=== PATIENT | female | born 1935 | race Caucasian/White ===

== ENCOUNTER → 2016-06-27 | Outpatient (CLI) | payer MEDICARE ==
[~2016-06-27] MED LIST: ACET-2267 PO; ACET325T49 PO; ACLI400A IH; ALBU18HF2 INH; ALBU2.5V4 NEB; ALBUNEBRX IH; ALLO100T PO; ARFO15VI2 IH; ASCO500T20 PO; ASP81CT; ASP81CT PO; ASPI-892 PO; ASPI-983 PO; ASPI-999 PO; ATEN-156 PO; ATEN25TA PO; ATN50T; ATOR20TA66 PO; BONIVA 150MG; BUDE0.5A INH; BUDE0.5A NEB; C250T; CALC-760 PO; CALC-80 PO; CEFP500T4 PO; CEPH500C PO; CHLS4PK PO; CHOL20002 PO; CHOL4PAC19 PO; CILO100T PO; CILO50TA PO; CITA20TA7 PO; CLD600T; CLOP75TA PO; COLC0.6T7 PO; CORICIDIN PC; CRAN500C4 PO; DCS100C PO; DEXT15DR23 OU; DILT120C82 PO; DILT120C85 PO; DLT120CCR PO; DOCU100C37 PO; DOCU100T7 PO; DOXY100T2 PO; ENAL10TA PO; ENLP10T PO; ENOX80DI12 SQ; ENOX80DI7 SC; ENXP40I.4 SC; EZET10TA5 PO; EZET1TAB36 PO; FISH1CAP15 PO; FRSM40T; FRSM40T PO; FURO40TA4 PO; GLIM4TAB; GLIM4TAB PO; GLMP2T PO; GNT.3OO351 OU; INSU100V16 SC; INSU100V5 SQ; IPRA3AMP IH; IPRA3AMP INH; IPRA3AMP NEB; IPRA4AER INH; LACT20SO2 PO; LEVO25TA3 PO; LEVO25TA5 PO; LOVA20TA2 PO; LVT.025T PO; MAGN400C PO; MAGN400T6 PO; MULT-608; MULT1CAP27 PO; MULT1TAB63; NABU750T PO; NABUMETONE 500 MG PO; NABUMETONE PO; NIAC100045 PO; NIAC1CAP PO; NITR-65 PO; NITR0.4T39 SL; NTR.4SL SL; NYST1000 PO; OMEG-11 PO; OMEG-12 PO; OMEP-10; OMEP20TA2 PO; OMEP40CA36 PO; OMG1KC; OXYC-12 PO; PNT40TEC PO; POTA10CA43 PO; POTA10TA36 PO; PRD10T PO; PRD20T PO; SALI45SP MM; SENN1TAB27; STOOL SOFTENER PO; SUCR1TAB PO; Sucralfate PO; TIOT18CA2 IH; VYTORIN 10/40; WARF-48 PO; WARF10TA4 PO; WARF5TAB PO; WARF5TAB6 PO; WARF7.5T PO; WARF7.5T49 PO; WRF10T PO; WRF5T; WRF5T PO; [UNRECOGNIZED DRUG - CODE] PO; [UNRECOGNIZED DRUG - OTHER]; [UNRECOGNIZED DRUG - OTHER]
--- NOTE | 2016-06-27 13:46 | Diagnostic Imaging Report ---
INDICATION: Respiratory distress. EXAMINATION: PA and lateral chest. FINDINGS: There are postop changes from valve repair surgery. Heart size and pulmonary vascularity are normal. Lungs are clear. There are no effusions or pneumothoraces. IMPRESSION: No acute abnormalities in the chest. Dictated by: Dictated on workstation # [id number]
== END ==
LOC: RAD 13:27
PROVIDERS: ATTEND Internal Medicine
DX: J44.9 Chronic obstructive pulmonary disease, unspecified (principal)
CPT/HCPCS: 71020

== ENCOUNTER 2016-07-10 08:22 | Observation (INO) | payer MEDICARE ==
[~2016-07-10] VITALS: Ht 167.6 cm; Wt 73.7 kg
[~2016-07-10 08:22] MED LIST changes: -ACET-2267 PO; -ALBU18HF2 INH; -ALBU2.5V4 NEB; -ASPI-983 PO; -CHOL20002 PO; -CITA20TA7 PO; -CRAN500C4 PO; -GNT.3OO351 OU; -IPRA3AMP NEB; -NITR0.4T39 SL
--- NOTE | 2016-07-10 08:31 | ED General ---
General Stated Complaint: POST OP BLEEDING Source of Information: Patient, EMS History of Present Illness Time Seen by Provider: 08:18 Initial Comments PT ARRIVES VIA EMS FROM HOME PT HAD BLEPHAROPLASTY YESTERDAY AT [address] SAMUEL IN [facility] PT BEGAN HAVING BLEEDING FROM THE INCISIONS ON THE WAY HOME FROM SURGERY YESTERDAY AND BLEEDING HAS CONTINUED ALL NIGHT AND EYES ARE NOW MATTED SHUT WITH DRIED BLOOD--HAS NOT ATTEMPTED TO CLEAN THEM AT ALL AT ANY TIME PT HAS NOT ATTEMPTED TO CONTACT DR. SAMUEL PT TAKES COUMADIN FOR VALVE REPLACEMENT--DID NOT TAKE ANY ON FRIDAY OR FRIDAY, AND TOOK 1/2 PILL LAST PM--HAS BEEN QUITE SOME TIME SINCE SHE HAD PROTIME CHECKED--NOT SURE WHEN SHE LAST HAD IT CHECKED. STATES DR. QUISPE MANAGES HIS COUMADIN. NO RECENT DOSE INCREASES PRIOR TO SURGERY NO SIGNIFICANT PAIN FROM SURGERY PCP: DR. QUISPE WRAPPER AND PRESERVER: DR. CALLOWAY Allergies and Home Medications Allergies Coded Allergies: codeine (Verified Allergy, Unknown, PT HAS REC MORPHINE WITHOUT PROBLEMS, 12/25/15) cortisone (Verified Allergy, Unknown, 12/25/15) tramadol (Verified Allergy, Unknown, 12/25/15) Home Medications Acetaminophen 325 Mg Tablet, 650 MG PO Q6HR PRN for MILD PAIN for 30 Days Prescribed by: JARROD SPENCE on 11/27/15 1007 Aclidinium [place] 400 Mcg Aer.pow.ba, 1 PUFF IH BID, (Reported) Allopurinol 100 Mg Tablet, 100 MG PO BID, (Reported) Ascorbic Acid 500 Mg Tablet, 500 MG PO BID, (Reported) Aspirin 81 Mg Tab.chew, 81 MG PO DAILY, #30 Prescribed by: ANJANA JOHNS on 01/09/16 0752 Atenolol 25 Mg Tablet, 25 MG PO HS, (Reported) Atorvastatin Calcium 20 Mg Tablet, 20 MG PO HS, (Reported) Budesonide 0.5 Mg/2 Ml Ampul.neb, 0.5 MG IH BID, (Reported) Dextran 70/Hypromellose 15 Ml Drops, 1 DROP OU QID PRN for DRY EYES, (Reported) Diltiazem HCl 120 Mg Capsule.er, 120 MG PO DAILY, (Reported) Docusate Sodium 100 Mg Capsule, 100 MG PO DAILY PRN for CONSTIPATION, (Reported) Enalapril Maleate 10 Mg Tablet, 10 MG PO DAILY, (Reported) Furosemide 40 Mg Tablet, 60 MG PO DAILY, (Reported) TAKES 1 & 1/2 (40MG) TABLET Glimepiride 4 Mg Tablet, 4 MG PO DAILY, (Reported) Ipratropium/Albuterol Sulfate 3 Ml Ampul.neb, 3 ML IH BID, (Reported) Levothyroxine Sodium 25 Mcg Tablet, 25 MCG PO DAILY, (Reported) Nabumetone 750 Mg Tablet, 750 MG PO BID, (Reported) Nitrofurantoin Monohyd/M-Cryst 100 Mg Capsule, 1 TAB PO BID, #10 Prescribed by: ANJANA JOHNS on 01/09/162122 Omeprazole 40 Mg Capsule.dr, 40 MG PO DAILY, (Reported) Potassium Chloride 10 Meq Capsule.er, 10 MEQ PO DAILY, (Reported) Warfarin Sodium 5 Mg Tablet, 5 MG PO UD, #30 Mon,Tues,Wed,Thurs,Fri Prescribed by: OBED COLLIER on 01/09/16842 Warfarin Sodium 7.5 Mg Tablet, 7.5 MG PO UD, #30 Sat,Sun Prescribed by: OBED COLLIER on 01/09/16842 Constitutional: no symptoms reported EENTM: see HPI Skin: other Psychiatric/Neurological: No Symptoms Reported Hematologic/Lymphatic: See HPI, Easy Bleeding, Easy Bruising Past Pjefkwr-Pqvaqv-Ningxa Hx Patient Social History Smoking Status: Former Smoker Type Used: Cigarettes Former Smoker/When Quit: Mar 03, 2000 Recent Hopitalizations: Yes Immunizations Up To Date Tetanus Booster (TDap): Unknown Date of Pneumonia Vaccine: Aug 22, 2015 Date of Influenza Vaccine: Dec 25, 2015 Seasonal Allergies Seasonal Allergies: No Surgeries HX Surgeries: Yes (RT HIP, HEART VALVE REPLACEMENT; BILATERAL BLEPHAROPLASTY -DR. SAMUEL) Surgeries: Coronary Stent, Orthopedic, Tonsillectomy, Tubal Ligation, Valve Replacement, Vascular Surgery Respiratory Hx Respiratory Disorders: Yes Respiratory Disorders: Pneumonia, COPD Cardiovascular Hx Cardiac Disorders: Yes Cardiac Disorders: Atrial Fibrillation, Coronary Artery Disease, High Cholesterol, Hypertension, Valvular Heart Disease Neurological Hx Neurological Disorders: Yes Neurological Disorders: Headaches /Migraines, TIA Reproductive System Hx Reproductive Disorders: No Sexually Transmitted Disease: No HIV/AIDS: No Female Reproductive Disorders: Denies Genitourinary Hx Genitourinary Disorders: Yes Genitourinary Disorders: Kidney Infection, UTI-Chronic Gastrointestinal Hx Gastrointestinal Disorders: Yes Gastrointestinal Disorders: Gastroesophageal Reflux, Gastrointestinal Bleed, Hemorrhoids Musculoskeletal Hx Musculoskeletal Disorders: Yes Musculoskeletal Disorders: Arthritis Endocrine Hx Endocrine Disorders: Yes Endocrine Disorders: Hypothyroidsim, Diabetes, Non-Insulin dep HEENT HX ENT Disorders: Yes (BILATERAL BLEPHAROPLASTY) HEENT Disorders: Cataract Cancer Hx Cancer: No Psychosocial Hx Psychiatric Problems: No Integumentary HX Skin/Integumentary Disorder: No Blood Transfusions Hx Blood Disorders: Yes (ANEMIA--ON COUMADIN) Adverse Reaction to a Blood Tr: No Family Medical History Significant Family History: No Pertinent Family Hx Family Medial History: Patient reports no known family medical history. Physical Exam Vital Signs Vital Sign - Last 12Hours 07/10/16 08:25 Temp 97.9 Pulse 80 Resp 16 B/P (MAP) 181/93 Pulse Ox 96 O2 Delivery Room Air Capillary Refill : General Appearance: No Apparent Distress, WD/WN, Other (DRIED BLOOD ON CLOTHING , ON FACE, AND DOWN NECK. BOTH EYES MATTED SHUT WITH DRIED BLOOD, WITH MILD CONSTANT OOZING FROM SURGICAL WOUNDS TO UPPER LIDS-RIGHT > LEFT. WOUNDS APPEAR INTACT. ) HEENT: Other (BILATERAL PERIORBITAL HEMATOMAS. CONJUNCTIVA CLEAR BILATERALLY .SURGICAL WOUNDS TO UPPER LIDS BILATERALLY. ) Neurologic/Psychiatric: Alert, Oriented x3 Skin: Normal Color, Warm/Dry, Ecchymosis (BRUISING TO FOREARMS AND LEGS OF VARIOUS AGES, MODERATE BILATERAL PERIORBITAL HEMATOMAS) Progress/Results/Core Measures Results/Orders Lab Results Laboratory Tests Test 07/10/16 08:25 Range/Units White Blood Count 6.9 4.3-11.0 10^3/uL Red Blood Count 3.79 L 4.35-5.85 10^6/uL Hemoglobin 11.9 11.5-16.0 G/DL Hematocrit 36 35-52 % Mean Corpuscular Volume 95 80-99 FL Mean Corpuscular Hemoglobin 31 25-34 PG Mean Corpuscular Hemoglobin Concent 33 32-36 G/DL Red Cell Distribution Width 14.6 H 10.0-14.5 % Platelet Count 226 130-400 10^3/uL Mean Platelet Volume 11.0 H 7.4-10.4 FL Neutrophils (%) (Auto) 67 42-75 % Lymphocytes (%) (Auto) 19 12-44 % Monocytes (%) (Auto) 7 0-12 % Eosinophils (%) (Auto) 6 0-10 % Basophils (%) (Auto) 1 0-10 % Neutrophils # (Auto) 4.6 1.8-7.8 X 10^3 Lymphocytes # (Auto) 1.3 1.0-4.0 X 10^3 Monocytes # (Auto) 0.5 0.0-1.0 X 10^3 Eosinophils # (Auto) 0.4 H 0.0-0.3 10^3/uL Basophils # (Auto) 0.1 0.0-0.1 10^3/uL Prothrombin Time 87.5 *H 12.2-14.7 SEC INR Comment 11.0 *H 0.8-1.4 Activated Partial Thromboplast Time 67 H 24-35 SEC Sodium Level 133 L 135-145 MMOL/L Potassium Level 5.1 H 3.6-5.0 MMOL/L Chloride Level 98 98-107 MMOL/L Carbon Dioxide Level 22 21-32 MMOL/L Anion Gap 13 5-14 MMOL/L Blood Urea Nitrogen 32 H 7-18 MG/DL Creatinine 1.65 H 0.60-1.30 MG/DL Estimat Glomerular Filtration Rate 30 BUN/Creatinine Ratio 19 Glucose Level 134 H 70-105 MG/DL Calcium Level 9.3 8.5-10.1 MG/DL Total Bilirubin 0.4 0.1-1.0 MG/DL Aspartate Amino Transf (AST/SGOT) 28 5-34 U/L Alanine Aminotransferase (ALT/SGPT) 26 0-55 U/L Alkaline Phosphatase 53 40-136 U/L Total Protein 6.6 6.4-8.2 G/DL Albumin 3.5 3.2-4.5 G/DL My Orders Orders - LARRY GREGORIO DO Cbc With Automated Diff (07/10/16 08:24) Protime With Inr (07/10/16 08:24) Partial Thromboplastin Time (07/10/16 08:24) Comprehensive Metabolic Panel (07/10/16 09:02) Phytonadione (Adult) Injection (Aquameph (07/10/16 09:15) Vital Signs/I&O Vital Sign - Last 12Hours 07/10/16 07/10/16 07/10/16 08:25 09:41 10:16 Temp 97.9 97.9 96.8 Pulse 80 80 95 Resp 16 16 20 B/P (MAP) 181/93 128/72 Pulse Ox 96 96 93 O2 Delivery Room Air Room Air Departure Communication Progress Notes 08--ATTEMPTING TO CONTACT DR. SMAUEL--MESSAGE LEFT WITH OFFICE STAFF FOR HIM TO CALL ER [phone]-PAGED/ SPOKE WITH DR. CALLOWAY--HE DEFERS TO HOSPITALIST FOR MANAGEMENT OF ANTICOAGULATION/REVERSAL 900--SPOKE WITH DR HEADLEY, ACCEPTS PT FOR ADMIT, AFTER SURGEON IS CONSULTED, SHE ADVISES TO GIVE VITAMIN K 10 MG SUB Q 914--SPOKE WITH DR. SAMUEL, HE DOES NOT ADVISE ANY OTHER TREATMENT OF WOUNDS AT THIS TIME, BUT HE WILL SEE PT IN CONSULT LATER TODAY. Impression Impression: Primary Impression: Post-op bleeding Additional Impressions: Excessive anticoagulation S/p bilateral blepharoplasty Disposition: ADMITTED INPATIENT Condition: Stable Decision to Admit Reason: Admit from ER (General) Decision to Admit/Date: July 10, 2016 Time/Decision to Admit Time: 09:00 Departure-Patient Inst. Referrals: SEDRICK QUISPE DO (PCP/Family) Primary Care Physician LARRY GREGORIO DO July 10, 2016 08:31
[2016-07-10 08:33] LABS: BASOPHILS # (AUTO) 0.1 10^3/uL (0.0-0.1); BASOPHILS % (AUTO) 1 % (0-10); EOSINOPHILS # (AUTO) 0.4 10^3/uL (0.0-0.3); EOSINOPHILS % (AUTO) 6 % (0-10); LYMPHOCYTES # (AUTO) 1.3 X 10^3 (1.0-4.0); LYMPHOCYTES % (AUTO) 19 % (12-44); MEAN CORPUSCULAR HEMOGLOBIN 31 PG (25-34); MEAN CORPUSCULAR HGB CONC 33 G/DL (32-36); MEAN CORPUSCULAR VOLUME 95 FL (80-99); MONOCYTES # (AUTO) 0.5 X 10^3 (0.0-1.0); MONOCYTES % (AUTO) 7 % (0-12); NEUTROPHILS # (AUTO) 4.6 X 10^3 (1.8-7.8); NEUTROPHILS % (AUTO) 67 % (42-75); PLATELET COUNT 226 10^3/uL (130-400); RED BLOOD COUNT 3.79 10^6/uL (4.35-5.85); RED CELL DISTRIBUTION WIDTH 14.6 % (10.0-14.5); WHITE BLOOD COUNT 6.9 10^3/uL (4.3-11.0)
[2016-07-10 08:55] LABS: PROTHROMBIN TIME PATIENT 87.5 SEC (12.2-14.7)
[2016-07-10] MEDS ORDERED: PHYTONADIONE (VIT. K) 10 MG/ML AMP SQ ONE (09:15)
[2016-07-10 10:16] VITALS: BP 128/72
--- NOTE | 2016-07-10 10:33 | History & Physical-Hospitalist ---
HPI History of Present Illness: HPI/Chief Complaint CC: Bleeding from eyes following blepharoplasty by Dr. Samuel yesterday HPI: This is an 80-year-old white female clinic patient of Dr. 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 Her INR in the ER was noted to be 11 and she had held her Coumadin for the past 2 days so vitamin K was given due to the severity of the bleeding and will be closely monitoring hemoglobin and Dr. Samuel was notified and he will see the patient in consultation today. I did check with primary care provider office and her last INR was checked 06/17/16 and it was 3.2. She reports that she doesn't get her INR checked very often but that is confusing considering I just spoke to the office of Dr. Cano and they have monthly INR checks. At this current time we'll monitor closely INR supportive care and will monitor hemoglobin closely. Source: patient Exam Limitations: no limitations Date Seen 07/10/16 Attending Physician Mary Spence DO PCP Shin Cano DO Referring Physician Date of Admission July 10, 2016 at 09:00 Home Medications & Allergies Home Medications Reviewed patient Home Medication Reconciliation Form Allergies Allergies Coded Allergies codeine (Verified Allergy, Unknown, PT HAS REC MORPHINE WITHOUT PROBLEMS, ) cortisone (Verified Allergy, Unknown, 12/25/15) tramadol (Verified Allergy, Unknown, 12/25/15) Past Viqvrrq-Packyx-[place] Hx Patient Social History Marrital Status: Employed/Student: retired Alcohol Use: Denies Use Recreational Drug Use: No Smoking Status: Former Smoker Former smoker/When Quit: Mar 03, 2000 Type Used: Cigarettes 2nd Hand Smoke Exposure: No Recent Foreign Travel: No Contact w/other who traveled: No Recent Hopitalizations: Yes Recent Infectious Disease Expo: No Immunizations Up To Date Tetanus Booster (TDap): Unknown Date of Pneumonia Vaccine: Aug 22, 2015 Date of Influenza Vaccine: Dec 25, 2015 Seasonal Allergies Seasonal Allergies: No Surgeries HX Surgeries: Yes (RT HIP, HEART VALVE REPLACEMENT; BILATERAL BLEPHAROPLASTY -DR. SAMUEL) Surgeries: Coronary Stent, Orthopedic, Tonsillectomy, Tubal Ligation, Valve Replacement, Vascular Surgery Respiratory Hx Respiratory Disorders: Yes Respiratory Disorders: Chronic Bronchitis, COPD (wears O2 at night), Pneumonia Cardiovascular Hx Cardiovascular Disorders: Yes Cardiac Disorders: Atrial Fibrillation, Coronary Artery Disease, High Cholesterol, Hypertension, Valvular Heart Disease Neurological Hx Neurological Disorders: Yes Neurological Disorders: Headaches /Migraines, TIA Reproductive System Hx Reproductive Disorders: No Sexually Transmitted Disease: No HIV/AIDS: No Female Reproductive Disorders: Denies Genitourinary Hx Genitourinary Disorders: Yes Genitourinary Disorders: Kidney Infection, UTI-Chronic Gastrointestinal Hx Gastrointestinal Disorders: Yes Gastrointestinal Disorders: Gastroesophageal Reflux, Gastrointestinal Bleed, Hemorrhoids Musculoskeletal Hx Musculoskeletal Disorders: Yes Musculoskeletal Disorders: Arthritis Endocrine Hx Endocrine Disorders: Yes Endocrine Disorders: Hypothyroidsim, Diabetes, Non-Insulin dep HEENT HX ENT Disorders: Yes (BILATERAL BLEPHAROPLASTY) HEENT Disorders: Cataract Cancer Hx Cancer: No Psychosocial Hx Psychiatric Problems: No Integumentary HX Skin/Integumentary Disorder: No Blood Transfusions Hx Blood Disorders: Yes (ANEMIA--ON COUMADIN) Adverse Reaction to a Blood Tr: No Family Medical History Significant Family History: No Pertinent Family Hx Family Hx: Patient reports no known family medical history. Review of Systems Constitutional: see HPI EENTM: eye pain, other (bleeding from eyes) Respiratory: no symptoms reported Cardiovascular: no symptoms reported Genitourinary: no symptoms reported Musculoskeletal: no symptoms reported Skin: no symptoms reported Psychiatric/Neurological: No Symptoms Reported All Other Systems Reviewed Negative Unless Noted: Yes Physical Exam Physical Exam Vital Signs Vital Sign - Last 12Hours 07/10/16 08:25 Temp 97.9 Pulse 80 Resp 16 B/P (MAP) 181/93 Pulse Ox 96 O2 Delivery Room Air Capillary Refill : Less Than 3 Seconds General Appearance: No Apparent Distress, WD/WN, Chronically ill Eyes: Bilateral Eye Normal Inspection (crusted bleeding around eyes), Bilateral Eye PERRL (crusted bleeding around eyes) HEENT: PERRL/EOMI, Normal ENT Inspection, Pharynx Normal Neck: Full Range of Motion, Normal Inspection, Non Tender, Supple, Carotid Bruit Respiratory: Chest Non Tender, Lungs Clear, Normal Breath Sounds, No Accessory Muscle Use, No Respiratory Distress Cardiovascular: No Edema, No Gallop, No JVD, Normal Peripheral Pulses, Systolic Murmur, Irregularly Irregular Gastrointestinal: Normal Bowel Sounds, No Organomegaly, No Pulsatile Mass, Non Tender, Soft Back: Normal Inspection, No CVA Tenderness, No Vertebral Tenderness Extremity: Normal Capillary Refill, Normal Inspection, Normal Range of Motion, Non Tender, No Calf Tenderness, No Pedal Edema Neurologic/Psychiatric: Alert, Oriented x3, No Motor/Sensory Deficits, Depressed Affect Skin: Normal Color, Warm/Dry Lymphatic: No Adenopathy Results Results/Procedures Lab Laboratory Tests 07/10/16 08:25 Assessment/Plan Admission Diagnosis Assessment: Profuse eye tissue bleeding due to severe coagulopathy due to Coumadin with INR of 11 status post blepharoplasty by Dr. Samuel yesterday History of valve replacement on Coumadin Prior CVA due to subtherapeutic Coumadin level requiring rehabilitation COPD worse oxygen at night Poor memory recall SAMMY DM Assessment and Plan Plan: Monitor INR Vitamin K given Dr. Samuel consultation appreciated MARY SPENCE DO July 10, 2016 10:33
[2016-07-10 10:36] LABS: ALBUMIN 3.5 G/DL (3.2-4.5); BILIRUBIN,TOTAL 0.4 MG/DL (0.1-1.0); CALCIUM 9.3 MG/DL (8.5-10.1); CREATININE SERUM 1.65 MG/DL (0.60-1.30); TOTAL PROTEIN 6.6 G/DL (6.4-8.2)
[2016-07-10 10:37] LABS: POTASSIUM 5.1 MMOL/L (3.6-5.0)
--- NOTE | 2016-07-10 10:53 | Consultation-Cardiology ---
HPI-Cardiology Cardiology Consultation: Date of Consultation 07/10/16 Date of Admission 07-10-16 Attending Physician Mary Bernal DO Admitting Physician Shin Cano DO Consulting Physician Oz Estrella MD HPI: Chief Complaint: Supra therapeutic INR Ms. Lion is an 80year old female admitted to [facility]. She reports she had eyelid surgery yesterday by Dr. Anderson in [facility]. She reports that she began to have bleeding at the surgical sites while on the way home and she was unable to get the bleeding to stop. She reports the bleeding of her eyelids continues. She states she continues to follow with Dr. Cano regarding her pro-time, but does admit it has been some time since her last check. She reports it was checked last month and the level was "good". She is not reporting any chest pain, SOB, palpitations. Review of Systems-Cardiology Review of Systems Constitutional: As described under HPI Eyes: No blurred vision, No drainage, No pain, other (Bleeding at post surgical following eyelid surgery), No vision change Ears/Nose/Throat: No ear discharge, No ear pain, No nasal drainage, No ulcerations Respiratory: As described under HPI Cardiovascular: As described under HPI Gastrointestinal: No constipation, No diarrhea, No nausea, No vomiting, No stool coloration changes Genitourinary: No dysuria, No discharge, No frequency, No hematuria, No urgency Skin: No rash, No skin related problems, No ulcerations Psychiatric/Neurological: No anxiety, No depression, No focal weakness, No seizure, No syncope Hematologic: No bleeding abnormalities All Other Systems Reviewed Negative Unless Noted: Yes [id number] Hx Patient Social History Marrital Status: Employed/Student: retired Alcohol Use: Denies Use Recreational Drug Use: No Smoking Status: Former Smoker Former smoker/When Quit: Mar 03, 2000 Type Used: Cigarettes 2nd Hand Smoke Exposure: No Recent Foreign Travel: No Recent Infectious Disease Expo: No Hospitalization with Isolation: Denies Immunizations Up To Date Tetanus Booster (TDap): Unknown Date of Pneumonia Vaccine: Aug 22, 2015 Date of Influenza Vaccine: Dec 25, 2015 Past Medical History PMH As described under Assessment. Family Medical History Family History: Patient reports no known family medical history. Allergies and Home Medications Allergies Coded Allergies: codeine (Verified Allergy, Unknown, PT HAS REC MORPHINE WITHOUT PROBLEMS, 12/25/15) cortisone (Verified Allergy, Unknown, 12/25/15) tramadol (Verified Allergy, Unknown, 12/25/15) Home Medications Acetaminophen 500 Mg Tablet, 1,000 MG PO Q4H PRN for PAIN-MILD, (Reported) Aclidinium [place] 400 Mcg Aer.pow.ba, 1 PUFF IH BID, (Reported) Albuterol Sulfate 2.5 Mg/3 Ml Vial.neb, 2.5 MG NEB HS, (Reported) Albuterol Sulfate 18 Gm Hfa.aer.ad, 2 PUFF INH Q4H PRN for SHORTNESS OF BREATH, (Reported) Allopurinol 100 Mg Tablet, 100 MG PO BID, (Reported) Ascorbic Acid 500 Mg Tablet, 500 MG PO BID, (Reported) Aspirin 81 Mg Tablet.dr, 81 MG PO DAILY, (Reported) Atenolol 25 Mg Tablet, 25 MG PO HS, (Reported) Atorvastatin Calcium 20 Mg Tablet, 20 MG PO HS, (Reported) Budesonide 0.5 Mg/2 Ml Ampul.neb, 0.5 MG NEB 0800,1600, (Reported) Cholecalciferol (Vitamin D3) 2,000 Unit Capsule, 2,000 UNIT PO DAILY, (Reported) Citalopram Hydrobromide 20 Mg Tablet, 20 MG PO HS, (Reported) Cranberry Extract 500 Mg Capsule, 500 MG PO DAILY, (Reported) Dextran 70/Hypromellose 15 Ml Drops, 1 DROP OU QID PRN for DRY EYES, (Reported) Diltiazem HCl 120 Mg Capsule.er, 120 MG PO DAILY, (Reported) Docusate Sodium 100 Mg Capsule, 100 MG PO DAILY PRN for CONSTIPATION, (Reported) Enalapril Maleate 10 Mg Tablet, 10 MG PO DAILY, (Reported) Furosemide 40 Mg Tablet, 60 MG PO DAILY, (Reported) TAKES 1 & 1/2 (40MG) TABLET Gentamicin Sulfate 3.5 Gm Oint...g., OU DAILY, (Reported) APPLY TO UPPER EYE LIDS Glimepiride 4 Mg Tablet, 4 MG PO DAILY, (Reported) Levothyroxine Sodium 25 Mcg Tablet, 25 MCG PO DAILY, (Reported) Nabumetone 750 Mg Tablet, 750 MG PO BID, (Reported) Nitroglycerin 0.4 Mg Tab.subl, 0.4 MG SL UD PRN for CHEST PAIN, (Reported) Omeprazole 40 Mg Capsule.dr, 40 MG PO DAILY, (Reported) Potassium Chloride 10 Meq Capsule.er, 10 MEQ PO DAILY, (Reported) Warfarin Sodium 5 Mg Tablet, 10 MG PO Q48H, (Reported) Warfarin Sodium 5 Mg Tablet, 7.5 MG PO Q48H, (Reported) Physical Exam-Cardiology Physical Exam Vital Signs/I&O Vital Sign - Last 12Hours 07/10/16 07/10/16 07/10/16 08:25 09:41 10:16 Temp 97.9 97.9 96.8 Pulse 80 80 95 Resp 16 16 20 B/P (MAP) 181/93 128/72 Pulse Ox 96 96 93 O2 Delivery Room Air Room Air Capillary Refill : Less Than 3 Seconds Constitutional: AAO x 3, well-developed, well-nourished HEENT: other (Dressing applied to bilat eyes; visible blood seen on the dressing; dressing not removed), hearing is well preserved, oral hygience is good, No ulceration Neck: No carotid bruit, carotid pulses are 2 + bilaterally Respiratory: No accessory muscle use, No respiratory distress, chest expansion is symmetric, chest is bilaterally symmetric, lungs clear to auscultation Cardiovascular: regular rate-rhythm, No JVD, S1 and S2, other (crisp, mechanical valve sound) Gastrointestinal: No tender, soft, round Rectal: deferred Extremities: no lower extremity edema bilateral Neurologic/Psychiatric: power is 5/5 both on sides Skin: other (brusing noted to thighs and toes bilat) Data Review Labs Laboratory Tests 07/10/16 08:25: White Blood Count 6.9, Red Blood Count 3.79L, Hemoglobin 11.9, Hematocrit 36, Mean Corpuscular Volume 95, Mean Corpuscular Hemoglobin 31, Mean Corpuscular Hemoglobin Concent 33, Red Cell Distribution Width 14.6H, Platelet Count 226, Mean Platelet Volume 11.0H, Neutrophils (%) (Auto) 67, Lymphocytes (%) (Auto) 19 , Monocytes (%) (Auto) 7, Eosinophils (%) (Auto) 6, Basophils (%) (Auto) 1, Neutrophils # (Auto) 4.6, Lymphocytes # (Auto) 1.3, Monocytes # (Auto) 0.5, Eosinophils # (Auto) 0.4H, Basophils # (Auto) 0.1, Prothrombin Time 87.5*H, INR Comment 11.0*H, Activated Partial Thromboplast Time 67H, Sodium Level 133L, Potassium Level 5.1H, Chloride Level 98, Carbon Dioxide Level 22, Anion Gap 13, Blood Urea Nitrogen 32H, Creatinine 1.65H, Estimat Glomerular Filtration Rate 30 , BUN/Creatinine Ratio 19, Glucose Level 134H, Calcium Level 9.3, Total Bilirubin 0.4, Aspartate Amino Transf (AST/SGOT) 28, Alanine Aminotransferase ( ALT/SGPT) 26, Alkaline Phosphatase 53, Total Protein 6.6, Albumin 3.5 07/10/16 12:21: Prothrombin Time 76.2*H, INR Comment 9.2*H, Activated Partial Thromboplast Time 66H A/P-Cardiology Assessment/Admission Diagnosis Supra-therapeutic INR S/P bilat eyelid surgery d/t ptosis by Dr. Buckner on 07-09-16 Chronic warfarin anticoagulation, managed by Dr Cano CVA: L-sided weakness and L-visual field cut in Dec 2015. 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 She has undergone bilateral kissing stents of both common iliacs and extensive balloon angioplasty and stenting of the R SFA by Dr Loaiza on 12/31/13. Subsequently, on 01/07/14, Dr Loaiza did stenting of L SFA and successful balloon angioplasty of L peroneal and L anterior tibial arteries, but angioplasty to chronic occlusion of L posterior tibial was unsuccessful and resulted in subintimal dissection, continue to monitor Chronic sinus tachycardia which has improved following reduction in Albuterol Obstructive sleep apnea: CPAP therapy being managed by Dr. Payne. Cardiac cath of 06-24-2013 showed CAD, mild to moderate. Moderate mid vessel stenosis of the LAD with fractional flow reserve across the lesion of 0.95. Moderate mid vessel stenosis of the RCA with fractional flow reserve across the lesion of 0.95. Patent stents in the proximal left circumflex and the mid RCA which were placed in 2004 MPI of 07-18-15 did not indicate significant myocardial ischemia or infarction. Normal regional wall motion. Normal global LV systolic function with calculated ejection fraction of 69%. 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 The last echocardiogram was in November 2012. It showed adequately functioning aortic and mitral valves. Peak gradient across the aortic value was 21 mmHg, unchanged compared to the study of 2009. . Echocardiogram of December 2015 showed moderate concentric left ventricular hypertrophy. Normal global left ventricular systolic function with an ejection fraction of approximately 65%. Mechanical prosthetic aortic valve, by history, not well visualized on this study. Peak gradient across the aortic valve is approximately 55 mmHg and the aortic valve area is calculated to be approximately 1.2 sq cm. Mitral annular calcification without evidence of significant mitral stenosis. Diastolic dysfunction of the left ventricle is indicated on this study. Mild to moderate mitral and tricuspid regurgitation. Pulmonary artery systolic pressure is estimated to be 50 to 55 mmHg. Left internal carotid artery stenosis of 60-79%, right internal carotid artery stenosis of less thatn 40% per u/s of 05/17/16 Hyperlipidemia being treated with lovastatin and being followed by Dr. Cano. Heme-positive stools in Jan 2014. Diffuse erosive gastritis, hemorrhoids, diverticulitis, no active bleeding per endoscopy in Jan [address] Rodgers, treated with H2 angie, PPI and Carafate (managed by Dr Rodgers). Recurrent heme (+) stools in March 2014 - capsule endoscopy History of transient ischemic attacks. Borderline diabetes mellitus being managed by Dr. Cano. Right rotator cuff repair on 11/28/[address] Woodward due to a torn rotator cuff. Discussion and Recomendations Supra therapeutic INR today (11.0). She had bilat eyelid surgery yesterday by Dr. Buckner in [place], [place] d/t ptosis. She has had a significant amount of bleeding since surgery which they were unable to get stopped at home. She is on OAC d/t mechanical prosthetic aortic valve. Currently warfarin is being withheld and she has received Vit K. Monitor INR closely and resume warfarin when INR is less than 3.0. Continue home antihypertensives. Further recommendations will be based on he hospital course. We would like to thank the Hospitalist service for this consult. This consult is being scribed by Amari Jerry APRN on behalf of Dr. Estrella after discussion regarding plan of care. Physician Assessment Physician Assessment Lungs: good bilat air entry Cor: irreg, crisp heart valve sounds A&R * As documented in our note above * Complex management due to multiple comorbidities * Seems like she has not been compliant with INR f/u. Have advised compliance. Have request Soc Svces consult to help with home issues and help with compliance issues * I spoke with her and answered her questions in detail OBED JERRY [employer]ACE [employer]KER July 10, 2016 10:53 OZ ESTRELLA MD FACP FAC CCDS July 10, 2016 13:27
[2016-07-10 12:00] VITALS: BP 129/63
[2016-07-10] MEDS ORDERED: ACET-2267 PO (12:03)
[2016-07-10] MEDS ORDERED: NITR0.4T39 SL (12:03)
[2016-07-10] MEDS ORDERED: ALBU2.5V4 NEB (12:03)
[2016-07-10] MEDS ORDERED: ASPI-983 PO (12:03)
[2016-07-10] MEDS ORDERED: WARF-48 PO (12:03)
[2016-07-10] MEDS ORDERED: GNT.3OO351 OU (12:03)
[2016-07-10] MEDS ORDERED: CITA20TA7 PO (12:03)
[2016-07-10] MEDS ORDERED: CHOL20002 PO (12:10)
[2016-07-10] MEDS ORDERED: ALBU18HF2 INH (12:10)
[2016-07-10] MEDS ORDERED: CRAN500C4 PO (12:10)
[2016-07-10 12:56] LABS: PROTHROMBIN TIME PATIENT 76.2 SEC (12.2-14.7)
[2016-07-10 12:57] LABS: INR 9.2 (0.8-1.4)
[2016-07-10] MEDS ORDERED: NITROGLYCERIN SUBLINGUAL 0.4 MG TAB (NITROSTAT) SL PRN (13:45)
[2016-07-10] MEDS ORDERED: DOCUSATE SODIUM 100 MG (COLACE) CAP PO PRN ×2 (13:45→15:32)
[2016-07-10] MEDS ORDERED: RX-ALBUTEROL INHALER (VENTOLIN HFA) 18 GM IH PRN (13:45)
[2016-07-10] MEDS ORDERED: ACETAMINOPHEN 500 MG TAB (TYLENOL) PO PRN (13:45)
[2016-07-10] MEDS ORDERED: NON-FORMULARY MEDICATION 1 EA EA (Dextran 70/Hypromellose (Natural Balance Tears Eye Drop) OU PRN (13:45)
[2016-07-10] MEDS ORDERED: RT-ALBUTEROL SULF 2.5 MG/3 ML PRE-MIX VIAL IH PRN (14:00)
[2016-07-10] MEDS ORDERED: ARTIFICAL TEARS 0.4 ML UNIT DOSE (REFRESH PLUS) OU PRN (14:15)
[2016-07-10] MEDS ORDERED: PATIENT MAY USE OWN MEDS, ALL MC SCH (14:45)
--- NOTE | 2016-07-10 15:27 | Occ Therapy Progress Note ---
Therapy Progress Note Order received. Pt. asleep. Has bandages over eyes with seepage of blood. Will attempt back in morning as pt. is able to tolerate. 1, visit 1520 BIANCA CORRALES OT July 10, 2016 15:27
[2016-07-10] MEDS ORDERED: IPRA3AMP NEB (15:52)
[2016-07-10] MEDS ORDERED: ALBUTEROL INHALER HFA (VENTOLIN HFA) 18 GM IH PRN ×2 (16:00→16:15)
[2016-07-10] MEDS: RT-BUDESONIDE NEBS 0.5 MG/2ML (PULMICORT) AMP INH SCH ×2 (16:00→19:34)
[2016-07-10] MEDS: ASCORBIC ACID (VIT C) 500 MG TABLET PO SCH (18:12)
[2016-07-10] MEDS: RT-ALBUTEROL SULF 2.5 MG/3 ML PRE-MIX VIAL INH SCH (19:34)
[2016-07-10 20:35] VITALS: BP 118/62
[2016-07-10] MEDS ORDERED: ACLIDINIUM BROMIDE IH SCH (21:00)
[2016-07-10] MEDS: ALLOPURINOL 100 MG (ZYLOPRIM) TAB PO SCH (21:13)
[2016-07-10] MEDS: ATORVASTATIN 20 MG (LIPITOR) TABLET PO SCH (21:13)
[2016-07-10] MEDS: ATENOLOL 25 MG (TENORMIN) TAB PO SCH (21:14)
[2016-07-10] MEDS: NABUMETONE 750 MG PO SCH (21:14)
[2016-07-11 00:33] VITALS: BP 138/65
[2016-07-11 04:00] VITALS: BP 120/58
[2016-07-11 04:38] LABS: BASOPHILS # (AUTO) 0.1 10^3/uL (0.0-0.1); BASOPHILS % (AUTO) 1 % (0-10); EOSINOPHILS # (AUTO) 0.4 10^3/uL (0.0-0.3); EOSINOPHILS % (AUTO) 6 % (0-10); LYMPHOCYTES # (AUTO) 1.3 X 10^3 (1.0-4.0); LYMPHOCYTES % (AUTO) 20 % (12-44); MEAN CORPUSCULAR HEMOGLOBIN 31 PG (25-34); MEAN CORPUSCULAR HGB CONC 33 G/DL (32-36); MEAN CORPUSCULAR VOLUME 95 FL (80-99); MEAN PLATELET VOLUME 11.1 FL (7.4-10.4); MONOCYTES # (AUTO) 0.6 X 10^3 (0.0-1.0); MONOCYTES % (AUTO) 10 % (0-12); NEUTROPHILS # (AUTO) 4.1 X 10^3 (1.8-7.8); NEUTROPHILS % (AUTO) 64 % (42-75); PLATELET COUNT 232 10^3/uL (130-400); RED CELL DISTRIBUTION WIDTH 14.3 % (10.0-14.5); WHITE BLOOD COUNT 6.4 10^3/uL (4.3-11.0)
[2016-07-11 04:59] LABS: ALBUMIN 3.1 G/DL (3.2-4.5); BILIRUBIN,TOTAL 0.4 MG/DL (0.1-1.0); CALCIUM 9.4 MG/DL (8.5-10.1); CREATININE SERUM 1.19 MG/DL (0.60-1.30); POTASSIUM 4.7 MMOL/L (3.6-5.0); TOTAL PROTEIN 5.9 G/DL (6.4-8.2)
[2016-07-11 05:13] LABS: PROTHROMBIN TIME PATIENT 55.6 SEC (12.2-14.7)
[2016-07-11 05:14] LABS: INR 6.2 (0.8-1.4)
[2016-07-11] MEDS: LEVOTHYROXINE 25 MCG (LEVOTHROID) TAB PO SCH (06:53)
[2016-07-11] MEDS: OMEPRAZOLE 40 MG CAP PO SCH (06:54)
[2016-07-11] MEDS: KCL 10 MEQ PO SCH (07:39)
[2016-07-11] MEDS: GLIMEPIRIDE 4 MG (AMARYL) TAB PO SCH (07:39)
[2016-07-11] MEDS: ASCORBIC ACID (VIT C) 500 MG TABLET PO SCH ×2 (07:40→18:16)
[2016-07-11] MEDS: UMECLIDINIUM BROMIDE (INCRUSE ELLIPTA) 7'S IH SCH (07:43)
[2016-07-11] MEDS: RT-BUDESONIDE NEBS 0.5 MG/2ML (PULMICORT) AMP INH SCH ×3 (07:44→20:34)
[2016-07-11 07:55] VITALS: BP 118/59
[2016-07-11] MEDS ORDERED: NON-FORMULARY MEDICATION 1 EA EA (Cholecalciferol (Vitamin D3) (Vitamin D-3) 2,000 UNIT) PO SCH (09:00)
[2016-07-11] MEDS ORDERED: NON-FORMULARY MEDICATION 1 EA EA (Cranberry Extract (Cranberry) 500 MG) PO SCH (09:00)
[2016-07-11] MEDS ORDERED: NON-FORMULARY MEDICATION 1 EA EA (Diltiazem HCl (Diltiazem ER) 120 MG) PO SCH (09:00)
[2016-07-11] MEDS ORDERED: NON-FORMULARY MEDICATION 1 EA EA (Omeprazole 40 MG) PO SCH (09:00)
[2016-07-11] MEDS ORDERED: NON-FORMULARY MEDICATION 1 EA EA (Potassium Chloride 10 MEQ) PO SCH (09:00)
[2016-07-11] MEDS ORDERED: VITAMIN K 1 MG/ML ORAL SOLN 1 ML SYRINGE PO NR (10:07)
[2016-07-11] MEDS: ALLOPURINOL 100 MG (ZYLOPRIM) TAB PO SCH ×2 (10:32→21:12)
[2016-07-11] MEDS: ENALAPRIL 10 MG (VASOTEC) TAB PO SCH (10:32)
[2016-07-11] MEDS: NABUMETONE 750 MG PO SCH ×2 (10:33→21:08)
[2016-07-11] MEDS: DILTIAZEM 120 MG (CARDIZEM CD) CAP PO SCH (10:33)
[2016-07-11] MEDS: VITAMIN D3 2000 UNITS PO SCH (10:34)
[2016-07-11] MEDS: FUROSEMIDE 40 MG (LASIX) TAB PO SCH (10:34)
--- NOTE | 2016-07-11 10:41 | Progress Note-Hospitalist ---
Progress Note HPI/CC on Admission CC: Bleeding from eyes following blepharoplasty by Dr. Buckner yesterday HPI: This is an 80-year-old white female clinic patient of Dr. 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 Her INR in the ER was noted to be 11 and she had held her Coumadin for the past 2 days so vitamin K was given due to the severity of the bleeding and will be closely monitoring hemoglobin and Dr. Buckner was notified and he will see the patient in consultation today. I did check with primary care provider office and her last INR was checked 06/17/16 and it was 3.2. She reports that she doesn't get her INR checked very often but that is confusing considering I just spoke to the office of Dr. Cano and they have monthly INR checks. At this current time we'll monitor closely INR supportive care and will monitor hemoglobin closely. Progress Notes/Assess & Plan Date Seen 07/11/16 Admission Dx/Process Assessment: Profuse eye tissue bleeding due to severe coagulopathy due to Coumadin with INR of 11 status post blepharoplasty by Dr. Buckner yesterday History of valve replacement on Coumadin Prior CVA due to subtherapeutic Coumadin level requiring rehabilitation COPD worse oxygen at night Poor memory recall SAMMY DM Diagonsis/Assessment & Plan Chart Review: WBC 6.4 Hgb 11.3 Na+ 133 Creat normal 1.19 INR 6.2 Patient Interview: Pt states that she has not seen Dr. Buckner yet today and pt was informed that Dr. Spence has been discussing the pt's care with him. Pt is not experiencing pain currently. Pt admits to receiving breathing treatments. Physical exam stable. Lungs sound perfect. Pt's labs were discussed and she was informed that her labs look good but she will be receiving Vitamin K today. Pt's son will be home to take care of the pt. No fever, vital signs stable, pleasant, still with eyes covered in Kerlix with slight bleeding is continuing Irregular irregular rhythm with click Clear to auscultation bilaterally but subtle wheeze right lower lobe No edema Laboratory Tests 07/11/16 04:11 Assessment: Profuse eye tissue bleeding due to severe coagulopathy due to Coumadin with INR of 11 status post blepharoplasty by Dr. Buckner 2 days ago now INR 6.2 so added an additional Vit K PO 2.5mg History of valve replacement on Coumadin so difficult to achieve balance between coagulopathy and subtherapeutic INR placing risk for thrombosis on cardiac valve Prior CVA due to subtherapeutic Coumadin level requiring rehabilitation COPD worse oxygen at night Poor memory recall SAMMY DM Hyponatermia Plan: Monitor INR Vitamin K given again PO DC home tomorrow if INR adequate with close f/u INR with Dr. Cano. Home health Acccuhecks Scribed by Stacy Sprague under the direct supervision of Dr. Spence. JARROD SPENCE DO July 11, 2016 10:41
[2016-07-11 12:00] VITALS: BP 123/58
--- NOTE | 2016-07-11 12:15 | Occupational Therapy Eval ---
OT Evaluation-General/PLF Medical Diagnosis Admission Date July 10, 2016 at 09:00 Medical Diagnosis: Began to bleed after blepharoplasty Onset Date: July 10, 2016 Therapy Diagnosis Therapy Diagnosis: Decreased ADL skills Height/Weight Height (Feet): 5 Height (Inches): 6.00 Weight (Pounds): 162 Weight (Ounces): 8.0 Precautions Precautions/Isolations: Fall Prevention, Standard Precautions Safety Interventions: None Weight Bear Status Weight Bearing Restriction: Weight Bearing/Tolerated Referral Physician: Dr. Bernal Referral Reason: Activity Tolerance, Self Care, Evaluation/Treatment, Strengthening/ROM Medical History Pertinent Medical History: Atrial Fib, Arthritis, CAD, COPD, CVA, DM, GERD, HTN Additional Medical History hip surgery Current History Pt. had elective eyelid reduction surgery. Began to bleed profusely. Came to ER. Monitoring pt. due to severe coagulopathy. Reviewed History: Yes Social History Home: Single Level Current Living Status: Spouse Entry Into Home: Level Entry ADL-Prior Level of Function ADL PLOF Comments Pt. states that her home is all set up for her due to having home health OT from previous stroke. States that her is there as well. DME/Equipment: Bath Bench, Shower DME/Equipment Comments Pt. has walker, and was managing at home. OT Current Status Subjective No pain reported. Pt. states, "I just can't see right now." Appearance Pt. is up in chair. Has multiple bandages over eyes. Bandages are bloody and nursing is coming to change them. Mental Status/Objective Patient Orientation: Person, Place Current Upper Extremity ROM WFL for her needs. Upper Extremity Coordination intact ADL-Treatment Functional [place] Measure 0=Not Assessed/NA 4=Minimal Assistance 1=Total Assistance 5=Supervision or Setup 2=Maximal Assistance 6=Modified [place] 3=Moderate Assistance 7=Complete IndependenceIRFPAI Quality Coding Scale 6 Independent with activity with or without an assistive device 5 Patient requires set up or clean up by helper. Patient completes activity by themselves 4 Supervision or touching assist (CGA). Jeremiah provide cues , steadying assist 3 The helper provides less than half the effort to complete the activity 2 The helper provides more than half the effort to complete the activity 1 Dependent. The helper does all the effort to complete an activity 7 Patient refused to complete or attempt activity 9 The patient did not perform the activity before the current illness or injury 88 Not attempted due to Medical conditions or safety concerns Bathing (FIM): 4 (Pt. requires min assist to bathe feet. States that at home, she lets the water run over her feet. Pt. only requires CGA in stance due to not being able to see.) Lower Body Dressing (FIM): 5 Transfers (B, C, W/C) (FIM): 4 (Due to not being able to see.) Other Treatments Pt. is alert and oriented up in chair. Pt. has multiple bandages over eyes. Nursing states that once bleeding stops, pt.'s bandages will be removed. OT encouraged pt. to shower with assist, but pt. declines. Pt. does however agree to spongebathe. Pt. has no street clothing available, but is able to do the best she can without being able to see. Pt. states that nursing is having to feed her, because she can't see her plate. Nursing and pt, encouraged to order finger food to assist with this. At this time, pt.'s deficit is that she can't see due to the bandages. Once they are removed, pt. will be at baseline. Nursing educated to have OT re-evaluate at this time if pt. is to have trouble once they are gone. OT not indicated at this time due to temporary visual loss that will be remediated soon. All needs met in room after bath. Education OT Patient Education: Correct positioning, Modified ADL techniques, Progress toward Goal/Update tx plan, Purpose of tx/functional activities, Reviewed precautions, Rehab process, Transfer techniques Teaching Recipient: Patient Teaching Methods: Demonstration, Discussion Response to Teaching: Verbalize Understanding, Return Demonstration OT Short Term Goals Short Term Goals 1=Demonstrate adherence to instructed precautions during ADL tasks. 2=Patient will verbalize/demonstrate understanding of assistive devices/ modifications for ADL. 3=Patient will improve strength/tolerance for activity to enable patient to perform ADL's. OT Heel Attacher Goals Penitentiary Goals Time Frame: July 11, 2016 Additional Goals: 1-Demonstrate ADL Tasks, 2-Verbalize Understanding, 3- ImproveStrength/Tawana 1=Demonstrate adherence to instructed precautions during ADL tasks. 2=Patient will verbalize/demonstrate understanding of assistive devices/ modifications for ADL. 3=Patient will improve strength/tolerance for activity to enable patient to perform ADL's. Pt. has met all goals to the best of her ability due to low vision. ADL independence will not increase as long as pt. has bandages over eyes. Once these are removed, pt. will be at baseline level to return home with and son assist. OT Education/Plan Problem List/Assessment Assessment: No Skilled OT Needs ID'd Discharge Recommendations Plan/Recommendations: Discontinue OT Therapy D/C Recommendations: Home w/ Family Support Treatment Plan/Plan of Care Treatment,Training & Education: Yes Treatment Duration: July 11, 2016 Visits Per Week: 1 visit then discharge Rehab Potential: Good Time/GCodes Start Time: 10:15 Stop Time: 10:30 Total Time Billed (hr/min): 15 Billed Treatment Time 1, GINI Selfcur- CK Selfgoal-CK Selfdc-CK BIANCA CORRALES OT July 11, 2016 12:15
[2016-07-11] MEDS: inSUlin ASPART (NovoLOG) 1 UNIT/0.01 ML (CHARGE PER UNIT) SC SCH ×3 (12:27→21:12)
[2016-07-11 16:10] VITALS: BP 104/54
--- NOTE | 2016-07-11 17:20 | Progress Note-Cardiology ---
Cardiology SOAP Progress Note Subjective: No cp or palp or syncope or palp Objective: I&O/Vital Signs Vital Sign - Last 12Hours 07/11/16 07/11/16 07/11/16 07:43 07:55 12:00 Temp 97.8 95.6 Pulse 82 87 Resp 20 20 B/P (MAP) 118/59 123/58 Pulse Ox 95 92 93 O2 Delivery Room Air Intake and Output 07/11/16 00:00 Intake Total 550 ml Output Total 600 ml Balance -50 ml Weight (Pounds): 162 Weight (Ounces): 8.0 Weight (Calculated Kilograms): 73.409238 Constitutional: AAO x 3, well-developed, well-nourished Respiratory: No accessory muscle use, No respiratory distress, chest expansion is symmetric, chest is bilaterally symmetric, lungs clear to auscultation Cardiovascular: regular rate-rhythm, No JVD, S1 and S2, other (crisp, mechanical valve sound) Gastrointestional: No tender, soft, round Extremities: no lower extremity edema bilateral Neurologic/Psychiatric: power is 5/5 both on sides Skin: other (brusing noted to thighs and toes bilat) Results/Procedures: Labs Laboratory Tests 07/11/16 04:11: White Blood Count 6.4, Red Blood Count 3.60L, Hemoglobin 11.3L, Hematocrit 34L, Mean Corpuscular Volume 95, Mean Corpuscular Hemoglobin 31, Mean Corpuscular Hemoglobin Concent 33, Red Cell Distribution Width 14.3, Platelet Count 232, Mean Platelet Volume 11.1H, Neutrophils (%) (Auto) 64, Lymphocytes (%) (Auto) 20 , Monocytes (%) (Auto) 10, Eosinophils (%) (Auto) 6, Basophils (%) (Auto) 1, Neutrophils # (Auto) 4.1, Lymphocytes # (Auto) 1.3, Monocytes # (Auto) 0.6, Eosinophils # (Auto) 0.4H, Basophils # (Auto) 0.1, Prothrombin Time 55.6*H, INR Comment 6.2*H, Sodium Level 133L, Potassium Level 4.7, Chloride Level 101, Carbon Dioxide Level 23, Anion Gap 9, Blood Urea Nitrogen 29H, Creatinine 1.19, Estimat Glomerular Filtration Rate 44, BUN/Creatinine Ratio 24, Glucose Level 116H, Calcium Level 9.4, Total Bilirubin 0.4, Aspartate Amino Transf (AST/SGOT) 24, Alanine Aminotransferase (ALT/SGPT) 26, Alkaline Phosphatase 49, Total Protein 5.9L, Albumin 3.1L 07/11/16 12:10: Glucometer 204H 07/11/16 16:08: Glucometer 105 A/P: Assessment: Supra-therapeutic INR Post-op eyelid bleed after bilat eyelid surgery d/t ptosis by Dr. 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 She has undergone bilateral kissing stents of both common iliacs and extensive balloon angioplasty and stenting of the R SFA by Dr Loaiza on 12/31/13. Subsequently, on 01/07/14, Dr Loaiza did stenting of L SFA and successful balloon angioplasty of L peroneal and L anterior tibial arteries, but angioplasty to chronic occlusion of L posterior tibial was unsuccessful and resulted in subintimal dissection, continue to monitor Chronic sinus tachycardia which has improved following reduction in Albuterol Obstructive sleep apnea: CPAP therapy being managed by Dr. Payne. Cardiac cath of 06-24-2013 showed CAD, mild to moderate. Moderate mid vessel stenosis of the LAD with fractional flow reserve across the lesion of 0.95. Moderate mid vessel stenosis of the RCA with fractional flow reserve across the lesion of 0.95. Patent stents in the proximal left circumflex and the mid RCA which were placed in 2004 MPI of 07-18-15 did not indicate significant myocardial ischemia or infarction. Normal regional wall motion. Normal global LV systolic function with calculated ejection fraction of 69%. 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 The last echocardiogram was in November 2012. It showed adequately functioning aortic and mitral valves. Peak gradient across the aortic value was 21 mmHg, unchanged compared to the study of 2009. . Echocardiogram of December 2015 showed moderate concentric left ventricular hypertrophy. Normal global left ventricular systolic function with an ejection fraction of approximately 65%. Mechanical prosthetic aortic valve, by history, not well visualized on this study. Peak gradient across the aortic valve is approximately 55 mmHg and the aortic valve area is calculated to be approximately 1.2 sq cm. Mitral annular calcification without evidence of significant mitral stenosis. Diastolic dysfunction of the left ventricle is indicated on this study. Mild to moderate mitral and tricuspid regurgitation. Pulmonary artery systolic pressure is estimated to be 50 to 55 mmHg. Left internal carotid artery stenosis of 60-79%, right internal carotid artery stenosis of less thatn 40% per u/s of 05/17/16 Hyperlipidemia being treated with lovastatin and being followed by Dr. Cano. Heme-positive stools in Jan 2014. Diffuse erosive gastritis, hemorrhoids, diverticulitis, no active bleeding per endoscopy in Jan [address] Rodgers, treated with H2 angie, PPI and Carafate (managed by Dr Rodgers). Recurrent heme (+) stools in March 2014 - capsule endoscopy History of transient ischemic attacks. Borderline diabetes mellitus being managed by Dr. Cano. Right rotator cuff repair on 11/28/[address] Woodward due to a torn rotator cuff. Plan: Continue to hold warfarin Resume warfarin after INR returns to therapeutic range Continue to monitor labs I spoke with her and answered her questions WALDEMAR CALLOWAY MD FACP FACC CCDS July 11, 2016 17:20
[2016-07-11 19:40] VITALS: BP 124/56
[2016-07-11] MEDS: RT-ALBUTEROL SULF 2.5 MG/3 ML PRE-MIX VIAL INH SCH (20:32)
[2016-07-11] MEDS ORDERED: GENTAMICIN 0.3% OPHTH OINT 3.5 GM TUBE OU SCH ×2 (21:00)
[2016-07-11] MEDS: ATENOLOL 25 MG (TENORMIN) TAB PO SCH (21:10)
[2016-07-11] MEDS: ATORVASTATIN 20 MG (LIPITOR) TABLET PO SCH (21:11)
[2016-07-12] VITALS: BP 97/50
[2016-07-12 04:00] VITALS: BP 105/52
[2016-07-12] MEDS: LEVOTHYROXINE 25 MCG (LEVOTHROID) TAB PO SCH (05:01)
[2016-07-12] MEDS: OMEPRAZOLE 40 MG CAP PO SCH (05:01)
[2016-07-12 05:29] LABS: BASOPHILS # (AUTO) 0.1 10^3/uL (0.0-0.1); BASOPHILS % (AUTO) 1 % (0-10); EOSINOPHILS # (AUTO) 0.4 10^3/uL (0.0-0.3); EOSINOPHILS % (AUTO) 5 % (0-10); LYMPHOCYTES # (AUTO) 1.5 X 10^3 (1.0-4.0); LYMPHOCYTES % (AUTO) 21 % (12-44); MEAN CORPUSCULAR HEMOGLOBIN 31 PG (25-34); MEAN CORPUSCULAR HGB CONC 33 G/DL (32-36); MEAN CORPUSCULAR VOLUME 96 FL (80-99); MEAN PLATELET VOLUME 11.3 FL (7.4-10.4); MONOCYTES # (AUTO) 0.8 X 10^3 (0.0-1.0); MONOCYTES % (AUTO) 11 % (0-12); NEUTROPHILS # (AUTO) 4.6 X 10^3 (1.8-7.8); NEUTROPHILS % (AUTO) 63 % (42-75); PLATELET COUNT 238 10^3/uL (130-400); RED BLOOD COUNT 3.28 10^6/uL (4.35-5.85); RED CELL DISTRIBUTION WIDTH 14.2 % (10.0-14.5); WHITE BLOOD COUNT 7.4 10^3/uL (4.3-11.0)
[2016-07-12 05:31] LABS: PROTHROMBIN TIME PATIENT 22.1 SEC (12.2-14.7)
[2016-07-12 05:44] LABS: ALBUMIN 2.9 G/DL (3.2-4.5); BILIRUBIN,TOTAL 0.5 MG/DL (0.1-1.0); CALCIUM 8.8 MG/DL (8.5-10.1); CREATININE SERUM 1.39 MG/DL (0.60-1.30); POTASSIUM 4.3 MMOL/L (3.6-5.0); TOTAL PROTEIN 5.5 G/DL (6.4-8.2)
[2016-07-12] MEDS: inSUlin ASPART (NovoLOG) 1 UNIT/0.01 ML (CHARGE PER UNIT) SC SCH ×2 (06:46→11:29)
[2016-07-12] MEDS: UMECLIDINIUM BROMIDE (INCRUSE ELLIPTA) 7'S IH SCH (07:04)
[2016-07-12] MEDS: RT-BUDESONIDE NEBS 0.5 MG/2ML (PULMICORT) AMP INH SCH (07:04)
[2016-07-12] MEDS: ASCORBIC ACID (VIT C) 500 MG TABLET PO SCH (07:16)
[2016-07-12] MEDS: GLIMEPIRIDE 4 MG (AMARYL) TAB PO SCH (07:17)
[2016-07-12] MEDS: KCL 10 MEQ PO SCH (07:18)
--- NOTE | 2016-07-12 07:26 | Progress Note-Cardiology ---
Cardiology SOAP Progress Note Subjective: Denies cp or palp or syncope Feels well today Objective: I&O/Vital Signs Vital Sign - Last 12Hours 07/11/16 07/11/16 07/11/16 07/12/16 19:40 20:34 21:10 00:00 Temp 97.8 97.1 Pulse 78 75 Resp 20 18 B/P (MAP) 124/56 97/50 Pulse Ox 91 94 94 O2 Flow Rate 2.00 07/12/16 07/12/16 04:00 07:04 Temp 97.9 Pulse 73 Resp 18 B/P (MAP) 105/52 Pulse Ox 95 92 Intake and Output 07/12/16 00:00 Intake Total 1770 ml Output Total 300 ml Balance 1470 ml Weight (Pounds): 162 Weight (Ounces): 8.0 Weight (Calculated Kilograms): 73.560668 Constitutional: AAO x 3, well-developed, well-nourished Respiratory: No accessory muscle use, No respiratory distress, chest expansion is symmetric, chest is bilaterally symmetric, lungs clear to auscultation Cardiovascular: regular rate-rhythm, No JVD, S1 and S2, other (crisp, mechanical valve sound) Gastrointestional: No tender, soft, round Extremities: no lower extremity edema bilateral Neurologic/Psychiatric: power is 5/5 both on sides Skin: other (brusing noted to thighs and toes bilat) Results/Procedures: Labs Laboratory Tests 07/11/16 12:10: Glucometer 204H 07/11/16 16:08: Glucometer 105 07/12/16 04:50: White Blood Count 7.4, Red Blood Count 3.28L, Hemoglobin 10.3L, Hematocrit 31L, Mean Corpuscular Volume 96, Mean Corpuscular Hemoglobin 31, Mean Corpuscular Hemoglobin Concent 33, Red Cell Distribution Width 14.2, Platelet Count 238, Mean Platelet Volume 11.3H, Neutrophils (%) (Auto) 63, Lymphocytes (%) (Auto) 21 , Monocytes (%) (Auto) 11, Eosinophils (%) (Auto) 5, Basophils (%) (Auto) 1, Neutrophils # (Auto) 4.6, Lymphocytes # (Auto) 1.5, Monocytes # (Auto) 0.8, Eosinophils # (Auto) 0.4H, Basophils # (Auto) 0.1, Prothrombin Time 22.1H, INR Comment 2.0H, Sodium Level 132L, Potassium Level 4.3, Chloride Level 100, Carbon Dioxide Level 24, Anion Gap 8, Blood Urea Nitrogen 34H, Creatinine 1.39H , Estimat Glomerular Filtration Rate 36, BUN/Creatinine Ratio 24, Glucose Level 151H, Calcium Level 8.8, Total Bilirubin 0.5, Aspartate Amino Transf (AST/SGOT) 21, Alanine Aminotransferase (ALT/SGPT) 23, Alkaline Phosphatase 45, Total Protein 5.5L, Albumin 2.9L Laboratory Tests 07/10/16 08:25 07/11/16 04:11 07/12/16 04:50 A/P: Assessment: Presentation with supra-therapeutic INR and post-op bleed. INR is now sub- therapeutic and bleed has stopped Post-op eyelid bleed after bilat eyelid surgery d/t ptosis by Dr. 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 She has undergone bilateral kissing stents of both common iliacs and extensive balloon angioplasty and stenting of the R SFA by Dr Loaiza on 12/31/13. Subsequently, on 01/07/14, Dr Loaiza did stenting of L SFA and successful balloon angioplasty of L peroneal and L anterior tibial arteries, but angioplasty to chronic occlusion of L posterior tibial was unsuccessful and resulted in subintimal dissection, continue to monitor Chronic sinus tachycardia which has improved following reduction in Albuterol Obstructive sleep apnea: CPAP therapy being managed by Dr. Payne. Cardiac cath of 06-24-2013 showed CAD, mild to moderate. Moderate mid vessel stenosis of the LAD with fractional flow reserve across the lesion of 0.95. Moderate mid vessel stenosis of the RCA with fractional flow reserve across the lesion of 0.95. Patent stents in the proximal left circumflex and the mid RCA which were placed in 2004 MPI of 07-18-15 did not indicate significant myocardial ischemia or infarction. Normal regional wall motion. Normal global LV systolic function with calculated ejection fraction of 69%. 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 The last echocardiogram was in November 2012. It showed adequately functioning aortic and mitral valves. Peak gradient across the aortic value was 21 mmHg, unchanged compared to the study of 2009. . Echocardiogram of December 2015 showed moderate concentric left ventricular hypertrophy. Normal global left ventricular systolic function with an ejection fraction of approximately 65%. Mechanical prosthetic aortic valve, by history, not well visualized on this study. Peak gradient across the aortic valve is approximately 55 mmHg and the aortic valve area is calculated to be approximately 1.2 sq cm. Mitral annular calcification without evidence of significant mitral stenosis. Diastolic dysfunction of the left ventricle is indicated on this study. Mild to moderate mitral and tricuspid regurgitation. Pulmonary artery systolic pressure is estimated to be 50 to 55 mmHg. Left internal carotid artery stenosis of 60-79%, right internal carotid artery stenosis of less thatn 40% per u/s of 05/17/16 Hyperlipidemia being treated with lovastatin and being followed by Dr. Cano. Heme-positive stools in Jan 2014. Diffuse erosive gastritis, hemorrhoids, diverticulitis, no active bleeding per endoscopy in Jan [address] Rodgers, treated with H2 angie, PPI and Carafate (managed by Dr Rodgers). Recurrent heme (+) stools in March 2014 - capsule endoscopy History of transient ischemic attacks. Borderline diabetes mellitus being managed by Dr. Cano. Right rotator cuff repair on 11/28/[address] Woodward due to a torn rotator cuff. Plan: Complex management INR is now sub-therapeutic for a patient with known mech prosthetic aortic valve Resume warfarin (albeit in a lower dose) Ok to discharge from cardiac standpoint I explained to her that close f/u on INR is critical. She wishes to f/u on INR with Dr Cano. I have asked her to do so HARRY and then follow his instructions Low dose aspirin is being resumed because of a h/o CAD and WALDEMAR FLORES MD FACP FAC CCDS July 12, 2016 07:26
[2016-07-12] MEDS ORDERED: warFARin 7.5 MG (COUMADIN) TAB PO NR (07:38)
[2016-07-12 08:30] VITALS: BP 109/52
[2016-07-12] MEDS: FUROSEMIDE 40 MG (LASIX) TAB PO SCH (08:37)
[2016-07-12] MEDS: DILTIAZEM 120 MG (CARDIZEM CD) CAP PO SCH (08:37)
[2016-07-12] MEDS: ENALAPRIL 10 MG (VASOTEC) TAB PO SCH (08:38)
[2016-07-12] MEDS: ALLOPURINOL 100 MG (ZYLOPRIM) TAB PO SCH (08:38)
[2016-07-12] MEDS: NABUMETONE 750 MG PO SCH (08:39)
[2016-07-12] MEDS: VITAMIN D3 2000 UNITS PO SCH (08:39)
[2016-07-12] MEDS ORDERED: ASPIRIN 81 MG CHEW (CHILDREN'S ASA) PO SCH (09:00)
[2016-07-12] MEDS ORDERED: WARF5TAB PO (11:21)
--- NOTE | 2016-07-12 11:50 | Discharge Summary-Hospitalist ---
Diagnosis/Chief Complaint Date of Admission July 10, 2016 at 09:00 Date of Discharge Discharge Date: July 12, 2016 Admission Diagnosis Assessment: Profuse eye tissue bleeding due to severe coagulopathy due to Coumadin with INR of 11 status post blepharoplasty by Dr. Buckner yesterday History of valve replacement on Coumadin Prior CVA due to subtherapeutic Coumadin level requiring rehabilitation COPD worse oxygen at night Poor memory recall SAMMY DM Discharge Diagnosis Chart Review: WBC 6.4 Hgb 11.3 Na+ 133 Creat normal 1.19 INR 6.2 Patient Interview: Pt states that she has not seen Dr. Buckner yet today and pt was informed that Dr. Spence has been discussing the pt's care with him. Pt is not experiencing pain currently. Pt admits to receiving breathing treatments. Physical exam stable. Lungs sound perfect. Pt's labs were discussed and she was informed that her labs look good but she will be receiving Vitamin K today. Pt's son will be home to take care of the pt. No fever, vital signs stable, pleasant, still with eyes covered in Kerlix with slight bleeding is continuing Irregular irregular rhythm with click Clear to auscultation bilaterally but subtle wheeze right lower lobe No edema Laboratory Tests 07/11/16 04:11 Assessment: Profuse eye tissue bleeding due to severe coagulopathy due to Coumadin with INR of 11 status post blepharoplasty by Dr. Buckner 2 days ago now INR 6.2 so added an additional Vit K PO 2.5mg History of valve replacement on Coumadin so difficult to achieve balance between coagulopathy and subtherapeutic INR placing risk for thrombosis on cardiac valve Prior CVA due to subtherapeutic Coumadin level requiring rehabilitation COPD worse oxygen at night Poor memory recall SAMMY DM Hyponatermia Plan: Monitor INR Vitamin K given again PO DC home tomorrow if INR adequate with close f/u INR with Dr. Cano. Home health Acccuhecks Scribed by Stacy Sprague under the direct supervision of Dr. Spence. Reason Hospital Visit/Course CC: Bleeding from eyes following blepharoplasty by Dr. Buckner yesterday HPI: This is an 80-year-old white female clinic patient of Dr. 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 Her INR in the ER was noted to be 11 and she had held her Coumadin for the past 2 days so vitamin K was given due to the severity of the bleeding and will be closely monitoring hemoglobin and Dr. Buckner was notified and he will see the patient in consultation today. I did check with primary care provider office and her last INR was checked 06/17/16 and it was 3.2. She reports that she doesn't get her INR checked very often but that is confusing considering I just spoke to the office of Dr. Cano and they have monthly INR checks. At this current time we'll monitor closely INR supportive care and will monitor hemoglobin closely. Note from 07/12/16 Chart Review: INR 2.0 will arrange for DC today. iron piler: Pt received Coumadin 7.5 today and 5 tomorrow. Patient Interview: Pt states she would like to be DC today. Pt was informed her INR was back to where it needs to be. Physical exam was stable. Pt states she has been taking breathing tx. Pt states Dr. Estrella wants pt to use Coumadin 5mg every day. Pt states she would like a shower. Scribed by Ruddy Garcia under the direct supervision of Dr. Spence. No fever, vital signs stable, pleasant, no bleeding from eyelids Regular rate and rhythm, clear to auscultation bilaterally but diminished breath sounds in the bases No edema Hospital course: Patient had a lengthy hospital course on observation due to INR of 11 and profuse severe bleeding from blepharoplasty performed by Dr. Buckner the day before admission. Her hemoglobin remained stable vitamin K was given 10 MG subcutaneous in the ER and repeated with 2.5 mg by mouth 1 on the day before discharge and INR was 2.0 she was given 7.5 mg of Coumadin on morning of discharge on Friday and she will continue 5 mg of Coumadin daily until checking INR on Friday. Close follow-up with Dr. Cano and Dr. Buckner was recommended and patient was stable at discharge. Discharge Summary Discharge Physical Examination Allergies: Coded Allergies: codeine (Verified Allergy, Unknown, PT HAS REC MORPHINE WITHOUT PROBLEMS, 12/25/15) cortisone (Verified Allergy, Unknown, 12/25/15) tramadol (Verified Allergy, Unknown, 12/25/15) Vitals & I&Os Vital Signs Date Time Temp Pulse Resp B/P (MAP) Pulse Ox O2 Delivery O2 Flow Rate FiO2 07/12/16 09:13 94 07/12/16 08:30 96.2 81 17 109/52 07/11/16 21:10 2.00 07/11/16 07:55 Room Air Hospital Course Labs (last 24 hrs) Laboratory Tests 07/11/16 16:08: Glucometer 105 07/12/16 04:50: White Blood Count 7.4, Red Blood Count 3.28L, Hemoglobin 10.3L, Hematocrit 31L, Mean Corpuscular Volume 96, Mean Corpuscular Hemoglobin 31, Mean Corpuscular Hemoglobin Concent 33, Red Cell Distribution Width 14.2, Platelet Count 238, Mean Platelet Volume 11.3H, Neutrophils (%) (Auto) 63, Lymphocytes (%) (Auto) 21 , Monocytes (%) (Auto) 11, Eosinophils (%) (Auto) 5, Basophils (%) (Auto) 1, Neutrophils # (Auto) 4.6, Lymphocytes # (Auto) 1.5, Monocytes # (Auto) 0.8, Eosinophils # (Auto) 0.4H, Basophils # (Auto) 0.1, Prothrombin Time 22.1H, INR Comment 2.0H, Sodium Level 132L, Potassium Level 4.3, Chloride Level 100, Carbon Dioxide Level 24, Anion Gap 8, Blood Urea Nitrogen 34H, Creatinine 1.39H , Estimat Glomerular Filtration Rate 36, BUN/Creatinine Ratio 24, Glucose Level 151H, Calcium Level 8.8, Total Bilirubin 0.5, Aspartate Amino Transf (AST/SGOT) 21, Alanine Aminotransferase (ALT/SGPT) 23, Alkaline Phosphatase 45, Total Protein 5.5L, Albumin 2.9L Pending Labs Discharge Home Medications: Active Scripts Active Coumadin (Warfarin Sodium) 5 Mg Tablet 5 Mg PO DAILY@1800 2 Days Reported Iprat-Albut 0.5-3(2.5) mg/3 ml (Ipratropium/Albuterol Sulfate) 3 Ml Ampul.neb 3 Ml NEB HS PRN Vitamin D-3 (Cholecalciferol (Vitamin D3)) 2,000 Unit Capsule 2,000 Unit PO DAILY Ventolin Hfa (Albuterol Sulfate) 18 Gm Hfa.aer.ad 2 Puff INH Q4H PRN Cranberry (Cranberry Extract) 500 Mg Capsule 500 Mg PO DAILY Nitroglycerin 0.4 Mg Tab.subl 0.4 Mg SL UD PRN Citalopram HBr (Citalopram Hydrobromide) 20 Mg Tablet 20 Mg PO HS Tylenol Extra Strength (Acetaminophen) 500 Mg Tablet 1,000 Mg PO Q4H PRN Gentak (Gentamicin Sulfate) 3.5 Gm Oint...g. OU DAILY APPLY TO UPPER EYE LIDS Warfarin Sodium 5 Mg Tablet 7.5 Mg PO Q48H Warfarin Sodium 5 Mg Tablet 10 Mg PO Q48H Aspirin EC (Aspirin) 81 Mg Tablet.dr 81 Mg PO DAILY Budesonide 0.5 Mg/2 Ml Ampul.neb 0.5 Mg NEB 0800,1600 Docusate Sodium 100 Mg Capsule 100 Mg PO DAILY PRN Natural Balance Tears Eye Drop (Dextran 70/Hypromellose) 15 Ml Drops 1 Drop OU QID PRN Atenolol 25 Mg Tablet 25 Mg PO HS Atorvastatin Calcium 20 Mg Tablet 20 Mg PO HS Allopurinol 100 Mg Tablet 100 Mg PO BID Enalapril Maleate 10 Mg Tablet 10 Mg PO DAILY Glimepiride 4 Mg Tablet 4 Mg PO DAILY Furosemide 40 Mg Tablet 60 Mg PO DAILY TAKES 1 & 1/2 (40MG) TABLET Omeprazole 40 Mg Capsule.dr 40 Mg PO DAILY Nabumetone 750 Mg Tablet 750 Mg PO BID Potassium Chloride 10 Meq Capsule.er 10 Meq PO DAILY Diltiazem ER (Diltiazem HCl) 120 Mg Capsule.er 120 Mg PO DAILY Levothyroxine Sodium 25 Mcg Tablet 25 Mcg PO DAILY Tudorza Pressair (Aclidinium [place]) 400 Mcg Aer.pow.ba 1 Puff IH BID Vitamin C 500 Mg (Ascorbic Acid) 500 Mg Tablet 500 Mg PO BID Instructions to patient/family Please see electonic discharge instructions given to patient. Clinical Quality Measures DVT/VTE Risk/Contraindication: Risk Factor Score Per Nursin RFS Level Per Nursing on Admit: 4+=Very High JARROD SPENCE DO July 12, 2016 11:50
[2016-07-12 12:00] VITALS: BP 104/57
[2016-07-12 13:30] VITALS: BP 104/57
[2016-07-13] MEDS ORDERED: warFARin 5 MG (COUMADIN) TAB PO SCH (18:00)
== END 2016-07-12 11:22 | disposition home health service (06) ==
LOC: EDUNIT# 08:22 → ER 08:24 → 4TH 09:00 → UNDOADMOB 09:00 → 4TH 09:55 → UNDODISOB 07-12 13:30
PROVIDERS: ADMIT Internal Medicine; ATTEND Internal Medicine
DX: D68.32 Hemorrhagic disorder due to extrinsic circulating anticoagulants (principal); T45.515A Adverse effect of anticoagulants, initial encounter; Z98.890 Other specified postprocedural states; Z95.2 Presence of prosthetic heart valve; I69.354 Hemiplegia and hemiparesis following cerebral infarction affecting left non-dominant side; I69.398 Other sequelae of cerebral infarction; H53.40 Unspecified visual field defects; J44.9 Chronic obstructive pulmonary disease, unspecified; G47.33 Obstructive sleep apnea (adult) (pediatric); E11.9 Type 2 diabetes mellitus without complications; E87.1 Hypo-osmolality and hyponatremia; I48.91 Unspecified atrial fibrillation; I25.10 Atherosclerotic heart disease of native coronary artery without angina pectoris; I10 Essential (primary) hypertension; K21.9 Gastro-esophageal reflux disease without esophagitis; E03.9 Hypothyroidism, unspecified; I65.23 Occlusion and stenosis of bilateral carotid arteries; E78.5 Hyperlipidemia, unspecified; Z87.891 Personal history of nicotine dependence; Z95.5 Presence of coronary angioplasty implant and graft
CPT/HCPCS: 36415; 80053; 82962; 85025; 85610; 85730; 94640; 94664; 94760; 96372; G0378

== ENCOUNTER 2017-02-09 09:49 | Emergency (ER) | payer MEDICARE ==
[~2017-02-09] VITALS: Ht 167.6 cm; Wt 72.6 kg
[~2017-02-09 09:49] MED LIST changes: +ACET-2267 PO; +ALBU18HF2 INH; +ALBU2.5V4 NEB; +ASPI-983 PO; +CHOL20002 PO; +CITA20TA7 PO; +CRAN500C4 PO; +GNT.3OO351 OU; +IPRA3AMP NEB; +NITR0.4T39 SL
[2017-02-09 10:16] LABS: MEAN PLATELET VOLUME 11.1 FL (7.4-10.4); RED BLOOD COUNT 3.68 10^6/uL (4.35-5.85); RED CELL DISTRIBUTION WIDTH 14.1 % (10.0-14.5)
[2017-02-09 10:26] LABS: PROTHROMBIN TIME PATIENT 30.9 SEC (12.2-14.7)
--- NOTE | 2017-02-09 11:36 | ED EENT ---
History of Present Illness General Chief Complaint: Nasal Problems Stated Complaint: NOSE BLEED Nursing Triage Note: AMB TO ROOM WITH HELP OF WALKER. REPORTS THIS AM WAS ON C PAP MACHINE FELT LIKE NEDED TO BLOW NOSE WHEN ONSET OF BLEEDING FROM R NARE. NO BLEEDING ON ADMIT. HAD INR DRAWN ON FRI REPORTS IT WAS 2.5 Source: patient Exam Limitations: no limitations History of Present Illness Time seen by provider: 09:53 Initial Comments Patient developed a right sided nose bleed this morning. She takes warfarin because of A. fib and cardiac valve replacement. She also takes aspirin. She wears CPAP with oxygen at night. She has been unable to control the bleeding at home. She has minimal oozing of blood on assessment. She has attempted direct pressure at home. She reports her INR last week was 2.5. Allergies and Home Medications Allergies Coded Allergies: codeine (Verified Allergy, Unknown, PT HAS REC MORPHINE WITHOUT PROBLEMS, 12/25/15) cortisone (Verified Allergy, Unknown, 12/25/15) tramadol (Verified Allergy, Unknown, 12/25/15) Home Medications Acetaminophen 500 Mg Tablet, 1,000 MG PO Q4H PRN for PAIN-MILD, (Reported) Aclidinium [place] 400 Mcg Aer.pow.ba, 1 PUFF IH BID, (Reported) Albuterol Sulfate 18 Gm Hfa.aer.ad, 2 PUFF INH Q4H PRN for SHORTNESS OF BREATH, (Reported) Allopurinol 100 Mg Tablet, 100 MG PO BID, (Reported) Ascorbic Acid 500 Mg Tablet, 500 MG PO BID, (Reported) Aspirin 81 Mg Tablet.dr, 81 MG PO DAILY, (Reported) Atenolol 25 Mg Tablet, 25 MG PO HS, (Reported) Atorvastatin Calcium 20 Mg Tablet, 20 MG PO HS, (Reported) Budesonide 0.5 Mg/2 Ml Ampul.neb, 0.5 MG NEB 0800,1600, (Reported) Cholecalciferol (Vitamin D3) 2,000 Unit Capsule, 2,000 UNIT PO DAILY, (Reported) Citalopram Hydrobromide 20 Mg Tablet, 20 MG PO HS, (Reported) Cranberry Extract 500 Mg Capsule, 500 MG PO DAILY, (Reported) Dextran 70/Hypromellose 15 Ml Drops, 1 DROP OU QID PRN for DRY EYES, (Reported) Diltiazem HCl 120 Mg Capsule.er, 120 MG PO DAILY, (Reported) Docusate Sodium 100 Mg Capsule, 100 MG PO DAILY PRN for CONSTIPATION, (Reported) Enalapril Maleate 10 Mg Tablet, 10 MG PO DAILY, (Reported) Furosemide 40 Mg Tablet, 60 MG PO DAILY, (Reported) TAKES 1 & 1/2 (40MG) TABLET Gentamicin Sulfate 3.5 Gm Oint...g., OU DAILY, (Reported) APPLY TO UPPER EYE LIDS Glimepiride 4 Mg Tablet, 4 MG PO DAILY, (Reported) Ipratropium/Albuterol Sulfate 3 Ml Ampul.neb, 3 ML NEB HS PRN for SHORTNESS OF BREATH, (Reported) Levothyroxine Sodium 25 Mcg Tablet, 25 MCG PO DAILY, (Reported) Nabumetone 750 Mg Tablet, 750 MG PO BID, (Reported) Nitroglycerin 0.4 Mg Tab.subl, 0.4 MG SL UD PRN for CHEST PAIN, (Reported) Omeprazole 40 Mg Capsule.dr, 40 MG PO DAILY, (Reported) Potassium Chloride 10 Meq Capsule.er, 10 MEQ PO DAILY, (Reported) Warfarin Sodium 5 Mg Tablet, 5 MG PO DAILY@1800 for 2 Days Prescribed by: JARROD PSENCE on 07/12/16 1121 Review of Systems Constitutional: no symptoms reported Eyes: No Symptoms Reported Ears: No Symptoms Reported Nose: see HPI Mouth: no symptoms reported Throat: no symptoms reported Respiratory: no symptoms reported, dyspnea on exertion Cardiovascular: see HPI Musculoskeletal: no symptoms reported Skin: no symptoms reported Neurological: No Symptoms Reported Hematologic/Lymphatic: See HPI Past Pforjmy-Ziiwkr-Qtbwvx Hx Patient Social History Alcohol Use: Denies Use Recreational Drug Use: No Smoking Status: Never a Smoker Type Used: Cigarettes Former Smoker, Quit: July 10, 2000 2nd Hand Smoke Exposure: No Recent Foreign Travel: No Contact w/Someone Who Travel: No Recent Infectious Disease Expo: No Recent Hopitalizations: Yes Immunizations Up To Date Tetanus Booster (TDap): Unknown Date of Pneumonia Vaccine: Aug 22, 2015 Date of Influenza Vaccine: Dec 25, 2015 Seasonal Allergies Seasonal Allergies: No Surgeries History of Surgeries: Yes (RT HIP, HEART VALVE REPLACEMENT, BLEPHAROSPLASTY) Surgeries: Coronary Stent, Orthopedic, Tonsillectomy, Tubal Ligation, Valve Replacement, Vascular Surgery Respiratory History of Respiratory Disorde: Yes (wears cpap with o2 2l HS) Respiratory Disorders: Pneumonia, Sleep Apnea, COPD Currently Using CPAP: Yes (At HS. ) Currently Using BIPAP: No Cardiovascular History of Cardiac Disorders: Yes Cardiac Disorders: Atrial Fibrillation, Coronary Artery Disease, High Cholesterol, Hypertension, Valvular Heart Disease Neurological History of Neurological Disord: Yes (reports "light stroke" last year) Neurological Disorders: Headaches /Migraines, TIA Reproductive System Hx Reproductive Disorders: No Sexually Transmitted Disease: No HIV/AIDS: No Female Reproductive Disorders: Denies Genitourinary History of Genitourinary Disor: Yes Genitourinary Disorders: Kidney Infection, UTI-Chronic Gastrointestinal History of Gastrointestinal Di: Yes Gastrointestinal Disorders: Gastroesophageal Reflux, Gastrointestinal Bleed, Hemorrhoids Musculoskeletal History of Musculoskeletal Dis: Yes Musculoskeletal Disorders: Arthritis Endocrine History of Endocrine Disorders: Yes Endocrine Disorders: Hypothyroidsim, Diabetes, Non-Insulin dep HEENT HEENT Disorders: Cataract Loss of Vision: Bilateral Hearing Impairment: Hard of Hearing Cancer History of Cancer: No Psychosocial History of Psychiatric Problem: No Integumentary History of Skin or Integumenta: No Blood Transfusions History of Blood Disorders: Yes (ANEMIA--ON COUMADIN) Adverse Reaction to a Blood Tr: No Family Medical History Significant Family History: No Pertinent Family Hx Family Medial History: Patient reports no known family medical history. Physical Exam Vital Signs Vital Sign - Last 12Hours 02/09/17 02/09/17 09:51 11:48 Temp 96.4 Pulse 87 Resp 18 B/P (MAP) 149/86 (107) Pulse Ox 97 O2 Delivery Room Air General Appearance: WD/WN, no apparent distress Eyes: bilateral eye normal inspection Ears: bilateral ear auricle normal Nose: active bleeding (Formed clot within the right nostril. No active bleeding anteriorly. 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4 FL Prothrombin Time 30.9 H 12.2-14.7 SEC INR Comment 3.0 H 0.8-1.4 My Orders Orders - ARLEEN ESQUIVEL MD Cbc No Diff (02/09/17 09:54) Protime With Inr (02/09/17 09:54) Vital Signs/I&O Vital Sign - Last 12Hours 02/09/17 02/09/17 09:51 11:48 Temp 96.4 Pulse 87 87 Resp 18 18 B/P (MAP) 149/86 (107) Pulse Ox 97 98 O2 Delivery Room Air Blood Pressure Mean: 107 Progress Note : Progress Note Patient was watched for a prolonged period of time. The bleeding from the right nostril is so subtle but no interventions were felt necessary. I had concern that any intervention may disrupt the formed clot and cause worsening bleeding. INR was obtained and was found to be 3.0. This was a jump from her INR last week. I therefore instructed her to hold this evening's dose and talk with Dr. Cano in the morning. I also asked her to hold her aspirin for 3 days. Patient was otherwise stable and comfortable returning home. We reviewed the discharge instructions prior to her dismissal. Departure Impression Impression: Primary Impression: Epistaxis Additional Impression: Anticoagulant long-term use Disposition: 01 HOME, SELF-CARE Condition: Improved Departure-Patient Inst. Decision time for Depature: 11:25 Referrals: SEDRICK CANO DO (PCP/Family) Primary Care Physician Patient Instructions: Nosebleeds (DC) Add. Discharge Instructions: 1. Skip your warfarin (Coumadin) a dose tonight. Then contacted Dr. Cano in the morning for further instructions. 2. Skip your aspirin doses for the next 3 days. 3. Humidify your home, preferably with a cool mist humidifier. Place in the room he sleep and at night and shut the door to improve humidity. 4. Leave the clot in your nose intact. Do not blow your nose or place anything in your nose to remove the clot. 5. If bleeding returns, squirt 4 puffs of Afrin into each nostril and apply direct pressure to your nose in the upright position for 20 minutes. If this does not resolve the bleeding, return to the emergency room. 6. Return to the emergency room if you have any other problems or concerns. All discharge instructions reviewed with patient and/or family. Voiced understanding. Copy Copies To 1: SEDRICK CANO JOSHUA T MD Feb 09, 2017 11:36
[2017-02-09 11:48] VITALS: BP 151/68
== END 2017-02-09 11:47 | disposition home or self-care (01) ==
LOC: EDUNIT# 09:49 → ER 09:50
DX: R04.0 Epistaxis (principal); D64.9 Anemia, unspecified; E03.9 Hypothyroidism, unspecified; E11.9 Type 2 diabetes mellitus without complications; G43.909 Migraine, unspecified, not intractable, without status migrainosus; I48.91 Unspecified atrial fibrillation; I25.10 Atherosclerotic heart disease of native coronary artery without angina pectoris; E78.00 Pure hypercholesterolemia, unspecified; I10 Essential (primary) hypertension; J44.9 Chronic obstructive pulmonary disease, unspecified; Z87.01 Personal history of pneumonia (recurrent); Z95.4 Presence of other heart-valve replacement; Z98.51 Tubal ligation status; Z95.5 Presence of coronary angioplasty implant and graft; Z86.73 Personal history of transient ischemic attack (TIA), and cerebral infarction without residual deficits; Z79.01 Long term (current) use of anticoagulants; Z79.82 Long term (current) use of aspirin; Z79.84 Long term (current) use of oral hypoglycemic drugs; Z99.81 Dependence on supplemental oxygen; Z87.891 Personal history of nicotine dependence
CPT/HCPCS: 36415; 85027; 85610; 99283

== ENCOUNTER → 2017-02-21 | Outpatient (CLI) | payer MEDICARE | LOC: CARD 10:59 | PROVIDERS: ATTEND Internal Medicine Cardiovascular Disease | DX: J44.1 Chronic obstructive pulmonary disease with (acute) exacerbation (principal); G47.33 Obstructive sleep apnea (adult) (pediatric); R09.02 Hypoxemia; I65.23 Occlusion and stenosis of bilateral carotid arteries; E78.4 Other hyperlipidemia; I70.213 Atherosclerosis of native arteries of extremities with intermittent claudication, bilateral legs; Z98.890 Other specified postprocedural states; Z95.2 Presence of prosthetic heart valve; Z79.01 Long term (current) use of anticoagulants | CPT/HCPCS: 93306 ==

== ENCOUNTER → 2017-05-01 | Outpatient (CLI) | payer MEDICARE ==
--- NOTE | 2017-05-01 15:45 | Diagnostic Imaging Report ---
INDICATION: Peripheral vascular disease. FINDINGS: Ankle-brachial index on the right is 0.63 and on the left is also 0.63. IMPRESSION: Abnormal bilateral ankle-brachial indices both measuring 0.63. This is compatible with at least moderate peripheral vascular disease. Recommend clinical correlation and if warranted, follow-up with [facility]. Dictated by: Dictated on workstation # [id number]
== END ==
LOC: RAD 12:51
PROVIDERS: ATTEND Nurse Practitioner Family
DX: I70.213 Atherosclerosis of native arteries of extremities with intermittent claudication, bilateral legs (principal); I65.23 Occlusion and stenosis of bilateral carotid arteries; E78.4 Other hyperlipidemia; G47.33 Obstructive sleep apnea (adult) (pediatric); R06.02 Shortness of breath; Z95.2 Presence of prosthetic heart valve
CPT/HCPCS: 93923

== ENCOUNTER 2017-06-07 13:30 | Emergency (ER) | payer MEDICARE ==
[~2017-06-07] VITALS: Ht 167.6 cm; Wt 72.6 kg
--- NOTE | 2017-06-07 14:33 | Diagnostic Imaging Report ---
INDICATION: Foot pain. FINDINGS: The bones are diffusely osteopenic. There are osteoarthritic changes demonstrated within the mid and hindfoot and also within the interphalangeal joints and metatarsophalangeal joints. There are subacute appearing fractures involving the third and fourth metatarsals at the level of the metatarsal head and shaft junction. There is also a large erosion involving of the first metatarsal head. Gout cannot be excluded. IMPRESSION: 1. Osteoporosis. 2. Subacute appearing third and fourth metatarsal fractures. 3. Diffuse osteoarthritic changes as well as a large erosion within the medial aspect of the first metatarsal head. Gout cannot be excluded. Dictated by: Dictated on workstation # [id number]
--- NOTE | 2017-06-07 14:40 | ED Lower Extremity ---
General Chief Complaint: Lower Extremity Stated Complaint: TOE PAIN Nursing Triage Note: TO ROOM PER W/C C/O L 5TH TOE PAIN FOR 1 WEEK INCREASED AFTER SHE TRIPPED. REPORTS IS BEING TREATED FOR GOUT. Nursing Sepsis Screen: No Definite Risk Source: patient, family Exam Limitations: no limitations History of Present Illness Date Seen by Provider: Jun 07, 2017 Time Seen by Provider: 14:39 Initial Comments 81-year-old female patient presents to the emergency department complaints of left foot and fifth toe pain for 1 week. Patient reports symptoms were sudden onset and felt like muscle spasms. Symptoms were worse after stumbling this week. Denies hitting her head or falling to the ground. Onset: last week Pain/Injury Location: left foot Modifying Factors: Worse With Movement, Worse With Other (worse with ambulation.) Allergies and Home Medications Allergies Coded Allergies: codeine (Verified Allergy, Unknown, PT HAS REC MORPHINE WITHOUT PROBLEMS, 12/25/15) cortisone (Verified Allergy, Unknown, 12/25/15) tramadol (Verified Allergy, Unknown, 12/25/15) Home Medications Acetaminophen 500 Mg Tablet, 1,000 MG PO Q4H PRN for PAIN-MILD, (Reported) Aclidinium [place] 400 Mcg Aer.pow.ba, 1 PUFF IH BID, (Reported) Albuterol Sulfate 18 Gm Hfa.aer.ad, 2 PUFF INH Q4H PRN for SHORTNESS OF BREATH, (Reported) Allopurinol 100 Mg Tablet, 100 MG PO BID, (Reported) Ascorbic Acid 500 Mg Tablet, 500 MG PO BID, (Reported) Aspirin 81 Mg Tablet.dr, 81 MG PO DAILY, (Reported) Atenolol 25 Mg Tablet, 25 MG PO HS, (Reported) Atorvastatin Calcium 20 Mg Tablet, 20 MG PO HS, (Reported) Budesonide 0.5 Mg/2 Ml Ampul.neb, 0.5 MG NEB 0800,1600, (Reported) Cholecalciferol (Vitamin D3) 2,000 Unit Capsule, 2,000 UNIT PO DAILY, (Reported) Citalopram Hydrobromide 20 Mg Tablet, 20 MG PO HS, (Reported) Cranberry Extract 500 Mg Capsule, 500 MG PO DAILY, (Reported) Dextran 70/Hypromellose 15 Ml Drops, 1 DROP OU QID PRN for DRY EYES, (Reported) Diltiazem HCl 120 Mg Capsule.er, 120 MG PO DAILY, (Reported) Docusate Sodium 100 Mg Capsule, 100 MG PO DAILY PRN for CONSTIPATION, (Reported) Enalapril Maleate 10 Mg Tablet, 10 MG PO DAILY, (Reported) Furosemide 40 Mg Tablet, 60 MG PO DAILY, (Reported) TAKES 1 & 1/2 (40MG) TABLET Gentamicin Sulfate 3.5 Gm Oint...g., OU DAILY, (Reported) APPLY TO UPPER EYE LIDS Glimepiride 4 Mg Tablet, 4 MG PO DAILY, (Reported) Ipratropium/Albuterol Sulfate 3 Ml Ampul.neb, 3 ML NEB HS PRN for SHORTNESS OF BREATH, (Reported) Levothyroxine Sodium 25 Mcg Tablet, 25 MCG PO DAILY, (Reported) Nabumetone 750 Mg Tablet, 750 MG PO BID, (Reported) Nitroglycerin 0.4 Mg Tab.subl, 0.4 MG SL UD PRN for CHEST PAIN, (Reported) Omeprazole 40 Mg Capsule.dr, 40 MG PO DAILY, (Reported) Ondansetron 4 Mg Tab.rapdis, 1-2 TAB PO Q6H PRN for NAUSEA/VOMITING-1ST LINE Prescribed by: DALLIN ADHIKARI on 06/07/17 1519 Potassium Chloride 10 Meq Capsule.er, 10 MEQ PO DAILY, (Reported) Tapentadol HCl 50 Mg Tablet, 50 MG PO Q6H PRN for pain Prescribed by: DALLIN ADHIKARI on 06/07/17 1519 Warfarin Sodium 5 Mg Tablet, 5 MG PO DAILY@1800 Prescribed by: JARROD SPENCE on 07/12/16 1121 Patient Home Medication List Home Medication List Reviewed: Yes Constitutional: no symptoms reported Respiratory: no symptoms reported Cardiovascular: no symptoms reported Musculoskeletal: see HPI, No back pain, joint pain (left foot), joint swelling (left foot), No neck pain Skin: no symptoms reported Psychiatric/Neurological: No Symptoms Reported All Other Systems Reviewed Negative Unless Noted: Yes (Negative excepted noted.) Past Gxhydar-Vuutxh-Uwtpcu Hx Patient Social History Alcohol Use: Denies Use Recreational Drug Use: No Smoking Status: Former Smoker Type Used: Cigarettes Former Smoker, Quit: July 10, 2000 2nd Hand Smoke Exposure: No Recent Foreign Travel: No Contact w/Someone Who Travel: No Recent Infectious Disease Expo: No Recent Hopitalizations: Yes Immunizations Up To Date Tetanus Booster (TDap): Unknown Date of Pneumonia Vaccine: Aug 22, 2015 Date of Influenza Vaccine: Dec 25, 2015 Seasonal Allergies Seasonal Allergies: No Past Medical History Surgeries: Yes (RT HIP, HEART VALVE REPLACEMENT, BLEPHAROSPLASTY) Coronary Stent, Orthopedic, Tonsillectomy, Tubal Ligation, Valve Replacement, Vascular Surgery Respiratory: Yes (wears cpap with o2 2l HS) Pneumonia, Sleep Apnea, COPD Currently Using CPAP: Yes (At HS. ) Currently Using BIPAP: No Cardiac: Yes Atrial Fibrillation, Coronary Artery Disease, High Cholesterol, Hypertension, Valvular Heart Disease Neurological: Yes (reports "light stroke" last year) Headaches /Migraines, TIA Reproductive Disorders: No Female Reproductive Disorders: Denies Sexually Transmitted Disease: No HIV/AIDS: No Genitourinary: Yes Kidney Infection, UTI-Chronic Gastrointestinal: Yes Gastroesophageal Reflux, Gastrointestinal Bleed, Hemorrhoids Musculoskeletal: Yes Arthritis Endocrine: Yes Hypothyroidsim, Diabetes, Non-Insulin dep Cataract Loss of Vision: Bilateral Hearing Impairment: Hard of Hearing Cancer: No Psychosocial: No Integumentary: No Blood Disorders: Yes (ANEMIA--ON COUMADIN) Adverse Reaction/Blood Tranf: No Family Medical History Reviewed Nursing Family Hx Patient reports no known family medical history. No Pertinent Family Hx Physical Exam Vital Signs Vital Signs - First Documented 06/07/17 13:37 Temp 98.7 Pulse 71 Resp 18 B/P (MAP) 187/87 (120) Pulse Ox 98 O2 Delivery Room Air Capillary Refill : Less Than 3 Seconds General Appearance: WD/WN, no apparent distress Cardiovascular: normal peripheral pulses, regular rate, rhythm, no edema, no murmur Respiratory: lungs clear, normal breath sounds, no respiratory distress, no accessory muscle use Hips: bilateral hip non-tender, bilateral hip normal inspection, bilateral hip normal range of motion, bilateral hip no evidence of injury Legs: bilateral leg non-tender, bilateral leg normal inspection, bilateral leg normal range of motion, bilateral leg no evidence of injury Knees: bilateral knee non-tender, bilateral knee normal inspection, bilateral knee normal range of motion, bilateral knee no evidence of injury Ankles: bilateral ankle non-tender, bilateral ankle normal inspection, bilateral ankle normal range of motion, bilateral ankle no evidence of injury Feet: right foot non-tender, right foot normal inspection, bilateral foot normal range of motion, right foot no evidence of injury, left foot bone tenderness (distal left third and fourth metatarsal tenderness), left foot ecchymosis (left foot overlying the distal third, fourth, and fifth metatarsals. ), left foot pain, left foot soft tissue tenderness, left foot swelling (left foot overlying the distal third, fourth, and fifth metatarsals.) Neurologic/Tendon: normal sensation, normal motor functions, normal tendon functions, responds to pain, no evidence tendon injury Neurologic/Psychiatric: no motor/sensory deficits, alert, normal mood/affect, oriented x 3 Skin: normal color, warm/dry, ecchymosis (left foot overlying the distal third , fourth, and fifth metatarsals.) Progress/Results/Core Measures My Orders Orders - DALLIN ADHIKARI Foot, Left, 3 Views (06/07/17 14:19) Acetaminophen Tablet (Tylenol Tablet) (06/07/17 15:14) Vital Signs/I&O 06/07/17 13:37 Temp 98.7 Pulse 71 Resp 18 B/P (MAP) 187/87 (120) Pulse Ox 98 O2 Delivery Room Air Blood Pressure Mean: 120 Diagonstic Imaging: Xray Plain Films/CT/US/NM/MRI: other (left foot) Comments FOOT, LEFT, 3 VIEWS INDICATION: Foot pain. FINDINGS: The bones are diffusely osteopenic. There are osteoarthritic changes demonstrated within the mid and hindfoot and also within the interphalangeal joints and metatarsophalangeal joints. There are subacute appearing fractures involving the third and fourth metatarsals at the level of the metatarsal head and shaft junction. There is also a large erosion involving of the first metatarsal head. Gout cannot be excluded. IMPRESSION: 1. Osteoporosis. 2. Subacute appearing third and fourth metatarsal fractures. 3. Diffuse osteoarthritic changes as well as a large erosion within the medial aspect of the first metatarsal head. Gout cannot be excluded. Dictated on workstation # [id number] Reviewed: Reviewed by Me (radiology report reviewed by me) Departure Communication (Admissions) Diagnostic findings discussed with the patient. Plan for discharge to home. Impression Primary Impression: Fracture of fourth metatarsal bone of left foot Qualified Codes: S92.345A - Nondisplaced fracture of fourth metatarsal bone, left foot, initial encounter for closed fracture Additional Impression: Fracture of third metatarsal bone of left foot Qualified Codes: S92.335A - Nondisplaced fracture of third metatarsal bone, left foot, initial encounter for closed fracture Disposition: 01 HOME, SELF-CARE Condition: Improved Departure-Patient Inst. Decision time for Depature: 15:16 Referrals: KINJAL CARMONA MD, WILLIAM J DO (PCP/Family) Primary Care Physician Patient Instructions: Foot Fracture (DC) Add. Discharge Instructions: All discharge instructions reviewed with patient and/or family. Voiced understanding. Medications as instructed. Tylenol extra strength over-the- counter as directed for pain. Continue to use the walker for assistance with ambulation. Elevate the left foot on pillows. Ice pack for 20 minute intervals as needed for pain and swelling. Follow-up with Dr. Carmona or the orthopedic surgeon of your choice for recheck as an outpatient within the next 7 days. Call for appointment time Friday. Return to the emergency department for worsened symptoms or any other concerns. Scripts Ondansetron (Ondansetron Odt) 4 Mg Tab.rapdis 1-2 TAB PO Q6H Y for NAUSEA/VOMITING-1ST LINE, #10 TAB 0 Refills Prov: DALLIN ADHIKARI 06/07/17 Tapentadol HCl (Nucynta) 50 Mg Tablet 50 MG PO Q6H Y for pain, #20 TAB 0 Refills Prov: DALLIN ADHIKARI 06/07/17 DALLIN ADHIKARI Jun 07, 2017 14:40
[2017-06-07] MEDS ORDERED: ACETAMINOPHEN 500 MG TAB (TYLENOL) PO STA (15:14)
[2017-06-07] MEDS ORDERED: TAPE50TA2 PO (15:19)
[2017-06-07] MEDS ORDERED: ONDA4TAB11 PO (15:19)
[2017-06-07 15:36] VITALS: BP 187/87
== END 2017-06-07 15:36 | disposition home or self-care (01) ==
LOC: EDUNIT# 13:30 → ER 13:32
DX: S92.342A Displaced fracture of fourth metatarsal bone, left foot, initial encounter for closed fracture (principal); S92.332A Displaced fracture of third metatarsal bone, left foot, initial encounter for closed fracture; D64.9 Anemia, unspecified; E03.9 Hypothyroidism, unspecified; E11.9 Type 2 diabetes mellitus without complications; K21.9 Gastro-esophageal reflux disease without esophagitis; G43.909 Migraine, unspecified, not intractable, without status migrainosus; I48.91 Unspecified atrial fibrillation; M10.9 Gout, unspecified; I25.10 Atherosclerotic heart disease of native coronary artery without angina pectoris; I10 Essential (primary) hypertension; E78.00 Pure hypercholesterolemia, unspecified; J44.9 Chronic obstructive pulmonary disease, unspecified; G47.30 Sleep apnea, unspecified; Z87.891 Personal history of nicotine dependence; Z98.51 Tubal ligation status; Z95.2 Presence of prosthetic heart valve; Z87.19 Personal history of other diseases of the digestive system; Z87.440 Personal history of urinary (tract) infections; Z87.01 Personal history of pneumonia (recurrent); Z79.01 Long term (current) use of anticoagulants; Z79.84 Long term (current) use of oral hypoglycemic drugs; Z79.82 Long term (current) use of aspirin; Z86.73 Personal history of transient ischemic attack (TIA), and cerebral infarction without residual deficits; Z88.5 Allergy status to narcotic agent; Z88.8 Allergy status to other drugs, medicaments and biological substances; Z88.6 Allergy status to analgesic agent; Z99.81 Dependence on supplemental oxygen; W01.0XXA Fall on same level from slipping, tripping and stumbling without subsequent striking against object, initial encounter
CPT/HCPCS: 73630

== ENCOUNTER → 2017-06-18 | Outpatient (CLI) | payer MEDICARE ==
[~2017-06-18] MED LIST changes: +ASCO500T7 PO; +CEFU250T80 PO; -CITA20TA7 PO; +CITA20TA9 PO; -IPRA3AMP IH; -IPRA3AMP INH; -IPRA3AMP NEB; +IPRA3AMP31 IH; +IPRA3AMP31 INH; +IPRA3AMP31 NEB; +ONDA4TAB11 PO; +POTA10TA10 PO; +SULF1TAB35 PO; +TAPE50TA2 PO; +UMEC62.5 IH
--- NOTE | 2017-06-18 17:13 | Diagnostic Imaging Report ---
INDICATION: Status post recent fall several days ago. Pain. TECHNIQUE: Two views of the right shoulder 11:48 AM. CORRELATION STUDY: None FINDINGS: Two anchor screws over the humeral head are noted likely owing to prior rotator cuff surgery. Slightly high riding appearance about the humeral head is noted. Mild hypertrophic change about the acromioclavicular joint. There is slight loss of the smooth articular surface of the bony glenoid with minimal osteophyte formation particularly inferiorly. No acute fracture suggested. Prominent interstitial markings of the visualized right lung apex. IMPRESSION: 1. Negative for acute bony abnormality about the shoulder. 2. Likely prior right rotator cuff surgery. High riding humeral head can be associated with underlying rotator cuff pathology. Clinical correlation is recommended. Dictated by: Dictated on workstation # [id number]
--- NOTE | 2017-06-18 19:52 | Diagnostic Imaging Report ---
INDICATION: Status post recent fall several days ago, now with pain. TECHNIQUE: Two views of right clavicle at 11:45 a.m. CORRELATION STUDY: None. FINDINGS: Clavicle is intact. Mild hypertrophic changes about the acromioclavicular joint. Slight high-riding appearance about the humeral head demonstrating likely prior rotator cuff surgery with two anchor screws over the humeral head. Incidental note is made of what appears to be rather extensive calcification of the soft tissues of the neck which may very well reflect extensive carotid artery calcification. IMPRESSION: 1. Negative for acute fracture of the right clavicle. 2. High-riding humeral head demonstrating prior likely rotator cuff surgery. Findings can be associated with underlying rotator cuff pathology. Clinical correlation recommended. 3. Concern for probable extensive carotid artery calcification. If further assessment is desired, carotid ultrasound imaging recommended. Dictated by: Dictated on workstation # [id number]
== END ==
LOC: RAD 11:11
PROVIDERS: ATTEND Internal Medicine
DX: M25.512 Pain in left shoulder (principal); W19.XXXD Unspecified fall, subsequent encounter; Z98.890 Other specified postprocedural states
CPT/HCPCS: 73000; 73030

== ENCOUNTER 2017-07-27 15:40 | Emergency (ER) | payer MEDICARE ==
[~2017-07-27] VITALS: Ht 167.6 cm; Wt 72.6 kg
[~2017-07-27 15:40] MED LIST changes: -ASCO500T7 PO; +IPRA3AMP IH; +IPRA3AMP INH; +IPRA3AMP NEB; -IPRA3AMP31 IH; -IPRA3AMP31 INH; -IPRA3AMP31 NEB; -POTA10TA10 PO; -SULF1TAB35 PO; -UMEC62.5 IH
[2017-07-27] MEDS ORDERED: SULF1TAB35 PO (16:40)
--- NOTE | 2017-07-27 16:40 | ED Integumentary General ---
General Chief Complaint: Skin/Wound Problems Stated Complaint: POSS INFECTION IN L LEG Nursing Triage Note: c/o redness on L 2nd toe and L luu Source: patient Exam Limitations: no limitations History of Present Illness Date Seen by Provider: July 27, 2017 Time Seen by Provider: 16:35 Initial Comments To ER with reports of 2 left lower extremity sores. Left Luu for about 2-3 weeks. She is a diabetic. The sore on the left luu began without known cause she's been treating at home with topical antibiotic ointment and cleaning. 2 days ago she hit the dorsal aspect of her left second toe on the bottom of her walker. This caused a small abrasion and the toe is now red and painful. She's also been treating this with topical antibiotic ointment. No fevers or chills. Timing/Duration: just prior to arrival Severity: moderate Possible Cause: no cause identified Associated Symptoms: denies symptoms Allergies and Home Medications Allergies Coded Allergies: codeine (Verified Allergy, Unknown, PT HAS REC MORPHINE WITHOUT PROBLEMS, 12/25/15) cortisone (Verified Allergy, Unknown, 12/25/15) tramadol (Verified Allergy, Unknown, 12/25/15) Home Medications Acetaminophen 500 Mg Tablet, 1,000 MG PO Q4H PRN for PAIN-MILD, (Reported) Aclidinium [place] 400 Mcg Aer.pow.ba, 1 PUFF IH BID, (Reported) Albuterol Sulfate 18 Gm Hfa.aer.ad, 2 PUFF INH Q4H PRN for SHORTNESS OF BREATH, (Reported) Allopurinol 100 Mg Tablet, 100 MG PO BID, (Reported) Ascorbic Acid 500 Mg Tablet, 500 MG PO BID, (Reported) Aspirin 81 Mg Tablet.dr, 81 MG PO DAILY, (Reported) Atenolol 25 Mg Tablet, 25 MG PO HS, (Reported) Atorvastatin Calcium 20 Mg Tablet, 20 MG PO HS, (Reported) Budesonide 0.5 Mg/2 Ml Ampul.neb, 0.5 MG NEB 0800,1600, (Reported) Cefuroxime Axetil 250 Mg Tablet, 250 MG PO BID Prescribed by: NAVEED DAVILA on 07/10/17 1603 Cholecalciferol (Vitamin D3) 2,000 Unit Capsule, 2,000 UNIT PO DAILY, (Reported) Citalopram Hydrobromide 20 Mg Tablet, 20 MG PO HS, (Reported) Cranberry Extract 500 Mg Capsule, 500 MG PO DAILY, (Reported) Dextran 70/Hypromellose 15 Ml Drops, 1 DROP OU QID PRN for DRY EYES, (Reported) Diltiazem HCl 120 Mg Capsule.er, 120 MG PO DAILY, (Reported) Docusate Sodium 100 Mg Capsule, 100 MG PO DAILY PRN for CONSTIPATION, (Reported) Enalapril Maleate 10 Mg Tablet, 10 MG PO DAILY, (Reported) Furosemide 40 Mg Tablet, 60 MG PO DAILY, (Reported) TAKES 1 & 1/2 (40MG) TABLET Gentamicin Sulfate 3.5 Gm Oint...g., OU DAILY, (Reported) APPLY TO UPPER EYE LIDS Glimepiride 4 Mg Tablet, 4 MG PO DAILY, (Reported) Ipratropium/Albuterol Sulfate 3 Ml Ampul.neb, 3 ML NEB HS PRN for SHORTNESS OF BREATH, (Reported) Levothyroxine Sodium 25 Mcg Tablet, 25 MCG PO DAILY, (Reported) Nabumetone 750 Mg Tablet, 750 MG PO BID, (Reported) Nitroglycerin 0.4 Mg Tab.subl, 0.4 MG SL UD PRN for CHEST PAIN, (Reported) Omeprazole 40 Mg Capsule.dr, 40 MG PO DAILY, (Reported) Ondansetron 4 Mg Tab.rapdis, 1-2 TAB PO Q6H PRN for NAUSEA/VOMITING-1ST LINE Prescribed by: DALLIN ADHIKARI on 06/07/17 1519 Potassium Chloride 10 Meq Capsule.er, 10 MEQ PO DAILY, (Reported) Prednisone 20 Mg Tab, 40 MG PO DAILY Prescribed by: NAVEED DAVILA on 07/10/17 1603 Tapentadol HCl 50 Mg Tablet, 50 MG PO Q6H PRN for pain Prescribed by: DALLIN ADHIKARI on 06/07/17 1519 Warfarin Sodium 5 Mg Tablet, 5 MG PO DAILY@1800 Prescribed by: JARROD SPENCE on 07/12/16 1121 Patient Home Medication List Home Medication List Reviewed: Yes Constitutional: see HPI; No chills, No fever EENTM: see HPI Respiratory: no symptoms reported Cardiovascular: no symptoms reported Genitourinary: no symptoms reported Musculoskeletal: no symptoms reported Skin: see HPI Psychiatric/Neurological: No Symptoms Reported Past Iaqxhmj-Mjbaez-Emfndz Hx Patient Social History Alcohol Use: Denies Use Recreational Drug Use: No Smoking Status: Former Smoker Type Used: Cigarettes Former Smoker, Quit: July 10, 2000 2nd Hand Smoke Exposure: No Recent Foreign Travel: No Contact w/Someone Who Travel: No Recent Infectious Disease Expo: No Recent Hopitalizations: Yes Immunizations Up To Date Tetanus Booster (TDap): Unknown Date of Pneumonia Vaccine: Aug 22, 2015 Date of Influenza Vaccine: Dec 25, 2015 Seasonal Allergies Seasonal Allergies: No Past Medical History Surgeries: Yes (RT HIP, HEART VALVE REPLACEMENT, BLEPHAROSPLASTY) Coronary Stent, Orthopedic, Tonsillectomy, Tubal Ligation, Valve Replacement, Vascular Surgery Respiratory: Yes (wears cpap with o2 2l HS) Pneumonia, Sleep Apnea, COPD Currently Using CPAP: Yes (At HS. ) Currently Using BIPAP: No Cardiac: Yes Atrial Fibrillation, Coronary Artery Disease, High Cholesterol, Hypertension, Valvular Heart Disease Neurological: Yes (reports "light stroke" last year) Headaches /Migraines, TIA Reproductive Disorders: No Female Reproductive Disorders: Denies Sexually Transmitted Disease: No HIV/AIDS: No Genitourinary: Yes Kidney Infection, UTI-Chronic Gastrointestinal: Yes Gastroesophageal Reflux, Gastrointestinal Bleed, Hemorrhoids Musculoskeletal: Yes Arthritis Endocrine: Yes Hypothyroidsim, Diabetes, Non-Insulin dep Cataract Loss of Vision: Bilateral Hearing Impairment: Hard of Hearing Cancer: No Psychosocial: No Integumentary: No Blood Disorders: Yes (ANEMIA--ON COUMADIN) Adverse Reaction/Blood Tranf: No Family Medical History Patient reports no known family medical history. No Pertinent Family Hx Physical Exam Vital Signs Vital Signs - First Documented 07/27/17 16:14 Temp 97.0 Pulse 92 Resp 18 B/P (MAP) 118/68 (85) Pulse Ox 97 Capillary Refill : Less Than 3 Seconds General Appearance: WD/WN, no apparent distress HEENT: PERRL/EOMI, normal ENT inspection Neck: non-tender, full range of motion Respiratory: no respiratory distress, no accessory muscle use Extremities: normal range of motion, non-tender, other (Chronic brownish discoloration to bilateral lower extremities with a bit of erythema on the left. There is a 2 mm very small ulcer without drainage to the anterior left luu. To the dorsal aspect of the left second toe middle phalanx there is an abrasion skin flap. The toe is erythematous and very painful. A culture of the left toe was taken and sent to lab. This was redressed with anabolic ointment and gauze.) Neurologic/Psychiatric: alert, oriented x 3 Skin: normal color, warm/dry Progress/Results/Core Measures Results/Orders My Orders Orders - NAVEED DAVILA APRN Wound Culture (07/27/17 16:33) Ketorolac Injection (Toradol Injection) (07/27/17 16:45) Sulfamethoxazole/Trimet Ds Tab (Bactrim (07/27/17 16:45) Vital Signs/I&O 07/27/17 16:14 Temp 97.0 Pulse 92 Resp 18 B/P (MAP) 118/68 (85) Pulse Ox 97 Blood Pressure Mean: 85 Departure Impression Primary Impression: Soft tissue infection Disposition: 01 HOME, SELF-CARE Condition: Stable Departure-Patient Inst. Decision time for Depature: 16:39 Referrals: SEDRICK CANO DO (PCP/Family) Primary Care Physician Patient Instructions: Wound Care (DC) Add. Discharge Instructions: 1. Take antibiotics as directed 2. Tylenol as needed for pain 3. Follow-up with Dr. Cano later this week for recheck. All discharge instructions reviewed with patient and/or family. Voiced understanding. Scripts Sulfamethoxazole/Trimethoprim (Bactrim Ds Tablet) 1 Each Tablet 0.5 EACH PO BID, #7 TAB Prov: NAVEED DAVILA APRN 07/27/17 NAVEED DAVILA APRN July 27, 2017 16:40
[2017-07-27] MEDS ORDERED: KETOROLAC 30 MG/ML VIAL IM ONE (16:45)
[2017-07-27] MEDS ORDERED: TRIM/SULFAMETH 160/800 (SEPTRA DS) TAB PO ONE (16:45)
[2017-07-27 16:50] VITALS: BP 119/73
== END 2017-07-27 16:50 | disposition home or self-care (01) ==
LOC: EDUNIT# 15:40 → ER 15:41
DX: L53.9 Erythematous condition, unspecified (principal); I48.91 Unspecified atrial fibrillation; I25.10 Atherosclerotic heart disease of native coronary artery without angina pectoris; E78.00 Pure hypercholesterolemia, unspecified; I10 Essential (primary) hypertension; G43.909 Migraine, unspecified, not intractable, without status migrainosus; J44.9 Chronic obstructive pulmonary disease, unspecified; K21.9 Gastro-esophageal reflux disease without esophagitis; D64.9 Anemia, unspecified; E11.9 Type 2 diabetes mellitus without complications; E03.9 Hypothyroidism, unspecified; Z87.19 Personal history of other diseases of the digestive system; Z86.73 Personal history of transient ischemic attack (TIA), and cerebral infarction without residual deficits; Z87.01 Personal history of pneumonia (recurrent); Z95.5 Presence of coronary angioplasty implant and graft; Z90.89 Acquired absence of other organs; Z98.51 Tubal ligation status; Z95.2 Presence of prosthetic heart valve; Z79.01 Long term (current) use of anticoagulants; Z87.891 Personal history of nicotine dependence; Z79.52 Long term (current) use of systemic steroids; Z79.82 Long term (current) use of aspirin; Z79.84 Long term (current) use of oral hypoglycemic drugs; Z88.6 Allergy status to analgesic agent; Z88.8 Allergy status to other drugs, medicaments and biological substances
CPT/HCPCS: 87070; 87186; 87205; 96372; 99284

== ENCOUNTER 2017-09-09 06:56 | Day surgery (SDC) | payer MEDICARE ==
[2017-09-09] VITALS (11 sets, daily range): BP systolic 119–149; BP diastolic 70–99
[~2017-09-09] VITALS: Ht 167.6 cm; Wt 73.9 kg
[~2017-09-09 06:56] MED LIST changes: -IPRA3AMP IH; -IPRA3AMP INH; -IPRA3AMP NEB; +IPRA3AMP31 IH; +IPRA3AMP31 INH; +IPRA3AMP31 NEB; +SULF1TAB35 PO
[2017-09-09] MEDS ORDERED: LIDOCAINE 1% INJ 20 ML 20 ML VIAL ONE (07:07)
[2017-09-09] MEDS ORDERED: HEParin (CATH LAB) 2,000 ML IV ONE (07:08)
[2017-09-09] MEDS ORDERED: NS IV 1000 ML 1,000 ML ONE (07:08)
[2017-09-09 07:49] LABS: HEMOGLOBIN 11.4 G/DL (11.5-16.0); RED BLOOD COUNT 3.6 10^6/uL (4.35-5.85); RED CELL DISTRIBUTION WIDTH 14.7 % (10.0-14.5); WHITE BLOOD COUNT 7.3 10^3/uL (4.3-11.0)
[2017-09-09] MEDS ORDERED: NS IV 1000 ML 1,000 ML IV SCH (08:00)
[2017-09-09 08:01] LABS: INR 2.8 (0.8-1.4); PROTHROMBIN TIME PATIENT 29.7 SEC (12.2-14.7)
[2017-09-09 08:15] LABS: ALBUMIN 3.6 GM/DL (3.2-4.5); BILIRUBIN,TOTAL 0.4 MG/DL (0.1-1.0); CALCIUM 9.6 MG/DL (8.5-10.1); CREATININE SERUM 1.74 MG/DL (0.60-1.30); POTASSIUM 4.7 MMOL/L (3.6-5.0); TOTAL PROTEIN 6.7 GM/DL (6.4-8.2)
[2017-09-09] MEDS ORDERED: UMEC62.5 IH (08:49)
[2017-09-09] MEDS ORDERED: WARF-48 PO ×2 (08:49)
[2017-09-09] MEDS ORDERED: ASCO500T7 PO (08:49)
[2017-09-09] MEDS ORDERED: POTA10TA10 PO (08:49)
[2017-09-09] MEDS ORDERED: ALBU2.5V4 NEB (08:49)
[2017-09-09] MEDS ORDERED: fentaNYL INJECTION 100 MCG/2 ML AMP ONE (10:51)
[2017-09-09] MEDS ORDERED: MIDAZOLAM 5 MG/5 ML (VERSED) VIAL ONE (10:51)
[2017-09-09] MEDS ORDERED: diphenhydrAMINE 50 MG/ML INJ (BENADRYL) ONE (10:51)
[2017-09-09] MEDS ORDERED: HEParin 1000 UNIT/ML (10ML VIAL) FOR BOLUS ONE (12:31)
--- NOTE | 2017-09-09 13:25 | Cardiac Procedure Note-CS/ASA ---
Pre-Procedure Note Pre-Op Procedure Note H&P Reviewed The H&P was reviewed, patient examined and no changes noted. Date H&P Reviewed: Sep 09, 2017 Time H&P Reviewed: 12:30 Conscious Sedation Pre-Proced Time Reviewed: 12:30 ASA Class: 4 Airway Mallampati Classification: ([place] appropriate class) I. II. III, IV Lungs Heart ASA score ASA 1: a normal healthy patient ASA 2: a patient with a mild systemic disease (mid diabetes, controlled hypertension, obesity ASA 3: a patient with a severe systemic disease that limits activity (angina , COPD, prior Myocardial infarction) ASA 4: a patient with an incapacitating disease that is a constant threat to life (CHF, renal failure) ASA 5: a moribund patient not expected to survive 24 hrs. (ruptured aneurysm) ASA 6: a declared brain patient whose organs are being harvested. For emergent operations, add the letter E after the classification Grade 2 Sedation Plan: Analgesia, Amnesia, Plan communicated to team members, Discussed options with patient/fam, Discussed risks with patient/fam Note The patient is an appropriate candidate to undergo the planned procedure, sedation, and anesthesia. The patient immediately re-assessed prior to indication. WALDEMAR CALLOWAY MD FACP FAC CCDS Sep 09, 2017 13:25
[2017-09-09] MEDS ORDERED: RT-ALBUTEROL SULF 2.5 MG/3 ML PRE-MIX VIAL INH PRN (13:30)
[2017-09-09] MEDS ORDERED: PATIENT MAY USE OWN MEDS, ALL PO SCH (13:30)
[2017-09-09] MEDS ORDERED: NON-FORMULARY MEDICATION 1 EA EA (Dextran 70/Hypromellose (Natural Balance Tears Eye Drop) OU PRN (13:30)
[2017-09-09] MEDS ORDERED: NON-FORMULARY MEDICATION 1 EA EA (Acetaminophen (Tylenol Extra Strength) 1,000 MG) PO PRN (13:30)
[2017-09-09] MEDS ORDERED: NITROGLYCERIN 0.4 MG SL TABS BTL 25'S SL PRN (13:30)
[2017-09-09] MEDS ORDERED: ASPIRIN 81 MG CHEW (CHILDREN'S ASA) ONE (13:34)
[2017-09-09] MEDS: NS IV 1000 ML 1,000 ML IV SCH (14:12)
--- NOTE | 2017-09-09 14:26 | Cardiology Discharge Summary ---
Diagnosis/Chief Complaint Date of Admission 09-09-17 Date of Discharge Admission Diagnosis Non-healing leg ulcers of RLE Claudication - DYLON of 05-01-17 report mod PVD. DYLON R 0.63, L 0.63 Peripheral arterial disease. She has undergone bilateral kissing stents of both common iliacs and extensive balloon angioplasty and stenting of the R SFA by Dr Loaiza on 12/31/13. Subsequently, on 01/07/14, Dr Loaiza did stenting of L SFA and successful balloon angioplasty of L peroneal and L anterior tibial arteries, but angioplasty to chronic occlusion of L posterior tibial was unsuccessful and resulted in subintimal dissection; has chronic bilat leg claudication CKD stage III H/O stress fracture of left foot May 2017 CVA: L-sided weakness and L-visual field cut in Dec 2015. 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 Payne. Cardiac cath of 06-24-2013 showed CAD, mild to moderate. Moderate mid vessel stenosis of the LAD with fractional flow reserve across the lesion of 0.95. Moderate mid vessel stenosis of the RCA with fractional flow reserve across the lesion of 0.95. Patent stents in the proximal left circumflex and the mid RCA which were placed in 2004 MPI of 07-18-15 did not indicate significant myocardial ischemia or infarction. Normal regional wall motion. Normal global LV systolic function with calculated ejection fraction of 69%. 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 The last echocardiogram was in January 2017 showed LVEF 60-65%. Grade I diastolic dysfunction. Mechanical aortic valve prosthesis is present. Appears to be functioning adeuately. Peak gradient across the valve is measured at approx 20mmHg. Mild to mod TR. PASP 35-40mmHg Left internal carotid artery stenosis of 60-79%, right internal carotid artery stenosis of less thatn 40% per carotid u/s of 05/20/17 Hyperlipidemia being treated with lovastatin and being followed by Dr. Cano. Chronic waffarin anticoagulation, managed by Dr Cano Heme-positive stools in Jan 2014. Diffuse erosive gastritis, hemorrhoids, diverticulitis, no active bleeding per endoscopy in Jan [address] Rodgers, treated with H2 angie, PPI and Carafate (managed by Dr Rodgers). Recurrent heme (+) stools in March 2014 - capsule endoscopy History of transient ischemic attacks. Borderline diabetes mellitus being managed by Dr. Cano. Right rotator cuff repair on 11/28/[address] Woodward due to a torn rotator cuff. Final/Discharge Diagnosis Angiography indicates a patent stent in the right common iliac artery and patent stents in the right superficial femoral artery. There is moderate diffuse disease involving the iliac and femoral arteries. The right popliteal artery is intact. The right peroneal artery had 95% ostial stenosis to which successful balloon angioplasty was carried out for reduction of stenosis to less than 30%. The distal popliteal artery does have 60-70% stenosis at the site of its trifurcation. This did not change following the percutaneous intervention to the popliteal artery on the right side. The anterior and posterior tibial arteries on the right side are chronically occluded with collateralization from the peroneal artery. Per peripheral angiogram of August CKD stage III H/O stress fracture of left foot May 2017 CVA: L-sided weakness and L-visual field cut in Dec 2015. 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 Payne. Cardiac cath of 06-24-2013 showed CAD, mild to moderate. Moderate mid vessel stenosis of the LAD with fractional flow reserve across the lesion of 0.95. Moderate mid vessel stenosis of the RCA with fractional flow reserve across the lesion of 0.95. Patent stents in the proximal left circumflex and the mid RCA which were placed in 2004 MPI of -17-16 did not indicate significant myocardial ischemia or infarction. Normal regional wall motion. Normal global LV systolic function with calculated ejection fraction of 69%. 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 The last echocardiogram was in January 2017 showed LVEF 60-65%. Grade I diastolic dysfunction. Mechanical aortic valve prosthesis is present. Appears to be functioning adequately. Peak gradient across the valve is measured at approx 20mmHg. Mild to mod TR. PASP 35-40mmHg Left internal carotid artery stenosis of 60-79%, right internal carotid artery stenosis of less thatn 40% per carotid u/s of 05/20/17 Hyperlipidemia being treated with lovastatin and being followed by Dr. Cano. Chronic warfarin anticoagulation, managed by Dr Cano Heme-positive stools in Jan 2014. Diffuse erosive gastritis, hemorrhoids, diverticulitis, no active bleeding per endoscopy in Jan [address] Rodgers, treated with H2 angie, PPI and Carafate (managed by Dr Rodgers). Recurrent heme (+) stools in March 2014 - capsule endoscopy History of transient ischemic attacks. Borderline diabetes mellitus being managed by Dr. Cano. Right rotator cuff repair on 11/28/[address] Woodward due to a torn rotator cuff. Chief Complaint/HPI Chief Complaint/HPI She reports recent bilat LE edema for which her PCP had increased her Lasix dose. She reports the swelling has improved, but not completely resolved. She reports approx a week ago she developed blisters on her right lower leg and an open sore which is not healing. She reports bilat leg discomfort with ambulation which is relieved with rest. Previously she had desired medical management. However, d/t new non-healing leg ulcers and continued claudication she is now agreeable to peripheral angiogram with possible intervention. Discharge Summary Procedures Peripheral angiogram with intervention on September 09, 2017. Please refer to Dr. Estrella's procedure note for details. Hospital Course Pending Labs Discussion & Recommendations Follow up appt.: One week Lab: BMP in one week Home Medications Reviewed patient Home Medication Reconciliation performed by pharmacy medication reconciliations electronic warfare technician and/or nursing. Patients Allergies have been reviewed. Discharge Home Medications: Discharge Medications Continued Medications: Acetaminophen (Tylenol Extra Strength) 500 Mg Tablet 1000 MG PO Q4H PRN for PAIN-MILD, TAB Albuterol Sulfate (Ventolin Hfa) 18 Gm Hfa.aer.ad 2 PUFF INH Q4H PRN for SHORTNESS OF BREATH, INHALER Albuterol Sulfate (Albuterol Sulfate) 2.5 Mg/3 Ml Vial.neb 2.5 MG NEB 1200,2100, EA Allopurinol (Allopurinol) 100 Mg Tablet 100 MG PO BID, TAB Ascorbic Acid (Ascorbic Acid) 500 Mg Tablet 500 MG PO BID, TAB Aspirin (Aspirin EC) 81 Mg Tablet.dr 81 MG PO DAILY, TAB Atenolol (Atenolol) 25 Mg Tablet 25 MG PO HS, TAB Atorvastatin Calcium (Atorvastatin Calcium) 20 Mg Tablet 20 MG PO HS, TAB Budesonide (Budesonide) 0.5 Mg/2 Ml Ampul.neb 0.5 MG NEB 0800,1600, EA Cholecalciferol (Vitamin D3) (Vitamin D-3) 2,000 Unit Capsule 2000 UNIT PO DAILY, CAP Cranberry Extract (Cranberry) 500 Mg Capsule 500 MG PO DAILY, CAP Dextran 70/Hypromellose (Natural Balance Tears Eye Drop) 15 Ml Drops 1 DROP OU QID PRN for DRY EYES, DROPS Diltiazem HCl (Diltiazem ER) 120 Mg Capsule.er 120 MG PO DAILY, CAP Enalapril Maleate (Enalapril Maleate) 10 Mg Tablet 10 MG PO DAILY, TAB Furosemide (Furosemide) 40 Mg Tablet 60 MG PO DAILY, TAB TAKES 1 & 1/2 (40MG) TABLET Glimepiride (Glimepiride) 4 Mg Tablet 4 MG PO DAILY, TAB Levothyroxine Sodium (Levothyroxine Sodium) 25 Mcg Tablet 25 MCG PO DAILY, TAB Nabumetone (Nabumetone) 750 Mg Tablet 750 MG PO BID, TAB Nitroglycerin (Nitroglycerin) 0.4 Mg Tab.subl 0.4 MG SL UD PRN for CHEST PAIN, TAB Omeprazole (Omeprazole) 40 Mg Capsule.dr 40 MG PO DAILY, CAP Potassium Chloride (Potassium Chloride) 10 Meq Tablet.er 20 MEQ PO DAILY, TAB TAKES 2 (10MEQ) TABLET Umeclidinium [place] (Incruse Ellipta) 62.5 Mcg Blst.w.dev 1 PUFF IH DAILY Warfarin Sodium (Warfarin Sodium) 5 Mg Tablet 5 MG PO MoWeFr, TAB Warfarin Sodium (Warfarin Sodium) 5 Mg Tablet 7.5 MG PO AnetauThSa, TAB OBED COLLIER Sep 09, 2017 14:26
--- NOTE | 2017-09-09 14:37 | OPERATIVE REPORT ---
DATE OF SERVICE: 09/09/2017 PERIPHERAL ANGIOGRAPHY AND INTERVENTION REPORT The patient is an 81-year-old lady who is known to have peripheral arterial disease. In the past, she has undergone bilateral kissing stents of both common iliacs and extensive balloon angioplasty and stenting of the right superficial femoral artery by Dr. Loaiza on 12/31/2013. Subsequently, on 01/07/2014, Dr. Loaiza did stenting of the left superficial femoral artery and successful balloon angioplasty of the left peroneal and the left anterior tibial arteries, but angioplasty to the chronic occlusion of the left posterior tibial was unsuccessful and resulted in subintimal dissection. She has chronic bilateral leg claudication, which has worsened and is more on the right side and she also has superficial nonhealing ulcers of the left leg. Previously, she had wanted conservative therapy only, but now agrees to have peripheral intervention, given increasing symptoms and the leg ulcers. Informed consent was obtained. She was made aware of the potential complications, including risk of contrast nephropathy, given baseline chronic kidney disease stage III. After she provided informed consent, she was brought to the [facility] and vigorous perioperative hydration was initiated. This was carried on for several hours was continued through the procedure and afterwards. This was to reduce risk of contrast nephropathy. In addition, we kept the use of dye to a minimum. DESCRIPTION OF PROCEDURE: She was brought to the cardiac catheterization laboratory. The left groin was prepared and draped in the usual sterile fashion. Modified Seldinger technique was used to advance a 5-[place] sheath in right femoral artery. We used a 5-[place] crossover catheter to carry out angiography of the contralateral (right) leg with a runoff down to the level of the ankles. Subsequently, we carried out selective angiography of the right popliteal arteries and the leg arteries to obtain better visualization of her distal leg arterial disease. This was accomplished by advancing a Storq wire into the right superficial femoral artery and exchanging the crossover catheter and the 5-[place] sheath for a long 6-[place] sheath. PERCUTANEOUS INTERVENTION TO THE RIGHT PERONEAL ARTERY: Following completion of the diagnostic procedure, we carried out percutaneous intervention to the right peroneal artery, which was exhibiting 95% stenosis at its ostium. This is her only intact leg artery. The right anterior tibial and the right posterior tibial arteries are occluded in their proximal portions and are collateralized by the peroneal artery. We advanced a 0.018-inch wire across the critical lesion in the ostial peroneal artery and the tip was placed in the distal vessel. Subsequently, we carried out balloon angioplasty with 2 mm and 2.5 mm diameter balloons. This resulted in improvement of stenosis from 95% to less than 30%. Flow throughout the peroneal artery was normal. She tolerated the procedure well. We kept the contrast use to minimum. The long sheath was exchanged over a wire for a short 6-[place] sheath and we carried out angiography of the left femoral artery through the sheath, and subsequently, used Mynx to achieve hemostasis. She received a total of 6000 units of intravenous heparin during the procedure. ANGIOGRAPHY OF THE ARTERIAL CIRCULATION OF THE RIGHT LOWER LIMB: Angiography indicates a patent stent in the right common iliac artery and patent stents in the right superficial femoral artery. There is moderate diffuse disease involving the iliac and femoral arteries. The right popliteal artery is intact. The right peroneal artery had 95% ostial stenosis to which successful balloon angioplasty was carried out for reduction of stenosis to less than 30%. The distal popliteal artery does have 60-70% stenosis at the site of its trifurcation. This did not change following the percutaneous intervention to the popliteal artery on the right side. The anterior and posterior tibial arteries on the right side are chronically occluded with collateralization from the peroneal artery. CONCLUSIONS: Successful balloon angioplasty of 95% stenosis of the ostial right peroneal artery with reduction of stenosis to less than 30% residual. Job ID: [id number] DocumentID: [id number] Dictated Date: 09/09/2017 13:55:26 Quality Assurance Monitor Body Date: 09/09/2017 14:36:34 Dictated By: WALDEMAR CALLOWAY MD, MA, FACP, FACC, MTDD
--- NOTE | 2017-09-09 15:04 | Discharge Inst-Post CATH ---
Discharge Inst-CATH Post Cardiac Cath D/C Inst CARDIAC CATH DISCHARGE INSTRUCTIONS *Hold Metformin for 48 hours post heart cath. ACTIVITY * Go Home directly and rest. * Limit activity of the leg (or wrist if it was used) for 7 days including aerobics, swimming, jogging, bicycling, etc. * Restrict stair-climbing for 7 days if possible, if not, climb up with your non -cath leg, then bring together on the same step. * Avoid lifting, pushing, pulling or excessive movement of the affected extremity for 7 days. * Customary sexual activity may be resumed after 2 days-use caution not to use a position that strains or causes pain to the affected extremity. * No driving for 24 hours. * NO SMOKING. * Avoid straining for bowel movements for 7 days. * Gentle walking on level ground is allowed. * Returning to work will depend on the type of procedure and the results. Your doctor will discuss this with you. CALL YOUR DOCTOR FOR ANY OF THE FOLLOWING: *If bleeding from the puncture site occurs- Apply gentle pressure to site with clean cloth and call your doctor or EMS. * If a knot or lump forms under the skin, increases in size, or causes pain. * If bruising appears to be worsening or moving further down your leg instead of disappearing. * Temperature above 101 F. CARE OF YOUR GROIN INCISION; * Bruising or purple discoloration of the skin near the puncture site is common. * You may shower only, no bathtub bathing for 5 days. Be careful to avoid slipping as your leg may feel stiff. * If a closure device was used on your femoral artery, please see the attached guide regarding care of the device and your leg. * REMOVE the dressing from your groin the next day after your procedure in the shower. CARE OF YOUR WRIST INCISION; * Bruising or purple discoloration of the skin near the puncture site is common. * You may shower. * DO NOT submerge wrist. * Remove dressing in 24 hours. OBED COLLIER Sep 09, 2017 15:04
--- NOTE | 2017-09-09 15:05 | Discharge Inst-Cardiology ---
Discharge Inst-Cardiac Discharge Medications Continued Medications: Acetaminophen (Tylenol Extra Strength) 500 Mg Tablet 1000 MG PO Q4H PRN for PAIN-MILD, TAB Albuterol Sulfate (Ventolin Hfa) 18 Gm Hfa.aer.ad 2 PUFF INH Q4H PRN for SHORTNESS OF BREATH, INHALER Albuterol Sulfate (Albuterol Sulfate) 2.5 Mg/3 Ml Vial.neb 2.5 MG NEB 1200,2100, EA Allopurinol (Allopurinol) 100 Mg Tablet 100 MG PO BID, TAB Ascorbic Acid (Ascorbic Acid) 500 Mg Tablet 500 MG PO BID, TAB Aspirin (Aspirin EC) 81 Mg Tablet.dr 81 MG PO DAILY, TAB Atenolol (Atenolol) 25 Mg Tablet 25 MG PO HS, TAB Atorvastatin Calcium (Atorvastatin Calcium) 20 Mg Tablet 20 MG PO HS, TAB Budesonide (Budesonide) 0.5 Mg/2 Ml Ampul.neb 0.5 MG NEB 0800,1600, EA Cholecalciferol (Vitamin D3) (Vitamin D-3) 2,000 Unit Capsule 2000 UNIT PO DAILY, CAP Cranberry Extract (Cranberry) 500 Mg Capsule 500 MG PO DAILY, CAP Dextran 70/Hypromellose (Natural Balance Tears Eye Drop) 15 Ml Drops 1 DROP OU QID PRN for DRY EYES, DROPS Diltiazem HCl (Diltiazem ER) 120 Mg Capsule.er 120 MG PO DAILY, CAP Enalapril Maleate (Enalapril Maleate) 10 Mg Tablet 10 MG PO DAILY, TAB Furosemide (Furosemide) 40 Mg Tablet 60 MG PO DAILY, TAB TAKES 1 & 1/2 (40MG) TABLET Glimepiride (Glimepiride) 4 Mg Tablet 4 MG PO DAILY, TAB Levothyroxine Sodium (Levothyroxine Sodium) 25 Mcg Tablet 25 MCG PO DAILY, TAB Nabumetone (Nabumetone) 750 Mg Tablet 750 MG PO BID, TAB Nitroglycerin (Nitroglycerin) 0.4 Mg Tab.subl 0.4 MG SL UD PRN for CHEST PAIN, TAB Omeprazole (Omeprazole) 40 Mg Capsule.dr 40 MG PO DAILY, CAP Potassium Chloride (Potassium Chloride) 10 Meq Tablet.er 20 MEQ PO DAILY, TAB TAKES 2 (10MEQ) TABLET Umeclidinium [place] (Incruse Ellipta) 62.5 Mcg Blst.w.dev 1 PUFF IH DAILY Warfarin Sodium (Warfarin Sodium) 5 Mg Tablet 5 MG PO MoWeFr, TAB Warfarin Sodium (Warfarin Sodium) 5 Mg Tablet 7.5 MG PO SuTuThSa, TAB Patient Instructions Patient Instructions: Please schedule follow up appointment to see Dr. Estrella in a week Lab: Please have BMP prior to follow up appointment OBED COLLIER Sep 09, 2017 15:05
[2017-09-09] MEDS ORDERED: ACETAMINOPHEN 500 MG TAB (TYLENOL) PO PRN (15:45)
[2017-09-09] MEDS ORDERED: NON-FORMULARY MEDICATION 1 EA EA (Budesonide 0.5 MG) NEB SCH (16:00)
[2017-09-09] MEDS ORDERED: ARTIFICAL TEARS 0.4 ML UNIT DOSE (REFRESH PLUS) OU PRN (16:00)
[2017-09-09] MEDS ORDERED: RT-BUDESONIDE NEBS 0.5 MG/2ML (PULMICORT) AMP INH SCH (16:00)
--- NOTE | 2017-09-09 17:50 | Cardiology Discharge Summary ---
Diagnosis/Chief Complaint Date of Admission 09/09/17 Date of Discharge 09/10/17 Admission Diagnosis Non-healing leg ulcers of RLE Claudication - DYLON of 05-01-17 report mod PVD. DYLON R 0.63, L 0.63 Peripheral arterial disease. She has undergone bilateral kissing stents of both common iliacs and extensive balloon angioplasty and stenting of the R SFA by Dr Loaiza on 12/31/13. Subsequently, on 01/07/14, Dr Loaiza did stenting of L SFA and successful balloon angioplasty of L peroneal and L anterior tibial arteries, but angioplasty to chronic occlusion of L posterior tibial was unsuccessful and resulted in subintimal dissection; has chronic bilat leg claudication CKD stage III H/O stress fracture of left foot May 2017 CVA: L-sided weakness and L-visual field cut in Dec 2015. 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 Payne. Cardiac cath of 06-24-2013 showed CAD, mild to moderate. Moderate mid vessel stenosis of the LAD with fractional flow reserve across the lesion of 0.95. Moderate mid vessel stenosis of the RCA with fractional flow reserve across the lesion of 0.95. Patent stents in the proximal left circumflex and the mid RCA which were placed in 2004 MPI of 16 did not indicate significant myocardial ischemia or infarction. Normal regional wall motion. Normal global LV systolic function with calculated ejection fraction of 69%. 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 The last echocardiogram was in January 2017 showed LVEF 60-65%. Grade I diastolic dysfunction. Mechanical aortic valve prosthesis is present. Appears to be functioning adeuately. Peak gradient across the valve is measured at approx 20mmHg. Mild to mod TR. PASP 35-40mmHg Left internal carotid artery stenosis of 60-79%, right internal carotid artery stenosis of less thatn 40% per carotid u/s of 05/20/17 Hyperlipidemia being treated with lovastatin and being followed by Dr. Cano. Chronic waffarin anticoagulation, managed by Dr Cano Heme-positive stools in Jan 2014. Diffuse erosive gastritis, hemorrhoids, diverticulitis, no active bleeding per endoscopy in Jan [address] Rodgers, treated with H2 angie, PPI and Carafate (managed by Dr Rodgers). Recurrent heme (+) stools in March 2014 - capsule endoscopy History of transient ischemic attacks. Borderline diabetes mellitus being managed by Dr. Cano. Right rotator cuff repair on 11/28/[address] Woodward due to a torn rotator cuff. Final/Discharge Diagnosis Peripheral arterial disease. Last peripheral angio and intervention (R leg) on 09/09/17 at which time she underwent successful balloon angioplasty of the R peroneal with reduction of a 95% ostial stenosis to less than 30% residual; both R tibials are occluded and collateralized. Previously, she has undergone bilateral kissing stents of both common iliacs and extensive balloon angioplasty and stenting of the R SFA by Dr Loaiza on 12/31/13. Subsequently, on 01/07/14, Dr Loaiza did stenting of L SFA and successful balloon angioplasty of L peroneal and L anterior tibial arteries, but angioplasty to chronic occlusion of L posterior tibial was unsuccessful and resulted in subintimal dissection CKD stage III H/o stress fracture of left foot May 2017 CVA: L-sided weakness and L-visual field cut in Dec 2015. 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 Payne. Cardiac cath of 06-24-2013 showed CAD, mild to moderate. Moderate mid vessel stenosis of the LAD with fractional flow reserve across the lesion of 0.95. Moderate mid vessel stenosis of the RCA with fractional flow reserve across the lesion of 0.95. Patent stents in the proximal left circumflex and the mid RCA which were placed in 2004 MPI of 07-17-16 did not indicate significant myocardial ischemia or infarction. Normal regional wall motion. Normal global LV systolic function with calculated ejection fraction of 69%. 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 The last echocardiogram was in January 2017 showed LVEF 60-65%. Grade I diastolic dysfunction. Mechanical aortic valve prosthesis is present. Appears to be functioning adeuately. Peak gradient across the valve is measured at approx 20mmHg. Mild to mod TR. PASP 35-40mmHg Left internal carotid artery stenosis of 60-79%, right internal carotid artery stenosis of less thatn 40% per carotid u/s of 05/20/17 Hyperlipidemia being treated with lovastatin and being followed by Dr. Cano. Chronic warfarin anticoagulation, managed by Dr Cano Heme-positive stools in Jan 2014. Diffuse erosive gastritis, hemorrhoids, diverticulitis, no active bleeding per endoscopy in Jan [address] Rodgers, treated with H2 angie, PPI and Carafate (managed by Dr Rodgers). Recurrent heme (+) stools in March 2014 - capsule endoscopy History of transient ischemic attacks. Borderline diabetes mellitus being managed by Dr. Cano. Right rotator cuff repair on 11/28/[address] Woodward due to a torn rotator cuff. Chief Complaint/HPI Chief Complaint/HPI Underwent peripheral angio and PTCA of the R leg on 09/09/17 for nonhealing ulcers of the R leg and for leg claudication, R>L Discharge Summary Procedures None. Discussion & Recommendations Follow up appt.: One week Lab: BMP in one week Home Medications Reviewed patient Home Medication Reconciliation performed by pharmacy medication reconciliations regulatory technician and/or nursing. Patients Allergies have been reviewed. Discharge Home Medications: Reviewed and agree with Discharge Medication list on patient's Discharge Instruction sheet WALDEMAR CALLOWAY MD FACP [facility] CCDS Sep 09, 2017 17:50
[2017-09-09] MEDS ORDERED: ACETAMINOPHEN 325 MG TABLET PO PRN ×2 (18:00→18:15)
[2017-09-09] MEDS ORDERED: warFARin 5 MG (COUMADIN) TAB PO SCH (18:00)
[2017-09-09] MEDS: NABUMETONE 750 MG TABLET PO SCH (18:23)
[2017-09-09] MEDS: ASCORBIC ACID (VIT C) 500 MG TABLET PO SCH (18:23)
[2017-09-09] MEDS: ALLOPURINOL 100 MG (ZYLOPRIM) TAB PO SCH (20:07)
[2017-09-09] MEDS ORDERED: RT-ALBUTEROL SULF 2.5 MG/3 ML PRE-MIX VIAL INH SCH (21:00)
[2017-09-09] MEDS ORDERED: ATORVASTATIN 20 MG (LIPITOR) TABLET PO SCH (21:00)
[2017-09-09] MEDS ORDERED: NON-FORMULARY MEDICATION 1 EA EA (Allopurinol 100 MG) PO SCH (21:00)
[2017-09-09] MEDS ORDERED: ATENOLOL 25 MG (TENORMIN) TAB PO SCH (21:00)
[2017-09-10] VITALS: BP 115/78
[2017-09-10 03:36] LABS: HEMOGLOBIN 10.2 G/DL (11.5-16.0); MEAN PLATELET VOLUME 10.8 FL (7.4-10.4); RED BLOOD COUNT 3.26 10^6/uL (4.35-5.85); RED CELL DISTRIBUTION WIDTH 14.8 % (10.0-14.5); WHITE BLOOD COUNT 6.3 10^3/uL (4.3-11.0)
[2017-09-10 03:52] LABS: CALCIUM 8.7 MG/DL (8.5-10.1); CREATININE SERUM 1.36 MG/DL (0.60-1.30); POTASSIUM 4.6 MMOL/L (3.6-5.0)
[2017-09-10 04:00] VITALS: BP 92/58
[2017-09-10] MEDS: NS IV 1000 ML 1,000 ML IV SCH (05:35)
[2017-09-10] MEDS ORDERED: GLIMEPIRIDE 4 MG (AMARYL) TAB PO SCH (06:30)
[2017-09-10] MEDS ORDERED: LEVOTHYROXINE 25 MCG (LEVOTHROID) TAB PO SCH (06:30)
[2017-09-10] MEDS ORDERED: OMEPRAZOLE 40 MG CAPSULE PO SCH (07:00)
[2017-09-10] MEDS: NABUMETONE 750 MG TABLET PO SCH (07:08)
[2017-09-10] MEDS: ASCORBIC ACID (VIT C) 500 MG TABLET PO SCH (07:09)
[2017-09-10] MEDS ORDERED: KCL 10 MEQ TAB (MICRO K) PO SCH (08:00)
[2017-09-10] MEDS: ALLOPURINOL 100 MG (ZYLOPRIM) TAB PO SCH (08:13)
[2017-09-10 08:15] VITALS: BP 98/52
[2017-09-10] MEDS ORDERED: RT-ALBUTEROL SULF 2.5 MG/3 ML PRE-MIX VIAL INH PRN (08:45)
[2017-09-10] MEDS ORDERED: VITAMIN D3 PO SCH (09:00)
[2017-09-10] MEDS ORDERED: NON-FORMULARY MEDICATION 1 EA EA (Omeprazole 40 MG) PO SCH (09:00)
[2017-09-10] MEDS ORDERED: NON-FORMULARY MEDICATION 1 EA EA (Cranberry Extract (Cranberry) 500 MG) PO SCH (09:00)
[2017-09-10] MEDS ORDERED: VIT C PO SCH (09:00)
[2017-09-10] MEDS ORDERED: FUROSEMIDE 40 MG (LASIX) TAB PO SCH (09:00)
[2017-09-10] MEDS ORDERED: DILTIAZEM 120 MG (CARDIZEM CD) CAP PO SCH (09:00)
[2017-09-10] MEDS ORDERED: UMECLIDINIUM BROMIDE (INCRUSE ELLIPTA) 7'S IH SCH (09:00)
[2017-09-10] MEDS ORDERED: NON-FORMULARY MEDICATION 1 EA EA (Cholecalciferol (Vitamin D3) (Vitamin D-3) 2,000 UNIT) PO SCH (09:00)
[2017-09-10] MEDS ORDERED: ENALAPRIL 10 MG (VASOTEC) TAB PO SCH (09:00)
[2017-09-10] MEDS ORDERED: NON-FORMULARY MEDICATION 1 EA EA (Glimepiride 4 MG) PO SCH (09:00)
[2017-09-10] MEDS ORDERED: CRANBERRY PO SCH (09:00)
[2017-09-10] MEDS ORDERED: NON-FORMULARY MEDICATION 1 EA EA (Diltiazem HCl (Diltiazem ER) 120 MG) PO SCH (09:00)
[2017-09-10 12:00] VITALS: BP 97/66
[2017-09-10] MEDS ORDERED: RT-ALBUTEROL SULF 2.5 MG/3 ML PRE-MIX VIAL INH SCH (12:00)
[2017-09-10 14:30] VITALS: BP 97/66
[2017-09-10] MEDS ORDERED: RT-BUDESONIDE NEBS 0.5 MG/2ML (PULMICORT) AMP INH SCH (16:00)
[2017-09-10] MEDS ORDERED: warFARin 5 MG (COUMADIN) TAB PO SCH (18:00)
--- NOTE | 2017-09-10 19:51 | Cardiology Progress Note ---
Cardiology SOAP Progress Note Subjective: No cardiac complaints. Objective: I&O/Vital Signs 09/10/17 09/10/17 09/10/17 09/10/17 08:15 08:15 08:15 09:17 Temp 99.0 Pulse 96 Resp 21 B/P (MAP) 98/52 (67) Pulse Ox 96 94 O2 Delivery Room Air Room Air Room Air Room Air 09/10/17 09/10/17 09/10/17 12:00 12:00 14:30 Temp 98.8 Pulse 81 81 Resp 12 12 B/P (MAP) 97/66 (76) 97/66 Pulse Ox 96 96 96 O2 Delivery Room Air Room Air Room Air 09/10/17 00:00 Intake Total 400 ml Balance 400 ml Weight (Pounds): 163 Weight (Ounces): 0.0 Weight (Calculated Kilograms): 73.424600 Constitutional: No appears stated age; AAO x 3; No apparent distress, No PERRL , No well-developed, No well-nourished, No other Respiratory: chest is bilaterally symmetric, lungs clear to auscultation Cardiovascular: regular rate-rhythm, S1 and S2 Gastrointestional: No tender, No soft, No round, No distended, No pulsatile mass, No organomegaly, No guarding, No rebound, No tenderness, No hernia, No mass, No audible bowel sounds, No abnormal bowel sounds, No abdominal bruits, No spleenomegaly, No other Extremities: No normal range of motion, No non-tender, No normal inspection, No pedal edema, No calf tenderness, No normal capillary refill, No pelvis stable , No calf tenderness, No inflammation, No pedal edema, No slow capillary refill , No swelling, No other, No abrasion, No clubbing, No cyanosis, No ecchymosis, No laceration, No no lower extremity edema bilateral, No significant edema, No tenderness, No wound Neurologic/Psychiatric: no motor/sensory deficits, alert, normal mood/affect, oriented x 3 Skin: No normal color, No warm/dry, No cyanosis, No cool, No diaphoresis, No damp, No ecchymosis, No jaundice, No mottled, No pallor, No rash, No tattoos/ piercings, No ulcerations, No rash on exposed areas, No ulcerations on exposed areas, No other Results/Procedures: Labs Laboratory Tests 09/10/17 03:25: White Blood Count 6.3, Red Blood Count 3.26L, Hemoglobin 10.2L, Hematocrit 31L, Mean Corpuscular Volume 95, Mean Corpuscular Hemoglobin 31, Mean Corpuscular Hemoglobin Concent 33, Red Cell Distribution Width 14.8H, Platelet Count 210, Mean Platelet Volume 10.8H, Sodium Level 134L, Potassium Level 4.6, Chloride Level 106, Carbon Dioxide Level 20L, Anion Gap 8, Blood Urea Nitrogen 28H, Creatinine 1.36H, Estimat Glomerular Filtration Rate 37, BUN/Creatinine Ratio 21 , Glucose Level 110H, Calcium Level 8.7 Microbiology 09/09/17 MRSA Screen - Final, Complete A/P: Assessment/Dx: Significant claudication, status post peripheral intervention yesterday by Dr. Estrella. History of CAD. No cardiac complaints. CKD Plan: Patient will be discharged on aspirin, Coumadin, enalapril, atorvastatin. She will continue other medications for PAD and CAD. Creatinine is elevated. Patient will have a basic metabolic panel in one week. She'll follow-up with Dr. Estrella. Thank you for your consultation. Please call me if you have any questions. Curtis Nye MD, FACP, FACC, FSCAI, FHRS, CCDS Interventional Cardiology Cardiac Electrophysiology Vascular Medicine and Endovascular Interventions Gus NYE MD Sep 10, 2017 19:51
== END 2017-09-10 14:30 | disposition home or self-care (01) ==
LOC: CATH 06:56 → ICU 14:00 → CATH 09-10 14:30
PROVIDERS: ATTEND Internal Medicine Cardiovascular Disease
DX: I70.211 Atherosclerosis of native arteries of extremities with intermittent claudication, right leg (principal); N18.3 Chronic kidney disease, stage 3 (moderate); D64.9 Anemia, unspecified; E78.5 Hyperlipidemia, unspecified; I48.0 Paroxysmal atrial fibrillation; G47.33 Obstructive sleep apnea (adult) (pediatric); R73.9 Hyperglycemia, unspecified; I69.354 Hemiplegia and hemiparesis following cerebral infarction affecting left non-dominant side; I69.398 Other sequelae of cerebral infarction; Z79.01 Long term (current) use of anticoagulants; Z79.84 Long term (current) use of oral hypoglycemic drugs; Z79.899 Other long term (current) drug therapy; Z87.891 Personal history of nicotine dependence
CPT/HCPCS: 36415; 80048; 80053; 80061; 85027; 85610; 85730; 87081; 93005; 94640

== ENCOUNTER → 2017-09-16 | Outpatient (CLI) | payer MEDICARE ==
[~2017-09-16] MED LIST changes: +ASCO500T7 PO; +POTA10TA10 PO; +UMEC62.5 IH
[2017-09-16 09:27] LABS: CALCIUM 9.1 MG/DL (8.5-10.1); CREATININE SERUM 1.73 MG/DL (0.60-1.30); POTASSIUM 4.8 MMOL/L (3.6-5.0)
== END ==
LOC: LAB 08:49
PROVIDERS: ATTEND Nurse Practitioner Family
DX: N28.9 Disorder of kidney and ureter, unspecified (principal)
CPT/HCPCS: 36415; 80048

== ENCOUNTER → 2017-09-16 | Outpatient (CLI) | payer MEDICARE ==
--- NOTE | 2017-09-16 12:17 | Diagnostic Imaging Report ---
PROCEDURE: US Renal Bilateral. TECHNIQUE: Multiple real-time grayscale images were obtained over the kidneys in various projections bilaterally. INDICATION: Stage IV kidney disease. FINDINGS: Right kidney measures 10.0 x 4.4 x 4.6 cm and the left kidney measures 10.7 x 5.0 x 5.4 cm. Cortical thickness and echogenicity appears normal. No calculi or hydronephrosis is seen. There are cysts in the left kidney. Cyst in the mid lateral aspect left kidney is 3.5 x 2.8 cm. Superior exophytic cyst measures approximately 2.0 x 1.8 cm. No solid renal masses are detected. Urinary bladder is unremarkable. Bilateral ureteral jets are visualized. IMPRESSION: Left renal cyst. The study is otherwise unremarkable. Dictated by: Dictated on workstation # [id number]
== END ==
LOC: RAD 08:56
PROVIDERS: ATTEND Internal Medicine
DX: N28.1 Cyst of kidney, acquired (principal); N18.4 Chronic kidney disease, stage 4 (severe)
CPT/HCPCS: 76770

== ENCOUNTER → 2017-09-16 | Outpatient (CLI) | payer MEDICARE ==
--- NOTE | 2017-09-16 11:34 | Diagnostic Imaging Report ---
INDICATION: Left posterior rib injury from a fall. TECHNIQUE: A PA chest and three oblique views of the left ribs were obtained. FINDINGS: There are no displaced rib fractures seen. The lungs are clear. There is no effusion or pneumothorax. There are postop changes from valve repair surgery. IMPRESSION: No acute abnormality is seen in the chest or ribs. Dictated by: Dictated on workstation # [id number]
== END ==
LOC: RAD 08:53
PROVIDERS: ATTEND Internal Medicine
DX: S29.9XXA Unspecified injury of thorax, initial encounter (principal); W19.XXXA Unspecified fall, initial encounter
CPT/HCPCS: 71101

== ENCOUNTER → 2017-09-22 | Outpatient (CLI) | payer MEDICARE | LOC: WOUNDCARE 13:24 | PROVIDERS: ATTEND Surgery | DX: I70.232 Atherosclerosis of native arteries of right leg with ulceration of calf (principal); I87.331 Chronic venous hypertension (idiopathic) with ulcer and inflammation of right lower extremity; L97.211 Non-pressure chronic ulcer of right calf limited to breakdown of skin; I89.0 Lymphedema, not elsewhere classified | CPT/HCPCS: 99213 ==

== ENCOUNTER → 2017-09-25 | Outpatient (CLI) | payer MEDICARE ==
--- NOTE | 2017-09-25 16:25 | Diagnostic Imaging Report ---
EXAMINATION: Lumbar spine. INDICATION: Fell, back pain. FINDINGS: AP and lateral views were obtained. The lateral view shows the vertebral body heights and alignment to be similar to the prior exam of 08/12/2013. There is no fracture or acute bony abnormality evident. The intervertebral disc spaces are fairly well maintained. There is no sign of a paraspinal mass. As noted on the prior exam, there is extensive atherosclerotic calcification of the aorta and there are bilateral common iliac grafts in place. The total hip prosthesis on the right noted previously is again evident and no different. IMPRESSION: 1. There is no evidence for an acute bony abnormality. 2. If clinical concern regarding an underlying abnormality persists and further imaging is desired, then MRI will be recommended. Dictated by: Dictated on workstation # [id number]
--- NOTE | 2017-09-25 17:05 | Diagnostic Imaging Report ---
EXAMINATION: Sacrum and coccyx. INDICATION: Fell. FINDINGS: AP and lateral views were obtained. The lateral view does show that there is some deformity of the lower sacrum. This may be a sequela of prior trauma. There is no acute fracture identified. The fracture of the inferior pubic ramus on the right seen on the prior CT abdomen/pelvis exam of 08/25/2008 is again evident and no different. The total hip prosthesis on the right seen previously is also again identified and no different. There is mild symmetrical sclerosis of the sacroiliac joints. The soft tissues are unremarkable. IMPRESSION: The mild deformity of the lower sacrum is most likely a sequela of prior trauma. There is no acute abnormality evident. Dictated by: Dictated on workstation # [id number]
== END ==
LOC: RAD 14:53
PROVIDERS: ATTEND Internal Medicine
DX: S39.92XA Unspecified injury of lower back, initial encounter (principal); M43.8X8 Other specified deforming dorsopathies, sacral and sacrococcygeal region; W19.XXXA Unspecified fall, initial encounter
CPT/HCPCS: 72100; 72220

== ENCOUNTER → 2017-09-29 | Outpatient (CLI) | payer MEDICARE | LOC: WOUNDCARE 13:18 | PROVIDERS: ATTEND Surgery | DX: I87.331 Chronic venous hypertension (idiopathic) with ulcer and inflammation of right lower extremity (principal); I70.232 Atherosclerosis of native arteries of right leg with ulceration of calf; L97.211 Non-pressure chronic ulcer of right calf limited to breakdown of skin; I89.0 Lymphedema, not elsewhere classified | CPT/HCPCS: 99213 ==

== ENCOUNTER 2017-09-30 15:06 | Emergency (ER) | payer MEDICARE ==
[~2017-09-30] VITALS: Ht 167.6 cm; Wt 77.1 kg
[2017-09-30 16:00] VITALS: BP 127/68
== END 2017-09-30 16:08 | disposition left against medical advice (07) ==
LOC: EDUNIT# 15:06 → ER 15:07
DX: R09.02 Hypoxemia (principal); I48.91 Unspecified atrial fibrillation; I10 Essential (primary) hypertension; E78.00 Pure hypercholesterolemia, unspecified; I25.10 Atherosclerotic heart disease of native coronary artery without angina pectoris; D64.9 Anemia, unspecified; G43.909 Migraine, unspecified, not intractable, without status migrainosus; E03.9 Hypothyroidism, unspecified; E11.9 Type 2 diabetes mellitus without complications; K21.9 Gastro-esophageal reflux disease without esophagitis; Z87.19 Personal history of other diseases of the digestive system; Z87.448 Personal history of other diseases of urinary system; Z86.73 Personal history of transient ischemic attack (TIA), and cerebral infarction without residual deficits; Z96.641 Presence of right artificial hip joint; Z95.2 Presence of prosthetic heart valve; Z95.5 Presence of coronary angioplasty implant and graft; Z98.51 Tubal ligation status; Z90.89 Acquired absence of other organs; Z87.891 Personal history of nicotine dependence
CPT/HCPCS: 99282

== ENCOUNTER → 2017-10-06 | Outpatient (CLI) | payer MEDICARE | LOC: WOUNDCARE 12:56 | PROVIDERS: ATTEND Surgery | DX: I70.232 Atherosclerosis of native arteries of right leg with ulceration of calf (principal); I87.331 Chronic venous hypertension (idiopathic) with ulcer and inflammation of right lower extremity; L97.211 Non-pressure chronic ulcer of right calf limited to breakdown of skin; I89.0 Lymphedema, not elsewhere classified | CPT/HCPCS: 99212 ==

== ENCOUNTER → 2017-10-13 | Outpatient (CLI) | payer MEDICARE ==
--- NOTE | 2017-10-13 12:23 | Diagnostic Imaging Report ---
PROCEDURE: CT chest without contrast. TECHNIQUE: Multiple contiguous axial images were obtained through the chest without the use of intravenous contrast. INDICATION: COPD and low oxygen saturation. COMPARISON: Comparison is made with prior CT chest from 11/23/2015. FINDINGS: Postop changes of median sternotomy are identified. The thoracic aorta is heavily calcified. Ascending thoracic aorta remains prominent measuring 4.9 cm AP x 4.5 cm transverse compared with 4.7 cm x 4.[address] Marked coronary arterial calcifications are present as well. No pericardial fluid is seen. There is a small right pleural effusion noted. There continues to be a prominent pretracheal lymph node measuring approximately 17 mm x 13 mm compared with 19 mm x 12 mm on prior. No other enlarged lymph nodes are identified. The central airways are patent. There are changes of centrilobular emphysema. There is some subsegmental atelectasis in the right middle lobe and lingula. There are also areas of linear density in bilateral lower lobes suggestive of atelectasis/infiltrate, greater on the right. No mass is identified. The upper abdomen is unremarkable. IMPRESSION: 1. Small right pleural effusion. 2. Stable enlarged mediastinal lymph node, indeterminate. 3. Bibasilar parenchymal densities suggestive of atelectasis or infiltrate. Dictated by: Dictated on workstation # [id number]
== END ==
LOC: RAD 11:42
PROVIDERS: ATTEND Nurse Practitioner Family
DX: J90 Pleural effusion, not elsewhere classified (principal); J98.4 Other disorders of lung; R59.0 Localized enlarged lymph nodes; J44.1 Chronic obstructive pulmonary disease with (acute) exacerbation; Z98.890 Other specified postprocedural states
CPT/HCPCS: 71250

== ENCOUNTER → 2017-10-13 | Outpatient (CLI) | payer MEDICARE ==
--- NOTE | 2017-10-13 12:21 | Diagnostic Imaging Report ---
PROCEDURE: CT lumbar spine without contrast. TECHNIQUE: Multiple contiguous axial images were obtained through the lumbar spine without the use of intravenous contrast. Sagittal and coronal reformations were then performed. INDICATION: Fall with continued back pain and left hip pain. FINDINGS: There is mild left convexity scoliotic curvature of the lumbar spine. There is normal lordotic curvature. The vertebral body heights are maintained. No acute compression fractures seen. Posterior elements are unremarkable. There is multilevel degenerative facet changes noted at L3-4, L4-5 and L5-S1 levels. Disc spaces are fairly well-preserved. Aorta and iliac vessels are heavily calcified. There does appear to be a stent in the right and left iliacs. IMPRESSION: Spondylosis and scoliosis. No acute fracture is detected. Dictated by: Dictated on workstation # [id number]
--- NOTE | 2017-10-13 12:24 | Diagnostic Imaging Report ---
PROCEDURE: CT left lower extremity without contrast. TECHNIQUE: Multiple contiguous axial images were obtained through the left lower extremity without the use of intravenous contrast. Sagittal and coronal reformations were then performed. INDICATION: Fall with left hip pain. FINDINGS: Femoral acetabular alignment is normal. The femoral head and neck are intact. No fractures are seen. The acetabulum is unremarkable. The left-sided superior and inferior pubic rami are intact. There is diverticulosis of the sigmoid colon. No free fluid in the pelvis is identified. IMPRESSION: 1. No acute bony abnormality is detected. 2. Sigmoid diverticulosis. Dictated by: Dictated on workstation # [id number]
== END ==
LOC: RAD 11:40
PROVIDERS: ATTEND Internal Medicine
DX: M25.552 Pain in left hip (principal); M47.816 Spondylosis without myelopathy or radiculopathy, lumbar region; M41.86 Other forms of scoliosis, lumbar region; K57.30 Diverticulosis of large intestine without perforation or abscess without bleeding
CPT/HCPCS: 72131; 73700

== ENCOUNTER → 2017-10-13 | Outpatient (CLI) | payer MEDICARE | LOC: WOUNDCARE 12:12 | PROVIDERS: ATTEND Surgery | DX: I87.331 Chronic venous hypertension (idiopathic) with ulcer and inflammation of right lower extremity (principal); I70.232 Atherosclerosis of native arteries of right leg with ulceration of calf; L97.211 Non-pressure chronic ulcer of right calf limited to breakdown of skin; I89.0 Lymphedema, not elsewhere classified | CPT/HCPCS: 99213 ==

== ENCOUNTER → 2017-11-21 | Outpatient (CLI) | payer MEDICARE ==
--- NOTE | 2017-11-21 16:14 | Diagnostic Imaging Report ---
PROCEDURE: CT right upper extremity without contrast. TECHNIQUE: Multiple contiguous axial images were obtained through the right upper extremity without the use of intravenous contrast. Sagittal and coronal reformations were then performed. INDICATION: Right shoulder pain. FINDINGS: There are no prior CT studies available for comparison. The plain film examination of the right shoulder performed on 06/18/2017 noted postsurgical changes consistent with repair of the rotator cuff. There is also degenerative disease of both the glenohumeral and acromioclavicular joints. On this exam, there is no fracture, dislocation, or acute bony abnormality evident. The postsurgical and degenerative changes seen on the plain film exam are again evident and have not progressed. As noted on the plain film exam, the humeral head is more superiorly positioned with respect to the glenoid than usually seen. I do suspect that this is due to an injury to the rotator cuff. If further evaluation of the rotator cuff is desired, then MRI would be recommended. There is no sign of a significant joint effusion. The adjacent soft tissues are unremarkable. The right lung where visualized is clear. IMPRESSION: 1. There is no evidence for an acute bony abnormality. 2. The degenerative disease involving the right shoulder joint seen previously is again evident and does not appear to have progressed. 3. The position of the right humeral head with respect to the glenoid does suggest that the rotator cuff has been injured. Recommendations as above. Dictated by: Dictated on workstation # [id number]
== END ==
LOC: RAD 14:17
PROVIDERS: ATTEND Internal Medicine
DX: M19.011 Primary osteoarthritis, right shoulder (principal); Z98.890 Other specified postprocedural states
CPT/HCPCS: 73200

== ENCOUNTER 2018-03-16 11:02 | Inpatient (IN) | payer MEDICARE | END 2018-03-19 14:25 | disposition other institution (70) | LOC: ICU 03-17 14:25 → 4TH 03-17 15:55 → ER 11:02 → ICU 13:42 | DX: J18.1 Lobar pneumonia, unspecified organism (principal); I48.91 Unspecified atrial fibrillation; I13.0 Hypertensive heart and chronic kidney disease with heart failure and stage 1 through stage 4 chronic kidney disease, or unspecified chronic kidney disease; I50.33 Acute on chronic diastolic (congestive) heart failure; N18.3 Chronic kidney disease, stage 3 (moderate); J44.0 Chronic obstructive pulmonary disease with (acute) lower respiratory infection; J44.1 Chronic obstructive pulmonary disease with (acute) exacerbation; E11.51 Type 2 diabetes mellitus with diabetic peripheral angiopathy without gangrene; E03.9 Hypothyroidism, unspecified; I25.10 Atherosclerotic heart disease of native coronary artery without angina pectoris; I07.1 Rheumatic tricuspid insufficiency; E11.9 Type 2 diabetes mellitus without complications; E78.00 Pure hypercholesterolemia, unspecified; D64.9 Anemia, unspecified; G47.33 Obstructive sleep apnea (adult) (pediatric); I65.23 Occlusion and stenosis of bilateral carotid arteries; K21.9 Gastro-esophageal reflux disease without esophagitis; G43.909 Migraine, unspecified, not intractable, without status migrainosus; M19.91 Primary osteoarthritis, unspecified site; Z95.2 Presence of prosthetic heart valve; Z87.891 Personal history of nicotine dependence; Z79.01 Long term (current) use of anticoagulants; Z95.5 Presence of coronary angioplasty implant and graft; Z79.84 Long term (current) use of oral hypoglycemic drugs; Z95.820 Peripheral vascular angioplasty status with implants and grafts; Z86.73 Personal history of transient ischemic attack (TIA), and cerebral infarction without residual deficits; Z87.19 Personal history of other diseases of the digestive system ==

== ENCOUNTER 2018-04-06 18:18 | Inpatient (IN) | payer MEDICARE ==
[~2018-04-06] VITALS: Ht 168.9 cm; Wt 84.4 kg
[2018-04-06] VITALS (13 sets, daily range): BP systolic 84–130; BP diastolic 48–86
[~2018-04-06 18:18] MED LIST changes: +AMOX1TAB12 PO; +BUSP5TAB59 PO; +CRAN1CAP5 PO; +CRAN200C PO; +DILT240C97 PO; +DOCU-143 PO; +FEXO180T84 PO; +METO-370 PO; +METO-387 PO; +PROP10DR4 OD; +TRIA10.8 NS; +WARF6TAB49 PO
[2018-04-06] MEDS ORDERED: DILTIAZEM INJECTION 125 MG in NS (IVPB) 100 ML IV SCH (18:30)
[2018-04-06] MEDS ORDERED: DILTIAZEM 25 MG/5 ML INJ (CARDIZEM) VIAL IVP ONE (18:30)
[2018-04-06] MEDS ORDERED: PIPERACILLIN SODIUM/TAZOBACTAM 4.5 GM in NS (IVPB) 100 ML IV ONE (18:30)
[2018-04-06 18:38] LABS: BASOPHILS % (AUTO) 0 % (0-10); EOSINOPHILS # (AUTO) 0.1 10^3/uL (0.0-0.3); EOSINOPHILS % (AUTO) 1 % (0-10); HEMATOCRIT 35 % (35-52); HEMOGLOBIN 11.4 G/DL (11.5-16.0); LYMPHOCYTES # (AUTO) 0.9 X 10^3 (1.0-4.0); LYMPHOCYTES % (AUTO) 7 % (12-44); MEAN CORPUSCULAR HEMOGLOBIN 30 PG (25-34); MEAN CORPUSCULAR HGB CONC 32 G/DL (32-36); MEAN CORPUSCULAR VOLUME 94 FL (80-99); MEAN PLATELET VOLUME 11.7 FL (7.4-10.4); MONOCYTES # (AUTO) 0.3 X 10^3 (0.0-1.0); MONOCYTES % (AUTO) 2 % (0-12); NEUTROPHILS # (AUTO) 11.3 X 10^3 (1.8-7.8); NEUTROPHILS % (AUTO) 89 % (42-75); PLATELET COUNT 221 10^3/uL (130-400); RED CELL DISTRIBUTION WIDTH 15.4 % (10.0-14.5); WHITE BLOOD COUNT 12.6 10^3/uL (4.3-11.0)
--- NOTE | 2018-04-06 18:49 | ED General ---
General Chief Complaint: Respiratory Problems Stated Complaint: SOB Nursing Triage Note: PT BROUGHT IN BY EMS WITH COMPLAINT OF SOA, HR 160-200, FEVER, AND PNEUMONIA. PT WAS RECENTLY DISCHARGED FROM THE HOSPITAL WITH PNEUMONIA. HAS NOT BEEN DOING HOME TREATMENTS. Nursing Sepsis Screen: No Definite Risk Source of Information: Patient, EMS, Old Records Exam Limitations: No Limitations History of Present Illness Date Seen by Provider: Apr 06, 2018 Time Seen by Provider: 18:18 Initial Comments This 82-year-old woman presents to the emergency room via EMS from home where she has had progressive shortness of breath over the past few days. EMS reports oxygen saturation was 77 percent on her home oxygen supply that had a very long tubing. She is also noted to be in atrial fibrillation, which she has a history of, with a heart rate in the 160s to 200 per EMS. Patient was admitted to this facility March 16 with right lower lobe pneumonia. She is febrile on arrival. Blood pressure is stable. Sputum culture from her prior admission showed MRSA. Allergies and Home Medications Allergies Coded Allergies: codeine (Verified Allergy, Unknown, PT HAS REC MORPHINE WITHOUT PROBLEMS, 12/25/15) cortisone (Verified Allergy, Unknown, 12/25/15) tramadol (Verified Allergy, Unknown, 12/25/15) Home Medications Albuterol Sulfate 18 Gm Hfa.aer.ad, 2 PUFF INH Q4H PRN for SHORTNESS OF BREATH, (Reported) Allopurinol 100 Mg Tablet, 100 MG PO BID, (Reported) Amoxicillin/Potassium Clav 1 Each Tablet, 875 MG PO BID WITH MEALS Prescribed by: VIVEK FERNANDEZ on 03/19/18913 Aspirin 81 Mg Tablet.dr, 81 MG PO DAILY, (Reported) Atorvastatin Calcium 20 Mg Tablet, 20 MG PO HS, (Reported) Budesonide 0.5 Mg/2 Ml Ampul.neb, 0.5 MG NEB Q6H PRN for SHORTNESS OF BREATH, ( Reported) Buspirone HCl 5 Mg Tablet, 5 MG PO DAILY, (Reported) Cholecalciferol (Vitamin D3) 2,000 Unit Capsule, 2,000 UNIT PO DAILY, (Reported) Cranberry Extract/Vit C 1 Each Capsule, 3 CAP PO BID, (Reported) Diltiazem HCl 240 Mg Cap.er.24h, 240 MG PO DAILY Prescribed by: VIVEK FERNANDEZ on 03/19/18913 Docusate Sodium 100 Mg Capsule, 100 MG PO DAILY, (Reported) Enalapril Maleate 10 Mg Tablet, 10 MG PO DAILY, (Reported) Fexofenadine HCl 180 Mg Tablet, 180 MG PO DAILY, (Reported) Furosemide 40 Mg Tablet, 60 MG PO DAILY, (Reported) TAKES 1 & 1/2 (40MG) TABLET Glimepiride 4 Mg Tablet, 4 MG PO DAILY, (Reported) Levothyroxine Sodium 25 Mcg Tablet, 25 MCG PO DAILY, (Reported) Metoprolol Succinate 25 Mg Tab.er.24h, 25 MG PO DAILY Prescribed by: VIVEK FERNANDEZ on 03/19/18913 Nabumetone 750 Mg Tablet, 750 MG PO BID, (Reported) Nitroglycerin 0.4 Mg Tab.subl, 0.4 MG SL UD PRN for CHEST PAIN, (Reported) Omeprazole 40 Mg Capsule.dr, 40 MG PO DAILY, (Reported) Potassium Chloride 10 Meq Tablet.er, 10 MEQ PO DAILY, (Reported) Propylene Glycol/Peg 400 10 Ml Drops.gel, 1-2 DROP OD 5XD PRN for DRY EYES, ( Reported) Triamcinolone Acetonide 10.8 Ml [place], 1 SPRAY NS DAILY, (Reported) Umeclidinium [place] 62.5 Mcg Blst.w.dev, 1 PUFF IH DAILY, (Reported) Warfarin Sodium 6 Mg Tablet, 3 MG PO SuSa, (Reported) TAKES 1/2 (3MG) TABLET Warfarin Sodium 6 Mg Tablet, 6 MG PO [id number]@1800, (Reported) Patient Home Medication List Home Medication List Reviewed: Yes Review of Systems Review of Systems Constitutional: see HPI EENTM: no symptoms reported Respiratory: see HPI Cardiovascular: see HPI Gastrointestinal: no symptoms reported Genitourinary: no symptoms reported : No Musculoskeletal: no symptoms reported Skin: no symptoms reported Psychiatric/Neurological: No Symptoms Reported Immunological/Allergic: no symptoms reported Past Mvkjuyi-Smafpv-Ifhcvw Hx Patient Social History Alcohol Use: Denies Use Recreational Drug Use: No Smoking Status: Former Smoker Type Used: Cigarettes Former Smoker, Quit: Sep 09, 2000 2nd Hand Smoke Exposure: No Recent Foreign Travel: No Contact w/Someone Who Travel: No Recent Infectious Disease Expo: No Recent Hopitalizations: Yes Immunizations Up To Date Tetanus Booster (TDap): Unknown Date of Pneumonia Vaccine: Aug 22, 2015 Date of Influenza Vaccine: Dec 01, 2017 Seasonal Allergies Seasonal Allergies: No Past Medical History Surgeries: Yes (RT HIP, HEART VALVE REPLACEMENT, BLEPHAROSPLASTY) Coronary Stent, Orthopedic, Tonsillectomy, Tubal Ligation, Valve Replacement, Vascular Surgery Respiratory: Yes (wears cpap with o2 2l HS) Pneumonia, Sleep Apnea, COPD Currently Using CPAP: Yes (At HS. 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 No Pertinent Family Hx Physical Exam-Suspected Sepsis Physical Exam Vital Signs Vital Signs - First Documented 04/06/18 04/06/18 04/06/18 18:20 18:28 22:41 Temp 101.0 Pulse 168 Resp 45 B/P (MAP) 153/96 (115) Pulse Ox 99 O2 Delivery NIV Bilevel O2 Flow Rate 70.00 FiO2 60 Capillary Refill : Less Than 3 Seconds Blood Pressure Mean: 115 Height, Weight, BMI Height: 5'6.00" Weight: 150lbs. 12.8oz. 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 Norm as Tested Skin: normal color, warm/dry Focused Exam Sepsis Stage: Severe Sepsis Possible Source: Pulmonary Lactate Level 04/06/18 18:30: Lactic Acid Level 1.87 Time of Focused Exam: 20:15 Respiratory: Lungs Clear (better aeration on BiPAP) Cardiovascular: Irregularly Irregular, Tachycardia, Other (mild edema of the hands and feet) Capillary Refill: Less Than 3 Seconds Peripheral Pulses: 2+ Radial Pulses (R) Skin: normal color, warm/dry Lactic Acid Level Progress/Results/Core Measures Suspected Sepsis Recent Fever Within 48 Hours: No Infection Criteria Present: None New/Unexplained Altered Menta: No Sepsis Screen: No Definite Risk SIRS Temperature:101.0 Pulse: 168 Respiratory Rate: 45 Laboratory Tests 04/06/18 18:30: White Blood Count 12.6H 04/07/18 05:00: White Blood Count 11.5H Blood Pressure 153 /96 Mean: 115 04/06/18 18:30: Lactic Acid Level 1.87 Laboratory Tests 04/06/18 18:30: Creatinine 2.38H, INR Comment 1.7H, Platelet Count 221, Total Bilirubin 0.6 04/07/18 05:00: Creatinine 2.33H, INR Comment 2.0H, Platelet Count 208 Results/Orders Lab Results Laboratory Tests Test 04/06/18 18:30 04/07/18 00:41 04/07/18 05:00 Range/Units White Blood Count 12.6 H 11.5 H 4.3-11.0 10^3/uL Red Blood Count 3.75 L 3.39 L 4.35-5.85 10^6/uL Hemoglobin 11.4 L 10.5 L 11.5-16.0 G/DL Hematocrit 35 32 L 35-52 % Mean Corpuscular Volume 94 95 80-99 FL Mean Corpuscular Hemoglobin 30 31 25-34 PG Mean Corpuscular Hemoglobin Concent 32 33 32-36 G/DL Red Cell Distribution Width 15.4 H 15.5 H 10.0-14.5 % Platelet Count 221 208 130-400 10^3/uL Mean Platelet Volume 11.7 H 11.7 H 7.4-10.4 FL Neutrophils (%) (Auto) 89 H 87 H 42-75 % Lymphocytes (%) (Auto) 7 L 7 L 12-44 % Monocytes (%) (Auto) 2 5 0-12 % Eosinophils (%) (Auto) 1 1 0-10 % Basophils (%) (Auto) 0 0 0-10 % Neutrophils # (Auto) 11.3 H 10.1 H 1.8-7.8 X 10^3 Lymphocytes # (Auto) 0.9 L 0.8 L 1.0-4.0 X 10^3 Monocytes # (Auto) 0.3 0.6 0.0-1.0 X 10^3 Eosinophils # (Auto) 0.1 0.1 0.0-0.3 10^3/uL Basophils # (Auto) 0.0 0.0 0.0-0.1 10^3/uL Neutrophils % (Manual) 91 % Lymphocytes % (Manual) 8 % Monocytes % (Manual) 1 % Elliptocytes SLIGHT Prothrombin Time 20.3 H 23.0 H 12.2-14.7 SEC INR Comment 1.7 H 2.0 H 0.8-1.4 Activated Partial Thromboplast Time 32 24-35 SEC Sodium Level 132 L 135 135-145 MMOL/L Potassium Level 5.0 4.8 3.6-5.0 MMOL/L Chloride Level 101 107 98-107 MMOL/L Carbon Dioxide Level 16 L 13 L 21-32 MMOL/L Anion Gap 15 H 15 H 5-14 MMOL/L Blood Urea Nitrogen 36 H 34 H 7-18 MG/DL Creatinine 2.38 H 2.33 H 0.60-1.30 MG/DL Estimat Glomerular Filtration Rate 20 20 BUN/Creatinine Ratio 15 15 Glucose Level 138 H 137 H 70-105 MG/DL Lactic Acid Level 1.87 0.50-2.00 MMOL/L Calcium Level 9.0 8.0 L 8.5-10.1 MG/DL Corrected Calcium 9.6 8.5-10.1 MG/DL Total Bilirubin 0.6 0.1-1.0 MG/DL Aspartate Amino Transf (AST/SGOT) 32 5-34 U/L Alanine Aminotransferase (ALT/SGPT) 26 0-55 U/L Alkaline Phosphatase 95 40-136 U/L Troponin I 0.126 <0.028 NG/ML C-Reactive Protein High Sensitivity 15.81 H 0.00-0.50 MG/DL B-Type Natriuretic Peptide 790.1 H <100.0 PG/ML Total Protein 7.0 6.4-8.2 GM/DL Albumin 3.2 3.2-4.5 GM/DL Thyroid Stimulating Hormone (TSH) 2.68 0.35-4.94 UIU/ML Free Thyroxine 1.16 0.70-1.48 NG/DL Urine Color YELLOW Urine Clarity SLIGHTLY CLOUDY Urine pH 5 5-9 Urine Specific [place] 1.015 L 1.016-1.022 Urine Protein 4+ NEGATIVE Urine Glucose (UA) NEGATIVE NEGATIVE Urine Ketones NEGATIVE NEGATIVE Urine Nitrite POSITIVE H NEGATIVE Urine Bilirubin NEGATIVE NEGATIVE Urine Urobilinogen NORMAL NORMAL MG/DL Urine Leukocyte Esterase 3+ H NEGATIVE Urine RBC (Auto) 4+ H NEGATIVE Urine RBC NONE /HPF Urine WBC >100 H /HPF Urine Squamous Epithelial Cells 2-5 /HPF Urine Crystals NONE /LPF Urine Bacteria MODERATE H /HPF Urine Casts NONE /LPF Urine Mucus NEGATIVE /LPF Urine Culture Indicated CULTURE PENDING Phosphorus Level 3.8 2.3-4.7 MG/DL Magnesium Level 1.4 L 1.8-2.4 MG/DL Micro Results Microbiology 04/06/18 Influenza Types A,B Antigen ([facility]IVER) - Final, Complete My Orders Orders - ARLEEN ESQUIVEL MD Cbc With Automated Diff (04/06/18 18:25) Comprehensive Metabolic Panel (04/06/18 18:25) Blood Culture (04/06/18 18:25) Sputum Culture (04/06/18 18:25) Urinalysis (04/06/18 18:25) Urine Culture (04/06/18 18:25) Protime With Inr (04/06/18 18:25) Partial Thromboplastin Time (04/06/18 18:25) Chest 1 View, Ap/Pa Only (04/06/18 18:25) Saline Lock/Iv-Start (04/06/18 18:25) Saline Lock/Iv-Start (04/06/18 18:25) Vital Signs Adult Sepsis Patie Q15M (04/06/18 18:25) O2 (04/06/18 18:25) Remove Rings In Anticipation O (04/06/18 18:25) Lactic Acid Analyzer (04/06/18 18:25) Piperacillin Sodium/Tazobactam (Zosyn Vi (04/06/18 18:30) BNP (04/06/18 18:25) Hs C Reactive Protein (04/06/18 18:25) Troponin I (04/06/18 18:25) Diltiazem Injection (Cardizem Injection) (04/06/18 18:30) Ns (Ivpb) (Sodium C... W/Diltiazem Injec (04/06/18 18:30) Manual Differential (04/06/18 18:30) Influenza A And B Antigens (04/06/18 18:42) Thyroid Stimulating Hormone (04/06/18 18:51) Free T4 (Free Thyroxine) (04/06/18 18:51) Saline Lock/Iv-Start (04/06/18 19:12) Ns Iv 1000 Ml (Sodium Chloride 0.9%) (04/06/18 19:12) Vancomycin Injection (Vancomycin Injecti (04/06/18 20:00) Saline Lock/Iv-Start (04/06/18 19:51) Ns Iv 1000 Ml (Sodium Chloride 0.9%) (04/06/18 19:51) Apixaban Tablet (Eliquis Tablet) (04/06/18 20:30) Ekg Tracing (04/06/18 20:46) Monitor-Rhythm Ecg Trace Only (04/06/18 20:46) Medications Given in ED Current Medications Medications Dose Ordered Sig/Paola Route Start Time Stop Time Status Last Admin Dose Admin Diltiazem HCl 10 mg ONCE ONCE IVP 04/06/18 18:30 04/06/18 18:31 DC 04/06/18 18:46 10 MG Piperacillin Sod/ Tazobactam Sod 4.5 gm/Sodium Chloride 100 ml @ 200 mls/hr ONCE ONCE IV 04/06/18 18:30 04/06/18 18:59 DC 04/06/18 18:51 200 MLS/HR Sodium Chloride 1,000 ml @ 0 mls/hr Q0M ONCE IV 04/06/18 19:12 04/06/18 19:13 DC 04/06/18 19:30 999 MLS/HR Sodium Chloride 1,000 ml @ 0 mls/hr Q0M ONCE IV 04/06/18 19:51 04/06/18 19:53 DC 04/06/18 20:30 1,000 MLS/HR Vancomycin HCl 1000 mg/Sodium Chloride 250 ml @ 250 mls/hr ONCE ONCE IV 04/06/18 20:00 04/06/18 20:59 DC 04/06/18 20:05 250 MLS/HR Vital Signs/I&O 04/06/18 04/06/18 04/06/18 04/06/18 18:20 18:20 18:28 18:40 Temp 101.0 Pulse 168 144 126 Resp 45 35 30 B/P (MAP) 153/96 (115) Pulse Ox 99 100 100 O2 Delivery NIV Bilevel NIV/Bilevel O2 Flow Rate 70.00 60.00 04/06/18 04/06/18 04/06/18 04/06/18 20:49 21:05 21:09 21:16 Temp 99.0 Pulse 113 105 123 113 Resp 28 29 20 B/P (MAP) 95/69 (78) 97/65 (76) Pulse Ox 100 100 99 O2 Delivery NIV Bilevel NIV Bilevel O2 Flow Rate 60.00 60.00 60.00 04/06/18 04/06/18 04/06/18 04/06/18 21:20 21:30 21:30 21:45 Temp 98.6 98.4 Pulse 113 112 Resp 20 28 B/P (MAP) 103/86 (92) 102/50 (67) Pulse Ox 99 99 O2 Delivery NIV Bilevel NIV Bilevel O2 Flow Rate 60.00 60.00 04/06/18 04/06/18 04/06/18 04/06/18 22:00 22:15 22:30 22:41 Pulse 115 112 101 Resp 23 23 23 B/P (MAP) 97/64 (75) 95/74 (81) 95/74 (81) Pulse Ox 98 100 100 O2 Delivery NIV Bilevel NIV Bilevel NIV Bilevel NIV Bilevel O2 Flow Rate 60.00 60.00 60.00 FiO2 60 04/06/18 04/06/18 04/06/18 04/06/18 22:45 23:00 23:15 23:30 Pulse 114 101 96 93 Resp 35 29 30 48 B/P (MAP) 91/54 (66) 102/56 (71) 90/52 (65) 97/48 (64) Pulse Ox 100 100 100 100 O2 Delivery NIV Bilevel NIV Bilevel NIV Bilevel NIV Bilevel O2 Flow Rate 60.00 60.00 60.00 60.00 04/06/18 04/06/18 04/07/185/19 23:35 23:45 00:00 00:15 Pulse 108 81 81 100 Resp 29 17 17 28 B/P (MAP) 84/54 (64) 75/43 (54) 77/51 (60) Pulse Ox 100 99 100 99 O2 Delivery NIV Bilevel NIV Bilevel NIV Bilevel O2 Flow Rate 50.00 40.00 40.00 40.00 04/07/18 04/07/18 04/07/18 04/07/18 00:30 00:30 01:00 01:49 Temp 97.4 Pulse 103 97 Resp 24 B/P (MAP) 115/61 (79) Pulse Ox 99 O2 Delivery NIV Bilevel NIV Bilevel O2 Flow Rate 40.00 FiO2 40 04/07/18 04/07/18 04/07/18 04/07/18 02:00 02:30 03:00 04:00 Temp 98.4 Pulse 100 94 96 Resp 26 25 27 B/P (MAP) 110/57 (74) 97/44 (61) Pulse Ox 99 100 100 O2 Delivery NIV Bilevel NIV Bilevel O2 Flow Rate 40.00 40.00 35.00 04/07/18 04/07/18 04/07/18 04:00 04:30 04:30 Pulse 109 120 Resp 17 35 B/P (MAP) 125/69 (87) Pulse Ox 94 99 O2 Delivery NIV Bilevel NIV Bilevel O2 Flow Rate 35.00 35.00 04/07/18 00:00 Intake Total 100 ml Balance 100 ml Capillary Refill : Less Than 3 Seconds Blood Pressure Mean: 115 Progress Note #1: Time: 18:49 Progress Note Patient was seen and examined on arrival. Septic workup was initiated. Zosyn was ordered for initial antibiotic therapy. Atrial fibrillation with RVR was noted on the monitor. Cardizem drip and bolus were initiated. Progress Note #2: Time: 20:14 Progress Note Patient's blood pressures been stable on Cardizem drip. However, she remains tachycardic. We will titrate up on the Cardizem drip as necessary. Case was discussed with Dr. Heart, Dr. Nye, and Dr. Payne. All have been consulted. Dr. Nye would like to continue with the Cardizem drips. He would like to hold warfarin and start on Eliquis 2.5 mg twice a day. We will give the first dose in the ER. Patient is receiving her second liter of IV fluid which will bring her near to the 30 ML per kilogram bolus recommended for severe sepsis. Her 30 ML per kilogram bolus could BE 2040 ML. She will exceed this with the volumes of her antibiotics and Cardizem drip as well. Dr. Popeye Payne would like her to finish out the 30 ML per kilogram bolus and then run fluids at 100 mL per hour. She will remain on BiPAP as needed. Broad-spectrum antibiotics will be given with Zosyn and vancomycin. I did discuss CODE STATUS with the patient. She would like to remain full code for now but does not want prolonged life saving measures such as prolonged periods of time on the ventilator. She is aware that her prognosis would be rather poor if she underwent a CODE BLUE that she wishes to remain full CODE STATUS for now regardless. Patient's son also participated in that conversation. ECG Initial ECG Impression Date: Apr 06, 2018 Initial ECG Impression Time: 20:46 Initial ECG Rate: 111 Initial ECG Rhythm: A Fib/Flutter Comment Atrial fibrillation with mild tachycardia. PVCs. No overt ST elevation or depression. Diagnostic Imaging Diagonstic Imaging: Xray Plain Films/CT/US/NM/MRI: chest Comments Chest x-ray viewed by me and report reviewed. See report below: NAME: LAKIA ALLEN [facility] REC#: [id number] PT STATUS: REG ER : 1935 PHYSICIAN: ARLEEN ESQUIVEL MD ADMIT DATE: 04/06/18/ER Signed Date of Exam: 04/06/18 CHEST 1 VIEW, AP/PA ONLY INDICATION: Shortness of air. TECHNIQUE: Frontal view of the chest. COMPARISON: 03/17/2018 FINDINGS: There is persistent airspace opacity in the lung bases bilaterally. This appears similar to the previous exam. No significant pleural effusion or pneumothorax is seen. The cardiac silhouette is stable in size. Interstitial markings appear mildly improved compared to the previous study. There is slight deformity of the proximal left humerus with suture anchors in the proximal right humerus. IMPRESSION: 1. Persistent airspace opacities in the lung bases bilaterally. These appear similar to 03/17/2018, and may represent residual/recurrent infiltrate versus chronic scarring/atelectasis. Dictated by: Dictated on workstation # [id number] Dict: 04/06/181904 Trans: 04/06/181944 Interpreted by: VANESA MONTELONGO MD Electronically signed by: VANESA MONTELONGO MD 04/06/181944 Departure Communication (Admissions) Time/Spoke to Admitting Phy: 19:45 Dr. Sly Payne at 20:10 Dr. Nye at 19:55 Impression Primary Impression: Atrial fibrillation with RVR Additional Impressions: Severe sepsis Respiratory failure Qualified Codes: J96.21 - Acute and chronic respiratory failure with hypoxia Pneumonia Qualified Codes: J18.9 - Pneumonia, unspecified organism ARF (acute renal failure) Qualified Codes: N17.9 - Acute kidney failure, unspecified Disposition: 09 ADMITTED INPATIENT Condition: Improved Admissions Decision to Admit Reason: Admit from ER (General) Decision to Admit/Date: Apr 06, 2018 Time/Decision to Admit Time: 18:19 Departure-Patient Inst. Referrals: SEDRICK QUISPE DO (PCP/Family) Primary Care Physician ARLEEN ESQUIVEL MD Apr 06, 2018 18:49
[2018-04-06 18:50] LABS: INR 1.7 (0.8-1.4); PROTHROMBIN TIME PATIENT 20.3 SEC (12.2-14.7)
[2018-04-06 18:55] LABS: ALBUMIN 3.2 GM/DL (3.2-4.5); BILIRUBIN,TOTAL 0.6 MG/DL (0.1-1.0); CREATININE SERUM 2.38 MG/DL (0.60-1.30)
[2018-04-06 18:57] LABS: ELLIPT/OVALOCYTES SLIGHT; LYMPHOCYTES % (MANUAL) 8 %; MONOCYTES % (MANUAL) 1 %; NEUTROPHILS % (MANUAL) 91 %
[2018-04-06] MEDS ORDERED: NS IV 1000 ML 1,000 ML IV ONE ×2 (19:12→19:51)
--- NOTE | 2018-04-06 19:18 | Diagnostic Imaging Report ---
INDICATION: Shortness of air. TECHNIQUE: Frontal view of the chest. COMPARISON: 03/17/2018 FINDINGS: There is persistent airspace opacity in the lung bases bilaterally. This appears similar to the previous exam. No significant pleural effusion or pneumothorax is seen. The cardiac silhouette is stable in size. Interstitial markings appear mildly improved compared to the previous study. There is slight deformity of the proximal left humerus with suture anchors in the proximal right humerus. IMPRESSION: 1. Persistent airspace opacities in the lung bases bilaterally. These appear similar to 03/17/2018, and may represent residual/recurrent infiltrate versus chronic scarring/atelectasis. Dictated by: Dictated on workstation # [id number]
[2018-04-06 19:35] LABS: FREE T4 (FREE THYROXINE) 1.16 NG/DL (0.70-1.48)
[2018-04-06] MEDS ORDERED: VANCOMYCIN INJECTION 1,000 MG in NS (IVPB) 250 ML IV ONE (20:00)
[2018-04-06] MEDS ORDERED: APIXABAN 2.5 MG (ELIQUIS) TABLET PO ONE (20:30)
[2018-04-06] MEDS ORDERED: NS IV 1000 ML 1,000 ML IV SCH (21:21)
[2018-04-06] MEDS ORDERED: ONDANSETRON 4 MG/2 ML (SDV) Z0FRAN IV PRN (21:30)
[2018-04-06] MEDS ORDERED: ACETAMINOPHEN 325 MG TABLET PO PRN (21:30)
[2018-04-06] MEDS ORDERED: EPINEPHrine 1 MG INJECTION 5 MG in NS (IVPB) 250 ML IV SCH (21:30)
[2018-04-06] MEDS: NS IV 1000 ML 1,000 ML IV SCH (21:30)
[2018-04-06] MEDS: DILTIAZEM INJECTION 125 MG in NS (IVPB) 100 ML IV SCH (21:30)
[2018-04-06] MEDS ORDERED: NS IV 1000 ML 2,041.17 ML IV ONE (21:30)
[2018-04-07] VITALS (28 sets, daily range): BP systolic 75–156; BP diastolic 43–80
[2018-04-07] MEDS ORDERED: PIPERACILLIN/TAZO 4.5 GM/NS 100 ML IV SCH ×4 (00:30→08:45)
--- NOTE | 2018-04-07 00:34 | NUR ---
Discussed with EICU patient's blood pressure decreasing. Cardizem turned from 10mg/hour to 5mg/hour and then turned off. Blood pressure increase within ten minutes of stopping the cardizem drip. Discussed turning the cardizem back on and running at 2.5mg/hour. Will continue to monitor.
[2018-04-07] MEDS: VASOPRESSIN INJECTION 20 UNIT in NS (IVPB) 100 ML IV SCH ×4 (01:27→22:38)
--- NOTE | 2018-04-07 03:30 | NUR ---
Reported blood pressures to EICU and turned off the cardizem drip, will await further orders.
[2018-04-07] MEDS: DILTIAZEM INJECTION 125 MG in NS (IVPB) 100 ML IV SCH (04:30)
[2018-04-07 04:32] LABS: BILIRUBIN,URINE NEGATIVE (NEGATIVE); CLARITY,URINE SLIGHTLY CLOUDY; COLOR,URINE YELLOW; GLUCOSE, URINE (UA) NEGATIVE (NEGATIVE); KETONES,URINE NEGATIVE (NEGATIVE); LEUKOCYTE ESTERASE ,URINE 3+ (NEGATIVE); NITRITE,URINE POSITIVE (NEGATIVE); PH,URINE 5 (5-9); PROTEIN,URINE 4+ (NEGATIVE); UROBILINOGEN,URINE NORMAL (NORMAL)
[2018-04-07 04:39] LABS: BACTERIA,URINE MODERATE /HPF; WBC,URINE >100 /HPF
[2018-04-07 05:12] LABS: BASOPHILS % (AUTO) 0 % (0-10); EOSINOPHILS # (AUTO) 0.1 10^3/uL (0.0-0.3); EOSINOPHILS % (AUTO) 1 % (0-10); HEMATOCRIT 32 % (35-52); HEMOGLOBIN 10.5 G/DL (11.5-16.0); LYMPHOCYTES # (AUTO) 0.8 X 10^3 (1.0-4.0); LYMPHOCYTES % (AUTO) 7 % (12-44); MEAN CORPUSCULAR HEMOGLOBIN 31 PG (25-34); MEAN CORPUSCULAR HGB CONC 33 G/DL (32-36); MEAN CORPUSCULAR VOLUME 95 FL (80-99); MEAN PLATELET VOLUME 11.7 FL (7.4-10.4); MONOCYTES # (AUTO) 0.6 X 10^3 (0.0-1.0); MONOCYTES % (AUTO) 5 % (0-12); NEUTROPHILS # (AUTO) 10.1 X 10^3 (1.8-7.8); NEUTROPHILS % (AUTO) 87 % (42-75); PLATELET COUNT 208 10^3/uL (130-400); RED CELL DISTRIBUTION WIDTH 15.5 % (10.0-14.5); WHITE BLOOD COUNT 11.5 10^3/uL (4.3-11.0)
[2018-04-07 05:29] LABS: CREATININE SERUM 2.33 MG/DL (0.60-1.30); MAGNESIUM 1.4 MG/DL (1.8-2.4); PHOSPHORUS 3.8 MG/DL (2.3-4.7); POTASSIUM 4.8 MMOL/L (3.6-5.0)
[2018-04-07] MEDS: POTASSIUM CL 10MEQ/50ML IVPB 50 ML IV SCH (05:50)
[2018-04-07] MEDS: KCL 20 MEQ TAB (K-DUR) PO SCH (05:50)
--- NOTE | 2018-04-07 05:50 | Pulmonary Consultation ---
History of Present Illness History of Present Illness Date of Consultation 04/07/18 05:45 Time Seen by Provider: 05:45 Date of Admission History of Present Illness 82 yo presented to ED via EMS hx of recent hospital admission 03/16-, Afib , and RLL pneumonia (last hospitalization) presented to ED via EMS secondary to progressive SOB and fever. He was found to have Afib RVR of 160-200. He was found by EMS to have hypoxia with Sp02 of 77% on home oxygen. Pt did grow out MRSA in sputum at the last hospital admission. Allergies and Home Medications Allergies Coded Allergies: codeine (Verified Allergy, Unknown, PT HAS REC MORPHINE WITHOUT PROBLEMS, 12/25/15) cortisone (Verified Allergy, Unknown, 12/25/15) tramadol (Verified Allergy, Unknown, 12/25/15) Home Medications Albuterol Sulfate 18 Gm Hfa.aer.ad, 2 PUFF INH Q4H PRN for SHORTNESS OF BREATH, (Reported) Allopurinol 100 Mg Tablet, 100 MG PO BID, (Reported) Amoxicillin/Potassium Clav 1 Each Tablet, 875 MG PO BID WITH MEALS Prescribed by: VIVEK FERNANDEZ on 03/19/18913 Aspirin 81 Mg Tablet.dr, 81 MG PO DAILY, (Reported) Atorvastatin Calcium 20 Mg Tablet, 20 MG PO HS, (Reported) Budesonide 0.5 Mg/2 Ml Ampul.neb, 0.5 MG NEB Q6H PRN for SHORTNESS OF BREATH, ( Reported) Buspirone HCl 5 Mg Tablet, 5 MG PO DAILY, (Reported) Cholecalciferol (Vitamin D3) 2,000 Unit Capsule, 2,000 UNIT PO DAILY, (Reported) Cranberry Extract/Vit C 1 Each Capsule, 3 CAP PO BID, (Reported) Diltiazem HCl 240 Mg Cap.er.24h, 240 MG PO DAILY Prescribed by: VIVEK FERNANDEZ on 03/19/18913 Docusate Sodium 100 Mg Capsule, 100 MG PO DAILY, (Reported) Enalapril Maleate 10 Mg Tablet, 10 MG PO DAILY, (Reported) Fexofenadine HCl 180 Mg Tablet, 180 MG PO DAILY, (Reported) Furosemide 40 Mg Tablet, 60 MG PO DAILY, (Reported) TAKES 1 & 1/2 (40MG) TABLET Glimepiride 4 Mg Tablet, 4 MG PO DAILY, (Reported) Levothyroxine Sodium 25 Mcg Tablet, 25 MCG PO DAILY, (Reported) Metoprolol Succinate 25 Mg Tab.er.24h, 25 MG PO DAILY Prescribed by: VIVEK FERNANDEZ on 03/19/18 0914 Nabumetone 750 Mg Tablet, 750 MG PO BID, (Reported) Nitroglycerin 0.4 Mg Tab.subl, 0.4 MG SL UD PRN for CHEST PAIN, (Reported) Omeprazole 40 Mg Capsule.dr, 40 MG PO DAILY, (Reported) Potassium Chloride 10 Meq Tablet.er, 10 MEQ PO DAILY, (Reported) Propylene Glycol/Peg 400 10 Ml Drops.gel, 1-2 DROP OD 5XD PRN for DRY EYES, ( Reported) Triamcinolone Acetonide 10.8 Ml [place], 1 SPRAY NS DAILY, (Reported) Umeclidinium [place] 62.5 Mcg Blst.w.dev, 1 PUFF IH DAILY, (Reported) Warfarin Sodium 6 Mg Tablet, 3 MG PO SuSa, (Reported) TAKES 1/2 (3MG) TABLET Warfarin Sodium 6 Mg Tablet, 6 MG PO MoTuWeThFr@1800, (Reported) Past Vraplhc-Dpzkpt-Dcbbvt Hx Patient Social History Alcohol Use: Denies Use Recreational Drug Use: No Smoking Status: Former Smoker Type Used: Cigarettes Former Smoker, Quit: Sep 09, 2000 2nd Hand Smoke Exposure: No Recent Foreign Travel: No Contact w/Someone Who Travel: No Recent Infectious Disease Expo: No Recent Hopitalizations: Yes Immunizations Up To Date Tetanus Booster (TDap): Unknown Date of Pneumonia Vaccine: Mar 06, 2018 Date of Influenza Vaccine: Dec 04, 2017 Seasonal Allergies Seasonal Allergies: No Past Medical History Surgeries: Yes (RT HIP, HEART VALVE REPLACEMENT, BLEPHAROSPLASTY) Coronary Stent, Orthopedic, Tonsillectomy, Tubal Ligation, Valve Replacement, Vascular Surgery Respiratory: Yes (wears cpap with o2 2l HS) Pneumonia, Sleep Apnea, COPD Currently Using CPAP: Yes (At HS. 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 6.0oz. 80.057969ni; 28.4 BMI Method:Stated Exam Exam Vital Signs Date Time Temp Pulse Resp B/P (MAP) Pulse Ox O2 Delivery O2 Flow Rate FiO2 04/07/18 04:30 NIV Bilevel 04/07/18 04:30 120 35 99 35.00 04/07/18 04:00 109 17 125/69 (87) 94 NIV Bilevel 35.00 04/07/18 04:00 98.4 04/07/18 03:00 96 27 97/44 (61) 100 NIV Bilevel 35.00 04/07/18 02:30 94 25 100 40.00 04/07/18 02:00 100 26 110/57 (74) 99 NIV Bilevel 40.00 04/07/18 01:49 97 04/07/18 01:00 103 24 115/61 (79) 99 NIV Bilevel 40.00 04/07/18 00:30 NIV Bilevel 40 04/07/18 00:30 97.4 04/07/18 00:15 100 28 77/51 (60) 99 NIV Bilevel 40.00 04/07/18 00:00 81 17 75/43 (54) 100 NIV Bilevel 40.00 04/06/18 23:45 81 17 84/54 (64) 99 NIV Bilevel 40.00 04/06/18 23:35 108 29 100 50.00 04/06/18 23:30 93 48 97/48 (64) 100 NIV Bilevel 60.00 04/06/18 23:15 96 30 90/52 (65) 100 NIV Bilevel 60.00 04/06/18 23:00 101 29 102/56 (71) 100 NIV Bilevel 60.00 04/06/18 22:45 114 35 91/54 (66) 100 NIV Bilevel 60.00 04/06/18 22:41 NIV Bilevel 60 04/06/18 22:30 101 23 95/74 (81) 100 NIV Bilevel 60.00 04/06/18 22:15 112 23 95/74 (81) 100 NIV Bilevel 60.00 04/06/18 22:00 115 23 97/64 (75) 98 NIV Bilevel 60.00 04/06/18 21:45 112 28 102/50 (67) 99 NIV Bilevel 60.00 04/06/18 21:30 113 20 103/86 (92) 99 NIV Bilevel 60.00 04/06/18 21:30 98.4 04/06/18 21:20 98.6 04/06/18 21:16 113 20 97/65 (76) 99 NIV Bilevel 60.00 04/06/18 21:09 123 04/06/18 21:05 99.0 105 29 95/69 (78) 100 NIV Bilevel 60.00 04/06/18 20:49 113 28 100 60.00 04/06/18 18:40 126 30 100 60.00 04/06/18 18:28 144 35 100 70.00 04/06/18 18:20 101.0 168 45 153/96 (115) 99 NIV/Bilevel 04/06/18 18:20 NIV Bilevel I & O 04/07/18 07:00 Intake Total 150 ml Output Total 175 ml Balance -25 ml Height & Weight Height: 5'6.50" Weight: 178lbs. 6.0oz. 80.953138yc; 28.4 BMI Method:Stated General Appearance: No Apparent Distress, WD/WN HEENT: PERRL/EOMI, Normal ENT Inspection Neck: Normal Inspection Respiratory: Lungs Clear (better aeration on BiPAP) Cardiovascular: Irregularly Irregular, Tachycardia, Other (mild edema of the hands and feet) Capillary Refill: Less Than 3 Seconds Peripheral Pulses: 2+ Radial Pulses (R) Extremity: Normal Capillary Refill, Pedal Edema (mild) Neurologic/Psychiatric: Alert, No Motor/Sensory Deficits, personnel consultant II-XII Norm as Tested Results Lab Laboratory Tests 04/06/18 18:30 04/07/18 05:00 Assessment/Plan Assessment/Plan Severe Sepsis with pneumonia and recent hx of MRSA PNA -Vanco, Zosyn -IVF -olvera cultures -Severe sepsis protocol Acute on chronic respiratory failure -Currently on BiPAP -Trial pt off bipap this AM Afib RVR -Pt is on eliquis -Cardizem gtt Acute renal failure -IVF -Monitor COPDAE -SVNS Aortic valve replacement -Currently on Eliquis -Cardiology consulted Hypothyroid -Synthroid WANDA LEBRON DO Apr 07, 2018 05:50
[2018-04-07] MEDS ORDERED: SODIUM BICARB 8.4% 50 MEQ/50 ML (ABBOTT) SYR IV ONE (06:00)
[2018-04-07] MEDS ORDERED: NS IV 1000 ML 1,000 ML IV SCH (07:45)
--- NOTE | 2018-04-07 07:59 | Diagnostic Imaging Report ---
PATIENT HISTORY: Acute respiratory failure. TECHNIQUE: Frontal view of the chest COMPARISON: 04/06/2018 FINDINGS: Lung volumes are mildly large. There are linear opacities in the lung bases, likely atelectasis or scarring. There is diffuse interstitial opacities in the lungs bilaterally. This appears mildly increased on the right. The cardiac silhouette is mildly prominent. There is aortic atherosclerosis. Sternotomy wires are noted. Valve prosthesis is noted. There is deformity of the proximal left humerus from remote trauma. IMPRESSION: 1. Bibasilar opacities, likely atelectasis or scarring. 2. Interstitial opacities in the lungs bilaterally, right greater than left. These appear chronic, although slightly increased on the right compared to the prior exam. Dictated by: Dictated on workstation # [id number]
[2018-04-07] MEDS ORDERED: SODIUM BICARB 8.4% 50 MEQ/50 ML (ABBOTT) SYR ONE ×2 (08:31→09:11)
[2018-04-07] MEDS ORDERED: LIDOCAINE 1% INJ 20 ML 20 ML VIAL ONE (08:58)
[2018-04-07] MEDS ORDERED: HEParin (CATH LAB) 0 ML IV ONE (08:58)
[2018-04-07] MEDS ORDERED: NS (IVPB) 250 ML IV ONE (09:00)
[2018-04-07] MEDS ORDERED: APIXABAN 2.5 MG (ELIQUIS) TABLET PO SCH (09:00)
[2018-04-07] MEDS: MAGNESIUM 1 GM/100 ML IVPB 100 ML IV SCH ×3 (09:12→10:09)
[2018-04-07] MEDS ORDERED: DIGOXIN 0.25 MG/ML (LANOXIN) 2 ML AMP IV NR ×2 (09:45→16:45)
[2018-04-07] MEDS ORDERED: DILTIAZEM 300 MG (CARDIZEM CD) CAP PO NR (09:45)
[2018-04-07] MEDS: NS IV 1000 ML 1,000 ML IV SCH ×5 (09:51→22:38)
--- NOTE | 2018-04-07 10:02 | Consultation-Cardiology ---
HPI-Cardiology Cardiology Consultation: Date of Consultation 04/07/18 Time Seen by a Provider: 09:30 Date of Admission 04-06-18 Attending Physician Teodroo Obrien MD Admitting Physician Shin Cano DO Consulting Physician Oz Estrella MD HPI: Chief Complaint: A-fib with RVR Ms. Lion is an 82 year old female admitted to ICU 11 from home with worsening SOB, generalized weakness. She was discharge home a few weeks ago after admission for pneumonia. She reports she was initially feeling better, however on Friday she began to become increasingly SOB and weak. She reports worsening, frequent, non-productive cough. She reports fever and malaise. No s /o CP, palpitations, syncope, near syncope. She reports LE swelling which started last night. She reports she is feeling somewhat better this morning, but continues to be SOB with minimal conversation. Review of Systems-Cardiology Review of Systems Constitutional: chills, fever, malaise Eyes: No vision change Ears/Nose/Throat: No epistaxis, No recent hearing loss Respiratory: As described under HPI Cardiovascular: As described under HPI Gastrointestinal: No constipation, No diarrhea, No nausea, No vomiting Genitourinary: No dysuria, No hematuria; urine frequency changes (decrese in urine volume) : No Musculoskeletal: no symptoms reported Skin: No rash, No ulcerations Psychiatric/Neurological: No anxiety, No depression, No seizure, No focal weakness, No syncope Hematologic: No bleeding abnormalities SYY-Epbbei-Onqskd Hx Patient Social History Alcohol Use: Denies Use Recreational Drug Use: No Smoking Status: Former Smoker Former smoker/When Quit: Mar 03, 2000 Type Used: Cigarettes 2nd Hand Smoke Exposure: No Recent Foreign Travel: No Recent Infectious Disease Expo: No Hospitalization with Isolation: Denies Immunizations Up To Date Tetanus Booster (TDap): Unknown Date of Pneumonia Vaccine: Mar 06, 2018 Date of Influenza Vaccine: Dec 04, 2017 Past Medical History PMH As described under Assessment. Family Medical History Family Medical History: She reports her father and a sister have had a CVA. Family History: FH: stroke 19 FATHER G8 SISTER Stroke Allergies and Home Medications Allergies Coded Allergies: codeine (Verified Allergy, Unknown, PT HAS REC MORPHINE WITHOUT PROBLEMS, 12/25/15) cortisone (Verified Allergy, Unknown, 12/25/15) tramadol (Verified Allergy, Unknown, 12/25/15) Home Medications Albuterol Sulfate 18 Gm Hfa.aer.ad, 2 PUFF INH Q4H PRN for SHORTNESS OF BREATH, (Reported) Allopurinol 100 Mg Tablet, 100 MG PO BID, (Reported) Ascorbate Calcium 500 Mg Tablet, 500 MG PO HS, (Reported) Aspirin 81 Mg Tablet.dr, 81 MG PO DAILY, (Reported) Atorvastatin Calcium 20 Mg Tablet, 20 MG PO HS, (Reported) Budesonide 0.5 Mg/2 Ml Ampul.neb, 0.5 MG NEB BID, (Reported) Buspirone HCl 5 Mg Tablet, 5 MG PO DAILY, (Reported) Cholecalciferol (Vitamin D3) 2,000 Unit Capsule, 2,000 UNIT PO DAILY, (Reported) Cranberry Extract/Vit C 1 Each Capsule, 3 CAP PO BID, (Reported) Diltiazem HCl 240 Mg Cap.er.24h, 240 MG PO DAILY Prescribed by: VIVEK FERNANDEZ on 03/19/18913 Docusate Sodium 100 Mg Capsule, 100 MG PO DAILY, (Reported) Docusate Sodium 100 Mg Capsule, 100 MG PO DAILY, (Reported) Enalapril Maleate 10 Mg Tablet, 10 MG PO DAILY, (Reported) Fexofenadine HCl 180 Mg Tablet, 180 MG PO DAILY, (Reported) Furosemide 40 Mg Tablet, 60 MG PO DAILY, (Reported) TAKES 1 & 1/2 (40MG) TABLET Glimepiride 4 Mg Tablet, 4 MG PO DAILY, (Reported) Ipratropium/Albuterol Sulfate 3 Ml Ampul.neb, 3 ML NEB Q6H PRN for SHORTNESS OF BREATH, (Reported) Levothyroxine Sodium 25 Mcg Tablet, 25 MCG PO DAILY, (Reported) Metoprolol Succinate 25 Mg Tab.er.24h, 25 MG PO DAILY Prescribed by: VIVEK FERNANDEZ on 03/19/18913 Nabumetone 750 Mg Tablet, 750 MG PO BID, (Reported) Nitroglycerin 0.4 Mg Tab.subl, 0.4 MG SL UD PRN for CHEST PAIN, (Reported) Omeprazole 40 Mg Capsule.dr, 40 MG PO DAILY, (Reported) Potassium Chloride 10 Meq Tablet.er, 10 MEQ PO DAILY, (Reported) Propylene Glycol/Peg 400 10 Ml Drops.gel, 1-2 DROP OD 5XD PRN for DRY EYES, ( Reported) Triamcinolone Acetonide 10.8 Ml [place], 1 SPRAY NS DAILY, (Reported) Umeclidinium [place] 62.5 Mcg Blst.w.dev, 1 PUFF IH DAILY, (Reported) Warfarin Sodium 6 Mg Tablet, 3 MG PO [place]@1800, (Reported) TAKES 1/2 (3MG) TABLET Warfarin Sodium 6 Mg Tablet, 6 MG PO MoTuWeThFrSa@1800, (Reported) Physical Exam-Cardiology Physical Exam Vital Signs/I&O 04/09/18 04/09/18 04/09/18 04/10/18 21:00 22:32 23:57 01:00 Temp 97.7 Pulse 95 96 Resp 20 B/P (MAP) 138/78 (98) Pulse Ox 90 96 O2 Delivery Nasal Cannula NIV CPAP NIV CPAP O2 Flow Rate 2.00 2.00 04/10/18 04/10/18 04/10/18 04/10/18 02:10 04:04 06:56 07:00 Temp 97.5 Pulse 95 90 Resp 20 B/P (MAP) 138/75 (96) Pulse Ox 95 94 90 O2 Delivery NIV CPAP NIV CPAP Nasal Cannula O2 Flow Rate 2.00 2.00 04/10/18 08:00 Temp 96.8 Pulse 95 Resp 20 B/P (MAP) 138/65 (89) Pulse Ox 93 O2 Delivery Nasal Cannula O2 Flow Rate 3.00 04/10/18 00:00 Intake Total 1480 ml Output Total 650 ml Balance 830 ml Capillary Refill : Less Than 3 Seconds Constitutional: AAO x 3, well-developed, well-nourished HEENT: PERRL, hearing is well preserved, oral hygience is good Neck: No carotid bruit; carotid pulses are 2 + bilaterally Respiratory: rhonchi (scattered), other (diminished lower lobes bilat; dyspneic with conversation) Cardiovascular: irregularly irregular; No JVD; S1 and S2, other (crisp, mechanical) Gastrointestinal: No tender; soft, round, audible bowel sounds Rectal: deferred Genital/Rectal: other (urinary catheter to DD; cloudy, yellow urine) Extremities: other (generalized edema) Neurologic/Psychiatric: grossly intact Skin: normal color, warm/dry; No rash, No ulcerations Data Review Labs Laboratory Tests 04/10/18 05:20: White Blood Count 3.5L, Red Blood Count 3.19L, Hemoglobin 9.6L, Hematocrit 29L, Mean Corpuscular Volume 92, Mean Corpuscular Hemoglobin 30, Mean Corpuscular Hemoglobin Concent 33, Red Cell Distribution Width 15.1H, Platelet Count 218, Mean Platelet Volume 11.1H, Neutrophils (%) (Auto) 86H, Lymphocytes (%) (Auto) 11L, Monocytes (%) (Auto) 2, Eosinophils (%) (Auto) 0, Basophils (%) (Auto) 0, Neutrophils # (Auto) 3.0, Lymphocytes # (Auto) 0.4L, Monocytes # (Auto) 0.1, Eosinophils # (Auto) 0.0, Basophils # (Auto) 0.0, Prothrombin Time 32.8H, INR Comment 3.2H, Sodium Level 129L, Potassium Level 4.9, Chloride Level 105, Carbon Dioxide Level 14L, Anion Gap 10, Blood Urea Nitrogen 30H, Creatinine 2.00H, Estimat Glomerular Filtration Rate 24, BUN/Creatinine Ratio 15, Glucose Level 310H, Calcium Level 8.2L, Phosphorus Level 2.8, Magnesium Level 1.7L, B- Type Natriuretic Peptide 721.0H Microbiology 04/06/18 Blood Culture - Final, Complete Escherichia coli See Comments 04/06/18 MRSA Screen - Final, Complete 04/07/18 Urine Culture - Preliminary, Resulted Escherichia coli See Report Radiology NAME: LAKIA LION [facility] REC#: [id number] PT STATUS: ADM IN : 1935 PHYSICIAN: TEODORO OBRIEN MD ADMIT DATE: 04/06/18/ICU Signed Date of Exam: 04/07/18 CHEST 1 VIEW, AP/PA ONLY PATIENT HISTORY: Acute respiratory failure. TECHNIQUE: Frontal view of the chest COMPARISON: 04/06/2018 FINDINGS: Lung volumes are mildly large. There are linear opacities in the lung bases, likely atelectasis or scarring. There is diffuse interstitial opacities in the lungs bilaterally. This appears mildly increased on the right. The cardiac silhouette is mildly prominent. There is aortic atherosclerosis. Sternotomy wires are noted. Valve prosthesis is noted. There is deformity of the proximal left humerus from remote trauma. IMPRESSION: 1. Bibasilar opacities, likely atelectasis or scarring. 2. Interstitial opacities in the lungs bilaterally, right greater than left. These appear chronic, although slightly increased on the right compared to the prior exam. Dictated by: Dictated on workstation # [id number] Dict: 04/07/18 0754 Trans: 04/07/18 0827 Interpreted by: VANESA MONTELONGO MD Electronically signed by: VANESA MONTELONGO MD 04/07/18 0827 ECG Impression ECG Initial ECG Impression: Atrial Fibrillation w/RVR A/P-Cardiology Assessment/Admission Diagnosis Pneumonia with hypoxia and prob sepsis - management per Pulmonary/Medical services A-fib with RVR Chronic warfarin anticoagulation, managed by Dr Cano - sub-therapeutic INR at presentation Valvular heart disease with a history of aortic valve replacement with #21 [employer] mechanical prosthetic valve for aortic stenosis and mitral valve repair with 27 mm ring for mitral regurgitation in 2002. Acute on chronic diastolic CHF Echo of 03/16/18: LVEF 55-60%, mod conc LVH, biatrial enlargement, mod MR, adequately functioning aortic prosthetic valve, PASP 60-65 mmHg PAD and claudication - DYLON of 3--18 report mod PVD. DYLON R 0.63, L 0.63. Last peripheral angio and intervention (R leg) on 09/09/17 at which time she underwent successful balloon angioplasty of the R peroneal with reduction of a 95% ostial stenosis to less than 30% residual; both R tibials are occluded and collateralized. Previously, she has undergone bilateral kissing stents of both common iliacs and extensive balloon angioplasty and stenting of the R SFA by Dr Loaiza on 12/31/13. Subsequently, on 01/07/14, Dr Loaiza did stenting of L SFA and successful balloon angioplasty of L peroneal and L anterior tibial arteries, but angioplasty to chronic occlusion of L posterior tibial was unsuccessful and resulted in subintimal dissection Acute on chronic renal failure - CKD stage III H/O stress fracture of left foot May 2017 CVA: L-sided weakness and L-visual field cut in Dec 2015. 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 Payne. Cardiac cath of 06-24-2013 showed CAD, mild to moderate. Moderate mid vessel stenosis of the LAD with fractional flow reserve across the lesion of 0.95. Moderate mid vessel stenosis of the RCA with fractional flow reserve across the lesion of 0.95. Patent stents in the proximal left circumflex and the mid RCA which were placed in 2004 MPI of 07-18-15 did not indicate significant myocardial ischemia or infarction. Normal regional wall motion. Normal global LV systolic function with calculated ejection fraction of 69%. Normal LV cavity size Left internal carotid artery stenosis of 60-79%, right internal carotid artery stenosis of less than 40% per carotid u/s of 05/20/17 Hyperlipidemia being treated with lovastatin and being followed by Dr. Cano. Heme-positive stools in Jan 2014. Diffuse erosive gastritis, hemorrhoids, diverticulitis, no active bleeding per endoscopy in Jan [address] Rodgers, treated with H2 angie, PPI and Carafate (managed by Dr Rodgers). Recurrent heme (+) stools in March 2014 - capsule endoscopy and management by Dr Rodgers History of transient ischemic attacks. Borderline diabetes mellitus being managed by Dr. Cano. Right rotator cuff repair on 11/28/[address] Woodward due to a torn rotator cuff. Discussion and Recomendations Complex management issue with multiple comorbidities as listed above Chronic a-fib, currently with RVR - will give Cardizem CD and IV Dig to improve HR Acute on chronic renal insufficiency - give IVF hydration Stop Eliquis, not indicated d/t mechanical aortic valve replacement, resume warfarin - monitor INR closely d/t abx tx Pneumonia with prob sepsis management per medical/pulmonary services Suspected UTI - management per medical services Monitor lab closely Further recs will be based on her hospital course We would like to thank medical services for this consult Clinical Quality Measures DVT/VTE Risk/Contraindication: Risk Factor Score Per Nursin RFS Level Per Nursing on Admit: 4+=Very High OBED COLLIER Apr 07, 2018 10:01
[2018-04-07] MEDS ORDERED: RT-ALBUTEROL/IPRATROPIUM 3 ML (DUONEB) VIAL INH PRN (10:15)
--- NOTE | 2018-04-07 10:35 | NUR ---
Pastoral care visit, offered support, expressed department availability and services.
[2018-04-07] MEDS ORDERED: DIGOXIN 0.25 MG/ML (LANOXIN) 2 ML AMP IV PRN (10:45)
[2018-04-07] MEDS ORDERED: RT-ALBUTEROL/IPRATROPIUM 3 ML (DUONEB) VIAL INH SCH (12:00)
[2018-04-07] MEDS ORDERED: ASCO-262 PO (12:13)
[2018-04-07] MEDS ORDERED: DOCU-143 PO (12:28)
[2018-04-07] MEDS ORDERED: IPRA3AMP31 NEB (12:28)
--- NOTE | 2018-04-07 12:30 | NUR ---
UPDATED MED REC WITH MEDICATION LIST FROM [facility].
--- NOTE | 2018-04-07 15:13 | History & Physical-Hospitalist ---
History of Present Illness HPI/Chief Complaint The patient is a growth 82-year-old white female who has had many previous visits. The last of these was in mid March. At that time it appeared that she had a pneumonia. She also has chronic atrial fibrillation and presented at that time with rapid ventricular response. She is known to have had a previous aortic valve replacement. She reported that she had become increasingly short of breath over the several days prior to admission. She was found to be febrile at arrival. She also was tachycardic on arrival of EMS to her abode. It is also noted that she had not been doing her prescribed aerosol treatments at home. Date Seen 04/07/18 Time Seen by a Provider: 15:12 Attending Physician Homar Obrien MD PCP Shin Cano DO Referring Physician Date of Admission Apr 06, 2018 at 20:18 Home Medications & Allergies Home Medications Reviewed patient Home Medication Reconciliation performed by pharmacy medication reconciliations master technician and/or nursing. Patients Allergies have been reviewed. Allergies Allergies Coded Allergies codeine (Verified Allergy, Unknown, PT HAS REC MORPHINE WITHOUT PROBLEMS, ) cortisone (Verified Allergy, Unknown, 12/25/15) tramadol (Verified Allergy, Unknown, 12/25/15) Past Swddpxe-Giyzqc-Zwncmh Hx Patient Social History Alcohol Use: Denies Use Recreational Drug Use: No Smoking Status: Former Smoker Former Smoker, Quit: Sep 09, 2000 Type Used: Cigarettes 2nd Hand Smoke Exposure: No Recent Foreign Travel: No Contact w/other who traveled: No Recent Hopitalizations: Yes Recent Infectious Disease Expo: No Immunizations Up To Date Tetanus Booster (TDap): Unknown Date of Pneumonia Vaccine: Mar 06, 2018 Date of Influenza Vaccine: Dec 04, 2017 Seasonal Allergies Seasonal Allergies: No Past Medical History Surgeries: Coronary Stent, Orthopedic, Tonsillectomy, Tubal Ligation, Valve Replacement, Vascular Surgery Respiratory: Chronic Bronchitis, COPD, Pneumonia Currently Using CPAP: Yes (At HS. ) Currently Using BIPAP: No Cardiac: Atrial Fibrillation, Coronary Artery Disease, High Cholesterol, Hypertension, Valvular Heart Disease Neurological: Headaches /Migraines, TIA Reproductive: No Sexually Transmitted Disease: No HIV/AIDS: No Female Reproductive Disorders: Denies Genitourinary: Kidney Infection, UTI-Chronic Gastrointestinal: Gastroesophageal Reflux, Diverticulosis Musculoskeletal: Arthritis Endocrine: Hypothyroidsim, Diabetes, Non-Insulin dep HEENT: Cataract Loss of Vision: Bilateral Hearing Impairment: Hard of Hearing History of Blood Disorders: Yes (ANEMIA--ON COUMADIN) Adverse Reaction to Blood Up: No Family History FH: stroke 19 FATHER G8 SISTER Stroke No Pertinent Family Hx Review of Systems Constitutional: see HPI EENTM: no symptoms reported Respiratory: cough, short of breath, wheezing Cardiovascular: palpitations Gastrointestinal: no symptoms reported Genitourinary: no symptoms reported Musculoskeletal: muscle weakness Skin: no symptoms reported Psychiatric/Neurological: No Symptoms Reported Physical Exam Physical Exam Vital Signs Vital Signs - First Documented 04/06/18 04/06/18 04/06/18 18:20 18:28 22:41 Temp 101.0 Pulse 168 Resp 45 B/P (MAP) 153/96 (115) Pulse Ox 99 O2 Delivery NIV Bilevel O2 Flow Rate 70.00 FiO2 60 Capillary Refill : Less Than 3 Seconds Height, Weight, BMI Height: 5'6.50" Weight: 174lbs. 4.0oz. 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 Clinical Quality Measures DVT/VTE Risk/Contraindication: Risk Factor Score Per Nursin RFS Level Per Nursing on Admit: 4+=Very High HOMAR OBRIEN MD Apr 07, 2018 15:13
[2018-04-07] MEDS ORDERED: NITROGLYCERIN 0.4 MG SL TABS BTL 25'S SL PRN (15:15)
[2018-04-07] MEDS ORDERED: RT-ALBUTEROL/IPRATROPIUM 3 ML (DUONEB) VIAL IH PRN (15:15)
[2018-04-07] MEDS: RT-ALBUTEROL/IPRATROPIUM 3 ML (DUONEB) VIAL INH SCH ×2 (15:53→18:40)
[2018-04-07] MEDS: warFARin 3 MG (COUMADIN) TAB PO SCH (17:02)
[2018-04-07] MEDS ORDERED: warFARin 3 MG (COUMADIN) TAB PO SCH (18:00)
--- NOTE | 2018-04-07 19:44 | Consultation-Cardiology ---
HPI-Cardiology Cardiology Consultation: Date of Consultation 04/07/18 Time Seen by a Provider: 18:00 Date of Admission Attending Physician Homar Heart MD Admitting Physician Shin Cano DO Consulting Physician WALDEMAR CALLOWAY MD, MA, FACP, FACC, FSCAI, CCDS HPI: Chief Complaint: Reason for consultation: A-fib with RVR HPI Ms. Lion is an 82 year old female admitted to ICU 11 from home with worsening SOB, generalized weakness. She was discharge home a few weeks ago after admission for pneumonia. She reports she was initially feeling better, however on Friday she began to become increasingly SOB and weak. She reports worsening, frequent, non-productive cough. She reports fever and malaise. No s /o CP, palpitations, syncope, near syncope. She reports LE swelling which started last night. She reports she is feeling somewhat better this morning, but continues to be SOB with minimal conversation. Review of Systems-Cardiology Review of Systems Constitutional: chills, fever, malaise Eyes: No vision change Ears/Nose/Throat: No epistaxis, No recent hearing loss Respiratory: As described under HPI Cardiovascular: As described under HPI Gastrointestinal: No constipation, No diarrhea, No nausea, No vomiting Genitourinary: No dysuria, No hematuria; urine frequency changes (decrese in urine volume) : No Musculoskeletal: no symptoms reported Skin: No rash, No ulcerations Psychiatric/Neurological: No anxiety, No depression, No seizure, No focal weakness, No syncope Hematologic: No bleeding abnormalities KIE-Wfixyh-Wlqnzu Hx Patient Social History Alcohol Use: Denies Use Recreational Drug Use: No Smoking Status: Former Smoker Former smoker/When Quit: Mar 03, 2000 Type Used: Cigarettes 2nd Hand Smoke Exposure: No Recent Foreign Travel: No Recent Infectious Disease Expo: No Hospitalization with Isolation: Denies Immunizations Up To Date Tetanus Booster (TDap): Unknown Date of Pneumonia Vaccine: Mar 06, 2018 Date of Influenza Vaccine: Dec 04, 2017 Past Medical History PMH As described under Assessment. Family Medical History Family Medical History: She reports her father and a sister have had a CVA. Family History: FH: stroke 19 FATHER G8 SISTER Stroke Allergies and Home Medications Allergies Coded Allergies: codeine (Verified Allergy, Unknown, PT HAS REC MORPHINE WITHOUT PROBLEMS, 12/25/15) cortisone (Verified Allergy, Unknown, 12/25/15) tramadol (Verified Allergy, Unknown, 12/25/15) Home Medications Albuterol Sulfate 18 Gm Hfa.aer.ad, 2 PUFF INH Q4H PRN for SHORTNESS OF BREATH, (Reported) Allopurinol 100 Mg Tablet, 100 MG PO BID, (Reported) Ascorbate Calcium 500 Mg Tablet, 500 MG PO HS, (Reported) Aspirin 81 Mg Tablet.dr, 81 MG PO DAILY, (Reported) Atorvastatin Calcium 20 Mg Tablet, 20 MG PO HS, (Reported) Budesonide 0.5 Mg/2 Ml Ampul.neb, 0.5 MG NEB BID, (Reported) Buspirone HCl 5 Mg Tablet, 5 MG PO DAILY, (Reported) Cholecalciferol (Vitamin D3) 2,000 Unit Capsule, 2,000 UNIT PO DAILY, (Reported) Cranberry Extract/Vit C 1 Each Capsule, 3 CAP PO BID, (Reported) Diltiazem HCl 240 Mg Cap.er.24h, 240 MG PO DAILY Prescribed by: VIVEK FERNANDEZ on 03/19/18913 Docusate Sodium 100 Mg Capsule, 100 MG PO DAILY, (Reported) Docusate Sodium 100 Mg Capsule, 100 MG PO DAILY, (Reported) Enalapril Maleate 10 Mg Tablet, 10 MG PO DAILY, (Reported) Fexofenadine HCl 180 Mg Tablet, 180 MG PO DAILY, (Reported) Furosemide 40 Mg Tablet, 60 MG PO DAILY, (Reported) TAKES 1 & 1/2 (40MG) TABLET Glimepiride 4 Mg Tablet, 4 MG PO DAILY, (Reported) Ipratropium/Albuterol Sulfate 3 Ml Ampul.neb, 3 ML NEB Q6H PRN for SHORTNESS OF BREATH, (Reported) Levothyroxine Sodium 25 Mcg Tablet, 25 MCG PO DAILY, (Reported) Metoprolol Succinate 25 Mg Tab.er.24h, 25 MG PO DAILY Prescribed by: VIVEK FERNANDEZ on 03/19/18913 Nabumetone 750 Mg Tablet, 750 MG PO BID, (Reported) Nitroglycerin 0.4 Mg Tab.subl, 0.4 MG SL UD PRN for CHEST PAIN, (Reported) Omeprazole 40 Mg Capsule.dr, 40 MG PO DAILY, (Reported) Potassium Chloride 10 Meq Tablet.er, 10 MEQ PO DAILY, (Reported) Propylene Glycol/Peg 400 10 Ml Drops.gel, 1-2 DROP OD 5XD PRN for DRY EYES, ( Reported) Triamcinolone Acetonide 10.8 Ml Tiller, 1 SPRAY NS DAILY, (Reported) Umeclidinium [place] 62.5 Mcg Blst.w.dev, 1 PUFF IH DAILY, (Reported) Warfarin Sodium 6 Mg Tablet, 3 MG PO Delaney@1800, (Reported) TAKES 1/2 (3MG) TABLET Warfarin Sodium 6 Mg Tablet, 6 MG PO MoTuWeThFrSa@1800, (Reported) Patient Home Medication List Home Medication List Reviewed: Yes Physical Exam-Cardiology Physical Exam Vital Signs/I&O 04/07/18 04/07/18 04/07/18 04/07/18 08:00 08:00 09:00 09:54 Pulse 128 113 Resp 16 14 B/P (MAP) 111/62 (78) 115/67 (83) Pulse Ox 95 97 O2 Delivery Nasal Cannula NIV Bilevel NIV Bilevel Nasal Cannula O2 Flow Rate 4.00 35.00 35.00 2.00 04/07/18 04/07/18 04/07/18 04/07/18 09:54 10:00 11:00 12:00 Pulse 120 128 130 Resp 26 23 16 B/P (MAP) 114/68 (83) 119/64 (82) 107/64 (78) Pulse Ox 97 92 96 97 O2 Delivery Nasal Cannula Nasal Cannula Nasal Cannula Nasal Cannula O2 Flow Rate 4.00 2.00 2.00 2.00 04/07/18 04/07/18 04/07/18 04/07/18 12:00 12:00 13:00 13:06 Temp 98.4 Pulse 140 129 Resp 21 B/P (MAP) 129/80 (96) Pulse Ox 96 O2 Delivery Nasal Cannula Nasal Cannula O2 Flow Rate 2.00 2.00 04/07/18 04/07/18 04/07/18 04/07/18 14:00 15:00 15:53 16:00 Pulse 124 126 Resp 33 31 B/P (MAP) 109/74 (86) 105/71 (82) Pulse Ox 93 91 93 O2 Delivery Nasal Cannula Nasal Cannula Nasal Cannula Nasal Cannula O2 Flow Rate 2.00 2.00 2.00 2.00 04/07/18 04/07/18 04/07/18 04/07/18 16:00 17:00 18:00 18:40 Pulse 103 108 118 Resp 25 11 19 B/P (MAP) 134/69 (90) 106/76 (86) 119/65 (83) Pulse Ox 93 95 93 97 O2 Delivery Nasal Cannula Nasal Cannula Nasal Cannula NIV CPAP O2 Flow Rate 2.00 2.00 2.00 2.00 04/06/18 23:59 Intake Total 150 ml Balance 150 ml Capillary Refill : Less Than 3 Seconds Constitutional: AAO x 3, well-developed, well-nourished HEENT: PERRL, hearing is well preserved, oral hygience is good Neck: No carotid bruit; carotid pulses are 2 + bilaterally Respiratory: rhonchi (scattered), other (diminished lower lobes bilat; dyspneic with conversation) Cardiovascular: irregularly irregular; No JVD; S1 and S2, other (crisp, mechanical) Gastrointestinal: No tender; soft, round, audible bowel sounds Rectal: deferred Genital/Rectal: other (urinary catheter to DD; cloudy, yellow urine) Extremities: other (generalized edema) Neurologic/Psychiatric: grossly intact Skin: normal color, warm/dry; No rash, No ulcerations Data Review Labs Laboratory Tests 04/07/18 00:41: Urine Color YELLOW, Urine Clarity SLIGHTLY CLOUDY, Urine pH 5, Urine Specific [place] 1.015L, Urine Protein 4+, Urine Glucose (UA) NEGATIVE, Urine Ketones NEGATIVE, Urine Nitrite POSITIVEH, Urine Bilirubin NEGATIVE, Urine Urobilinogen NORMAL, Urine Leukocyte Esterase 3+H, Urine RBC (Auto) 4+H, Urine RBC NONE, Urine WBC >100H, Urine Squamous Epithelial Cells 2-5, Urine Crystals NONE, Urine Bacteria MODERATEH, Urine Casts NONE, Urine Mucus NEGATIVE, Urine Culture Indicated CULTURE PENDING 04/07/18 05:00: White Blood Count 11.5H, Red Blood Count 3.39L, Hemoglobin 10.5L, Hematocrit 32L , Mean Corpuscular Volume 95, Mean Corpuscular Hemoglobin 31, Mean Corpuscular Hemoglobin Concent 33, Red Cell Distribution Width 15.5H, Platelet Count 208, Mean Platelet Volume 11.7H, Neutrophils (%) (Auto) 87H, Lymphocytes (%) (Auto) 7L, Monocytes (%) (Auto) 5, Eosinophils (%) (Auto) 1, Basophils (%) (Auto) 0, Neutrophils # (Auto) 10.1H, Lymphocytes # (Auto) 0.8L, Monocytes # (Auto) 0.6, Eosinophils # (Auto) 0.1, Basophils # (Auto) 0.0, Prothrombin Time 23.0H, INR Comment 2.0H, Sodium Level 135, Potassium Level 4.8, Chloride Level 107, Carbon Dioxide Level 13L, Anion Gap 15H, Blood Urea Nitrogen 34H, Creatinine 2.33H, Estimat Glomerular Filtration Rate 20, BUN/Creatinine Ratio 15, Glucose Level 137H, Calcium Level 8.0L, Phosphorus Level 3.8, Magnesium Level 1.4L Microbiology 04/06/18 Blood Culture - Preliminary, Resulted Escherichia coli See Comments 04/06/18 Influenza Types A,B Antigen ([facility]) - Final, Complete A/P-Cardiology Assessment/Admission Diagnosis Pneumonia with hypoxia and UTI with prob sepsis - management per Pulmonary/ Medical services A-fib with RVR Chronic warfarin anticoagulation, managed by Dr Cano - somewhat sub- therapeutic INR at presentation Valvular heart disease with a history of aortic valve replacement with #21 Carbomedics mechanical prosthetic valve for aortic stenosis and mitral valve repair with 27 mm ring for mitral regurgitation in 2002. Acute on chronic diastolic CHF Echo of 03/16/18: LVEF 55-60%, mod conc LVH, biatrial enlargement, mod MR, adequately functioning aortic prosthetic valve, PASP 60-65 mmHg PAD and claudication - DYLON of 3-1-18 report mod PVD. DYLON R 0.63, L 0.63. Last peripheral angio and intervention (R leg) on 09/09/17 at which time she underwent successful balloon angioplasty of the R peroneal with reduction of a 95% ostial stenosis to less than 30% residual; both R tibials are occluded and collateralized. Previously, she has undergone bilateral kissing stents of both common iliacs and extensive balloon angioplasty and stenting of the R SFA by Dr Loaiza on 12/31/13. Subsequently, on 01/07/14, Dr Loaiza did stenting of L SFA and successful balloon angioplasty of L peroneal and L anterior tibial arteries, but angioplasty to chronic occlusion of L posterior tibial was unsuccessful and resulted in subintimal dissection Acute on chronic renal failure - CKD stage III H/O stress fracture of left foot May 2017 CVA: L-sided weakness and L-visual field cut in Dec 2015. 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 Payne. Cardiac cath of 06-24-2013 showed CAD, mild to moderate. Moderate mid vessel stenosis of the LAD with fractional flow reserve across the lesion of 0.95. Moderate mid vessel stenosis of the RCA with fractional flow reserve across the lesion of 0.95. Patent stents in the proximal left circumflex and the mid RCA which were placed in 2004 MPI of 07-18-15 did not indicate significant myocardial ischemia or infarction. Normal regional wall motion. Normal global LV systolic function with calculated ejection fraction of 69%. Normal LV cavity size Left internal carotid artery stenosis of 60-79%, right internal carotid artery stenosis of less than 40% per carotid u/s of 05/20/17 Hyperlipidemia being treated with lovastatin and being followed by Dr. Cano. Heme-positive stools in Jan 2014. Diffuse erosive gastritis, hemorrhoids, diverticulitis, no active bleeding per endoscopy in Jan [address] Rodgers, treated with H2 angie, PPI and Carafate (managed by Dr Rodgers). Recurrent heme (+) stools in March 2014 - capsule endoscopy and management by Dr Rodgers History of transient ischemic attacks. Borderline diabetes mellitus being managed by Dr. Cano. Right rotator cuff repair on 11/28/[address] Woodward due to a torn rotator cuff. Discussion and Recomendations Complex management issue with multiple comorbidities as listed above Chronic a-fib, currently with RVR - will give Cardizem CD and IV Dig to improve HR Acute on chronic renal insufficiency - give IVF hydration Stop Eliquis, not indicated d/t mechanical aortic valve replacement, resume warfarin - monitor INR closely d/t abx tx Pneumonia with prob sepsis management per medical/pulmonary services Suspected UTI - management per medical services Monitor lab closely Further recs will be based on her hospital course We would like to thank medical services for this consult Clinical Quality Measures DVT/VTE Risk/Contraindication: Risk Factor Score Per Nursin RFS Level Per Nursing on Admit: 4+=Very High WALDEMAR CALLOWAY MD FACP FAC CCDS Apr 07, 2018 19:44
[2018-04-07] MEDS ORDERED: VANCOMYCIN 1250 MG/NS 250 ML IVPB IV SCH ×2 (20:00)
[2018-04-07] MEDS: ALLOPURINOL 100 MG (ZYLOPRIM) TAB PO SCH (20:03)
[2018-04-07] MEDS: ATORVASTATIN 20 MG (LIPITOR) TABLET PO SCH (20:03)
[2018-04-07] MEDS: PIPERACILLIN/TAZO 4.5 GM/NS 100 ML IV SCH ×2 (22:18)
[2018-04-08] VITALS (12 sets, daily range): BP systolic 121–166; BP diastolic 63–77
[2018-04-08] MEDS: RT-ALBUTEROL/IPRATROPIUM 3 ML (DUONEB) VIAL INH SCH ×4 (03:25→19:30)
[2018-04-08 03:55] LABS: BASOPHILS % (AUTO) 0 % (0-10); EOSINOPHILS # (AUTO) 0.2 10^3/uL (0.0-0.3); EOSINOPHILS % (AUTO) 2 % (0-10); HEMATOCRIT 30 % (35-52); HEMOGLOBIN 9.4 G/DL (11.5-16.0); LYMPHOCYTES # (AUTO) 0.9 X 10^3 (1.0-4.0); LYMPHOCYTES % (AUTO) 9 % (12-44); MEAN CORPUSCULAR HEMOGLOBIN 30 PG (25-34); MEAN CORPUSCULAR HGB CONC 31 G/DL (32-36); MEAN CORPUSCULAR VOLUME 94 FL (80-99); MEAN PLATELET VOLUME 11.9 FL (7.4-10.4); MONOCYTES # (AUTO) 0.9 X 10^3 (0.0-1.0); MONOCYTES % (AUTO) 10 % (0-12); NEUTROPHILS # (AUTO) 7.6 X 10^3 (1.8-7.8); NEUTROPHILS % (AUTO) 79 % (42-75); PLATELET COUNT 188 10^3/uL (130-400); RED CELL DISTRIBUTION WIDTH 15.5 % (10.0-14.5); WHITE BLOOD COUNT 9.6 10^3/uL (4.3-11.0)
[2018-04-08 04:07] LABS: INR 2.1 (0.8-1.4); PROTHROMBIN TIME PATIENT 23.6 SEC (12.2-14.7)
[2018-04-08 04:22] LABS: CALCIUM 7.5 MG/DL (8.5-10.1); CREATININE SERUM 2.1 MG/DL (0.60-1.30); MAGNESIUM 1.7 MG/DL (1.8-2.4); PHOSPHORUS 2.5 MG/DL (2.3-4.7); POTASSIUM 4.1 MMOL/L (3.6-5.0)
[2018-04-08] MEDS: MAGNESIUM 1 GM/100 ML IVPB 100 ML IV SCH (05:23)
[2018-04-08] MEDS: POTASSIUM CL 10MEQ/50ML IVPB 50 ML IV SCH (05:23)
[2018-04-08] MEDS: KCL 20 MEQ TAB (K-DUR) PO SCH (05:23)
[2018-04-08] MEDS: VASOPRESSIN INJECTION 20 UNIT in NS (IVPB) 100 ML IV SCH (05:24)
--- NOTE | 2018-04-08 05:26 | Pulmonary Progress Note ---
Subjective Time Seen by a Provider: 05:24 Subjective/Events-last exam PT is doing better and is off cardizem gtt. Currently on CPAP. Sepsis Event Evaluation Height, Weight, BMI Height: 5'6.50" Weight: 174lbs. 4.0oz. 79.145429bo; 28.4 BMI Method:Stated Focused Exam Lactate Level 04/06/18 18:30: Lactic Acid Level 1.87 Time of Focused Exam: 20:15 Exam Exam Vital Signs Date Time Temp Pulse Resp B/P (MAP) Pulse Ox O2 Delivery O2 Flow Rate FiO2 04/08/18 04:00 93 28 129/77 (94) 94 NIV CPAP 2.00 04/08/18 03:46 100.0 04/08/18 03:25 95 NIV CPAP 2.00 04/08/18 03:00 98 13 140/70 (93) 95 NIV CPAP 2.00 04/08/18 02:00 96 19 126/69 (88) 96 NIV CPAP 2.00 04/08/18 01:00 106 28 129/65 (86) 96 NIV CPAP 2.00 04/08/18 01:00 106 04/08/18 00:00 105 31 131/73 (92) 97 NIV CPAP 2.00 04/07/18 23:44 100.1 04/07/18 23:00 106 28 132/67 (88) 96 NIV CPAP 2.00 04/07/18 22:00 108 32 156/75 (102) 97 NIV CPAP 2.00 04/07/18 21:00 102 29 141/79 (99) 96 NIV CPAP 2.00 04/07/18 20:04 99.6 113 22 136/80 (98) 95 NIV CPAP 2.00 04/07/18 19:00 120 04/07/18 19:00 108 28 130/69 (89) 98 NIV CPAP 2.00 04/07/18 18:40 97 NIV CPAP 2.00 04/07/18 18:00 118 19 119/65 (83) 93 Nasal Cannula 2.00 04/07/18 17:00 108 11 106/76 (86) 95 Nasal Cannula 2.00 04/07/18 16:00 103 25 134/69 (90) 93 Nasal Cannula 2.00 04/07/18 16:00 Nasal Cannula 2.00 04/07/18 15:53 93 Nasal Cannula 2.00 04/07/18 15:00 126 31 105/71 (82) 91 Nasal Cannula 2.00 04/07/18 14:00 124 33 109/74 (86) 93 Nasal Cannula 2.00 04/07/18 13:06 129 04/07/18 13:00 140 21 129/80 (96) 96 Nasal Cannula 2.00 04/07/18 12:00 98.4 04/07/18 12:00 Nasal Cannula 2.00 04/07/18 12:00 130 16 107/64 (78) 97 Nasal Cannula 2.00 04/07/18 11:00 128 23 119/64 (82) 96 Nasal Cannula 2.00 04/07/18 10:00 120 26 114/68 (83) 92 Nasal Cannula 2.00 04/07/18 09:54 97 Nasal Cannula 4.00 04/07/18 09:54 Nasal Cannula 2.00 04/07/18 09:00 113 14 115/67 (83) 97 NIV Bilevel 35.00 04/07/18 08:00 128 16 111/62 (78) 95 NIV Bilevel 35.00 04/07/18 08:00 Nasal Cannula 4.00 04/07/18 07:04 120 04/07/18 07:00 116 25 96/55 (69) 97 NIV Bilevel 35.00 04/07/18 06:36 113 28 96 35.00 04/07/18 06:00 116 28 91/54 (66) 96 NIV Bilevel 35.00 I & O 04/08/18 07:00 Intake Total 3697.5 ml Output Total 750 ml Balance 2947.5 ml Height & Weight Height: 5'6.50" Weight: 174lbs. 4.0oz. 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 Results Lab Laboratory Tests 04/06/18 18:30 04/07/18 05:00 04/08/18 03:10 Assessment/Plan Assessment/Plan Severe Sepsis with pneumonia and UTI recent hx of MRSA PNA -Vanco, Zosyn -IVF -olvera cultures -Severe sepsis protocol Cough- -Will add Robitussin AC -SVNs Bacteremia with Ecoli probably secondary to UTI -Continue Zosyn -Await final C&S Acute on chronic respiratory failure -Currently on BiPAP -Trial pt off bipap this AM Afib RVR -Pt is on eliquis -Off Cardizem gtt Acute renal failure with metabolic acidosis (lactic acid is normal ) -IVF -Monitor -Hold lasix COPDAE -SVNS Aortic valve replacement -Currently on Coumadin -Cardiology consulted Hypothyroid -Synthroid WANDA LEBRON DO Apr 08, 2018 05:26
[2018-04-08] MEDS: NS IV 1000 ML 1,000 ML IV SCH (05:35)
[2018-04-08] MEDS: KCL 10 MEQ TAB (MICRO K) PO SCH (06:40)
[2018-04-08] MEDS: LEVOTHYROXINE 25 MCG (LEVOTHROID) TAB PO SCH (06:40)
[2018-04-08] MEDS: GLIMEPIRIDE 4 MG (AMARYL) TAB PO SCH (06:40)
--- NOTE | 2018-04-08 08:02 | Diagnostic Imaging Report ---
PROCEDURE: CT chest without contrast. TECHNIQUE: Multiple contiguous axial images were obtained through the chest without the use of intravenous contrast. INDICATION: Shortness of breath. Cough. FINDINGS: There are bilateral pleural effusions larger on the right. There is also bilateral lower lobe atelectasis. There are diffuse bilateral interstitial infiltrates. There is dense calcification of the aorta. The aortic root measures 4.5 cm. Very dense calcification in coronary arteries. Median sternotomy changes are noted. No mediastinal or hilar adenopathy of pathologic size. IMPRESSION: 1. Findings are consistent with congestive failure with moderate pulmonary edema and pleural effusion. 2. No evidence of consolidated pneumonia 3. Aneurysmal dilatation of the ascending aorta. Dictated by: Dictated on workstation # [id number]
--- NOTE | 2018-04-08 08:25 | Diagnostic Imaging Report ---
INDICATION: Acute respiratory failure. Exam compared with study 04/07/2018. FINDINGS: There do appear to be at least small pleural effusions bilaterally. Some vague infiltrate in the right lung base and right upper lobe as well as some mid left chest density which may be yvonne-fissural atelectasis. No pneumothorax. The aorta is tortuous and atherosclerotic and may be ectatic. Sternal wires are midline. IMPRESSION: Probable small effusions, bilateral infiltrates and atelectasis greater right with atherosclerotic aortic calcifications, tortuosity and/or ectasia. Dictated by: Dictated on workstation # [id number]
[2018-04-08] MEDS: DOCUSATE SODIUM 100 MG (COLACE) CAP PO SCH (08:28)
[2018-04-08] MEDS: busPIRone 5 MG (BUSPAR) TAB PO SCH (08:28)
[2018-04-08] MEDS: PANTOPRAZOLE 40 MG (PROTONIX) TAB PO SCH (08:28)
[2018-04-08] MEDS: ASPIRIN E.C. 81 MG (ECOTRIN) TAB PO SCH (08:28)
[2018-04-08] MEDS: DILTIAZEM 300 MG (CARDIZEM CD) CAP PO SCH (08:28)
[2018-04-08] MEDS: PIPERACILLIN/TAZO 4.5 GM/NS 100 ML IV SCH ×4 (08:28→21:41)
[2018-04-08] MEDS: ALLOPURINOL 100 MG (ZYLOPRIM) TAB PO SCH ×2 (08:29→21:41)
[2018-04-08] MEDS: guaiFENesin/DM (ROBITUSSIN DM) 10 ML UDC PO PRN ×2 (08:29→14:39)
[2018-04-08] MEDS: ENALAPRIL 10 MG (VASOTEC) TAB PO SCH (08:29)
[2018-04-08] MEDS ORDERED: FUROSEMIDE 20 MG (LASIX) TAB PO SCH (09:00)
[2018-04-08] MEDS ORDERED: FUROSEMIDE 40 MG (LASIX) TAB PO SCH (09:00)
--- NOTE | 2018-04-08 09:36 | Progress Note-Cardiology ---
Cardiology SOAP Progress Note Subjective: Gen malaise Persistent cough and shortness of breath No cp or palp or syncope Objective: I&O/Vital Signs 04/07/18 04/07/18 04/07/18 04/08/18 22:00 23:00 23:44 00:00 Temp 100.1 Pulse 108 106 Resp 32 28 B/P (MAP) 156/75 (102) 132/67 (88) Pulse Ox 97 96 O2 Delivery NIV CPAP NIV CPAP NIV CPAP O2 Flow Rate 2.00 2.00 2.00 04/08/18 04/08/18 04/08/18 04/08/18 00:00 01:00 01:00 02:00 Pulse 105 106 106 96 Resp 31 28 19 B/P (MAP) 131/73 (92) 129/65 (86) 126/69 (88) Pulse Ox 97 96 96 O2 Delivery NIV CPAP NIV CPAP NIV CPAP O2 Flow Rate 2.00 2.00 2.00 04/08/18 04/08/18 04/08/18 04/08/18 03:00 03:25 03:46 04:00 Temp 100.0 Pulse 98 93 Resp 13 28 B/P (MAP) 140/70 (93) 129/77 (94) Pulse Ox 95 95 94 O2 Delivery NIV CPAP NIV CPAP NIV CPAP O2 Flow Rate 2.00 2.00 2.00 04/08/18 04/08/18 04/08/18 04/08/18 04:00 05:00 06:00 06:43 Pulse 93 95 Resp 24 31 B/P (MAP) 125/68 (87) 139/68 (91) Pulse Ox 93 95 O2 Delivery NIV CPAP NIV CPAP NIV CPAP High Flow N/C O2 Flow Rate 2.00 2.00 2.00 2.00 04/08/18 07:12 Pulse Ox 94 O2 Delivery Nasal Cannula O2 Flow Rate 2.00 04/08/18 00:00 Intake Total 2892.5 ml Output Total 450 ml Balance 2442.5 ml Weight (Pounds): 186 Weight (Ounces): 1.0 Weight (Calculated Kilograms): 84.704419 Constitutional: AAO x 3, well-developed, well-nourished Respiratory: rhonchi (scattered), other (diminished lower lobes bilat; dyspneic with conversation) Cardiovascular: irregularly irregular; No JVD; S1 and S2, other (crisp, mechanical) Gastrointestional: No tender; soft, round, audible bowel sounds Genital/Rectal: other (urinary catheter to DD; cloudy, yellow urine) Extremities: other (generalized edema) Neurologic/Psychiatric: grossly intact Skin: normal color, warm/dry; No rash, No ulcerations Results/Procedures: Labs Laboratory Tests 04/08/18 03:10: White Blood Count 9.6, Red Blood Count 3.17L, Hemoglobin 9.4L, Hematocrit 30L, Mean Corpuscular Volume 94, Mean Corpuscular Hemoglobin 30, Mean Corpuscular Hemoglobin Concent 31L, Red Cell Distribution Width 15.5H, Platelet Count 188, Mean Platelet Volume 11.9H, Neutrophils (%) (Auto) 79H, Lymphocytes (%) (Auto) 9L, Monocytes (%) (Auto) 10, Eosinophils (%) (Auto) 2, Basophils (%) (Auto) 0, Neutrophils # (Auto) 7.6, Lymphocytes # (Auto) 0.9L, Monocytes # (Auto) 0.9, Eosinophils # (Auto) 0.2, Basophils # (Auto) 0.0, Prothrombin Time 23.6H, INR Comment 2.1H, Sodium Level 134L, Potassium Level 4.1, Chloride Level 110H, Carbon Dioxide Level 14L, Anion Gap 10, Blood Urea Nitrogen 33H, Creatinine 2.10H, Estimat Glomerular Filtration Rate 23, BUN/Creatinine Ratio 16, Glucose Level 118H, Calcium Level 7.5L, Phosphorus Level 2.5, Magnesium Level 1.7L Microbiology 04/06/18 Blood Culture - Preliminary, Resulted Escherichia coli See Comments 04/06/18 MRSA Screen - Final, Complete Laboratory Tests 04/06/18 18:30 04/07/18 05:00 04/08/18 03:10 A/P: Assessment: Pneumonia with hypoxia and UTI with prob sepsis - management per Pulmonary/ Medical services A-fib with RVR Chronic warfarin anticoagulation, managed by Dr Cano Valvular heart disease with a history of aortic valve replacement with #21 Carbomedics mechanical prosthetic valve for aortic stenosis and mitral valve repair with 27 mm ring for mitral regurgitation in 2002. Acute on chronic diastolic CHF Echo of 03/16/18: LVEF 55-60%, mod conc LVH, biatrial enlargement, mod MR, adequately functioning aortic prosthetic valve, PASP 60-65 mmHg PAD and claudication - DYLON of 3--18 report mod PVD. DYLON R 0.63, L 0.63. Last peripheral angio and intervention (R leg) on 09/09/17 at which time she underwent successful balloon angioplasty of the R peroneal with reduction of a 95% ostial stenosis to less than 30% residual; both R tibials are occluded and collateralized. Previously, she has undergone bilateral kissing stents of both common iliacs and extensive balloon angioplasty and stenting of the R SFA by Dr Loaiza on 12/31/13. Subsequently, on 01/07/14, Dr Loaiza did stenting of L SFA and successful balloon angioplasty of L peroneal and L anterior tibial arteries, but angioplasty to chronic occlusion of L posterior tibial was unsuccessful and resulted in subintimal dissection Acute on chronic renal failure - CKD stage III H/O stress fracture of left foot May 2017 CVA: L-sided weakness and L-visual field cut in Dec 2015. 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 Payne. Cardiac cath of 06-24-2013 showed CAD, mild to moderate. Moderate mid vessel stenosis of the LAD with fractional flow reserve across the lesion of 0.95. Moderate mid vessel stenosis of the RCA with fractional flow reserve across the lesion of 0.95. Patent stents in the proximal left circumflex and the mid RCA which were placed in 2004 MPI of 07-17-16 did not indicate significant myocardial ischemia or infarction. Normal regional wall motion. Normal global LV systolic function with calculated ejection fraction of 69%. Normal LV cavity size Left internal carotid artery stenosis of 60-79%, right internal carotid artery stenosis of less than 40% per carotid u/s of 05/20/17 Hyperlipidemia being treated with lovastatin and being followed by Dr. Cano. Heme-positive stools in Jan 2014. Diffuse erosive gastritis, hemorrhoids, diverticulitis, no active bleeding per endoscopy in Jan [address] Rodgers, treated with H2 angie, PPI and Carafate (managed by Dr Rodgers). Recurrent heme (+) stools in March 2014 - capsule endoscopy and management by Dr Rodgers History of transient ischemic attacks. Borderline diabetes mellitus being managed by Dr. Cano. Right rotator cuff repair on 11/28/[address] Woodward due to a torn rotator cuff. Plan: * Complex management due to multiple comorbidities * Continue current regimen * Add bb back to regimen because bp better today * Continue long-acting dilt * Continue warfarin because of a fib and AVR (mechanical valve) * Monitor labs WALDEMAR CALLOWAY MD FACP FAC CCDS Apr 08, 2018 09:36
[2018-04-08] MEDS: FLUTICASONE NASAL SPRAY (FLONASE) 16 GM BTL NS SCH (10:21)
--- NOTE | 2018-04-08 11:51 | Progress Note-Hospitalist ---
Subjective HPI/CC On Admission Date Seen by Provider: Apr 08, 2018 Time Seen by Provider: 10:30 The patient is a growth 82-year-old white female who has had many previous visits. The last of these was in mid March. At that time it appeared that she had a pneumonia. She also has chronic atrial fibrillation and presented at that time with rapid ventricular response. She is known to have had a previous aortic valve replacement. She reported that she had become increasingly short of breath over the several days prior to admission. She was found to be febrile at arrival. She also was tachycardic on arrival of EMS to her abode. It is also noted that she had not been doing her prescribed aerosol treatments at home. Subjective/Events-last exam This is an 82-year-old white female with very complex medical problems including atrial fibrillation maintained on warfarin for stroke prophylaxis and chronic debility with multiple hospital stays in inpatient rehab stays in the last several years who presented to the ER with weakness and altered mental status found to have severe sepsis and acute renal failure placed on aggressive IV fluid regimen and placed in the ICU. Currently patient is feeling much better. We will transfer her to the floor Will Hep-Lock IV fluid due to high risk for overload CT Chest ordered by Dr. Payne all within normal limits Continues to have a cough so Robitussin was initiated PT and OT ordered May be an inpatient rehab candidate Will discontinue san catheter Review of Systems General: Fatigue Pulmonary: Dyspnea Focused Exam Lactate Level 04/06/18 18:30: Lactic Acid Level 1.87 Time of Focused Exam: 20:15 Objective Exam Vital Signs Vital Signs Date Time Temp Pulse Resp B/P (MAP) Pulse Ox O2 Delivery O2 Flow Rate FiO2 04/08/18 20:05 98.4 98 18 166/75 (105) 95 Nasal Cannula 2.00 04/07/18 00:30 40 Capillary Refill : Less Than 3 Seconds General Appearance: No Apparent Distress, WD/WN, Chronically ill, Thin HEENT: PERRL/EOMI, Normal ENT Inspection Neck: Normal Inspection Respiratory: Crackles, Decreased Breath Sounds, Wheezing Cardiovascular: Irregularly Irregular, Tachycardia, Other (mild edema of the hands and feet) Gastrointestinal: Non Tender, Soft Extremity: Normal Capillary Refill, Pedal Edema (mild) Neurologic/Psychiatric: Alert, No Motor/Sensory Deficits, federal district clerk II-XII Norm as Tested Results/Procedures Lab Laboratory Tests 04/08/18 03:10 Patient resulted labs reviewed. Assessment/Plan Assessment and Plan Assess & Plan/Chief Complaint Severe sepsis UTI Atrial fibrillation Coumadin for stroke prophylaxis Acute renal failure Chronic debility Advanced age Plan: IV abx HLIVF Tx to 4th floor Monitor closely Needs DNR Diagnosis/Problems Diagnosis/Problems (1) Severe sepsis Status: Acute (2) Atrial fibrillation with RVR Status: Acute (3) ARF (acute renal failure) Status: Acute Qualifiers: Acute renal failure type: unspecified Qualified Codes: N17.9 - Acute kidney failure, unspecified (4) Respiratory failure Status: Acute Qualifiers: Chronicity: acute on chronic Respiratory failure complication: hypoxia Qualified Codes: J96.21 - Acute and chronic respiratory failure with hypoxia (5) Hypothyroidism Status: Acute (6) COPD (chronic obstructive pulmonary disease) Status: Chronic (7) PAD (peripheral artery disease) Clinical Quality Measures DVT/VTE Risk/Contraindication: Risk Factor Score Per Nursin RFS Level Per Nursing on Admit: 4+=Very High JARROD SPENCE DO Apr 08, 2018 11:51
--- NOTE | 2018-04-08 13:13 | NUR ---
1055 PT TO ROOM 419 VIA W/C ACCOMPANIED BY THIS RN, PT TRANSFERRED WITH PORTABLE 02 AND ALL PERSONAL BELONGING'S SENT WITH PATIENT. REPORT GIVEN TO Charleen Weber Addendum: 04/08/18 at 1315 by SONY HOUSE RN REPORT GIVEN TO MIRIAM LI.
--- NOTE | 2018-04-08 15:19 | Occupational Therapy Eval ---
OT Evaluation-General/PLF Medical Diagnosis Admission Date Apr 06, 2018 at 20:18 Medical Diagnosis: Sepsis Onset Date: Apr 06, 2018 Therapy Diagnosis Therapy Diagnosis: decreased self care skills Height/Weight Height (Feet): 5 Height (Inches): 6.50 Weight (Pounds): 186 Weight (Ounces): 1.0 Precautions Precautions/Isolations: Fall Prevention, Standard Precautions Safety Interventions: None Medical History Pertinent Medical History: Atrial Fib, Arthritis, CAD, COPD, CVA, DM, GERD, HTN Additional Medical History valvular heart disease, heart valve replacement, coronary stent, sleep apnea, high cholesterol, headaches/migraines, TIA, chronic UTI, diverticulosis, anemia Social History Home: Single Level Current Living Status: Children (son) Entry Into Home: Ramp ADL-Prior Level of Function Therapy Code Descriptions/Definitions Functional [place] Measure: 0=Not Assessed/NA 4=Minimal Assistance 1=Total Assistance 5=Supervision or Setup 2=Maximal Assistance 6=Modified [place] 3=Moderate Assistance 7=Complete [place] Therapy Quality Codes: 6 Independent with activity with or without an assistive device 5 Patient requires set up or clean up by helper. Patient completes activity by themselves 4 Supervision or touching assist (CGA). Sully provide cues , steadying assist 3 The helper provides less than half the effort to complete the activity 2 The helper provides more than half the effort to complete the activity 1 Dependent. The helper does all the effort to complete an activity 7 Patient refused to complete or attempt activity 9 The patient did not perform the activity before the current illness or injury 88 Not attempted due to Medical conditions or safety concerns Functional Abilities and Goals: Independent: Patient completed the activities by him/herself, with or without an assistive device, with no assistance from a helper. Needed Some Help: Patient needed partial assistance from another person to complete activities. Dependent: A helper completed the activities for the patient. Unknown: Not Applicable: ADL PLOF Comments Pt reports receiving some assist recently secondary to weakness. Has home health aide 2x/wk to assist with bathing. Uses 4WW for mobility Self Care: Needed Some Help DME/Equipment: Bath Chair, Bedside Commode, Grab Bars, Shower OT Current Status Subjective Pt in bed, agrees to therapy.No c/o pain, but states she is tired from coughing so much. Mental Status/Objective Patient Orientation: Person, Place Attachments: Lamas Catheter, IV, Oxygen Current Glasses/Contacts: Yes Hearing Aids: No Dentures/Partials: No Hand Dominance: Right Upper Extremity ROM Grossly WFL Upper Extremity Coordination Intact Upper Extremity Sensation Intact per pt report ADL-Treatment ADL-Current Pt supine to sit with assist for trunk. Pt completed grooming tasks while seated EOB. Pt brushed teeth with SBA. Minimal assistance to comb hair. Pt requests to sit in chair. Sit to stand with minimal assistance and cues for hand placement. Transfer to chair with minimal assistance using FWW, cues for safety. Pt has decreased activity tolerance and fatigues quickly with activity. Increased time for mobility and ADLs. Pt sitting in chair with needs met after session. RN notified. Therapy Code Descriptions/Definitions Functional [place] Measure: 0=Not Assessed/NA 4=Minimal Assistance 1=Total Assistance 5=Supervision or Setup 2=Maximal Assistance 6=Modified [place] 3=Moderate Assistance 7=Complete [place] Therapy Quality Codes: 6 Independent with activity with or without an assistive device 5 Patient requires set up or clean up by helper. Patient completes activity by themselves 4 Supervision or touching assist (CGA). Sully provide cues , steadying assist 3 The helper provides less than half the effort to complete the activity 2 The helper provides more than half the effort to complete the activity 1 Dependent. The helper does all the effort to complete an activity 7 Patient refused to complete or attempt activity 9 The patient did not perform the activity before the current illness or injury 88 Not attempted due to Medical conditions or safety concerns Eating (FIM): 5 (by report) Grooming (FIM): 4 Education OT Patient Education: Rehab process Teaching Recipient: Patient Teaching Methods: Discussion Response to Teaching: Verbalize Understanding OT Short Term Goals Short Term Goals 1=Demonstrate adherence to instructed precautions during ADL tasks. 2=Patient will verbalize/demonstrate understanding of assistive devices/ modifications for ADL. 3=Patient will improve strength/tolerance for activity to enable patient to perform ADL's. OT Jail Goals Lubrication Equipment Servicer Goals Time Frame: Apr 22, 2018 Eating (FIM): 6 Grooming(FIM): 5 Upper Body Dressing(FIM): 5 Lower Body Dressing(FIM): 5 Toileting(FIM): 5 Toilet/Commode Transfer(FIM): 5 Additional Goals: 1-Demonstrate ADL Tasks, 2-Verbalize Understanding, 3- ImproveStrength/Tawana 1=Demonstrate adherence to instructed precautions during ADL tasks. 2=Patient will verbalize/demonstrate understanding of assistive devices/ modifications for ADL. 3=Patient will improve strength/tolerance for activity to enable patient to perform ADL's. OT Education/Plan Problem List/Assessment Assessment: Decreased Activ Tolerance, Decreased Safety Aware, Dependent Transfers, Impaired I ADL's, Impaired Self-Care Skills Pt demonstrates decreased mobility, strength, activity tolerance, and ADL functioning. Pt to benefit from skilled OT intervention for ADL training, transfers, strengthening, and home safety education to increase functional independence and allow safe discharge plan. Discharge Recommendations Plan/Recommendations: Continue POC Treatment Plan/Plan of Care Treatment,Training & Education: Yes Patient would benefit from OT for education, treatment and training to promote independence in ADL's, mobility, safety and/or upper extremity function for ADL' s. Plan of Care: ADL Retraining, Functional Mobility, UE Funct Exercise/Act Treatment Duration: Apr 22, 2018 Frequency: 5 times per week Estimated Hrs Per Day: .25 hour per day Rehab Potential: Fair Time/GCodes Start Time: 13:27 Stop Time: 14:05 Total Time Billed (hr/min): 38 Billed Treatment Time 1 visit, EVM(20minutes), ADL(18minutes) RAS RING OT Apr 08, 2018 15:19
--- NOTE | 2018-04-08 15:44 | Physical Therapy Progress Note ---
Therapy Progress Note Attempted PT eval this date. Pt already up in chair and declined further mobility at this time. Will re check pt tomorrow. ROHAN CHARLES PT Apr 08, 2018 15:44
[2018-04-08] MEDS: warFARin 3 MG (COUMADIN) TAB PO SCH (18:40)
[2018-04-08] MEDS: ATORVASTATIN 20 MG (LIPITOR) TABLET PO SCH (21:41)
[2018-04-09] VITALS (7 sets, daily range): BP systolic 110–145; BP diastolic 61–83
[2018-04-09] MEDS: RT-ALBUTEROL/IPRATROPIUM 3 ML (DUONEB) VIAL INH SCH ×5 (02:35→22:32)
[2018-04-09 06:00] LABS: BASOPHILS % (AUTO) 1 % (0-10); EOSINOPHILS # (AUTO) 0.4 10^3/uL (0.0-0.3); EOSINOPHILS % (AUTO) 5 % (0-10); HEMATOCRIT 30 % (35-52); HEMOGLOBIN 9.8 G/DL (11.5-16.0); LYMPHOCYTES # (AUTO) 0.8 X 10^3 (1.0-4.0); LYMPHOCYTES % (AUTO) 10 % (12-44); MEAN CORPUSCULAR HEMOGLOBIN 31 PG (25-34); MEAN CORPUSCULAR HGB CONC 33 G/DL (32-36); MEAN CORPUSCULAR VOLUME 93 FL (80-99); MEAN PLATELET VOLUME 10.1 FL (7.4-10.4); MONOCYTES # (AUTO) 0.7 X 10^3 (0.0-1.0); MONOCYTES % (AUTO) 9 % (0-12); NEUTROPHILS # (AUTO) 5.8 X 10^3 (1.8-7.8); NEUTROPHILS % (AUTO) 75 % (42-75); PLATELET COUNT 192 10^3/uL (130-400); RED CELL DISTRIBUTION WIDTH 15.5 % (10.0-14.5); WHITE BLOOD COUNT 7.7 10^3/uL (4.3-11.0)
[2018-04-09 06:09] LABS: INR 2.5 (0.8-1.4); PROTHROMBIN TIME PATIENT 27.4 SEC (12.2-14.7)
[2018-04-09 06:16] LABS: CREATININE SERUM 1.9 MG/DL (0.60-1.30); POTASSIUM 4.2 MMOL/L (3.6-5.0)
[2018-04-09 06:17] LABS: CALCIUM 7.8 MG/DL (8.5-10.1); MAGNESIUM 1.4 MG/DL (1.8-2.4); PHOSPHORUS 2.9 MG/DL (2.3-4.7)
[2018-04-09] MEDS: LEVOTHYROXINE 25 MCG (LEVOTHROID) TAB PO SCH (06:48)
[2018-04-09] MEDS: GLIMEPIRIDE 4 MG (AMARYL) TAB PO SCH (06:48)
[2018-04-09] MEDS: KCL 10 MEQ TAB (MICRO K) PO SCH (06:48)
--- NOTE | 2018-04-09 06:53 | NUR ---
Pt unable to void at this time. Bladder scan result 498 mL urine in bladder.
--- NOTE | 2018-04-09 06:57 | NUR ---
Dr. Bernal notified of pt's inability to void at this time. Orders received to straight cath, 25 mg Urecholine PO ACHS et pyridium 200 mg PO TID with meals.
--- NOTE | 2018-04-09 07:57 | Diagnostic Imaging Report ---
INDICATION: Acute respiratory failure. COMPARISON: 04/08/2018. FINDINGS: Mild progression of bibasilar pulmonary opacities. No pleural effusion or pneumothorax. Stable cardiomegaly status post aortic valve replacement. Atherosclerotic aorta. IMPRESSION: Increase in bibasilar pulmonary opacities may be on the basis of atelectasis. Dictated by: Dictated on workstation # [id number]
--- NOTE | 2018-04-09 08:29 | Cardiology Progress Note ---
Subjective Date Seen by Provider: Apr 09, 2018 Time Seen by Provider: 08:26 Subjective/Events-last exam patient is laying down in bed, still having shortness of breath and wheezing Review of Systems General: No Chills, No Night Sweats; Fatigue, Malaise; No Appetite, No Other HEENT: No Head Aches, No Visual Changes, No Eye Pain, No Ear Pain, No Dysphasia , No Sinus Congestion, No Post Nasal Drip, No Sore Throat, No Other Pulmonary: Dyspnea, Cough; No Pleuritic Chest Pain, No Other Cardiovascular: No: Chest Pain, Palpitations, Orthopnea, Paroxysmal Noc. Dyspnea, Edema, Lt Headedness, Other Focused Exam Lactate Level 04/06/18 18:30: Lactic Acid Level 1.87 Time of Focused Exam: 20:15 Objective-Cardiology Exam Last Set of Vital Signs Vital Signs 04/07/18 04/09/18 04/09/18 04/09/18 00:30 02:40 04:00 07:00 Temp 98.2 Pulse 101 Resp 20 B/P (MAP) 145/83 (103) Pulse Ox 95 O2 Delivery NIV CPAP O2 Flow Rate 2.00 FiO2 40 Capillary Refill : Less Than 3 Seconds I&O Intake and Output 04/09/18 00:00 Intake Total 2440 ml Output Total 875 ml Balance 1565 ml Intake Oral 1340 ml IV Total 1100 ml Output Urine Total 875 ml # Bowel Movements 1 General: Alert, Oriented X3, Cooperative HEENT: Atraumatic, PERRLA Neck: Supple, No JVD, No Thyromegaly Lungs: Normal Air Movement, Other (bilateral rhonchi) Heart: Normal S1, Normal S2, Other (systolic murmur at the left sternal border) Abdomen: Normal Bowel Sounds, Soft, No Tenderness, No Hepatosplenomegaly, No Masses Extremities: No Clubbing, No Cyanosis, Normal Pulses, No Tenderness/Swelling, Other (mild edema) Skin: No Rashes, No Breakdown, No Significant Lesion Neuro: Normal Speech, Strength at 5/5 X4 Ext, Normal Tone, Sensation Intact Psych/Mental Status: Mental Status NL, Mood NL Results Lab Laboratory Tests 04/09/18 05:45 A/P-Cardiology Admission Diagnosis Pneumonia Coronary artery disease Paroxysmal atrial fibrillation Chronic kidney disease Assessment/Plan Pneumonia with hypoxia and UTI with prob sepsis - management per Pulmonary/ Medical services A-fib with RVR, rate is better controlled, continue to monitor Chronic warfarin anticoagulation, managed by Dr Cano Valvular heart disease with a history of aortic valve replacement with #21 Carbomedics mechanical prosthetic valve for aortic stenosis and mitral valve repair with 27 mm ring for mitral regurgitation in 2002. Acute on chronic diastolic CHF, continue to monitor Echo of 03/16/18: LVEF 55-60%, mod conc LVH, biatrial enlargement, mod MR, adequately functioning aortic prosthetic valve, PASP 60-65 mmHg PAD and claudication - DYLON of 05-01-17 report mod PVD. DYLON R 0.63, L 0.63. Last peripheral angio and intervention (R leg) on 09/09/17 at which time she underwent successful balloon angioplasty of the R peroneal with reduction of a 95% ostial stenosis to less than 30% residual; both R tibials are occluded and collateralized. Previously, she has undergone bilateral kissing stents of both common iliacs and extensive balloon angioplasty and stenting of the R SFA by Dr Loaiza on 12/31/13. Subsequently, on 01/07/14, Dr Loaiza did stenting of L SFA and successful balloon angioplasty of L peroneal and L anterior tibial arteries, but angioplasty to chronic occlusion of L posterior tibial was unsuccessful and resulted in subintimal dissection Acute on chronic renal failure - CKD stage III, continue to monitor H/O stress fracture of left foot May 2017 CVA: L-sided weakness and L-visual field cut in Dec 2015. 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 Payne. Cardiac cath of 06-24-2013 showed CAD, mild to moderate. Moderate mid vessel stenosis of the LAD with fractional flow reserve across the lesion of 0.95. Moderate mid vessel stenosis of the RCA with fractional flow reserve across the lesion of 0.95. Patent stents in the proximal left circumflex and the mid RCA which were placed in 2004, followed by Dr Estrella MPI of 07-18-15 did not indicate significant myocardial ischemia or infarction. Normal regional wall motion. Normal global LV systolic function with calculated ejection fraction of 69%. Normal LV cavity size Left internal carotid artery stenosis of 60-79%, right internal carotid artery stenosis of less than 40% per carotid u/s of 05/20/17 Hyperlipidemia being treated with lovastatin and being followed by Dr. Cano. Heme-positive stools in Jan 2014. Diffuse erosive gastritis, hemorrhoids, diverticulitis, no active bleeding per endoscopy in Jan [address] Rodgers, treated with H2 angie, PPI and Carafate (managed by Dr Rodgers). Recurrent heme (+) stools in March 2014 - capsule endoscopy and management by Dr Rodgers History of transient ischemic attacks. Borderline diabetes mellitus being managed by Dr. Cano. Right rotator cuff repair on 11/28/[address] Woodward due to a torn rotator cuff. Clinical Quality Measures DVT/VTE Risk/Contraindication: Risk Factor Score Per Nursin RFS Level Per Nursing on Admit: 4+=Very High ADRIAN MCCANN MD Apr 09, 2018 08:29
[2018-04-09] MEDS: guaiFENesin/DM (ROBITUSSIN DM) 10 ML UDC PO PRN ×2 (09:40→21:04)
[2018-04-09] MEDS: busPIRone 5 MG (BUSPAR) TAB PO SCH (09:40)
[2018-04-09] MEDS: PIPERACILLIN/TAZO 4.5 GM/NS 100 ML IV SCH ×2 (09:40)
[2018-04-09] MEDS: DOCUSATE SODIUM 100 MG (COLACE) CAP PO SCH (09:40)
[2018-04-09] MEDS: ALLOPURINOL 100 MG (ZYLOPRIM) TAB PO SCH ×2 (09:40→21:05)
[2018-04-09] MEDS: PANTOPRAZOLE 40 MG (PROTONIX) TAB PO SCH (09:40)
[2018-04-09] MEDS: ENALAPRIL 10 MG (VASOTEC) TAB PO SCH (09:40)
[2018-04-09] MEDS: ASPIRIN E.C. 81 MG (ECOTRIN) TAB PO SCH (09:41)
[2018-04-09] MEDS: DILTIAZEM 300 MG (CARDIZEM CD) CAP PO SCH (09:41)
--- NOTE | 2018-04-09 09:47 | Physical Therapy Evaluation ---
PT Evaluation-General Medical Diagnosis Admission Date Apr 06, 2018 at 20:18 Medical Diagnosis: Sepsis Onset Date: Apr 06, 2018 Therapy Diagnosis Therapy Diagnosis: decreased mobility, gait deviation Height/Weight Height (Feet): 5 Height (Inches): 6.50 Weight (Pounds): 186 Weight (Ounces): 1.0 Precautions Precautions/Isolations: Fall Prevention, Standard Precautions Weight Bear Status Right Lower Extremity: Right Full Weight Bearing Left Lower Extremity: Left Full Weight Bearing Referral Physician: Dr. Bernal Reason for Referral: Evaluation/Treatment Medical History Pertinent Medical History: Atrial Fib, Arthritis, CAD, COPD, CVA, DM, GERD, HTN , Hypothroidism Current History Pt to ED via EMS c/o SOA, HR 160-200, fever, pneumonia. Pt has not been doing home aerosol tx. Reviewed History: Yes Social History Home: Single Level Current Living Status: Children (son) Entry Into Home: Ramp Prior/Core FIM Prior Level of Function Therapy Code Descriptions/Definitions Functional [place] Measure: 0=Not Assessed/NA 4=Minimal Assistance 1=Total Assistance 5=Supervision or Setup 2=Maximal Assistance 6=Modified [place] 3=Moderate Assistance 7=Complete [place] Therapy Quality Codes: 6 Independent with activity with or without an assistive device 5 Patient requires set up or clean up by helper. Patient completes activity by themselves 4 Supervision or touching assist (CGA). [place] provide cues , steadying assist 3 The helper provides less than half the effort to complete the activity 2 The helper provides more than half the effort to complete the activity 1 Dependent. The helper does all the effort to complete an activity 7 Patient refused to complete or attempt activity 9 The patient did not perform the activity before the current illness or injury 88 Not attempted due to Medical conditions or safety concerns Functional Abilities and Goals: Independent: Patient completed the activities by him/herself, with or without an assistive device, with no assistance from a helper. Needed Some Help: Patient needed partial assistance from another person to complete activities. Dependent: A helper completed the activities for the patient. Unknown: Not Applicable: Bed Mobility: 6 Transfers (B,C,W/C) (FIM): 6 Gait: 6 Indoor Mobility (Ambulation): Independent Stairs: Not [place] Prior Devices Use: Walker Prior Device Use: FWW PT Evaluation-Current Subjective Pt is in bed and agrees to PT. Reports she had another coughing fit and is really concerned that she is unable to urinate on her own. Pain Numeric Pain Scale: 3 Location Body Site: Abdomen Pt/Family Goals Pt to return home with son. Objective Patient Orientation: Person, Place, Situation, Normal For Age Attachments: SCD's, Oxygen (2L) ROM/Strength ROM Lower Extremities NT Strength Lower Extremities NT Integumentary/Posture Bowel Incontinence: No Bladder Incontinence: No Sensory Vision: Wears Glasses Hearing: Impaired Hand Dominance: Right Sensation Lower Extremities NT Transfers Therapy Code Descriptions/Definitions Functional [place] Measure: 0=Not Assessed/NA 4=Minimal Assistance 1=Total Assistance 5=Supervision or Setup 2=Maximal Assistance 6=Modified [place] 3=Moderate Assistance 7=Complete [place] Transfers (B, C, W/C) (FIM): 4 Scootin Rollin Supine to/from Sit: 4 Sit to/from Stand: 4 Gait Mode of Locomotion: Walk Anticipated Mode of Locomotion: Walk Gait (FIM): 1 Distance (FIM): 1=up to 49 ft Distance: 10' Gait Level of Assist: 4 Gait Persons Needed: 1 Gait Assistive Device: FWW Balance Sitting Static: Good Sitting Dynamic: Good Standing Static: Good Standing Dynamic: Good Assessment/Needs Pt was able to perform bed mobility with SBA. Pt does need min A-CGA with transfers. Pt amb 10' from bed to recliner with FWW and CGA. Pt was able to perform seated LE ex x15 reps (AP, LAQ, and hip flexion). Pt is now in recliner with all needs met. Rehab Potential: Fair Post Rehab Potential-Barriers: Recurrent hospital stays, comorbidities PT Short Term Goals Short Term Goals Time Frame: Apr 16, 2018 Transfers (B,C,W/C) (FIM): 5 Gait (FIM): 2 Distance (FIM): 4=356-43 ft Gait Distance Comment: 100' Gait Level of Assist: 4 Gait Assistive Device: FWW PT Plan Problem List Problem List: Activity Tolerance, Functional Strength, Safety, Balance, Gait, Transfer, Bed Mobility, ROM Treatment/Plan Treatment Plan: Continue Plan of Care Treatment Plan: Bed Mobility, Education, Functional Activity Tawana, Functional Strength, Gait, Safety, Therapeutic Exercise, Transfers Treatment Duration: Apr 16, 2018 Frequency: 6 times per week Estimated Hrs Per Day: .25 hour per day Patient and/or Family Agrees t: Yes Safety Risks/Education Patient Education: Gait Training, Transfer Techniques, Correct Positioning, Safety Issues Teaching Recipient: Patient Teaching Methods: Demonstration, Discussion Time/GCodes Time In: 915 Time Out: 925 Total Billed Treatment Time: 10 Total Billed Treatment 1 visit EVlowC 10 min MATY LLANES PT Apr 09, 2018 09:47
--- NOTE | 2018-04-09 10:05 | NUR ---
NOTE THAT [facility] WAS NOT IN HER ROOM ICU CALLED TO SEE IF IT WAS STILL THERE
[2018-04-09] MEDS: FLUTICASONE NASAL SPRAY (FLONASE) 16 GM BTL NS SCH (10:46)
--- NOTE | 2018-04-09 11:18 | Occupational Ther Daily Note ---
OT Current Status-Daily Note Subjective Pt alert, sitting in recliner. Pt states that she is tired and does not feel well. Does agree to therapy. Mental Status/Objective Patient Orientation: Person, Place, Time, Situation Therapy Code Descriptions/Definitions Functional [place] Measure: 0=Not Assessed/NA 4=Minimal Assistance 1=Total Assistance 5=Supervision or Setup 2=Maximal Assistance 6=Modified [place] 3=Moderate Assistance 7=Complete [place] Attachments: IV, Oxygen Other Treatment Pt completes UE exercises against gravity to increase strength and activity tolerance. Pt noticeably SOA after 5 reps of exercises and requires lengthy recovery break before continuing. After therapy, pt sitting in recliner with call light/phone in reach. All needs met in room. OT Short Term Goals Short Term Goals Transfers (B,C,W/C) (FIM): 5 1=Demonstrate adherence to instructed precautions during ADL tasks. 2=Patient will verbalize/demonstrate understanding of assistive devices/ modifications for ADL. 3=Patient will improve strength/tolerance for activity to enable patient to perform ADL's. OT Half-Way Goals City Route Driver Goals Time Frame: Apr 22, 2018 Eating (FIM): 6 Grooming(FIM): 5 Upper Body Dressing(FIM): 5 Lower Body Dressing(FIM): 5 Toileting(FIM): 5 Toilet/Commode Transfer(FIM): 5 Additional Goals: 1-Demonstrate ADL Tasks, 2-Verbalize Understanding, 3- ImproveStrength/Tawana 1=Demonstrate adherence to instructed precautions during ADL tasks. 2=Patient will verbalize/demonstrate understanding of assistive devices/ modifications for ADL. 3=Patient will improve strength/tolerance for activity to enable patient to perform ADL's. OT Education/Plan Problem List/Assessment Pt demonstrates decreased mobility, strength, activity tolerance, and ADL functioning. Pt to benefit from skilled OT intervention for ADL training, transfers, strengthening, and home safety education to increase functional independence and allow safe discharge plan. Discharge Recommendations Plan/Recommendations: Continue POC Treatment Plan/Plan of Care Patient would benefit from OT for education, treatment and training to promote independence in ADL's, mobility, safety and/or upper extremity function for ADL' s. Plan of Care: ADL Retraining, Functional Mobility, UE Funct Exercise/Act Treatment Duration: Apr 22, 2018 Frequency: 5 times per week Estimated Hrs Per Day: .25 hour per day Rehab Potential: Fair Time/GCodes Start Time: 11:00 Stop Time: 11:10 Total Time Billed (hr/min): 10 Billed Treatment Time 1 visit-EX 1 (10 min) ROHAN RODRIGUEZ Apr 09, 2018 11:18
[2018-04-09] MEDS: MEROPENEM 500 MG in WATER (STERILE) FOR INJECTION 10 ML IV SCH ×2 (11:34→18:07)
--- NOTE | 2018-04-09 11:39 | NUR ---
Swing Bed Note: Qualifies for swing bed for continued need for IV abx (septicemia) with continued need for short term Physical et Occupational therapies. Anticipate admission to swing bed tomorrow 04/10/18. Thank you for this referral!
--- NOTE | 2018-04-09 11:41 | Progress Note-Hospitalist ---
Subjective HPI/CC On Admission Date Seen by Provider: Apr 09, 2018 Time Seen by Provider: 10:30 The patient is a growth 82-year-old white female who has had many previous visits. The last of these was in mid March. At that time it appeared that she had a pneumonia. She also has chronic atrial fibrillation and presented at that time with rapid ventricular response. She is known to have had a previous aortic valve replacement. She reported that she had become increasingly short of breath over the several days prior to admission. She was found to be febrile at arrival. She also was tachycardic on arrival of EMS to her abode. It is also noted that she had not been doing her prescribed aerosol treatments at home. Subjective/Events-last exam Patient reports the cough is still present We'll attempt Advair and low dose IV steroids to see if that helps Adamantly refuses to go to the assisted of which she really needs since she is very declined Will likely swing bed tomorrow to try to optimize and continue IV antibiotics and discharge on home care with her son at home Required a catheter in and out due to urinary retention Started Urecholine and pyridium Meropenem IV for ESBL UTI Review of Systems General: Fatigue Pulmonary: Cough Genitourinary: Retention Focused Exam Lactate Level 04/06/18 18:30: Lactic Acid Level 1.87 Time of Focused Exam: 20:15 Objective Exam Vital Signs Vital Signs Date Time Temp Pulse Resp B/P (MAP) Pulse Ox O2 Delivery O2 Flow Rate FiO2 04/09/18 10:07 96 Nasal Cannula 2.00 04/09/18 08:00 97.6 106 20 136/83 (100) 04/07/18 00:30 40 Capillary Refill : Less Than 3 Seconds General Appearance: No Apparent Distress, WD/WN, Chronically ill, Thin HEENT: PERRL/EOMI, Normal ENT Inspection Neck: Normal Inspection Respiratory: Chest Non Tender, Lungs Clear, Crackles, Decreased Breath Sounds, Wheezing Cardiovascular: Irregularly Irregular, Tachycardia, Other (mild edema of the hands and feet) Gastrointestinal: Non Tender, Soft Extremity: Normal Capillary Refill, Pedal Edema (mild) Neurologic/Psychiatric: Alert, No Motor/Sensory Deficits, photography colorist II-XII Norm as Tested Results/Procedures Lab Laboratory Tests 04/09/18 05:45 Patient resulted labs reviewed. Assessment/Plan Assessment and Plan Assess & Plan/Chief Complaint Assessment: s/p severe sepsis UTI ESBL Chronic atrial fibrillation Coumadin for stroke prophylaxis Acute renal failure Chronic debility Advanced age Cough severe and unrelenting Plan: IV abx HLIVF Maintain 4th floor Monitor closely Needs DNR Refuses NHP Swing bed for IV abx Cough treatment with IV steroids and Advair Diagnosis/Problems Diagnosis/Problems (1) Infection due to ESBL-producing Escherichia coli Status: Acute (2) Severe sepsis Status: Resolved Resolution Date/Time: 04/09/18 @ 12:55 (3) Atrial fibrillation with RVR Status: Resolved Resolution Date/Time: 04/09/18 @ 12:55 (4) ARF (acute renal failure) Status: Acute Qualifiers: Acute renal failure type: unspecified Qualified Codes: N17.9 - Acute kidney failure, unspecified (5) Respiratory failure Status: Acute Qualifiers: Chronicity: acute on chronic Respiratory failure complication: hypoxia Qualified Codes: J96.21 - Acute and chronic respiratory failure with hypoxia (6) Hypothyroidism Status: Chronic Qualifiers: Hypothyroidism type: acquired Qualified Codes: E03.9 - Hypothyroidism, unspecified (7) COPD (chronic obstructive pulmonary disease) Status: Chronic Qualifiers: COPD type: unspecified COPD Qualified Codes: J44.9 - Chronic obstructive pulmonary disease, unspecified (8) PAD (peripheral artery disease) Status: Chronic Clinical Quality Measures DVT/VTE Risk/Contraindication: Risk Factor Score Per Nursin RFS Level Per Nursing on Admit: 4+=Very High JARROD SPENCE DO Apr 09, 2018 11:41
[2018-04-09] MEDS: PHENAZOPYRIDINE 100 MG (PYRIDIUM) TABLET PO SCH ×2 (12:13→18:07)
[2018-04-09] MEDS: BETHANECHOL 25 MG (URECHOLINE) TAB PO SCH ×3 (12:14→21:05)
--- NOTE | 2018-04-09 12:18 | Pulmonary Progress Note ---
Subjective Time Seen by a Provider: 12:13 Subjective/Events-last exam PT complains of cough nonproductive. SOB is improved. Sepsis Event Evaluation Height, Weight, BMI Height: 5'6.50" Weight: 186lbs. 1.0oz. 84.536468rp; 28.4 BMI Method:Stated Focused Exam Lactate Level 04/06/18 18:30: Lactic Acid Level 1.87 Time of Focused Exam: 20:15 Exam Exam Vital Signs Date Time Temp Pulse Resp B/P (MAP) Pulse Ox O2 Delivery O2 Flow Rate FiO2 04/09/18 10:07 96 Nasal Cannula 2.00 04/09/18 09:00 Nasal Cannula 2.00 04/09/18 08:00 97.6 106 20 136/83 (100) 94 Nasal Cannula 3.00 04/09/18 07:00 101 04/09/18 04:00 98.2 87 20 145/83 (103) 95 NIV CPAP 04/09/18 02:40 93 NIV CPAP 2.00 04/09/18 01:00 105 04/09/18 00:00 98.3 95 20 139/78 (98) 93 NIV CPAP 04/08/18 21:00 Nasal Cannula 2.00 04/08/18 20:05 98.4 98 18 166/75 (105) 95 Nasal Cannula 2.00 04/08/18 19:40 96 Nasal Cannula 2.00 04/08/18 19:00 98 04/08/18 16:56 99.0 96 18 155/63 (93) 95 Nasal Cannula 2.00 04/08/18 15:18 95 Nasal Cannula 2.00 04/08/18 13:00 96 I & O 04/09/18 07:00 Intake Total 940 ml Output Total 550 ml Balance 390 ml Height & Weight Height: 5'6.50" Weight: 186lbs. 1.0oz. 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-XII Norm as Tested Results Lab Laboratory Tests 04/08/18 03:10 04/09/18 05:45 Assessment/Plan Assessment/Plan ESBL PNA with sepsis -Vanco, Zosyn--- Change to Merrem secondary to ESBL -olvera cultures Pulmonary edema with bilateral R>L pleural effusions - doubt emphyema -Pt is fully anticoagulated with coumadin currently Cough- -Will add Robitussin AC -SVNs Bacteremia with Ecoli probably secondary to UTI -Continue Zosyn -Await final C&S Acute on chronic respiratory failure -Currently on BiPAP -Trial pt off bipap this AM Afib RVR -Pt is on eliquis -Off Cardizem gtt Acute renal failure with metabolic acidosis (lactic acid is normal ) -IVF -Monitor COPDAE -SVNS Aortic valve replacement -Currently on Coumadin -Cardiology consulted Hypothyroid -Synthroid WANDA LEBRON DO Apr 09, 2018 12:18
[2018-04-09] MEDS: methylPREDNISolone 40 MG/ML (Solu-MEDROL) VIAL IV SCH ×2 (13:10→21:05)
--- NOTE | 2018-04-09 14:37 | NUR ---
PT WAS BLADDER SCANNED AND HAD 140 ML IN -- PT UP TO BSC -- Addendum: 04/09/18 at 1441 by EVERETT LOWERY RN PT JUST NOT DRINKING -- VOICED SHE WAS NOT WANTING TO DRINK
[2018-04-09] MEDS: RT-ADVAIR HFA 115/21 MCG PER PUFF IH SCH ×2 (15:23→18:38)
[2018-04-09] MEDS: warFARin 3 MG (COUMADIN) TAB PO SCH (18:07)
--- NOTE | 2018-04-09 18:43 | NUR ---
NOTE THAT PT UP TO BSC AND DID DRIBBLE SOME -- PT VOICED SHE DRIBBLED AT HOME AND WORE DEPEND -- BLADDER SCANNED AND GOT 652ML IN -- CALLED AND LEFT MESSAGE FOR DR SPENCE -- ST CATH OR WHAT -- SHE CALED BACK -- WILL PUT [employer] CATHETER BACK IN TOD.Rudolph.
[2018-04-09] MEDS ORDERED: TROUGH ORDER-PHARMACY XX NR (19:00)
[2018-04-09] MEDS: ATORVASTATIN 20 MG (LIPITOR) TABLET PO SCH (21:05)
[2018-04-10] MEDS: RT-ALBUTEROL/IPRATROPIUM 3 ML (DUONEB) VIAL INH SCH ×3 (02:10→10:31)
[2018-04-10] MEDS: MEROPENEM 500 MG in WATER (STERILE) FOR INJECTION 10 ML IV SCH (02:21)
[2018-04-10 04:04] VITALS: BP 138/75
[2018-04-10 05:52] LABS: BASOPHILS % (AUTO) 0 % (0-10); EOSINOPHILS % (AUTO) 0 % (0-10); HEMATOCRIT 29 % (35-52); HEMOGLOBIN 9.6 G/DL (11.5-16.0); LYMPHOCYTES # (AUTO) 0.4 X 10^3 (1.0-4.0); LYMPHOCYTES % (AUTO) 11 % (12-44); MEAN CORPUSCULAR HEMOGLOBIN 30 PG (25-34); MEAN CORPUSCULAR HGB CONC 33 G/DL (32-36); MEAN CORPUSCULAR VOLUME 92 FL (80-99); MEAN PLATELET VOLUME 11.1 FL (7.4-10.4); MONOCYTES # (AUTO) 0.1 X 10^3 (0.0-1.0); MONOCYTES % (AUTO) 2 % (0-12); NEUTROPHILS % (AUTO) 86 % (42-75); PLATELET COUNT 218 10^3/uL (130-400); RED CELL DISTRIBUTION WIDTH 15.1 % (10.0-14.5); WHITE BLOOD COUNT 3.5 10^3/uL (4.3-11.0)
[2018-04-10 06:09] LABS: INR 3.2 (0.8-1.4); PROTHROMBIN TIME PATIENT 32.8 SEC (12.2-14.7)
[2018-04-10 06:14] LABS: CALCIUM 8.2 MG/DL (8.5-10.1); MAGNESIUM 1.7 MG/DL (1.8-2.4); PHOSPHORUS 2.8 MG/DL (2.3-4.7); POTASSIUM 4.9 MMOL/L (3.6-5.0)
[2018-04-10] MEDS: GLIMEPIRIDE 4 MG (AMARYL) TAB PO SCH (06:20)
[2018-04-10] MEDS: PHENAZOPYRIDINE 100 MG (PYRIDIUM) TABLET PO SCH (06:20)
[2018-04-10] MEDS: LEVOTHYROXINE 25 MCG (LEVOTHROID) TAB PO SCH (06:20)
[2018-04-10] MEDS: KCL 10 MEQ TAB (MICRO K) PO SCH (06:20)
[2018-04-10] MEDS: BETHANECHOL 25 MG (URECHOLINE) TAB PO SCH (06:20)
[2018-04-10] MEDS: RT-ADVAIR HFA 115/21 MCG PER PUFF IH SCH (06:56)
--- NOTE | 2018-04-10 07:00 | Pulmonary Progress Note ---
Sepsis Event Evaluation Height, Weight, BMI Height: 5'6.50" Weight: 186lbs. 1.0oz. 84.061089gk; 28.4 BMI Method:Stated Focused Exam Time of Focused Exam: 20:15 Exam Exam Vital Signs Date Time Temp Pulse Resp B/P (MAP) Pulse Ox O2 Delivery O2 Flow Rate FiO2 04/10/18 04:04 97.5 95 20 138/75 (96) 94 NIV CPAP 04/10/18 02:10 95 NIV CPAP 2.00 04/10/18 01:00 96 04/09/18 23:57 97.7 95 20 138/78 (98) 96 NIV CPAP 04/09/18 22:32 90 NIV CPAP 2.00 04/09/18 21:00 Nasal Cannula 2.00 04/09/18 20:39 96.3 112 20 110/81 (91) 95 Nasal Cannula 2.00 04/09/18 19:00 109 04/09/18 18:37 95 Nasal Cannula 2.00 04/09/18 16:21 96.1 86 19 139/61 (87) 95 Nasal Cannula 2.00 04/09/18 15:26 96 Nasal Cannula 2.00 04/09/18 13:00 135 04/09/18 12:00 96.4 88 20 133/62 (85) 92 Nasal Cannula 3.00 04/09/18 10:07 96 Nasal Cannula 2.00 04/09/18 09:00 Nasal Cannula 2.00 04/09/18 08:00 97.6 106 20 136/83 (100) 94 Nasal Cannula 3.00 04/09/18 07:00 101 I & O 04/10/18 07:00 Intake Total 1880 ml Output Total 850 ml Balance 1030 ml Height & Weight Height: 5'6.50" Weight: 186lbs. 1.0oz. 84.106572bt; 28.4 BMI Method:Stated General Appearance: No Apparent Distress, WD/WN, Chronically ill, Thin HEENT: PERRL/EOMI, Normal ENT Inspection Neck: Normal Inspection Respiratory: Chest Non Tender, Lungs Clear, Crackles, Decreased Breath Sounds, Wheezing Cardiovascular: Irregularly Irregular, Tachycardia, Other (mild edema of the hands and feet) Capillary Refill: Less Than 3 Seconds Peripheral Pulses: 2+ Radial Pulses (R) Extremity: Normal Capillary Refill, Pedal Edema (mild) Neurologic/Psychiatric: Alert, No Motor/Sensory Deficits, gin operator II-XII Norm as Tested Results Lab Laboratory Tests 04/09/18 05:45 04/10/18 05:20 Assessment/Plan Assessment/Plan ESBL PNA with sepsis - Merrem secondary to ESBL -olvera cultures Pulmonary edema with bilateral R>L pleural effusions - doubt emphyema -Pt is fully anticoagulated with coumadin currently -Give lasix 40mg x 1 -Check BNP -CXR looks worse Atelectasis -IS and increase activity Cough- - Robitussin AC -SVNs Bacteremia with Ecoli probably secondary to UTI -Merrem Acute on chronic respiratory failure -BiPAP PRN anemia -Monitor Hypomag -replace -Stop daily K+ secondary to K+ creeping up Hyponatremia -probably secondary to volume overload. give lasix x 1 Afib -coumadin -Rate control Acute renal failure with metabolic acidosis (lactic acid is normal ) -Monitor COPDAE -SVNS Aortic valve replacement -Currently on Coumadin -Cardiology consulted Hypothyroid -Synthroid WANDA LEBRON DO Apr 10, 2018 07:00
[2018-04-10] MEDS ORDERED: FUROSEMIDE 40 MG/4 ML INJ (LASIX) IVP NR (07:07)
[2018-04-10 08:00] VITALS: BP 138/65
--- NOTE | 2018-04-10 08:54 | Diagnostic Imaging Report ---
INDICATION: Respiratory failure. COMPARISON: 04/09/2018. FINDINGS: Single frontal radiographic view of the chest was obtained and shows stable [id number]-da-[id number] cardiomegaly. Pulmonary vasculature also appears slightly prominent. Sternotomy wires are noted. Lungs show interval asymmetric elevation of the right hemidiaphragm. Left basilar atelectasis is noted. Lungs are otherwise essentially clear. No large effusion or pneumothorax is seen. Bony structures show no gross acute abnormalities. IMPRESSION: 1. New asymmetric elevation of the right hemidiaphragm and small left basilar atelectasis. 2. Persistent cardiomegaly with mild pulmonary vascular congestion. Dictated by: Dictated on workstation # [id number]
--- NOTE | 2018-04-10 09:11 | Progress Note-Cardiology ---
Cardiology SOAP Progress Note Subjective: Sitting up in a recliner at the bedside. Reports dyspnea with any exertion. No c/o CP or palpitations. C/O swelling in her left arm and legs. Objective: I&O/Vital Signs 04/09/18 04/10/18 04/10/18 04/10/18 23:57 01:00 02:10 04:04 Temp 97.7 97.5 Pulse 95 96 95 Resp 20 20 B/P (MAP) 138/78 (98) 138/75 (96) Pulse Ox 96 95 94 O2 Delivery NIV CPAP NIV CPAP NIV CPAP O2 Flow Rate 2.00 04/10/18 04/10/18 04/10/18 04/10/18 06:56 07:00 08:00 10:31 Temp 96.8 Pulse 90 95 Resp 20 B/P (MAP) 138/65 (89) Pulse Ox 90 93 94 O2 Delivery Nasal Cannula Nasal Cannula Nasal Cannula O2 Flow Rate 2.00 3.00 2.00 04/10/18 00:00 Intake Total 1480 ml Output Total 650 ml Balance 830 ml Weight (Pounds): 186 Weight (Ounces): 1.0 Weight (Calculated Kilograms): 84.247962 Constitutional: AAO x 3, well-developed, well-nourished Respiratory: rhonchi (scattered), other (diminished lower lobes bilat; dyspneic with conversation) Cardiovascular: irregularly irregular; No JVD; S1 and S2, other (crisp, mechanical) Gastrointestional: No tender; soft, round, audible bowel sounds Genital/Rectal: other (urinary catheter to DD; cloudy, angelica urine) Extremities: other (swelling of left arm; bilat LE swelling 2 (+)) Neurologic/Psychiatric: grossly intact Skin: normal color, warm/dry; No rash, No ulcerations; other (brusing to arms bilat) Results/Procedures: Labs Laboratory Tests 04/10/18 05:20: White Blood Count 3.5L, Red Blood Count 3.19L, Hemoglobin 9.6L, Hematocrit 29L, Mean Corpuscular Volume 92, Mean Corpuscular Hemoglobin 30, Mean Corpuscular Hemoglobin Concent 33, Red Cell Distribution Width 15.1H, Platelet Count 218, Mean Platelet Volume 11.1H, Neutrophils (%) (Auto) 86H, Lymphocytes (%) (Auto) 11L, Monocytes (%) (Auto) 2, Eosinophils (%) (Auto) 0, Basophils (%) (Auto) 0, Neutrophils # (Auto) 3.0, Lymphocytes # (Auto) 0.4L, Monocytes # (Auto) 0.1, Eosinophils # (Auto) 0.0, Basophils # (Auto) 0.0, Prothrombin Time 32.8H, INR Comment 3.2H, Sodium Level 129L, Potassium Level 4.9, Chloride Level 105, Carbon Dioxide Level 14L, Anion Gap 10, Blood Urea Nitrogen 30H, Creatinine 2.00H, Estimat Glomerular Filtration Rate 24, BUN/Creatinine Ratio 15, Glucose Level 310H, Calcium Level 8.2L, Phosphorus Level 2.8, Magnesium Level 1.7L, B- Type Natriuretic Peptide 721.0H Microbiology 04/06/18 Blood Culture - Final, Complete Escherichia coli See Comments 04/06/18 MRSA Screen - Final, Complete 04/07/18 Urine Culture - Final, Complete Escherichia coli See Report Procedures NAME: LAKIA ALLEN [facility] REC#: [id number] PT STATUS: ADM IN : 1935 PHYSICIAN: TEODORO OBRIEN MD ADMIT DATE: 04/06/18 Draft Date of Exam:04/10/18 CHEST 1 VIEW, AP/PA ONLY INDICATION: Respiratory failure. COMPARISON: 04/09/2018. FINDINGS: Single frontal radiographic view of the chest was obtained and shows stable [id number] cardiomegaly. Pulmonary vasculature also appears slightly prominent. Sternotomy wires are noted. Lungs show interval asymmetric elevation of the right hemidiaphragm. Left basilar atelectasis is noted. Lungs are otherwise essentially clear. No large effusion or pneumothorax is seen. Bony structures show no gross acute abnormalities. IMPRESSION: 1. New asymmetric elevation of the right hemidiaphragm and small left basilar atelectasis. 2. Persistent cardiomegaly with mild pulmonary vascular congestion. Dictated on workstation # [id number] Dict: 04/10/18 0725 Trans: 04/10/18 0854 [facility] [id number] Interpreted by: BRANDI APARICIO MD Electronically signed by: A/P: Assessment: Pneumonia with hypoxia and UTI with prob sepsis - management per Pulmonary/ Medical services A-fib with RVR - rate improved Chronic warfarin anticoagulation, managed by Dr Cano as out pt Valvular heart disease with a history of aortic valve replacement with #21 Carbomedics mechanical prosthetic valve for aortic stenosis and mitral valve repair with 27 mm ring for mitral regurgitation in 2002. Acute on chronic diastolic CHF Echo of 03/16/18: LVEF 55-60%, mod conc LVH, biatrial enlargement, mod MR, adequately functioning aortic prosthetic valve, PASP 60-65 mmHg Pulmonary hypertension - management per pulmonary services PAD and claudication - DYLON of 05-01-17 report mod PVD. DYLON R 0.63, L 0.63. Last peripheral angio and intervention (R leg) on 09/09/17 at which time she underwent successful balloon angioplasty of the R peroneal with reduction of a 95% ostial stenosis to less than 30% residual; both R tibials are occluded and collateralized. Previously, she has undergone bilateral kissing stents of both common iliacs and extensive balloon angioplasty and stenting of the R SFA by Dr Loaiza on 12/31/13. Subsequently, on 01/07/14, Dr Loaiza did stenting of L SFA and successful balloon angioplasty of L peroneal and L anterior tibial arteries, but angioplasty to chronic occlusion of L posterior tibial was unsuccessful and resulted in subintimal dissection Acute on chronic renal failure - CKD stage III H/O stress fracture of left foot May 2017 CVA: L-sided weakness and L-visual field cut in Dec 2015. 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 Payne. Cardiac cath of 06-24-2013 showed CAD, mild to moderate. Moderate mid vessel stenosis of the LAD with fractional flow reserve across the lesion of 0.95. Moderate mid vessel stenosis of the RCA with fractional flow reserve across the lesion of 0.95. Patent stents in the proximal left circumflex and the mid RCA which were placed in 2004 MPI of 07-18-15 did not indicate significant myocardial ischemia or infarction. Normal regional wall motion. Normal global LV systolic function with calculated ejection fraction of 69%. Normal LV cavity size Left internal carotid artery stenosis of 60-79%, right internal carotid artery stenosis of less than 40% per carotid u/s of 05/20/17 Hyperlipidemia being treated with lovastatin and being followed by Dr. Cano. Heme-positive stools in Jan 2014. Diffuse erosive gastritis, hemorrhoids, diverticulitis, no active bleeding per endoscopy in Jan [address] Rodgers, treated with H2 angie, PPI and Carafate (managed by Dr Rodgers). Recurrent heme (+) stools in March 2014 - capsule endoscopy and management by Dr Rodgers History of transient ischemic attacks. Borderline diabetes mellitus being managed by Dr. Cano. Right rotator cuff repair on 11/28/[address] Woodward due to a torn rotator cuff. Plan: * Complex management due to multiple comorbidities * Increasing dyspnea and swelling - give IV Lasix today * Continue current regimen of BB and CCB * Continue warfarin because of a fib and AVR (mechanical valve) - monitor INR closely * Monitor labs Physician Assessment Physician Assessment Less cough and less shortness of breath today. No cp or palp or syncope. Persistent gen malaise and weakness Lungs: fair air entry, prolonged exp Cor: irreg, mechanical S2 Ext: no c/c/e A&R * As documented in our note above that I updated (italics) and as noted below * Continue current regimen * Monitor labs closely OBED COLLIER Apr 10, 2018 09:11 WALDEMAR CALLOWAY MD FACP FAC CCDS Apr 10, 2018 11:00
[2018-04-10] MEDS: DILTIAZEM 300 MG (CARDIZEM CD) CAP PO SCH (09:43)
[2018-04-10] MEDS: guaiFENesin/DM (ROBITUSSIN DM) 10 ML UDC PO PRN (09:43)
[2018-04-10] MEDS: methylPREDNISolone 40 MG/ML (Solu-MEDROL) VIAL IV SCH (09:43)
[2018-04-10] MEDS: busPIRone 5 MG (BUSPAR) TAB PO SCH (09:43)
[2018-04-10] MEDS: ENALAPRIL 10 MG (VASOTEC) TAB PO SCH (09:44)
[2018-04-10] MEDS: ALLOPURINOL 100 MG (ZYLOPRIM) TAB PO SCH (09:44)
[2018-04-10] MEDS: DOCUSATE SODIUM 100 MG (COLACE) CAP PO SCH (09:44)
[2018-04-10] MEDS: ASPIRIN E.C. 81 MG (ECOTRIN) TAB PO SCH (09:44)
[2018-04-10] MEDS: PANTOPRAZOLE 40 MG (PROTONIX) TAB PO SCH (09:44)
[2018-04-10] MEDS: MAGNESIUM 1 GM/100 ML IVPB 100 ML IV SCH ×2 (09:44→10:00)
[2018-04-10] MEDS: FLUTICASONE NASAL SPRAY (FLONASE) 16 GM BTL NS SCH (09:45)
--- NOTE | 2018-04-10 10:41 | Discharge Summary-Hospitalist ---
Diagnosis/Chief Complaint Date of Admission Apr 06, 2018 at 20:18 Date of Discharge Discharge Date: Apr 10, 2018 Discharge Diagnosis (1) Infection due to ESBL-producing Escherichia coli Status: Acute (2) Severe sepsis Status: Resolved (3) Atrial fibrillation with RVR Status: Resolved (4) ARF (acute renal failure) Status: Acute (5) Respiratory failure Status: Acute (6) Hypothyroidism Status: Chronic (7) COPD (chronic obstructive pulmonary disease) Status: Chronic (8) PAD (peripheral artery disease) Status: Chronic Discharge Summary Discharge Physical Exam Allergies: Coded Allergies: codeine (Verified Allergy, Unknown, PT HAS REC MORPHINE WITHOUT PROBLEMS, 12/25/15) cortisone (Verified Allergy, Unknown, 12/25/15) tramadol (Verified Allergy, Unknown, 12/25/15) Vitals & I&Os Vital Signs Date Time Temp Pulse Resp B/P (MAP) Pulse Ox O2 Delivery O2 Flow Rate FiO2 04/10/18 10:31 94 Nasal Cannula 2.00 04/10/18 08:00 96.8 95 20 138/65 (89) 04/07/18 00:30 40 General Appearance: No Apparent Distress, WD/WN, Chronically ill, Thin HEENT: PERRL/EOMI, Normal ENT Inspection Respiratory: Chest Non Tender, Lungs Clear, Crackles, Decreased Breath Sounds, Wheezing Cardiovascular: Irregularly Irregular, Tachycardia, Other (mild edema of the hands and feet) Gastrointestinal: Non Tender, Soft Extremity: Normal Capillary Refill, Pedal Edema (mild) Neurologic/Psychiatric: Alert, No Motor/Sensory Deficits, environmental control administrator II-XII Norm as Tested Hospital Course Was the Problem List Reviewed?: Yes This is an 82-year-old white female known to this examiner from multiple hospital stays last several years with a history of chronic atrial fibrillation on Coumadin for stroke prophylaxis, congestive heart failure and a variety of other issues was admitted for respiratory insufficiency placed on nebulizer treatments and oxygen supplementation. UTI was empirically treated with antibiotics and final urine culture revealed ESBL the patient was placed on meropenem and met criteria for swing bed for physical therapy occupational therapy and IV antibiotic completion. Urology consultation was requested due to urinary retention after failed Lamas catheter removal so she was maintained on Lamas catheter placed on Urecholine and Pyridium. Overall poor prognosis remains due to advanced age and significant comorbidities and she insist on not going to a nursing facility she will go home on home health to live with her son. We will admit to swing bed for meropenem completion. Labs (last 24 hrs) Laboratory Tests 04/10/18 05:20: White Blood Count 3.5L, Red Blood Count 3.19L, Hemoglobin 9.6L, Hematocrit 29L, Mean Corpuscular Volume 92, Mean Corpuscular Hemoglobin 30, Mean Corpuscular Hemoglobin Concent 33, Red Cell Distribution Width 15.1H, Platelet Count 218, Mean Platelet Volume 11.1H, Neutrophils (%) (Auto) 86H, Lymphocytes (%) (Auto) 11L, Monocytes (%) (Auto) 2, Eosinophils (%) (Auto) 0, Basophils (%) (Auto) 0, Neutrophils # (Auto) 3.0, Lymphocytes # (Auto) 0.4L, Monocytes # (Auto) 0.1, Eosinophils # (Auto) 0.0, Basophils # (Auto) 0.0, Prothrombin Time 32.8H, INR Comment 3.2H, Sodium Level 129L, Potassium Level 4.9, Chloride Level 105, Carbon Dioxide Level 14L, Anion Gap 10, Blood Urea Nitrogen 30H, Creatinine 2.00H, Estimat Glomerular Filtration Rate 24, BUN/Creatinine Ratio 15, Glucose Level 310H, Calcium Level 8.2L, Phosphorus Level 2.8, Magnesium Level 1.7L, B- Type Natriuretic Peptide 721.0H Microbiology 04/06/18 Blood Culture - Final, Complete Escherichia coli See Comments 04/06/18 MRSA Screen - Final, Complete 04/07/18 Urine Culture - Final, Complete Escherichia coli See Report Patient resulted labs reviewed. Pending Labs Discussion & Recommendations Discharge Planning: <30 minutes discharge planning Discharge Home Medications: Active Scripts Active Diltiazem 24Hr Cd (Diltiazem HCl) 240 Mg Cap.er.24h 240 Mg PO DAILY Metoprolol Succinate 25 Mg Tab.er.24h 25 Mg PO DAILY Reported Iprat-Albut 0.5-3(2.5) mg/3 ml (Ipratropium/Albuterol Sulfate) 3 Ml Ampul.neb 3 Ml NEB Q6H PRN Colace (Docusate Sodium) 100 Mg Capsule 100 Mg PO DAILY Vitamin C (Ascorbate Calcium) 500 Mg Tablet 500 Mg PO HS Nasacort (Triamcinolone Acetonide) 10.8 Ml [place] 1 [place] NS DAILY Sarah Allergy (Fexofenadine HCl) 180 Mg Tablet 180 Mg PO DAILY Colace (Docusate Sodium) 100 Mg Capsule 100 Mg PO DAILY Azo Cranberry Softgel (Cranberry Extract/Vit C) 1 Each Capsule 3 Cap PO BID Warfarin Sodium 6 Mg Tablet 6 Mg PO MOTUWETHFRSA@1800 Buspirone HCl 5 Mg Tablet 5 Mg PO DAILY Warfarin Sodium 6 Mg Tablet 3 Mg PO DIAZ@1800 TAKES 1/2 (3MG) TABLET Systane Gel Eye Drops (Propylene Glycol/Peg 400) 10 Ml Drops.gel 1-2 Drop OD 5XD PRN Incruse Ellipta (Umeclidinium [place]) 62.5 Mcg Blst.w.dev 1 Puff IH DAILY Potassium Chloride 10 Meq Tablet.er 10 Meq PO DAILY Vitamin D-3 (Cholecalciferol (Vitamin D3)) 2,000 Unit Capsule 2,000 Unit PO DAILY Ventolin Hfa (Albuterol Sulfate) 18 Gm Hfa.aer.ad 2 Puff INH Q4H PRN Nitroglycerin 0.4 Mg Tab.subl 0.4 Mg SL UD PRN Aspirin EC (Aspirin) 81 Mg Tablet.dr 81 Mg PO DAILY Budesonide 0.5 Mg/2 Ml Ampul.neb 0.5 Mg NEB BID Atorvastatin Calcium 20 Mg Tablet 20 Mg PO HS Allopurinol 100 Mg Tablet 100 Mg PO BID Enalapril Maleate 10 Mg Tablet 10 Mg PO DAILY Glimepiride 4 Mg Tablet 4 Mg PO DAILY Furosemide 40 Mg Tablet 60 Mg PO DAILY TAKES 1 & 1/2 (40MG) TABLET Omeprazole 40 Mg Capsule.dr 40 Mg PO DAILY Nabumetone 750 Mg Tablet 750 Mg PO BID Levothyroxine Sodium 25 Mcg Tablet 25 Mcg PO DAILY Instructions to patient/family Please see electronic discharge instructions given to patient. Clinical Quality Measures DVT/VTE Risk/Contraindication: Risk Factor Score Per Nursin RFS Level Per Nursing on Admit: 4+=Very High Problem Qualifiers (1) ARF (acute renal failure): Acute renal failure type: unspecified Qualified Codes: N17.9 - Acute kidney failure, unspecified (2) Respiratory failure: Chronicity: acute on chronic Respiratory failure complication: hypoxia Qualified Codes: J96.21 - Acute and chronic respiratory failure with hypoxia (3) Hypothyroidism: Hypothyroidism type: acquired Qualified Codes: E03.9 - Hypothyroidism, unspecified (4) COPD (chronic obstructive pulmonary disease): COPD type: unspecified COPD Qualified Codes: J44.9 - Chronic obstructive pulmonary disease, unspecified JARROD SPENCE DO Apr 10, 2018 10:41
[2018-04-10] MEDS ORDERED: FUROSEMIDE 40 MG/4 ML INJ (LASIX) ONE (12:18)
--- NOTE | 2018-04-13 21:05 | Physician Query Clarification ---
PQ-Conflicting Diagnosis Admission/Discharge Admission Date: Apr 06, 2018 at 20:18 Discharge Date: Apr 10, 2018 at 10:43 The medical record reflects the following clinical scenario: History/Risk Factors: history pneumonia Clinical Findings: hypoxia, sepsis Treatment: IV antibiotics Question: Do you agree with the impression of the pneumonia per Jim. No mention of pneumonia in your notes or discharge summary. Please document a response below. PHYSICIAN RESPONSE Do you agree w/Consulting Dx?: Yes In responding to this query, please exercise your independent professional judgment. The purpose of this communication is to more accurately reflect the complexity of your patients condition. The fact that a question is asked does not imply that any particular answer is desired or expected. Thank you for your timely response to this clarification. Requestors name: [ ] Phone # [ ] THIS PHYSICIAN QUERY FORM IS A PERMANENT PART OF THE MEDICAL RECORD LURDES CHRISTENSEN Apr 13, 2018 21:04 JARROD SPENCE DO Apr 14, 2018 13:04
== END 2018-04-10 10:43 | disposition swing bed (61) | DRG 871 ==
LOC: EDUNIT# 18:18 → ER 18:18 → ICU 20:18 → 4TH 04-08 10:48
PROVIDERS: ADMIT Internal Medicine; ATTEND Internal Medicine
DX: A41.9 Sepsis, unspecified organism (principal); R65.20 Severe sepsis without septic shock; J18.9 Pneumonia, unspecified organism; J96.21 Acute and chronic respiratory failure with hypoxia; N17.9 Acute kidney failure, unspecified; J44.1 Chronic obstructive pulmonary disease with (acute) exacerbation; J44.0 Chronic obstructive pulmonary disease with (acute) lower respiratory infection; I13.0 Hypertensive heart and chronic kidney disease with heart failure and stage 1 through stage 4 chronic kidney disease, or unspecified chronic kidney disease; I50.33 Acute on chronic diastolic (congestive) heart failure; N39.0 Urinary tract infection, site not specified; N18.3 Chronic kidney disease, stage 3 (moderate); I25.10 Atherosclerotic heart disease of native coronary artery without angina pectoris; I48.2 Chronic atrial fibrillation; E11.9 Type 2 diabetes mellitus without complications; B96.20 Unspecified Escherichia coli [E. coli] as the cause of diseases classified elsewhere; K57.90 Diverticulosis of intestine, part unspecified, without perforation or abscess without bleeding; E03.9 Hypothyroidism, unspecified; I49.3 Ventricular premature depolarization; D64.9 Anemia, unspecified; E78.00 Pure hypercholesterolemia, unspecified; G43.909 Migraine, unspecified, not intractable, without status migrainosus; Z16.12 Extended spectrum beta lactamase (ESBL) resistance; I65.23 Occlusion and stenosis of bilateral carotid arteries; Z95.2 Presence of prosthetic heart valve; Z79.01 Long term (current) use of anticoagulants; Z86.73 Personal history of transient ischemic attack (TIA), and cerebral infarction without residual deficits; Z79.84 Long term (current) use of oral hypoglycemic drugs; Z95.820 Peripheral vascular angioplasty status with implants and grafts; Z95.5 Presence of coronary angioplasty implant and graft; Z86.14 Personal history of Methicillin resistant Staphylococcus aureus infection
CPT/HCPCS: 36415; 71045; 71250; 80048; 80053; 81000; 83605; 83735; 83880; 84100; 84439; 84443; 84484; 85007; 85025; 85027; 85610; 85730; 86141; 87040; 87077; 87081; 87088; 87184; 87186; 87804; 93005; 93041; 94640; 94660; 94664; 94760; 96361; 96365; 96366; 96367; 96368

== ENCOUNTER 2018-04-10 11:06 | Inpatient (IN) | payer MEDICARE ==
[~2018-04-10] VITALS: Ht 168.9 cm; Wt 86.2 kg
--- NOTE | 2018-04-10 10:40 | NUR ---
LAKIA ALLEN admitted to swing bed status to room 419-1, with an admitting diagnosis of SWB , on 04/10/18 from acute inpatient status. PT/OT/ST Therapy to evaluate patient for activity needs. LAKIA ALLEN and/or family introduced to surroundings, call light, bed controls, phone, TV, temperature control, lights, meal times, smoking policy, visitor policy, side rail policy, bathrooms, and showers. Patient rights given to patient in the handbook.. LAKIA ALLEN and/or family member verbalized understanding that [facility] is not responsible for the loss or damage to any personal effects or valuables that are kept in the patients possession during their hospitalization. The following care plans were discussed with LAKIA ALLEN: Discharge Plannning,PAIN CONTROL,IV THERAPY PER PLAN, and TESTS AND PROCEDURES. LAKIA ALLEN and/or family verbalizes understanding of the Interdisciplinary Patient Education. Patient and/or family were informed about the Rapid Response Team and its purpose. Call light with in reach and patient demonstrates understanding of how to use. LAKIA ALLEN reports no further needs at this time.
[~2018-04-10 11:06] MED LIST changes: +ACETAMINOPHEN 325 MG TABLET PO PRN; +ASCO-262 PO; +NITROGLYCERIN 0.4 MG SL TABS BTL 25'S SL PRN; +ONDANSETRON 4 MG/2 ML (SDV) Z0FRAN IV PRN
[2018-04-10] MEDS ORDERED: RT-ALBUTEROL/IPRATROPIUM 3 ML (DUONEB) VIAL INH PRN (11:15)
--- NOTE | 2018-04-10 11:34 | NUR ---
Admission Drug Regimen Review Completed: Date: 04/10/18 Time: 1135 Physician Notified: JARROD SPENCE DO Date: 04/10/18 Time: 1135 Issue Identified; Action Plan to Resolve and Any Action Taken: Patients PRN albuterol order did not carry across to the swing bed account d/t system views as a duplicate order and d/c's. This was entered back into the swing bed account per doctor order. The Friday Coumadin order did not carry across to the swing bed account d/t the system views as a duplicate order and d/c's. This order was entered back into the swing bed account per doctor order.
--- NOTE | 2018-04-10 12:09 | Physical Therapy Evaluation ---
PT Evaluation-General Medical Diagnosis Admission Date Apr 10, 2018 at 11:06 Medical Diagnosis: Sepsis Onset Date: Apr 06, 2018 Therapy Diagnosis Therapy Diagnosis: decreased mobility Height/Weight Height (Feet): 5 Height (Inches): 6.50 Weight (Pounds): 186 Weight (Ounces): 1.0 Precautions Precautions/Isolations: Fall Prevention, Standard Precautions Weight Bear Status Right Lower Extremity: Right Full Weight Bearing Left Lower Extremity: Left Full Weight Bearing Referral Physician: Dr. Bernal Reason for Referral: Evaluation/Treatment Medical History Pertinent Medical History: Atrial Fib, Arthritis, CAD, COPD, CVA, DM, GERD, HTN , Hypothroidism Reviewed History: Yes Social History Home: Single Level Current Living Status: Children (son) Entry Into Home: Ramp Prior/Core FIM Prior Level of Function Therapy Code Descriptions/Definitions Functional [place] Measure: 0=Not Assessed/NA 4=Minimal Assistance 1=Total Assistance 5=Supervision or Setup 2=Maximal Assistance 6=Modified [place] 3=Moderate Assistance 7=Complete [place] Therapy Quality Codes: 6 Independent with activity with or without an assistive device 5 Patient requires set up or clean up by helper. Patient completes activity by themselves 4 Supervision or touching assist (CGA). [place] provide cues , steadying assist 3 The helper provides less than half the effort to complete the activity 2 The helper provides more than half the effort to complete the activity 1 Dependent. The helper does all the effort to complete an activity 7 Patient refused to complete or attempt activity 9 The patient did not perform the activity before the current illness or injury 88 Not attempted due to Medical conditions or safety concerns Functional Abilities and Goals: Independent: Patient completed the activities by him/herself, with or without an assistive device, with no assistance from a helper. Needed Some Help: Patient needed partial assistance from another person to complete activities. Dependent: A helper completed the activities for the patient. Unknown: Not Applicable: Bed Mobility: 6 Transfers (B,C,W/C) (FIM): 6 Gait: 6 Indoor Mobility (Ambulation): Independent Prior Devices Use: Walker Prior Device Use: FWW, 4WW PT Evaluation-Current Subjective Pt in recliner and agrees to PT. Pain Numeric Pain Scale: 0-No Pain Location: No Pain Reported Pt/Family Goals Pt to return home with son. Objective Patient Orientation: Person, Place, Situation, Normal For Age Attachments: Oxygen (2L), Lamas Catheter ROM/Strength ROM Lower Extremities WNL Strenght Lower Extremities gross motor bilateral 4+/5 Integumentary/Posture Bowel Incontinence: No Bladder Incontinence: Lamas Cath Sensory Vision: Wears Glasses Hearing: Functional Sensation Right Lower Extremit: Intact Sensation Left Lower Extremity: Intact Transfers Therapy Code Descriptions/Definitions Functional [place] Measure: 0=Not Assessed/NA 4=Minimal Assistance 1=Total Assistance 5=Supervision or Setup 2=Maximal Assistance 6=Modified [place] 3=Moderate Assistance 7=Complete [place] Therapy Quality Codes: 6 Independent with activity with or without an assistive device 5 Patient requires set up or clean up by helper. Patient completes activity by themselves 4 Supervision or touching assist (CGA). [place] provide cues , steadying assist 3 The helper provides less than half the effort to complete the activity 2 The helper provides more than half the effort to complete the activity 1 Dependent. The helper does all the effort to complete an activity 7 Patient refused to complete or attempt activity 9 The patient did not perform the activity before the current illness or injury 88 Not attempted due to Medical conditions or safety concerns Transfers (B, C, W/C) (FIM): 4 Scootin Sit to/from Stand: 4 Sit to Stand (QC): 4 Gait Mode of Locomotion: Walk Anticipated Mode of Locomotion: Walk Gait (FIM): 2 Distance (FIM): 2=393-85 ft Walk 10 feet (QC): 4 Walk 50 ft with 2 Turns(QC): 4 Distance: 125' Gait Level of Assist: 4 Gait Persons Needed: 1 Gait Assistive Device: FWW Comments/Gait Description Pt wide ZAHIRA Balance Sitting Static: Good Sitting Dynamic: Good Standing Static: Good Standing Dynamic: Good Assessment/Needs Pt was able to perform sit<>stand from recliner after a few tries. Pt has to use rocking momentum to achieve initiation. Pt requires min A for sit<>stand transfers. Pt able to amb 125' with FWW and CGA for safety 2L 02. Pt returned to room and sat EOB. Pt was fatigued. Pt was able to perfor seated LE ex on EOB (AP, LAQ, Hip flexion, Hip abd) x20 reps. Pt requested to return to recliner because she needs to be sitting up and not laying down. Pt is now in recliner with all needs met. Rehab Potential: Fair Post Rehab Potential-Barriers: Co-morbidities, frequent hospital stays PT Short Term Goals Short Term Goals Time Frame: Apr 17, 2018 Transfers (B,C,W/C) (FIM): 5 Gait (FIM): 4 Distance (FIM): 3=150 ft Gait Distance Comment: 200' Gait Level of Assist: 4 Gait Assistive Device: FWW PT Senior Care Goals Senior Care Goals PT Corporate Real Estate Manager Goals Time Frame: May 08, 2018 Transfers (B,C,W/C) (FIM): 5 Sit to Lying (QC): 6 Lying-Sitting on Side/Bed(QC): 6 Sit to Stand (QC): 6 Rollin Roll Left to Right (QC): 6 Car Transfer (QC): 6 Does the Patient Walk: Yes Gait (FIM): 5 Gait distance (FIM): 3=150 ft Distance: 200' Walk 10 feet (QC): 6 Walk 10ft-Uneven Surface(QC): 6 Walk 50ft with 2 Turns (QC): 6 Walk 150 ft (QC): 6 Gait Level of Assist: 5 Gait Assistive Device: FWW PT Plan Problem List Problem List: Activity Tolerance, Functional Strength, Safety, Balance, Gait, Transfer, Bed Mobility, ROM Treatment/Plan Treatment Plan: Continue Plan of Care Treatment Plan: Bed Mobility, Education, Functional Activity Tawana, Functional Strength, Gait, Safety, Therapeutic Exercise, Transfers Treatment Duration: Apr 17, 2018 Frequency: 6 times per week Estimated Hrs Per Day: .25 hour per day (15-30 min) Patient and/or Family Agrees t: Yes Safety Risks/Education Patient Education: Gait Training, Transfer Techniques, Correct Positioning, Safety Issues Teaching Recipient: Patient Teaching Methods: Demonstration, Discussion Time/GCodes Time In: 1124 Time Out: 1151 Total Billed Treatment Time: 27 Total Billed Treatment 1 visit EVL 10 min FA 17 min MATY LLANES PT Apr 10, 2018 12:09
[2018-04-10] MEDS: BETHANECHOL 25 MG (URECHOLINE) TAB PO SCH ×3 (12:10→21:56)
[2018-04-10] MEDS: MEROPENEM 500 MG in WATER (STERILE) FOR INJECTION 10 ML IV SCH ×2 (12:10→18:24)
[2018-04-10] MEDS: PHENAZOPYRIDINE 100 MG (PYRIDIUM) TABLET PO SCH ×2 (12:10→16:33)
--- NOTE | 2018-04-10 15:05 | Occupational Therapy Eval ---
OT Evaluation-General/PLF Medical Diagnosis Admission Date Apr 10, 2018 at 11:06 Medical Diagnosis: Sepsis Onset Date: Apr 06, 2018 Therapy Diagnosis Therapy Diagnosis: decreased self care skills Height/Weight Height (Feet): 5 Height (Inches): 6.50 Weight (Pounds): 186 Weight (Ounces): 1.0 Precautions Precautions/Isolations: Fall Prevention, Standard Precautions Referral Physician: Dr. Bernal Medical History Pertinent Medical History: Atrial Fib, Arthritis, CAD, COPD, CVA, DM, GERD, HTN , Hypothroidism Additional Medical History valvular heart disease, heart valve replacement, coronary stent, sleep apnea, high cholesterol, headaches/migraines, TIA, chronic UTI, diverticulosis, anemia Reviewed History: Yes Social History Home: Single Level Current Living Status: Children (son) Entry Into Home: Ramp ADL-Prior Level of Function Therapy Code Descriptions/Definitions Functional [place] Measure: 0=Not Assessed/NA 4=Minimal Assistance 1=Total Assistance 5=Supervision or Setup 2=Maximal Assistance 6=Modified [place] 3=Moderate Assistance 7=Complete [place] Therapy Quality Codes: 6 Independent with activity with or without an assistive device 5 Patient requires set up or clean up by helper. Patient completes activity by themselves 4 Supervision or touching assist (CGA). [place] provide cues , steadying assist 3 The helper provides less than half the effort to complete the activity 2 The helper provides more than half the effort to complete the activity 1 Dependent. The helper does all the effort to complete an activity 7 Patient refused to complete or attempt activity 9 The patient did not perform the activity before the current illness or injury 88 Not attempted due to Medical conditions or safety concerns Functional Abilities and Goals: Independent: Patient completed the activities by him/herself, with or without an assistive device, with no assistance from a helper. Needed Some Help: Patient needed partial assistance from another person to complete activities. Dependent: A helper completed the activities for the patient. Unknown: Not Applicable: ADL PLOF Comments Pt reports receiving some assist recently secondary to weakness. Has home health aide 2x/wk to assist with bathing. Uses 4WW for mobility Self Care: Needed Some Help DME/Equipment: Bath Chair, Bedside Commode, Grab Bars, Shower OT Current Status Subjective Pt sitting in chair, states "I just can't keep my eyes open." Has no c/o pain. Mental Status/Objective Patient Orientation: Person, Place Attachments: San Catheter, IV, Oxygen Current Glasses/Contacts: Yes Hearing Aids: No Dentures/Partials: No Hand Dominance: Right Upper Extremity ROM Right UE grossly WFL Unable to fully assess left UE secondary to IV protector which limits elbow flexion. Upper Extremity Coordination Intact ADL-Treatment ADL-Current Pt sitting in chair, drinks from cup without assist. Pt reports fatigue and requests to return to bed. Pt declined to complete bathing or grooming tasks while seated, just wants to get back into bed. Pt has a san and declined need to use BSC for BM at this timePt states she already completed grooming tasks today with set up. Sit to stand from chair with minimal assistance. Transfer to EOB with FWW and cues for safety. Pt moves slowly. Sit to supine with assist for LE. Pt able to reposition self in bed. Pt resting in bed with needs met after session. Eating (FIM): 5 (by report) Eating (QC): 5 Grooming (FIM): 5 (By pt report) Oral Hygiene (QC): 5 Toilet/Commode Transfer (FIM): 4 Education OT Patient Education: Rehab process Teaching Recipient: Patient Teaching Methods: Discussion Response to Teaching: Verbalize Understanding OT Short Term Goals Short Term Goals Transfers (B,C,W/C) (FIM): 5 1=Demonstrate adherence to instructed precautions during ADL tasks. 2=Patient will verbalize/demonstrate understanding of assistive devices/ modifications for ADL. 3=Patient will improve strength/tolerance for activity to enable patient to perform ADL's. OT Back Pad Inspector Goals Back Pad Inspector Goals Time Frame: May 01, 2018 Eating (FIM): 6 Eating (QC): 6 Groomin Oral Hygiene (QC): 6 Bathing(FIM): 4 Shower/Bathe Self (QC): 4 Upper Body Dressing(FIM): 5 Upper Body Dressing (QC): 5 Lower Body Dressing(FIM): 5 Lower Body Dressing (QC): 5 On/Off Footwear (QC): 5 Toileting(FIM): 6 Toileting Hygiene (QC): 6 Toilet/Commode Transfer(FIM): 6 Toilet/Commode Transfer (QC): 6 Additional Goals: 1-Demonstrate ADL Tasks, 2-Verbalize Understanding, 3- ImproveStrength/Tawana 1=Demonstrate adherence to instructed precautions during ADL tasks. 2=Patient will verbalize/demonstrate understanding of assistive devices/ modifications for ADL. 3=Patient will improve strength/tolerance for activity to enable patient to perform ADL's. OT Education/Plan Problem List/Assessment Assessment: Decreased Activ Tolerance, Decreased UE Strength, Dependent Transfers, Impaired I ADL's, Impaired Self-Care Skills Pt to benefit from skilled OT intervention for ADL training, transfers, strengthening, and safety education to increase level of independence and allow safe discharge. Discharge Recommendations Plan/Recommendations: Continue POC Treatment Plan/Plan of Care Patient would benefit from OT for education, treatment and training to promote independence in ADL's, mobility, safety and/or upper extremity function for ADL' s. Plan of Care: ADL Retraining, Functional Mobility, UE Funct Exercise/Act Treatment Duration: May 01, 2018 Frequency: 5 times per week Estimated Hrs Per Day: .25 hour per day Rehab Potential: Fair Time/GCodes Start Time: 13:40 Stop Time: 14:03 Total Time Billed (hr/min): 23 Billed Treatment Time 1 visit, GINI(8minutes), LENNIE(15minutes) RAS RING OT Apr 10, 2018 15:05
[2018-04-10] MEDS: RT-ALBUTEROL/IPRATROPIUM 3 ML (DUONEB) VIAL INH SCH ×3 (15:14→19:53)
[2018-04-10] MEDS: TAMSULOSIN 0.4 MG (FLOMAX) CAP PO SCH (16:33)
[2018-04-10 17:29] VITALS: BP 146/69
[2018-04-10] MEDS ORDERED: TAMSULOSIN 0.4 MG (FLOMAX) CAP PO SCH (18:00)
[2018-04-10] MEDS: warFARin 3 MG (COUMADIN) TAB PO SCH (18:24)
--- NOTE | 2018-04-10 18:47 | NUR ---
COUMADIN GIVEN PER H.BIAMA NOTED TO KEEP TRACK OF INR. PT. STATES 3.2 INR IS NOT THAT HIGH FOR HER.
[2018-04-10] MEDS: RT-ADVAIR HFA 115/21 MCG PER PUFF IH SCH (19:53)
[2018-04-10] MEDS: ATORVASTATIN 20 MG (LIPITOR) TABLET PO SCH (21:56)
[2018-04-10] MEDS: ALLOPURINOL 100 MG (ZYLOPRIM) TAB PO SCH (21:56)
[2018-04-10] MEDS: methylPREDNISolone 40 MG/ML (Solu-MEDROL) VIAL IV SCH (21:56)
[2018-04-10] MEDS: guaiFENesin/DM (ROBITUSSIN DM) 10 ML UDC PO PRN (22:02)
--- NOTE | 2018-04-10 23:46 | CONSULTATION REPORT ---
DATE OF SERVICE: 04/10/2018 ATTENDING PHYSICIAN: Dr. Bernal. SUMMARY: An 82-year-old white lady I took care of her for many years until he and having a problem voiding and emptying her bladder. A trial of voiding failed. She was started on Urecholine 25 mg q.i.d. and at bedtime. She denies any similar symptoms or problem at home at all in the past. I reviewed her chart and her records. IMPRESSION: Urinary retention, possible neurogenic bladder. PLAN: 1. Continue Urecholine. 2. Start Flomax today. 3. Trial of voiding tomorrow and manage accordingly. This was fully explained to the patient. Job ID: [id number] DocumentID: [id number] Dictated Date: 04/10/2018 14:37:31 Diversity Intern Date: 04/10/2018 23:46:28 Dictated By: MARILIN COFFEY MD
[2018-04-11] MEDS: RT-ALBUTEROL/IPRATROPIUM 3 ML (DUONEB) VIAL INH SCH ×6 (01:18→21:28)
[2018-04-11] MEDS: MEROPENEM 500 MG in WATER (STERILE) FOR INJECTION 10 ML IV SCH ×3 (02:50→18:05)
[2018-04-11 06:00] VITALS: BP 125/78
[2018-04-11] MEDS ORDERED: CALCIUM CARBONATE 500 MG (TUMS) TAB.CHEW PO PRN (06:00)
[2018-04-11] MEDS: PHENAZOPYRIDINE 100 MG (PYRIDIUM) TABLET PO SCH ×3 (06:18→16:58)
[2018-04-11] MEDS: GLIMEPIRIDE 4 MG (AMARYL) TAB PO SCH (06:19)
[2018-04-11] MEDS: BETHANECHOL 25 MG (URECHOLINE) TAB PO SCH ×4 (06:19→20:27)
[2018-04-11] MEDS: LEVOTHYROXINE 25 MCG (LEVOTHROID) TAB PO SCH (06:19)
[2018-04-11 06:21] LABS: BASOPHILS % (AUTO) 0 % (0-10); EOSINOPHILS % (AUTO) 0 % (0-10); HEMATOCRIT 32 % (35-52); HEMOGLOBIN 10.5 G/DL (11.5-16.0); LYMPHOCYTES # (AUTO) 0.5 X 10^3 (1.0-4.0); LYMPHOCYTES % (AUTO) 6 % (12-44); MEAN CORPUSCULAR HEMOGLOBIN 30 PG (25-34); MEAN CORPUSCULAR HGB CONC 33 G/DL (32-36); MEAN CORPUSCULAR VOLUME 91 FL (80-99); MEAN PLATELET VOLUME 11.3 FL (7.4-10.4); MONOCYTES # (AUTO) 0.2 X 10^3 (0.0-1.0); MONOCYTES % (AUTO) 2 % (0-12); NEUTROPHILS # (AUTO) 7.3 X 10^3 (1.8-7.8); NEUTROPHILS % (AUTO) 91 % (42-75); PLATELET COUNT 310 10^3/uL (130-400); RED CELL DISTRIBUTION WIDTH 15.3 % (10.0-14.5); WHITE BLOOD COUNT 7.9 10^3/uL (4.3-11.0)
[2018-04-11 06:26] LABS: INR 3.2 (0.8-1.4); PROTHROMBIN TIME PATIENT 32.6 SEC (12.2-14.7)
[2018-04-11 06:36] LABS: BILIRUBIN,TOTAL 0.3 MG/DL (0.1-1.0); CREATININE SERUM 2.09 MG/DL (0.60-1.30); POTASSIUM 4.8 MMOL/L (3.6-5.0); TOTAL PROTEIN 6.5 GM/DL (6.4-8.2)
[2018-04-11] MEDS: RT-ADVAIR HFA 115/21 MCG PER PUFF IH SCH ×2 (06:38→18:22)
--- NOTE | 2018-04-11 07:16 | Pulmonary Progress Note ---
Subjective Time Seen by a Provider: 07:16 Sepsis Event Evaluation Height, Weight, BMI Height: 5'6.50" Weight: 201lbs. 6.0oz. 91.664391ti; 28.4 BMI Method:Stated Exam Exam Vital Signs Date Time Temp Pulse Resp B/P (MAP) Pulse Ox O2 Delivery O2 Flow Rate FiO2 04/11/18 06:39 NIV CPAP 04/11/18 06:38 92 NIV CPAP 3.00 04/11/18 06:00 97.4 110 20 125/78 (94) 91 Room Air 04/11/18 01:18 90 NIV CPAP 2.00 04/11/18 01:00 98 04/10/18 21:00 95 Nasal Cannula 2.00 04/10/18 19:59 95 Nasal Cannula 2.00 04/10/18 19:54 92 Nasal Cannula 2.00 04/10/18 19:00 100 04/10/18 17:29 98.7 95 20 146/69 (94) 95 Nasal Cannula 2.00 04/10/18 15:14 91 Nasal Cannula 2.00 04/10/18 13:54 110 I & O 04/11/18 07:00 Intake Total 1185 ml Output Total 1550 ml Balance -365 ml Height & Weight Height: 5'6.50" Weight: 201lbs. 6.0oz. 91.835564jo; 28.4 BMI Method:Stated General Appearance: Anxious, Chronically ill HEENT: PERRL/EOMI, Normal ENT Inspection, Pharynx Normal Neck: Full Range of Motion, Non Tender, Supple Respiratory: No Accessory Muscle Use, No Respiratory Distress, Crackles, Decreased Breath Sounds Cardiovascular: Regular Rate, Rhythm Capillary Refill: Less Than 3 Seconds Gastrointestinal: normal bowel sounds, non tender, soft Extremity: Normal Capillary Refill, Normal Inspection Neurologic/Psychiatric: Alert, Oriented x3 Skin: Normal Color, Warm/Dry Results Lab Laboratory Tests 04/11/18 05:35 Assessment/Plan Assessment/Plan ESBL PNA with sepsis - Merrem secondary to ESBL -olvera cultures Pulmonary edema with bilateral R>L pleural effusions - doubt emphyema -Pt is fully anticoagulated with coumadin currently Atelectasis -IS and increase activity Cough- - Robitussin AC -SVNs Bacteremia with Ecoli probably secondary to UTI -Merrem Acute on chronic respiratory failure -BiPAP PRN anemia -Monitor Afib -coumadin -Rate control Acute renal failure with metabolic acidosis (lactic acid is normal ) -Monitor COPDAE -SVNS Aortic valve replacement -Currently on Coumadin -Cardiology consulted Hypothyroid -Synthroid WANDA LEBRON DO Apr 11, 2018 07:16
[2018-04-11] MEDS: DOCUSATE SODIUM 100 MG (COLACE) CAP PO SCH (08:36)
[2018-04-11] MEDS: ALLOPURINOL 100 MG (ZYLOPRIM) TAB PO SCH ×2 (08:36→20:27)
[2018-04-11] MEDS: busPIRone 5 MG (BUSPAR) TAB PO SCH (08:36)
[2018-04-11] MEDS: ENALAPRIL 10 MG (VASOTEC) TAB PO SCH (08:36)
[2018-04-11] MEDS: DILTIAZEM 300 MG (CARDIZEM CD) CAP PO SCH (08:36)
[2018-04-11] MEDS: methylPREDNISolone 40 MG/ML (Solu-MEDROL) VIAL IV SCH ×2 (08:36→20:27)
[2018-04-11] MEDS: ASPIRIN E.C. 81 MG (ECOTRIN) TAB PO SCH (08:36)
[2018-04-11] MEDS: FLUTICASONE NASAL SPRAY (FLONASE) 16 GM BTL NS SCH (08:37)
--- NOTE | 2018-04-11 09:26 | Cardiology Progress Note ---
Subjective Date Seen by Provider: Apr 11, 2018 Time Seen by Provider: 09:24 Subjective/Events-last exam patient is sitting up in a chair, had some reflux earlier, no chest pain, still having some dyspnea Review of Systems General: No Chills, No Night Sweats; Fatigue, Malaise; No Appetite, No Other HEENT: No Head Aches, No Visual Changes, No Eye Pain, No Ear Pain, No Dysphasia , No Sinus Congestion, No Post Nasal Drip, No Sore Throat, No Other Pulmonary: Dyspnea; No Cough, No Pleuritic Chest Pain, No Other Cardiovascular: No: Chest Pain, Palpitations, Orthopnea, Paroxysmal Noc. Dyspnea, Edema, Lt Headedness, Other Objective-Cardiology Exam Last Set of Vital Signs Vital Signs 04/11/18 04/11/18 04/11/18 04/11/18 06:00 06:38 06:39 07:00 Temp 97.4 Pulse 107 Resp 20 B/P (MAP) 125/78 (94) Pulse Ox 92 O2 Delivery NIV CPAP O2 Flow Rate 3.00 Capillary Refill : Less Than 3 Seconds I&O Intake and Output 04/11/18 00:00 Intake Total 1060 ml Output Total 1225 ml Balance -165 ml Intake Oral 1060 ml Output Urine Total 1225 ml Daily Weight Change No General: Alert, Oriented X3, Cooperative HEENT: Atraumatic, PERRLA Neck: Supple, No JVD, No Thyromegaly Lungs: Normal Air Movement, Other (bilateral rhonchi) Heart: Regular Rate, Normal S1, Normal S2, No Murmurs Abdomen: Normal Bowel Sounds, Soft, No Tenderness, No Hepatosplenomegaly, No Masses Extremities: No Clubbing, No Cyanosis, No Edema, Normal Pulses, No Tenderness/ Swelling Skin: No Rashes, No Breakdown, No Significant Lesion Neuro: Normal Gait, Normal Speech, Strength at 5/5 X4 Ext, Normal Tone, Sensation Intact Psych/Mental Status: Mental Status NL, Mood NL Results Lab Laboratory Tests 04/11/18 05:35 A/P-Cardiology Assessment/Plan Pneumonia, improving - management per Pulmonary/Medical services A-fib with RVR, rate is better controlled, continue to monitor Chronic warfarin anticoagulation, managed by Dr Cano Valvular heart disease with a history of aortic valve replacement with #21 [employer] mechanical prosthetic valve for aortic stenosis and mitral valve repair with 27 mm ring for mitral regurgitation in 2002. Acute on chronic diastolic CHF, continue to monitor Echo of 03/16/18: LVEF 55-60%, mod conc LVH, biatrial enlargement, mod MR, adequately functioning aortic prosthetic valve, PASP 60-65 mmHg PAD and claudication - DYLON of 05-01-17 report mod PVD. DYLON R 0.63, L 0.63. Last peripheral angio and intervention (R leg) on 09/09/17 at which time she underwent successful balloon angioplasty of the R peroneal with reduction of a 95% ostial stenosis to less than 30% residual; both R tibials are occluded and collateralized. Previously, she has undergone bilateral kissing stents of both common iliacs and extensive balloon angioplasty and stenting of the R SFA by Dr Loaiza on 12/31/13. Subsequently, on 01/07/14, Dr Loaiza did stenting of L SFA and successful balloon angioplasty of L peroneal and L anterior tibial arteries, but angioplasty to chronic occlusion of L posterior tibial was unsuccessful and resulted in subintimal dissection Acute on chronic renal failure - CKD stage III, continue to monitor H/O stress fracture of left foot May 2017 CVA: L-sided weakness and L-visual field cut in Dec 2015. 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 Payne. Cardiac cath of 06-24-2013 showed CAD, mild to moderate. Moderate mid vessel stenosis of the LAD with fractional flow reserve across the lesion of 0.95. Moderate mid vessel stenosis of the RCA with fractional flow reserve across the lesion of 0.95. Patent stents in the proximal left circumflex and the mid RCA which were placed in 2004, followed by Dr Estrella MPI of 07-18-15 did not indicate significant myocardial ischemia or infarction. Normal regional wall motion. Normal global LV systolic function with calculated ejection fraction of 69%. Normal LV cavity size Left internal carotid artery stenosis of 60-79%, right internal carotid artery stenosis of less than 40% per carotid u/s of 05/20/17 Hyperlipidemia being treated with lovastatin and being followed by Dr. Cano. Heme-positive stools in Jan 2014. Diffuse erosive gastritis, hemorrhoids, diverticulitis, no active bleeding per endoscopy in Jan [address] Rodgers, treated with H2 angie, PPI and Carafate (managed by Dr Rodgers). Recurrent heme (+) stools in March 2014 - capsule endoscopy and management by Dr Rodgers History of transient ischemic attacks. Borderline diabetes mellitus being managed by Dr. Cano. Right rotator cuff repair on 11/28/[address] Woodward due to a torn rotator cuff. Clinical Quality Measures DVT/VTE Risk/Contraindication: Risk Factor Score Per Nursin ADRIAN MCCANN MD Apr 11, 2018 09:26
[2018-04-11] MEDS: PANTOPRAZOLE 40 MG (PROTONIX) TAB PO SCH ×2 (09:42)
[2018-04-11] MEDS: guaiFENesin/DM (ROBITUSSIN DM) 10 ML UDC PO PRN ×2 (11:21→18:05)
--- NOTE | 2018-04-11 11:29 | Physical Therapy Daily Note ---
PT Daily Note-Current Subjective Pt states she just sat down in the chair, but with encouragement was agreeable to PT treatment Appearance At beginning of session, Pt sitting up in recliner awake and alert At end of session, pt sitting up in recliner with call light, phone and bedside table within reach and getting ready to eat breakfast Transfers Therapy Code Descriptions/Definitions Functional [place] Measure: 0=Not Assessed/NA 4=Minimal Assistance 1=Total Assistance 5=Supervision or Setup 2=Maximal Assistance 6=Modified [place] 3=Moderate Assistance 7=Complete [place] Therapy Quality Codes: 6 Independent with activity with or without an assistive device 5 Patient requires set up or clean up by helper. Patient completes activity by themselves 4 Supervision or touching assist (CGA). [place] provide cues , steadying assist 3 The helper provides less than half the effort to complete the activity 2 The helper provides more than half the effort to complete the activity 1 Dependent. The helper does all the effort to complete an activity 7 Patient refused to complete or attempt activity 9 The patient did not perform the activity before the current illness or injury 88 Not attempted due to Medical conditions or safety concerns Transfers (B, C, W/C) (FIM): 4 Sit to/from Stand: 4 After several unsuccessful attempts, pt requiring min A with sit to stand from recliner. Stand to sit performed with SBA, verb inst for hand placement and controlling descent Weight Bearing Right Lower Extremity: Right Full Weight Bearing Left Lower Extremity: Left Full Weight Bearing Gait Training Does the Patient Walk?: Yes Gait (FIM): 2 Distance (FIM): 9=254-27 ft Distance: 100 Gait Persons Needed: 1 Gait Assistive Device: FWW became very fatigued and with SOA 1/2 through gait distance, taking several minutes to regain normalized breathing decreased heel strike, good step height Treatments Safety, gait and transfer training Assessment Current Status: Good Progress PT Short Term Goals Short Term Goals Time Frame: Apr 17, 2018 Transfers (B,C,W/C) (FIM): 5 Gait (FIM): 4 Distance (FIM): 3=150 ft Gait Distance Comment: 200' Gait Level of Assist: 4 Gait Assistive Device: FWW PT Care Home Goals Cmo Goals PT Cmo Goals Time Frame: May 08, 2018 Transfers (B,C,W/C) (FIM): 5 Sit to Lying (QC): 6 Lying-Sitting on Side/Bed(QC): 6 Sit to Stand (QC): 6 Rollin Roll Left to Right (QC): 6 Car Transfer (QC): 6 Does the Patient Walk: Yes Gait (FIM): 5 Gait distance (FIM): 3=150 ft Distance: 200' Walk 10 feet (QC): 6 Walk 10ft-Uneven Surface(QC): 6 Walk 50ft with 2 Turns (QC): 6 Walk 150 ft (QC): 6 Gait Level of Assist: 5 Gait Assistive Device: FWW PT Plan Problem List Problem List: Activity Tolerance, Functional Strength, Safety, Gait, Transfer Treatment/Plan Treatment Plan: Continue Plan of Care Treatment Plan: Bed Mobility, Education, Functional Activity Tawana, Functional Strength, Gait, Safety, Therapeutic Exercise, Transfers Treatment Duration: Apr 17, 2018 Frequency: 6 times per week Estimated Hrs Per Day: .25 hour per day (15-30 min) Patient and/or Family Agrees t: Yes Safety Risks/Education Patient Education: Gait Training, Transfer Techniques, Safety Issues Teaching Recipient: Patient Teaching Methods: Demonstration, Discussion Response to Teaching: Verbalize Understanding, Return Demonstration Time/GCodes Time In: 855 Time Out: 912 Total Billed Treatment Time: 17 Total Billed Treatment 1 visit GT x17' GISSELLE WILLARD [employer]IC Apr 11, 2018 11:29
[2018-04-11 18:02] VITALS: BP 154/68
[2018-04-11] MEDS: warFARin 3 MG (COUMADIN) TAB PO SCH (18:05)
[2018-04-11] MEDS: TAMSULOSIN 0.4 MG (FLOMAX) CAP PO SCH (18:05)
[2018-04-11] MEDS: ATORVASTATIN 20 MG (LIPITOR) TABLET PO SCH (20:27)
[2018-04-12] MEDS: RT-ALBUTEROL/IPRATROPIUM 3 ML (DUONEB) VIAL INH SCH ×4 (01:38→22:09)
[2018-04-12] MEDS: MEROPENEM 500 MG in WATER (STERILE) FOR INJECTION 10 ML IV SCH ×3 (03:32→18:28)
[2018-04-12 06:00] VITALS: BP 138/72
[2018-04-12] MEDS: PHENAZOPYRIDINE 100 MG (PYRIDIUM) TABLET PO SCH ×3 (06:53→16:08)
[2018-04-12] MEDS: GLIMEPIRIDE 4 MG (AMARYL) TAB PO SCH (06:53)
[2018-04-12] MEDS: BETHANECHOL 25 MG (URECHOLINE) TAB PO SCH ×4 (06:53→20:43)
[2018-04-12] MEDS: LEVOTHYROXINE 25 MCG (LEVOTHROID) TAB PO SCH (06:53)
[2018-04-12] MEDS: guaiFENesin/DM (ROBITUSSIN DM) 10 ML UDC PO PRN ×2 (06:57→16:08)
[2018-04-12] MEDS: DILTIAZEM 300 MG (CARDIZEM CD) CAP PO SCH (09:05)
[2018-04-12] MEDS: ASPIRIN E.C. 81 MG (ECOTRIN) TAB PO SCH (09:05)
[2018-04-12] MEDS: ENALAPRIL 10 MG (VASOTEC) TAB PO SCH (09:05)
[2018-04-12] MEDS: ALLOPURINOL 100 MG (ZYLOPRIM) TAB PO SCH ×2 (09:05→20:43)
[2018-04-12] MEDS: busPIRone 5 MG (BUSPAR) TAB PO SCH (09:05)
[2018-04-12] MEDS: DOCUSATE SODIUM 100 MG (COLACE) CAP PO SCH (09:05)
[2018-04-12] MEDS: FLUTICASONE NASAL SPRAY (FLONASE) 16 GM BTL NS SCH (09:07)
[2018-04-12] MEDS: PANTOPRAZOLE 40 MG (PROTONIX) TAB PO SCH ×2 (09:07)
[2018-04-12] MEDS: methylPREDNISolone 40 MG/ML (Solu-MEDROL) VIAL IV SCH ×2 (09:11→20:23)
[2018-04-12] MEDS ORDERED: PATIENT MAY USE OWN MED,SINGLE MED PO SCH (09:30)
--- NOTE | 2018-04-12 11:10 | Pulmonary Progress Note ---
Sepsis Event Evaluation Height, Weight, BMI Height: 5'6.50" Weight: 201lbs. 0.0oz. 91.092574wg; 28.4 BMI Method:Stated Exam Exam Vital Signs Date Time Temp Pulse Resp B/P (MAP) Pulse Ox O2 Delivery O2 Flow Rate FiO2 04/12/18 08:55 94 Nasal Cannula 2.00 04/12/18 07:00 95 04/12/18 06:00 98.0 95 18 138/72 (94) 94 Nasal Cannula 2.00 04/12/18 01:38 94 NIV CPAP 3.00 04/12/18 01:00 87 04/11/18 21:29 97 NIV CPAP 3.00 04/11/18 21:00 94 Nasal Cannula 2.00 04/11/18 19:00 95 04/11/18 18:27 Nasal Cannula 3.00 04/11/18 18:22 95 Nasal Cannula 3.00 04/11/18 18:02 97.6 98 18 154/68 (96) 95 Nasal Cannula 2.00 04/11/18 14:16 96 Nasal Cannula 2.00 04/11/18 13:00 105 I & O 04/12/18 07:00 Intake Total 1810 ml Output Total 125 ml Balance 1685 ml Height & Weight Height: 5'6.50" Weight: 201lbs. 0.0oz. 91.422171go; 28.4 BMI Method:Stated General Appearance: Anxious, Chronically ill HEENT: PERRL/EOMI, Normal ENT Inspection, Pharynx Normal Neck: Full Range of Motion, Non Tender, Supple Respiratory: No Accessory Muscle Use, No Respiratory Distress, Crackles, Decreased Breath Sounds Cardiovascular: Regular Rate, Rhythm Capillary Refill: Less Than 3 Seconds Gastrointestinal: normal bowel sounds, non tender, soft Extremity: Normal Capillary Refill, Normal Inspection Neurologic/Psychiatric: Alert, Oriented x3 Skin: Normal Color, Warm/Dry Results Lab Laboratory Tests 04/11/18 05:35 Assessment/Plan Assessment/Plan ESBL PNA with sepsis - Merrem secondary to ESBL -olvera cultures Pulmonary edema with bilateral R>L pleural effusions - doubt emphyema -Pt is fully anticoagulated with coumadin currently Atelectasis -IS and increase activity Cough- - Robitussin AC -SVNs Bacteremia with Ecoli probably secondary to UTI -Merrem Acute on chronic respiratory failure -BiPAP PRN anemia -Monitor Afib -coumadin -Rate control Acute renal failure with metabolic acidosis (lactic acid is normal ) -Monitor COPDAE -SVNS Aortic valve replacement -Currently on Coumadin -Cardiology consulted Hypothyroid -Synthroid WANDA LEBRON DO Apr 12, 2018 11:10
[2018-04-12] MEDS: OMEPRAZOLE PO SCH (11:11)
--- NOTE | 2018-04-12 12:28 | Cardiology Progress Note ---
Subjective Date Seen by Provider: Apr 12, 2018 Time Seen by Provider: 12:26 Subjective/Events-last exam patient is sitting in a chair, feeling better, breathing better. Still having some cough Review of Systems General: No Chills, No Night Sweats, No Fatigue, No Malaise, No Appetite, No Other HEENT: No Head Aches, No Visual Changes, No Eye Pain, No Ear Pain, No Dysphasia , No Sinus Congestion, No Post Nasal Drip, No Sore Throat, No Other Pulmonary: Dyspnea, Cough; No Pleuritic Chest Pain, No Other Cardiovascular: No: Chest Pain, Palpitations, Orthopnea, Paroxysmal Noc. Dyspnea, Edema, Lt Headedness, Other Objective-Cardiology Exam Last Set of Vital Signs Vital Signs 04/12/18 04/12/18 04/12/18 06:00 07:00 08:55 Temp 98.0 Pulse 95 Resp 18 B/P (MAP) 138/72 (94) Pulse Ox 94 O2 Delivery Nasal Cannula O2 Flow Rate 2.00 Capillary Refill : Less Than 3 Seconds I&O Intake and Output 04/12/18 00:00 Intake Total 1835 ml Output Total 450 ml Balance 1385 ml Intake Oral 1835 ml Output Urine Total 450 ml General: Alert, Oriented X3, Cooperative HEENT: Atraumatic, PERRLA Neck: Supple, No JVD, No Thyromegaly Lungs: Normal Air Movement, Other (bilateral rhonchi) Heart: Regular Rate, Normal S1, Normal S2, No Murmurs Abdomen: Normal Bowel Sounds, Soft, No Tenderness, No Hepatosplenomegaly, No Masses Extremities: No Clubbing, No Cyanosis, No Edema, Normal Pulses, No Tenderness/ Swelling Skin: No Rashes, No Breakdown, No Significant Lesion Neuro: Normal Gait, Normal Speech, Strength at 5/5 X4 Ext, Normal Tone, Sensation Intact Psych/Mental Status: Mental Status NL, Mood NL A/P-Cardiology Admission Diagnosis Pneumonia Atrial fibrillation CVA Hypertension Assessment/Plan Pneumonia, improving - management per Pulmonary/Medical services A-fib with RVR, rate is better controlled, continue to monitor Chronic warfarin anticoagulation, managed by Dr Cano Valvular heart disease with a history of aortic valve replacement with #21 Carbomedics mechanical prosthetic valve for aortic stenosis and mitral valve repair with 27 mm ring for mitral regurgitation in 2002. Acute on chronic diastolic CHF, continue to monitor Echo of 03/16/18: LVEF 55-60%, mod conc LVH, biatrial enlargement, mod MR, adequately functioning aortic prosthetic valve, PASP 60-65 mmHg PAD and claudication - DYLON of 05-01-17 report mod PVD. DYLON R 0.63, L 0.63. Last peripheral angio and intervention (R leg) on 09/09/17 at which time she underwent successful balloon angioplasty of the R peroneal with reduction of a 95% ostial stenosis to less than 30% residual; both R tibials are occluded and collateralized. Previously, she has undergone bilateral kissing stents of both common iliacs and extensive balloon angioplasty and stenting of the R SFA by Dr Loaiza on 12/31/13. Subsequently, on 01/07/14, Dr Loaiza did stenting of L SFA and successful balloon angioplasty of L peroneal and L anterior tibial arteries, but angioplasty to chronic occlusion of L posterior tibial was unsuccessful and resulted in subintimal dissection Acute on chronic renal failure - CKD stage III, continue to monitor H/O stress fracture of left foot May 2017 CVA: L-sided weakness and L-visual field cut in Dec 2015. 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 Payne. Cardiac cath of 06-24-2013 showed CAD, mild to moderate. Moderate mid vessel stenosis of the LAD with fractional flow reserve across the lesion of 0.95. Moderate mid vessel stenosis of the RCA with fractional flow reserve across the lesion of 0.95. Patent stents in the proximal left circumflex and the mid RCA which were placed in 2004, followed by Dr Estrella MPI of 07-18-15 did not indicate significant myocardial ischemia or infarction. Normal regional wall motion. Normal global LV systolic function with calculated ejection fraction of 69%. Normal LV cavity size Left internal carotid artery stenosis of 60-79%, right internal carotid artery stenosis of less than 40% per carotid u/s of 05/20/17 Hyperlipidemia being treated with lovastatin and being followed by Dr. Cano. Heme-positive stools in Jan 2014. Diffuse erosive gastritis, hemorrhoids, diverticulitis, no active bleeding per endoscopy in Jan [address] Rodgers, treated with H2 angie, PPI and Carafate (managed by Dr Rodgers). Recurrent heme (+) stools in March 2014 - capsule endoscopy and management by Dr Rodgers History of transient ischemic attacks. Borderline diabetes mellitus being managed by Dr. Cano. Right rotator cuff repair on 11/28/[address] Woodward due to a torn rotator cuff. Clinical Quality Measures DVT/VTE Risk/Contraindication: Risk Factor Score Per Nursin ADRIAN MCCANN MD Apr 12, 2018 12:28
--- NOTE | 2018-04-12 14:01 | Diagnostic Imaging Report ---
INDICATION: Cough. Study compared 04/10/2018. FINDINGS: Bilateral pleural effusions and cardiomegaly are present. Some vascular congestion as well as mild interstitial edema. IMPRESSION: Findings suggest mild failure pattern or sequelae of hypervolemia with enlarged heart, vascular distention, pleural effusions and probable mild edema. Dictated by: Dictated on workstation # [id number]
--- NOTE | 2018-04-12 15:03 | NUR ---
LAB HAS BEEN UNSUCCESSFUL AFTER SEVERAL ATTEMPTS TO DRAW PT'S BLOOD. THIS RN ATTEMPTED TO DRAW BLOOD FROM HEPLOCK IV SITE AND SITE NOTED TO BE LEAKING. IV D/C DR LEBRON NOTIFIED AND NEW ORDERS RECEIVED TO HOLD OFF ON IV ABX AT THIS TIME.
--- NOTE | 2018-04-12 16:12 | NUR ---
1530 DR COFFEY NOTIFIED OF PVR RESULTS OF 281 PT URINATED 200ML.NO NEW ORDERS RECEIVED.
[2018-04-12] MEDS: TAMSULOSIN 0.4 MG (FLOMAX) CAP PO SCH (17:27)
[2018-04-12 17:56] VITALS: BP 116/53
[2018-04-12] MEDS ORDERED: warFARin 3 MG (COUMADIN) TAB PO SCH (18:00)
[2018-04-12] MEDS: ATORVASTATIN 20 MG (LIPITOR) TABLET PO SCH (20:43)
[2018-04-12] MEDS: RT-ADVAIR HFA 115/21 MCG PER PUFF IH SCH (20:59)
[2018-04-13] MEDS: RT-ALBUTEROL/IPRATROPIUM 3 ML (DUONEB) VIAL INH SCH ×5 (01:27→22:48)
[2018-04-13] MEDS: MEROPENEM 500 MG in WATER (STERILE) FOR INJECTION 10 ML IV SCH ×2 (03:04→10:56)
[2018-04-13] MEDS: BETHANECHOL 25 MG (URECHOLINE) TAB PO SCH ×4 (06:28→20:27)
[2018-04-13] MEDS: GLIMEPIRIDE 4 MG (AMARYL) TAB PO SCH (06:28)
[2018-04-13] MEDS: PHENAZOPYRIDINE 100 MG (PYRIDIUM) TABLET PO SCH ×3 (06:28→18:53)
[2018-04-13] MEDS: LEVOTHYROXINE 25 MCG (LEVOTHROID) TAB PO SCH (06:28)
[2018-04-13] MEDS: OMEPRAZOLE PO SCH (06:29)
[2018-04-13 06:45] VITALS: BP 128/60
--- NOTE | 2018-04-13 07:00 | NUR ---
PER DR GRAVES ORDER, POST VOID SCANNED PATIENT. 275 OUT, 176 RESIDUAL. CALLED INFORMATION TO DR GRAVES. NO FURTHER ORDERS.
[2018-04-13] MEDS: ASPIRIN E.C. 81 MG (ECOTRIN) TAB PO SCH (07:53)
[2018-04-13] MEDS: ALLOPURINOL 100 MG (ZYLOPRIM) TAB PO SCH ×2 (07:54→20:27)
[2018-04-13] MEDS: DILTIAZEM 300 MG (CARDIZEM CD) CAP PO SCH (07:54)
[2018-04-13] MEDS: DOCUSATE SODIUM 100 MG (COLACE) CAP PO SCH (07:54)
[2018-04-13] MEDS: busPIRone 5 MG (BUSPAR) TAB PO SCH (07:54)
[2018-04-13] MEDS: ENALAPRIL 10 MG (VASOTEC) TAB PO SCH (07:54)
[2018-04-13] MEDS: FLUTICASONE NASAL SPRAY (FLONASE) 16 GM BTL NS SCH (07:55)
--- NOTE | 2018-04-13 08:55 | Progress Note-Cardiology ---
Cardiology SOAP Progress Note Subjective: Sitting up in a recliner at the bedside. Continues to c/o dyspnea, but feels some mod improvement. No c/o CP, palpitations, syncope or near syncope. Objective: I&O/Vital Signs 04/13/18 04/13/18 04/13/18 04/13/18 01:00 01:27 06:45 07:00 Temp 97.1 Pulse 83 90 108 Resp 22 B/P (MAP) 128/60 (82) Pulse Ox 92 94 O2 Delivery NIV CPAP Nasal Cannula O2 Flow Rate 5.00 2.00 04/13/18 00:00 Intake Total 1057 ml Output Total 881 ml Balance 176 ml Weight (Pounds): 203 Weight (Ounces): 0.0 Weight (Calculated Kilograms): 92.356113 Constitutional: AAO x 3, well-developed, well-nourished Respiratory: No accessory muscle use, No respiratory distress; chest expansion is symmetric, chest is bilaterally symmetric, other (prolonged exp phase; diminished bases bilat) Cardiovascular: irregularly irregular; No JVD; S1 and S2, other (crisp mechanical valve) Gastrointestional: No tender; soft, round, audible bowel sounds Extremities: other (generalized swelling; L arm > R arm) Neurologic/Psychiatric: grossly intact Skin: No rash, No ulcerations Results/Procedures: Labs Laboratory Tests 04/13/18 10:45: White Blood Count 11.5H, Red Blood Count 3.40L, Hemoglobin 10.2L, Hematocrit 31L , Mean Corpuscular Volume 91, Mean Corpuscular Hemoglobin 30, Mean Corpuscular Hemoglobin Concent 33, Red Cell Distribution Width 15.4H, Platelet Count 357, Mean Platelet Volume 10.0, Neutrophils (%) (Auto) 90H, Lymphocytes (%) (Auto) 4L , Monocytes (%) (Auto) 6, Eosinophils (%) (Auto) 0, Basophils (%) (Auto) 0, Neutrophils # (Auto) 10.3H, Lymphocytes # (Auto) 0.5L, Monocytes # (Auto) 0.7, Eosinophils # (Auto) 0.0, Basophils # (Auto) 0.0 Procedures NAME: LAKIA ALLEN Sruthi [facility] REC#: [id number] PT STATUS: ADM IN : 1935 PHYSICIAN: WANDA PAYNE DO ADMIT DATE: 04/10/18 Signed Date of Exam: 04/12/18 CHEST 1 VIEW, AP/PA ONLY INDICATION: Cough. Study compared 04/10/2018. FINDINGS: Bilateral pleural effusions and cardiomegaly are present. Some vascular congestion as well as mild interstitial edema. IMPRESSION: Findings suggest mild failure pattern or sequelae of hypervolemia with enlarged heart, vascular distention, pleural effusions and probable mild edema. Dictated by: Dictated on workstation # [id number] Dict: 04/12/18 1345 Trans: 04/12/18 1415 Interpreted by: DANN RYDER Electronically signed by: DANN RYDER 04/12/18 1415 A/P: Assessment: Pneumonia, improving - management per Pulmonary/Medical services A-fib with RVR, rate is better controlled Chronic warfarin anticoagulation, managed by Dr Cano Valvular heart disease with a history of aortic valve replacement with #21 Carbomedics mechanical prosthetic valve for aortic stenosis and mitral valve repair with 27 mm ring for mitral regurgitation in 2002. Acute on chronic diastolic CHF Echo of 03/16/18: LVEF 55-60%, mod conc LVH, biatrial enlargement, mod MR, adequately functioning aortic prosthetic valve, PASP 60-65 mmHg PAD and claudication - DYLON of 3-1-18 report mod PVD. DYLON R 0.63, L 0.63. Last peripheral angio and intervention (R leg) on 09/09/17 at which time she underwent successful balloon angioplasty of the R peroneal with reduction of a 95% ostial stenosis to less than 30% residual; both R tibials are occluded and collateralized. Previously, she has undergone bilateral kissing stents of both common iliacs and extensive balloon angioplasty and stenting of the R SFA by Dr Loaiza on 12/31/13. Subsequently, on 01/07/14, Dr Loaiza did stenting of L SFA and successful balloon angioplasty of L peroneal and L anterior tibial arteries, but angioplasty to chronic occlusion of L posterior tibial was unsuccessful and resulted in subintimal dissection Acute on chronic renal failure - CKD stage III H/O stress fracture of left foot May 2017 CVA: L-sided weakness and L-visual field cut in Dec 2015. 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 Payne. Cardiac cath of 06-24-2013 showed CAD, mild to moderate. Moderate mid vessel stenosis of the LAD with fractional flow reserve across the lesion of 0.95. Moderate mid vessel stenosis of the RCA with fractional flow reserve across the lesion of 0.95. Patent stents in the proximal left circumflex and the mid RCA which were placed in 2004, followed by Dr Calloway MPI of 07-18-15 did not indicate significant myocardial ischemia or infarction. Normal regional wall motion. Normal global LV systolic function with calculated ejection fraction of 69%. Normal LV cavity size Left internal carotid artery stenosis of 60-79%, right internal carotid artery stenosis of less than 40% per carotid u/s of 05/20/17 Hyperlipidemia being treated with lovastatin and being followed by Dr. Cano. Heme-positive stools in Jan 2014. Diffuse erosive gastritis, hemorrhoids, diverticulitis, no active bleeding per endoscopy in Jan [address] Rodgers, treated with H2 angie, PPI and Carafate (managed by Dr Rodgers). Recurrent heme (+) stools in March 2014 - capsule endoscopy and management by Dr Rodgers History of transient ischemic attacks. Borderline diabetes mellitus being managed by Dr. Cano. Right rotator cuff repair on 11/28/[address] Woodward due to a torn rotator cuff. Plan: Continue current medication regimen Monitor INR closely Monitor lab closely Restart oral diuretics with potassium replacement Physician Assessment Physician Assessment Cough and shortness of breath better, but not resolved Malaise persistent as before No cp or palp or syncope Cor: irreg Lung: scattered rhonchi, prolonged exp Ext: no c/c/e A&R * As documented in our note above that I updated, and as noted below * Monitor labs OBED COLLIER Apr 13, 2018 08:55 WALDEMAR CALLOWAY MD FACP FAC CCDS Apr 13, 2018 11:21
[2018-04-13] MEDS ORDERED: KCL 20 MEQ TAB (K-DUR) PO NR (09:15)
[2018-04-13] MEDS ORDERED: FUROSEMIDE 40 MG/4 ML INJ (LASIX) IVP NR (09:15)
[2018-04-13] MEDS: methylPREDNISolone 40 MG/ML (Solu-MEDROL) VIAL IV SCH ×2 (10:55→20:27)
[2018-04-13 10:56] LABS: BASOPHILS % (AUTO) 0 % (0-10); EOSINOPHILS % (AUTO) 0 % (0-10); HEMATOCRIT 31 % (35-52); HEMOGLOBIN 10.2 G/DL (11.5-16.0); LYMPHOCYTES # (AUTO) 0.5 X 10^3 (1.0-4.0); LYMPHOCYTES % (AUTO) 4 % (12-44); MEAN CORPUSCULAR HEMOGLOBIN 30 PG (25-34); MEAN CORPUSCULAR HGB CONC 33 G/DL (32-36); MEAN CORPUSCULAR VOLUME 91 FL (80-99); MONOCYTES # (AUTO) 0.7 X 10^3 (0.0-1.0); MONOCYTES % (AUTO) 6 % (0-12); NEUTROPHILS # (AUTO) 10.3 X 10^3 (1.8-7.8); NEUTROPHILS % (AUTO) 90 % (42-75); PLATELET COUNT 357 10^3/uL (130-400); RED CELL DISTRIBUTION WIDTH 15.4 % (10.0-14.5); WHITE BLOOD COUNT 11.5 10^3/uL (4.3-11.0)
[2018-04-13 11:17] LABS: CALCIUM 9.1 MG/DL (8.5-10.1); CREATININE SERUM 2.27 MG/DL (0.60-1.30); MAGNESIUM 2.4 MG/DL (1.8-2.4); POTASSIUM 5.4 MMOL/L (3.6-5.0)
[2018-04-13 11:21] LABS: BAND NEUTROPHILS 0 %; BASOPHILS % (MANUAL) 0 %; EOSINOPHILS % (MANUAL) 0 %; LYMPHOCYTES % (MANUAL) 12 %; MONOCYTES % (MANUAL) 6 %; NEUTROPHILS % (MANUAL) 82 %; RBC MORPH NORMAL
--- NOTE | 2018-04-13 11:25 | Progress Note-Cardiology ---
Cardiology SOAP Progress Note Subjective: Cough and shortness of breath better, but not resolved Weakness and malaise persistent No cp or palp or syncope Objective: I&O/Vital Signs 04/13/18 04/13/18 04/13/18 04/13/18 01:00 01:27 06:45 07:00 Temp 97.1 Pulse 83 90 108 Resp 22 B/P (MAP) 128/60 (82) Pulse Ox 92 94 O2 Delivery NIV CPAP Nasal Cannula O2 Flow Rate 5.00 2.00 04/13/18 00:00 Intake Total 1057 ml Output Total 881 ml Balance 176 ml Weight (Pounds): 203 Weight (Ounces): 0.0 Weight (Calculated Kilograms): 92.163866 Constitutional: AAO x 3, well-developed, well-nourished Respiratory: No accessory muscle use, No respiratory distress; chest expansion is symmetric, chest is bilaterally symmetric, other (prolonged exp phase; diminished bases bilat) Cardiovascular: irregularly irregular; No JVD; S1 and S2, other (crisp mechanical valve) Gastrointestional: No tender; soft, round, audible bowel sounds Extremities: other (generalized swelling; L arm > R arm) Neurologic/Psychiatric: grossly intact Skin: No rash, No ulcerations Results/Procedures: Labs Laboratory Tests 04/13/18 10:45: White Blood Count 11.5H, Red Blood Count 3.40L, Hemoglobin 10.2L, Hematocrit 31L , Mean Corpuscular Volume 91, Mean Corpuscular Hemoglobin 30, Mean Corpuscular Hemoglobin Concent 33, Red Cell Distribution Width 15.4H, Platelet Count 357, Mean Platelet Volume 10.0, Neutrophils (%) (Auto) 90H, Lymphocytes (%) (Auto) 4L , Monocytes (%) (Auto) 6, Eosinophils (%) (Auto) 0, Basophils (%) (Auto) 0, Neutrophils # (Auto) 10.3H, Lymphocytes # (Auto) 0.5L, Monocytes # (Auto) 0.7, Eosinophils # (Auto) 0.0, Basophils # (Auto) 0.0, Neutrophils % (Manual) 82, Lymphocytes % (Manual) 12, Monocytes % (Manual) 6, Eosinophils % (Manual) 0, Basophils % (Manual) 0, Band Neutrophils 0, Blood Morphology Comment NORMAL, Sodium Level 129L, Potassium Level 5.4H, Chloride Level 102, Carbon Dioxide Level 17L, Anion Gap 10, Blood Urea Nitrogen 50H, Creatinine 2.27H, Estimat Glomerular Filtration Rate 21, BUN/Creatinine Ratio 22, Glucose Level 338H, Calcium Level 9.1, Phosphorus Level 4.0, Magnesium Level 2.4 A/P: Assessment: Pneumonia, improving - management per Pulmonary/Medical services A-fib with RVR, rate is better controlled Chronic warfarin anticoagulation, managed by Dr Cano Valvular heart disease with a history of aortic valve replacement with #21 Carbomedics mechanical prosthetic valve for aortic stenosis and mitral valve repair with 27 mm ring for mitral regurgitation in 2002. Acute on chronic diastolic CHF Echo of 03/16/18: LVEF 55-60%, mod conc LVH, biatrial enlargement, mod MR, adequately functioning aortic prosthetic valve, PASP 60-65 mmHg PAD and claudication - DYLON of 3-18 report mod PVD. DYLON R 0.63, L 0.63. Last peripheral angio and intervention (R leg) on 09/09/17 at which time she underwent successful balloon angioplasty of the R peroneal with reduction of a 95% ostial stenosis to less than 30% residual; both R tibials are occluded and collateralized. Previously, she has undergone bilateral kissing stents of both common iliacs and extensive balloon angioplasty and stenting of the R SFA by Dr Loaiza on 12/31/13. Subsequently, on 01/07/14, Dr Loaiza did stenting of L SFA and successful balloon angioplasty of L peroneal and L anterior tibial arteries, but angioplasty to chronic occlusion of L posterior tibial was unsuccessful and resulted in subintimal dissection Acute on chronic renal failure - CKD stage III H/O stress fracture of left foot May 2017 CVA: L-sided weakness and L-visual field cut in Dec 2015. 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 Payne. Cardiac cath of 06-24-2013 showed CAD, mild to moderate. Moderate mid vessel stenosis of the LAD with fractional flow reserve across the lesion of 0.95. Moderate mid vessel stenosis of the RCA with fractional flow reserve across the lesion of 0.95. Patent stents in the proximal left circumflex and the mid RCA which were placed in 2004, followed by Dr Estrella MPI of 16 did not indicate significant myocardial ischemia or infarction. Normal regional wall motion. Normal global LV systolic function with calculated ejection fraction of 69%. Normal LV cavity size Left internal carotid artery stenosis of 60-79%, right internal carotid artery stenosis of less than 40% per carotid u/s of 05/20/17 Hyperlipidemia being treated with lovastatin and being followed by Dr. Cano. Heme-positive stools in Jan 2014. Diffuse erosive gastritis, hemorrhoids, diverticulitis, no active bleeding per endoscopy in Jan [address] Rodgers, treated with H2 angie, PPI and Carafate (managed by Dr Rodgers). Recurrent heme (+) stools in March 2014 - capsule endoscopy and management by Dr Rodgers History of transient ischemic attacks. Borderline diabetes mellitus being managed by Dr. Cano. Right rotator cuff repair on 11/28/[address] Woodward due to a torn rotator cuff. Plan: * Continue current regimen * Monitor labs WALDEMAR ESTRELLA MD FACP FACC CCDS Apr 13, 2018 11:25
--- NOTE | 2018-04-13 11:43 | Occupational Ther Daily Note ---
OT Current Status-Daily Note Subjective Pt alert, lying in bed. BiPap on due to increase coughing. Pt agrees to therapy. Mental Status/Objective Patient Orientation: Person, Place, Time, Situation Therapy Code Descriptions/Definitions Functional [place] Measure: 0=Not Assessed/NA 4=Minimal Assistance 1=Total Assistance 5=Supervision or Setup 2=Maximal Assistance 6=Modified [place] 3=Moderate Assistance 7=Complete [place] Attachments: IV, Oxygen, Telemetry ADL-Treatment Attempted to complete oral care. Pt took off Bipap and place O2 on at 2L, pt started coughing within 5 min. Stopped and replace BiPap. Then [place] adjusted BSC's height to allow ease of sit <--> stand. Pt then stated that she needed to use BSC. Mod A and verbal cues for energy conservation tech when going from supine to sit. Assist to scoot forward in bed. CGA using FWW to complete transfer to BSC. Assist to hike briefs over hips. Pt cleansed self after urination. Pt then laid back in bed with mod A. Call light/phone in reach. All needs met in room. Therapy Code Descriptions/Definitions Functional [place] Measure: 0=Not Assessed/NA 4=Minimal Assistance 1=Total Assistance 5=Supervision or Setup 2=Maximal Assistance 6=Modified [place] 3=Moderate Assistance 7=Complete [place] Therapy Quality Codes: 6 Independent with activity with or without an assistive device 5 Patient requires set up or clean up by helper. Patient completes activity by themselves 4 Supervision or touching assist (CGA). [place] provide cues , steadying assist 3 The helper provides less than half the effort to complete the activity 2 The helper provides more than half the effort to complete the activity 1 Dependent. The helper does all the effort to complete an activity 7 Patient refused to complete or attempt activity 9 The patient did not perform the activity before the current illness or injury 88 Not attempted due to Medical conditions or safety concerns Toileting (FIM): 4 Toileting Hygiene (QC): 3 Toilet/Commode Transfer (FIM): 4 Toilet Transfer (QC): 4 OT Short Term Goals Short Term Goals Transfers (B,C,W/C) (FIM): 5 1=Demonstrate adherence to instructed precautions during ADL tasks. 2=Patient will verbalize/demonstrate understanding of assistive devices/ modifications for ADL. 3=Patient will improve strength/tolerance for activity to enable patient to perform ADL's. OT Care Home Goals Pole Framer Machine Goals Time Frame: May 01, 2018 Eating (FIM): 6 Eating (QC): 6 Groomin Oral Hygiene (QC): 6 Bathing(FIM): 4 Shower/Bathe Self (QC): 4 Upper Body Dressing(FIM): 5 Upper Body Dressing (QC): 5 Lower Body Dressing(FIM): 5 Lower Body Dressing (QC): 5 On/Off Footwear (QC): 5 Toileting(FIM): 6 Toileting Hygiene (QC): 6 Toilet/Commode Transfer(FIM): 6 Toilet/Commode Transfer (QC): 6 Additional Goals: 1-Demonstrate ADL Tasks, 2-Verbalize Understanding, 3- ImproveStrength/[place] 1=Demonstrate adherence to instructed precautions during ADL tasks. 2=Patient will verbalize/demonstrate understanding of assistive devices/ modifications for ADL. 3=Patient will improve strength/tolerance for activity to enable patient to perform ADL's. OT Education/Plan Problem List/Assessment Pt to benefit from skilled OT intervention for ADL training, transfers, strengthening, and safety education to increase level of independence and allow safe discharge. Discharge Recommendations Plan/Recommendations: Continue POC Treatment Plan/Plan of Care Patient would benefit from OT for education, treatment and training to promote independence in ADL's, mobility, safety and/or upper extremity function for ADL' s. Plan of Care: ADL Retraining, Functional Mobility, UE Funct Exercise/Act Treatment Duration: May 01, 2018 Frequency: 5 times per week Estimated Hrs Per Day: .25 hour per day Rehab Potential: Fair Time/GCodes Start Time: 11:10 Stop Time: 11:35 Total Time Billed (hr/min): 25 Billed Treatment Time 1 visit-ADL 2 (35 min) ROHAN RODRIGUEZ Apr 13, 2018 11:43
--- NOTE | 2018-04-13 11:45 | Progress Note-Hospitalist ---
Subjective HPI/CC On Admission Date Seen by Provider: Apr 13, 2018 Time Seen by Provider: 11:40 Subjective/Events-last exam Pt reports feeling poorly and weak. Otherwise won't elaborate on symptoms and tells me to just talk with her nurse Smitha. Objective Exam Vital Signs Vital Signs Date Time Temp Pulse Resp B/P (MAP) Pulse Ox O2 Delivery O2 Flow Rate FiO2 04/13/18 07:00 108 04/13/18 06:45 97.1 22 128/60 (82) 94 Nasal Cannula 2.00 Capillary Refill : Less Than 3 Seconds General Appearance: Chronically ill HEENT: PERRL/EOMI, Other (CPAP mask in place but CPAP not on) Respiratory: No Accessory Muscle Use, No Respiratory Distress, Crackles, Decreased Breath Sounds Cardiovascular: Regular Rate, Rhythm, No Murmur Neurologic/Psychiatric: Alert, Oriented x3 Skin: Normal Color, Warm/Dry Results/Procedures Lab Laboratory Tests 04/13/18 10:45 Patient resulted labs reviewed. Assessment/Plan Assessment and Plan Assess & Plan/Chief Complaint Severe Sepsis with ESBL Bacteremia Diagnosis/Problems Diagnosis/Problems (1) Infection due to ESBL-producing Escherichia coli Status: Acute Assessment & Plan: Blood cultures positive x2 for ESBL e coli Continue on Merrem started on 04/09 Urinary source (2) Aortic valve replaced Status: Chronic Assessment & Plan: Cardiology consulted, appreciate recs Continue coumadin (3) Hypothyroidism Status: Chronic Assessment & Plan: Continue home supplement (4) COPD (chronic obstructive pulmonary disease) Status: Chronic Assessment & Plan: Pulm consulted, appreciate recs Still on IV Solu-Medrol (5) A-fib Assessment & Plan: Continue current meds Rate controlled Qualifiers: Atrial fibrillation type: paroxysmal Qualified Codes: I48.0 - Paroxysmal atrial fibrillation (6) PAD (peripheral artery disease) Status: Chronic Assessment & Plan: On coumadin for AVR Cardiology consulted, appreciate recs (7) Non-insulin dependent type 2 diabetes mellitus Assessment & Plan: Continue current regimen Clinical Quality Measures DVT/VTE Risk/Contraindication: Risk Factor Score Per Nursin VIVEK FERNANDEZ MD Apr 13, 2018 11:44
--- NOTE | 2018-04-13 11:45 | Physical Therapy Progress Note ---
Therapy Progress Note 10:42 Pt refused PT due to coughing fit she had just had. PT reported they would try back around 11:30. 11:40 Pt refused due to trouble breathing. Reported she was only able to get to commode and didn't want to get to recliner or walk. MATY LLANES PT Apr 13, 2018 11:45
[2018-04-13 13:44] LABS: INR 3.7 (0.8-1.4); PROTHROMBIN TIME PATIENT 37.1 SEC (12.2-14.7)
[2018-04-13] MEDS: RT-ADVAIR HFA 115/21 MCG PER PUFF IH SCH ×2 (16:09→19:55)
--- NOTE | 2018-04-13 17:08 | Pulmonary Progress Note ---
Subjective Time Seen by a Provider: 06:05 Subjective/Events-last exam C/o SOB, nonproductive cough, and fatigue. Sepsis Event Evaluation Height, Weight, BMI Height: 5'6.50" Weight: 203lbs. 0.0oz. 92.627947cu; 28.4 BMI Method:Stated Exam Exam Vital Signs Date Time Temp Pulse Resp B/P (MAP) Pulse Ox O2 Delivery O2 Flow Rate FiO2 04/13/18 16:11 92 Nasal Cannula 2.00 04/13/18 13:00 57 04/13/18 07:00 108 04/13/18 06:45 97.1 90 22 128/60 (82) 94 Nasal Cannula 2.00 04/13/18 01:27 92 NIV CPAP 5.00 04/13/18 01:00 83 04/12/18 22:09 89 NIV CPAP 3.00 04/12/18 21:00 94 Nasal Cannula 2.00 04/12/18 19:00 76 04/12/18 18:55 95 NIV CPAP 3.00 04/12/18 17:56 97.6 70 20 116/53 (74) 93 Nasal Cannula 2.00 I & O 04/13/18 07:00 Intake Total 1107 ml Output Total 1156 ml Balance -49 ml Height & Weight Height: 5'6.50" Weight: 203lbs. 0.0oz. 92.421530sa; 28.4 BMI Method:Stated General Appearance: Anxious, Chronically ill HEENT: PERRL/EOMI Respiratory: No Accessory Muscle Use, No Respiratory Distress, Crackles, Decreased Breath Sounds Cardiovascular: Regular Rate, Rhythm, No Murmur Capillary Refill: Less Than 3 Seconds Gastrointestinal: normal bowel sounds, non tender, soft Neurologic/Psychiatric: Alert, Oriented x3 Skin: Normal Color, Warm/Dry Results Lab Laboratory Tests 04/13/18 10:45 Assessment/Plan Assessment/Plan ESBL PNA with sepsis - Merrem secondary to ESBL -olvera cultures Pulmonary edema with bilateral R>L pleural effusions - doubt emphyema -Pt is fully anticoagulated with Coumadin currently Atelectasis -IS and increase activity Cough- - Robitussin AC -SVNs Bacteremia with Ecoli probably secondary to UTI -Merrem Acute on chronic respiratory failure -BiPAP PRN anemia -Monitor Afib -coumadin -Rate control Acute renal failure with metabolic acidosis (lactic acid is normal ) -Monitor COPDAE -SVNS Aortic valve replacement -Currently on Coumadin -Cardiology consulted Hypothyroid -Synthroid WANDA LEBRON DO Apr 13, 2018 17:08
[2018-04-13 18:25] VITALS: BP 114/53
[2018-04-13] MEDS: TAMSULOSIN 0.4 MG (FLOMAX) CAP PO SCH (18:53)
[2018-04-13] MEDS: warFARin 3 MG (COUMADIN) TAB PO SCH (18:54)
[2018-04-13] MEDS: ATORVASTATIN 20 MG (LIPITOR) TABLET PO SCH (20:27)
[2018-04-13] MEDS: guaiFENesin/DM (ROBITUSSIN DM) 10 ML UDC PO PRN (20:27)
[2018-04-13] MEDS: MEROPENEM 500 MG/SWFI 10 ML IV PUSH IV SCH ×2 (22:59)
[2018-04-14] MEDS: RT-ALBUTEROL/IPRATROPIUM 3 ML (DUONEB) VIAL INH SCH ×6 (02:48→22:40)
[2018-04-14 05:28] VITALS: BP 128/59
--- NOTE | 2018-04-14 06:08 | Pulmonary Progress Note ---
Subjective Time Seen by a Provider: 06:06 Sepsis Event Evaluation Height, Weight, BMI Height: 5'6.50" Weight: 201lbs. 14.4oz. 91.613853lq; 28.4 BMI Method:Stated Exam Exam Vital Signs Date Time Temp Pulse Resp B/P (MAP) Pulse Ox O2 Delivery O2 Flow Rate FiO2 04/14/18 05:28 98.1 91 18 128/59 (82) 93 NIV Bilevel 3.00 04/14/18 02:48 90 NIV CPAP 2.00 04/14/18 01:00 88 04/13/18 22:48 92 NIV CPAP 2.00 04/13/18 21:00 Nasal Cannula 2.00 04/13/18 19:55 88 Nasal Cannula 2.00 04/13/18 19:55 Nasal Cannula 2.00 04/13/18 19:00 80 04/13/18 18:25 96.8 71 16 114/53 (73) 90 04/13/18 16:11 92 Nasal Cannula 2.00 04/13/18 13:00 57 04/13/18 09:00 94 Nasal Cannula 2.00 04/13/18 07:00 108 04/13/18 06:45 97.1 90 22 128/60 (82) 94 Nasal Cannula 2.00 I & O 04/14/18 07:00 Intake Total 1320 ml Output Total 850 ml Balance 470 ml Height & Weight Height: 5'6.50" Weight: 201lbs. 14.4oz. 91.438902os; 28.4 BMI Method:Stated General Appearance: Anxious, Chronically ill HEENT: PERRL/EOMI Respiratory: No Accessory Muscle Use, No Respiratory Distress, Crackles, Decreased Breath Sounds Cardiovascular: Regular Rate, Rhythm, No Murmur Capillary Refill: Less Than 3 Seconds Gastrointestinal: normal bowel sounds, non tender, soft Neurologic/Psychiatric: Alert, Oriented x3 Skin: Normal Color, Warm/Dry Results Lab Laboratory Tests 04/13/18 10:45 Assessment/Plan Assessment/Plan ESBL PNA with sepsis - Merrem secondary to ESBL -olvera cultures -Repeat CXR this AM -Labs pending Pulmonary edema with bilateral R>L pleural effusions - doubt emphyema -Pt is fully anticoagulated with Coumadin currently Atelectasis -IS and increase activity Cough- - Robitussin AC -SVNs Bacteremia with Ecoli probably secondary to UTI -Merrem Acute on chronic respiratory failure -BiPAP PRN anemia -Monitor Afib -coumadin -Rate control Acute renal failure with metabolic acidosis (lactic acid is normal ) -Monitor COPDAE -SVNS Aortic valve replacement -Currently on Coumadin -Cardiology consulted Hypothyroid -Synthroid WANDA LEBRON DO Apr 14, 2018 06:08
[2018-04-14] MEDS: BETHANECHOL 25 MG (URECHOLINE) TAB PO SCH ×4 (06:29→21:33)
[2018-04-14] MEDS: LEVOTHYROXINE 25 MCG (LEVOTHROID) TAB PO SCH (06:29)
[2018-04-14] MEDS: OMEPRAZOLE PO SCH (06:29)
[2018-04-14] MEDS: GLIMEPIRIDE 4 MG (AMARYL) TAB PO SCH (06:29)
[2018-04-14] MEDS: PHENAZOPYRIDINE 100 MG (PYRIDIUM) TABLET PO SCH ×3 (06:29→16:38)
[2018-04-14] MEDS: guaiFENesin/DM (ROBITUSSIN DM) 10 ML UDC PO PRN ×2 (06:32→16:38)
[2018-04-14 06:46] LABS: HEMOGLOBIN 9.8 G/DL (11.5-16.0); MEAN PLATELET VOLUME 11.1 FL (7.4-10.4); RED CELL DISTRIBUTION WIDTH 15.1 % (10.0-14.5); WHITE BLOOD COUNT 10.1 10^3/uL (4.3-11.0)
[2018-04-14 06:59] LABS: INR 4.2 (0.8-1.4); PROTHROMBIN TIME PATIENT 40.5 SEC (12.2-14.7)
[2018-04-14] MEDS ORDERED: KCL 20 MEQ TAB (K-DUR) PO SCH (07:00)
[2018-04-14] MEDS: RT-ADVAIR HFA 115/21 MCG PER PUFF IH SCH ×2 (07:07→22:46)
[2018-04-14 07:10] LABS: CALCIUM 8.8 MG/DL (8.5-10.1); CREATININE SERUM 2.28 MG/DL (0.60-1.30); MAGNESIUM 1.9 MG/DL (1.8-2.4)
--- NOTE | 2018-04-14 07:50 | NUR ---
DR FERNANDEZ RETURNED CALL REGARDING CRITICAL BLOOD GLUCOSE OF 524. START SLIDING SCALE B AND GIVE THE HIGHEST DOSE ON THE SCALE NOW
[2018-04-14] MEDS: ALLOPURINOL 100 MG (ZYLOPRIM) TAB PO SCH ×2 (08:41→21:33)
[2018-04-14] MEDS: busPIRone 5 MG (BUSPAR) TAB PO SCH (08:41)
[2018-04-14] MEDS: DILTIAZEM 300 MG (CARDIZEM CD) CAP PO SCH (08:41)
[2018-04-14] MEDS: DOCUSATE SODIUM 100 MG (COLACE) CAP PO SCH (08:41)
[2018-04-14] MEDS: ASPIRIN E.C. 81 MG (ECOTRIN) TAB PO SCH (08:41)
[2018-04-14] MEDS: methylPREDNISolone 40 MG/ML (Solu-MEDROL) VIAL IV SCH (08:41)
[2018-04-14] MEDS: ENALAPRIL 10 MG (VASOTEC) TAB PO SCH (08:41)
[2018-04-14] MEDS: inSUlin ASPART (NovoLOG) 1 UNIT/0.01 ML (CHARGE PER UNIT) SC SCH ×4 (08:42→21:33)
[2018-04-14] MEDS: NS IV 1000 ML 1,000 ML IV SCH ×2 (08:42→16:39)
[2018-04-14] MEDS: FLUTICASONE NASAL SPRAY (FLONASE) 16 GM BTL NS SCH (08:42)
[2018-04-14] MEDS ORDERED: FUROSEMIDE 40 MG (LASIX) TAB PO SCH (09:00)
--- NOTE | 2018-04-14 09:16 | Progress Note-Urology ---
Progress Note-Urology Progress Notes/Assess & Plan Progress/Assessment & Plan VOIDING ON OWN. PVR LESS THAN 125CC. RECHECK TODAY. TOLERATES FLOMAX AND URECHOLINE WELL Final Diagnosis URINE RETENTION MARILIN COFFEY MD Apr 14, 2018 09:16
--- NOTE | 2018-04-14 09:36 | Physical Therapy Daily Note ---
PT Daily Note-Current Subjective Pt in recliner and agrees to PT. Pain Numeric Pain Scale: 0-No Pain Location: No Pain Reported Mental Status Patient Orientation: Person, Place, Situation, Normal For Age Attachments: Oxygen (2L) Transfers Therapy Code Descriptions/Definitions Functional [place] Measure: 0=Not Assessed/NA 4=Minimal Assistance 1=Total Assistance 5=Supervision or Setup 2=Maximal Assistance 6=Modified [place] 3=Moderate Assistance 7=Complete [place] Therapy Quality Codes: 6 Independent with activity with or without an assistive device 5 Patient requires set up or clean up by helper. Patient completes activity by themselves 4 Supervision or touching assist (CGA). [place] provide cues , steadying assist 3 The helper provides less than half the effort to complete the activity 2 The helper provides more than half the effort to complete the activity 1 Dependent. The helper does all the effort to complete an activity 7 Patient refused to complete or attempt activity 9 The patient did not perform the activity before the current illness or injury 88 Not attempted due to Medical conditions or safety concerns Transfers (B, C, W/C) (FIM): 3 Scootin Sit to/from Stand: 3 Sit to Stand (QC): 3 Weight Bearing Right Lower Extremity: Right Full Weight Bearing Left Lower Extremity: Left Full Weight Bearing Gait Training Does the Patient Walk?: Yes Gait (FIM): 2 Distance (FIM): 3=310-11 ft Distance: 60' Walk 10 feet (QC): 4 Walk 50 ft with 2 Turns(QC): 4 Gait Level of Assist: 4 Gait Persons Needed: 1 Gait Assistive Device: FWW Pt uses wide ZAHIRA Exercises Seated Therapy Exercises: Ankle pumps, Long arc quads, Hip flexion Seated Reps: 15 Assessment Current Status: Fair Progress Pt requires rocking momentum to initiate sit<>stand transfer and is mod A to successfully stand to FWW. Pt was able to amb 60' with FWW and CGA for safety and 2L O2. Pt was very fatigued and SOA after amb. Pt required a recovery period before performing seated LE ex. Pt performed seated LE ex in recliner. Pt has all needs met and is in recliner. PT Short Term Goals Short Term Goals Time Frame: Apr 17, 2018 Transfers (B,C,W/C) (FIM): 5 Gait (FIM): 4 Distance (FIM): 3=150 ft Gait Distance Comment: 200' Gait Level of Assist: 4 Gait Assistive Device: FWW PT Half-Way Goals Business Management Analyst Goals PT Half-Way Goals Time Frame: May 08, 2018 Transfers (B,C,W/C) (FIM): 5 Sit to Lying (QC): 6 Lying-Sitting on Side/Bed(QC): 6 Sit to Stand (QC): 6 Rollin Roll Left to Right (QC): 6 Car Transfer (QC): 6 Does the Patient Walk: Yes Gait (FIM): 5 Gait distance (FIM): 3=150 ft Distance: 200' Walk 10 feet (QC): 6 Walk 10ft-Uneven Surface(QC): 6 Walk 50ft with 2 Turns (QC): 6 Walk 150 ft (QC): 6 Gait Level of Assist: 5 Gait Assistive Device: FWW PT Plan Problem List Problem List: Activity Tolerance, Functional Strength, Safety, Balance, Gait, Transfer, Bed Mobility, ROM Treatment/Plan Treatment Plan: Continue Plan of Care Treatment Plan: Bed Mobility, Education, Functional Activity Tawana, Functional Strength, Gait, Safety, Therapeutic Exercise, Transfers Treatment Duration: Apr 17, 2018 Frequency: 6 times per week Estimated Hrs Per Day: .25 hour per day (15-30 min) Patient and/or Family Agrees t: Yes Time/GCodes Time In: 805 Time Out: 821 Total Billed Treatment Time: 16 Total Billed Treatment 1 visit FA 16 min MATY LLANES PT Apr 14, 2018 09:35
--- NOTE | 2018-04-14 09:45 | Progress Note-Cardiology ---
Cardiology SOAP Progress Note Subjective: Sitting up in the recliner. Feels breathing is better today. No c/o CP, palpitations, syncope or near syncope. Continues to c/o LE swelling. Objective: I&O/Vital Signs 04/14/18 04/14/18 04/14/18 04/14/18 01:00 02:48 05:28 07:00 Temp 98.1 Pulse 88 91 89 Resp 18 B/P (MAP) 128/59 (82) Pulse Ox 90 93 O2 Delivery NIV CPAP NIV Bilevel O2 Flow Rate 2.00 3.00 04/14/18 04/14/18 04/14/18 07:08 07:15 11:16 Pulse Ox 94 90 O2 Delivery Nasal Cannula Nasal Cannula NIV CPAP O2 Flow Rate 2.00 2.00 2.00 04/14/18 00:00 Intake Total 1320 ml Output Total 850 ml Balance 470 ml Weight (Pounds): 201 Weight (Ounces): 14.4 Weight (Calculated Kilograms): 91.007820 Constitutional: AAO x 3, well-developed, well-nourished Respiratory: No accessory muscle use, No respiratory distress; chest expansion is symmetric, chest is bilaterally symmetric, other (prolonged exp phase; diminished bases bilat) Cardiovascular: irregularly irregular; No JVD; S1 and S2, other (crisp mechanical valve) Gastrointestional: No tender; soft, round, audible bowel sounds Extremities: other (generalized swelling; L arm > R arm) Neurologic/Psychiatric: grossly intact Skin: No rash, No ulcerations Results/Procedures: Labs Laboratory Tests 04/14/18 06:29: White Blood Count 10.1, Red Blood Count 3.31L, Hemoglobin 9.8L, Hematocrit 30L, Mean Corpuscular Volume 92, Mean Corpuscular Hemoglobin 30, Mean Corpuscular Hemoglobin Concent 32, Red Cell Distribution Width 15.1H, Platelet Count 328, Mean Platelet Volume 11.1H, Prothrombin Time 40.5H, INR Comment 4.2H, Sodium Level 126L, Potassium Level 6.0H, Chloride Level 102, Carbon Dioxide Level 16L, Anion Gap 8, Blood Urea Nitrogen 54H, Creatinine 2.28H, Estimat Glomerular Filtration Rate 21, BUN/Creatinine Ratio 24, Glucose Level 524*H, Calcium Level 8.8, Magnesium Level 1.9 04/14/18 11:14: Glucometer 395H A/P: Assessment: Pneumonia, improving - management per Pulmonary/Medical services A-fib with RVR, rate is better controlled Chronic warfarin anticoagulation, managed by Dr Cano Valvular heart disease with a history of aortic valve replacement with #21 Carbomedics mechanical prosthetic valve for aortic stenosis and mitral valve repair with 27 mm ring for mitral regurgitation in 2002. Acute on chronic diastolic CHF Echo of 03/16/18: LVEF 55-60%, mod conc LVH, biatrial enlargement, mod MR, adequately functioning aortic prosthetic valve, PASP 60-65 mmHg PAD and claudication - DYLON of 3-18 report mod PVD. DYLON R 0.63, L 0.63. Last peripheral angio and intervention (R leg) on 09/09/17 at which time she underwent successful balloon angioplasty of the R peroneal with reduction of a 95% ostial stenosis to less than 30% residual; both R tibials are occluded and collateralized. Previously, she has undergone bilateral kissing stents of both common iliacs and extensive balloon angioplasty and stenting of the R SFA by Dr Loaiza on 12/31/13. Subsequently, on 01/07/14, Dr Loaiza did stenting of L SFA and successful balloon angioplasty of L peroneal and L anterior tibial arteries, but angioplasty to chronic occlusion of L posterior tibial was unsuccessful and resulted in subintimal dissection Acute on chronic renal failure - CKD stage III H/O stress fracture of left foot May 2017 CVA: L-sided weakness and L-visual field cut in Dec 2015. 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 Payne. Cardiac cath of 06-24-2013 showed CAD, mild to moderate. Moderate mid vessel stenosis of the LAD with fractional flow reserve across the lesion of 0.95. Moderate mid vessel stenosis of the RCA with fractional flow reserve across the lesion of 0.95. Patent stents in the proximal left circumflex and the mid RCA which were placed in 2004, followed by Dr Estrella MPI of 07-18-15 did not indicate significant myocardial ischemia or infarction. Normal regional wall motion. Normal global LV systolic function with calculated ejection fraction of 69%. Normal LV cavity size Left internal carotid artery stenosis of 60-79%, right internal carotid artery stenosis of less than 40% per carotid u/s of 05/20/17 Hyperlipidemia being treated with lovastatin and being followed by Dr. Cano. Heme-positive stools in Jan 2014. Diffuse erosive gastritis, hemorrhoids, diverticulitis, no active bleeding per endoscopy in Jan [address] Rodgers, treated with H2 angie, PPI and Carafate (managed by Dr Rodgers). Recurrent heme (+) stools in March 2014 - capsule endoscopy and management by Dr Rodgers History of transient ischemic attacks. Borderline diabetes mellitus being managed by Dr. Cano. Right rotator cuff repair on 11/28/[address] Woodward due to a torn rotator cuff. Plan: * Continue current regimen * Monitor labs * Worsening renal function likely d/t intravascular depletion - gentle IV hydration * Supra therapeutic INR - Hold warfarin till INR less than 3.5 Physician Assessment Physician Assessment Gen malaise and weakness. Shortness of breath as before. No cp or palp or syncope Lungs: fair air entry, diminished at bases Cor: irreg Ext: no c/c/e A&R * As documented in our note above that I updated (italics) and as noted below * Monitor labs OBED COLLIER Apr 14, 2018 09:44 WALDEMAR ESTRELLA MD FACP FAC CCDS Apr 14, 2018 12:53
--- NOTE | 2018-04-14 11:14 | Diagnostic Imaging Report ---
INDICATION: Dyspnea, history of severe sepsis, atrial fibrillation. TECHNIQUE: Single view chest 7:27 AM. CORRELATION STUDY: 04/12/2018 FINDINGS: Poststernotomy changes. Heart size borderline. Vasculature is relatively stable to slightly improved on followup. Bilateral pleural effusion along with atelectasis or infiltrate at the lung bases. Old, chronic deformity about the left humeral head. Parthenon screws over the right humeral head. IMPRESSION: 1. Cardiac enlargement. Vasculature is stable to slight improved on followup. 2. Bilateral pleural effusion along with atelectasis or infiltrate at the lung bases generally stable. Dictated by: Dictated on workstation # [id number]
--- NOTE | 2018-04-14 11:19 | NUR ---
SENT A TEXT TO DR COFFEY PER HIS REQUEST. POST VOID RESIDUAL IS 391 MLS
--- NOTE | 2018-04-14 11:21 | NUR ---
ONE TIME ORDER TO STRAIGHT CATH
[2018-04-14] MEDS: MEROPENEM 500 MG/SWFI 10 ML IV PUSH IV SCH ×4 (11:42→23:14)
--- NOTE | 2018-04-14 11:49 | NUR ---
STRAIGHT CATH PERFORMED AND OBTAINED 280 ML ORANGE URINE. REPORTED TO GUILLERMO MERCADO
--- NOTE | 2018-04-14 11:51 | Occ Therapy Progress Note ---
Therapy Progress Note Attempted OT treatment x3 this am. On first attempt pt was having bladder scan. On second attempt pt was sitting on BSC and stated she needed to stay there for awhile. On third attempt pt was in bed, declined therapy stating she was too tired to participate at at that time. Will attempt to complete treatment this afternoon as tolerated. 1, visit RAS RING OT Apr 14, 2018 11:51
--- NOTE | 2018-04-14 14:11 | NUR ---
PT GLUCOSE ELEVATED ON CURRENT HEART HEALTH DIET. RECOMMEND CHANGE FROM HEARTH HEALTHY DIET TO CHO CONTROLLED DIET TO CONTROL GLUCOSE LEVELS.
--- NOTE | 2018-04-14 14:26 | Occupational Ther Daily Note ---
OT Current Status-Daily Note Subjective Pt in bed, agrees to treatment. No c/o pain. Mental Status/Objective Therapy Code Descriptions/Definitions Functional [place] Measure: 0=Not Assessed/NA 4=Minimal Assistance 1=Total Assistance 5=Supervision or Setup 2=Maximal Assistance 6=Modified [place] 3=Moderate Assistance 7=Complete [place] Attachments: Oxygen ADL-Treatment Pt supine to sit with assist for trunk. Pt completed sponge bath while seated EOB. Upper body bathing completed with SBA. Pt able to wash upper legs, but requires assist for remainder of lower body. Don gown with minimal assistance secondary to IV. Assist to doff/don socks. Pt sit to stand with min assist and bed raised. Sidesteps to HOB with FWW. Sit to supine with assist for LE. Increased time for functional tasks. Pt resting in bed with needs met after session. Bathing (FIM): 3 Lower Body Dressing (FIM): 2 OT Short Term Goals Short Term Goals Transfers (B,C,W/C) (FIM): 5 1=Demonstrate adherence to instructed precautions during ADL tasks. 2=Patient will verbalize/demonstrate understanding of assistive devices/ modifications for ADL. 3=Patient will improve strength/tolerance for activity to enable patient to perform ADL's. OT Group Home Goals Group Home Goals Time Frame: May 01, 2018 Eating (FIM): 6 Grooming(FIM): 6 Bathing(FIM): 4 Upper Body Dressing(FIM): 5 Lower Body Dressing(FIM): 5 Toileting(FIM): 6 Toilet/Commode Transfer(FIM): 6 Additional Goals: 1-Demonstrate ADL Tasks, 2-Verbalize Understanding, 3- ImproveStrength/Tawana 1=Demonstrate adherence to instructed precautions during ADL tasks. 2=Patient will verbalize/demonstrate understanding of assistive devices/ modifications for ADL. 3=Patient will improve strength/tolerance for activity to enable patient to perform ADL's. OT Education/Plan Problem List/Assessment Pt to benefit from skilled OT intervention for ADL training, transfers, strengthening, and safety education to increase level of independence and allow safe discharge. Discharge Recommendations Plan/Recommendations: Continue POC Treatment Plan/Plan of Care Patient would benefit from OT for education, treatment and training to promote independence in ADL's, mobility, safety and/or upper extremity function for ADL' s. Plan of Care: ADL Retraining, Functional Mobility, UE Funct Exercise/Act Treatment Duration: May 01, 2018 Frequency: 5 times per week Estimated Hrs Per Day: .25 hour per day Rehab Potential: Fair Time/GCodes Start Time: 13:03 Stop Time: 13:26 Total Time Billed (hr/min): 23 Billed Treatment Time 1 visit, ADLx2(23minutes) RAS RING OT Apr 14, 2018 14:26
[2018-04-14] MEDS: TAMSULOSIN 0.4 MG (FLOMAX) CAP PO SCH (16:38)
[2018-04-14 18:17] VITALS: BP 115/69
[2018-04-14] MEDS: ATORVASTATIN 20 MG (LIPITOR) TABLET PO SCH (21:33)
[2018-04-15] MEDS: RT-ALBUTEROL/IPRATROPIUM 3 ML (DUONEB) VIAL INH SCH ×6 (02:37→23:05)
[2018-04-15] MEDS: NS IV 1000 ML 1,000 ML IV SCH ×2 (04:03→18:12)
[2018-04-15 06:03] VITALS: BP 120/60
[2018-04-15] MEDS: predniSONE 10 MG TAB PO SCH (06:32)
[2018-04-15] MEDS: GLIMEPIRIDE 4 MG (AMARYL) TAB PO SCH (06:33)
[2018-04-15] MEDS: PHENAZOPYRIDINE 100 MG (PYRIDIUM) TABLET PO SCH ×3 (06:33→18:11)
[2018-04-15] MEDS: LEVOTHYROXINE 25 MCG (LEVOTHROID) TAB PO SCH (06:33)
[2018-04-15] MEDS: BETHANECHOL 25 MG (URECHOLINE) TAB PO SCH ×4 (06:33→21:14)
[2018-04-15] MEDS: inSUlin ASPART (NovoLOG) 1 UNIT/0.01 ML (CHARGE PER UNIT) SC SCH ×4 (06:34→21:14)
[2018-04-15] MEDS: OMEPRAZOLE PO SCH (06:35)
[2018-04-15 06:52] LABS: BASOPHILS % (AUTO) 0 % (0-10); EOSINOPHILS % (AUTO) 0 % (0-10); HEMATOCRIT 28 % (35-52); HEMOGLOBIN 8.9 G/DL (11.5-16.0); LYMPHOCYTES # (AUTO) 0.4 X 10^3 (1.0-4.0); LYMPHOCYTES % (AUTO) 4 % (12-44); MEAN CORPUSCULAR HEMOGLOBIN 30 PG (25-34); MEAN CORPUSCULAR HGB CONC 32 G/DL (32-36); MEAN CORPUSCULAR VOLUME 92 FL (80-99); MEAN PLATELET VOLUME 10.8 FL (7.4-10.4); MONOCYTES # (AUTO) 0.5 X 10^3 (0.0-1.0); MONOCYTES % (AUTO) 5 % (0-12); NEUTROPHILS # (AUTO) 10.6 X 10^3 (1.8-7.8); NEUTROPHILS % (AUTO) 92 % (42-75); PLATELET COUNT 308 10^3/uL (130-400); RED CELL DISTRIBUTION WIDTH 15.4 % (10.0-14.5); WHITE BLOOD COUNT 11.6 10^3/uL (4.3-11.0)
[2018-04-15 07:10] LABS: INR 4.6 (0.8-1.4); PROTHROMBIN TIME PATIENT 44.2 SEC (12.2-14.7)
[2018-04-15 07:11] LABS: CALCIUM 8.2 MG/DL (8.5-10.1); CREATININE SERUM 1.83 MG/DL (0.60-1.30); POTASSIUM 5.9 MMOL/L (3.6-5.0)
[2018-04-15] MEDS: RT-ADVAIR HFA 115/21 MCG PER PUFF IH SCH ×2 (07:36→23:04)
--- NOTE | 2018-04-15 07:57 | Pulmonary Progress Note ---
Subjective Time Seen by a Provider: 07:55 Sepsis Event Evaluation Height, Weight, BMI Height: 5'6.50" Weight: 207lbs. 1.0oz. 93.348131nf; 28.4 BMI Method:Stated Exam Exam Vital Signs Date Time Temp Pulse Resp B/P (MAP) Pulse Ox O2 Delivery O2 Flow Rate FiO2 04/15/18 07:36 High Flow N/C 4.00 04/15/18 06:03 98.0 80 20 120/60 (80) 90 NIV CPAP 2.00 04/15/18 02:37 90 NIV CPAP 4.00 04/15/18 01:00 82 04/14/18 22:40 90 NIV CPAP 3.00 04/14/18 21:00 Nasal Cannula 2.00 04/14/18 19:04 88 04/14/18 18:17 97.2 86 24 115/69 (84) 92 NIV Bilevel 2.00 04/14/18 14:53 92 NIV CPAP 2.00 04/14/18 13:00 83 04/14/18 11:16 90 NIV CPAP 2.00 04/14/18 08:00 Nasal Cannula 2.00 I & O 04/15/18 07:00 Intake Total 1360 ml Output Total 650 ml Balance 710 ml Height & Weight Height: 5'6.50" Weight: 207lbs. 1.0oz. 93.435372ox; 28.4 BMI Method:Stated General Appearance: Anxious, Chronically ill HEENT: PERRL/EOMI Respiratory: No Accessory Muscle Use, No Respiratory Distress, Crackles, Decreased Breath Sounds Cardiovascular: Regular Rate, Rhythm, No Murmur Capillary Refill: Less Than 3 Seconds Gastrointestinal: normal bowel sounds, non tender, soft Neurologic/Psychiatric: Alert, Oriented x3 Skin: Normal Color, Warm/Dry Results Lab Laboratory Tests 04/13/18 10:45 04/14/18 06:29 04/15/18 06:30 Assessment/Plan Assessment/Plan ESBL PNA with sepsis - Merrem secondary to ESBL -olvera cultures -CXR reviewed -Labs pending Atelectasis -IS and increase activity Cough- - Robitussin AC -SVNs Bacteremia with Ecoli probably secondary to UTI -Merrem Acute on chronic respiratory failure -BiPAP PRN anemia -Monitor Afib -coumadin -Rate control Acute renal failure with metabolic acidosis (lactic acid is normal ) -Monitor COPDAE -SVNS Aortic valve replacement -Currently on Coumadin -Cardiology consulted Hypothyroid -Synthroid WANDA LEBRON DO Apr 15, 2018 07:57
[2018-04-15] MEDS: FLUTICASONE NASAL SPRAY (FLONASE) 16 GM BTL NS SCH (09:00)
--- NOTE | 2018-04-15 09:13 | Physical Therapy Daily Note ---
PT Daily Note-Current Subjective Pt. up in recliner, O2 insitu, dyspneic, states she is so discouraged about her health, states she is more swollen than she can ever remember and so cold and miserable. concerned because her children are3 far away in bad weather and cant make it here. Pt. requests 2 warm blankets and a warm wet clothe to wash her face and hands. pt. agrees to try to stand and move Pain Location: No Pain Reported Appearance pitting edema in LE, UEs and up in to abdomen and flank noted Mental Status Patient Orientation: Normal For Age Attachments: Oxygen, IV Transfers Therapy Code Descriptions/Definitions Functional [place] Measure: 0=Not Assessed/NA 4=Minimal Assistance 1=Total Assistance 5=Supervision or Setup 2=Maximal Assistance 6=Modified [place] 3=Moderate Assistance 7=Complete [place] Therapy Quality Codes: 6 Independent with activity with or without an assistive device 5 Patient requires set up or clean up by helper. Patient completes activity by themselves 4 Supervision or touching assist (CGA). [place] provide cues , steadying assist 3 The helper provides less than half the effort to complete the activity 2 The helper provides more than half the effort to complete the activity 1 Dependent. The helper does all the effort to complete an activity 7 Patient refused to complete or attempt activity 9 The patient did not perform the activity before the current illness or injury 88 Not attempted due to Medical conditions or safety concerns Transfers (B, C, W/C) (FIM): 3 Scootin sit to stand x 2 from recliner mod assist. 2 pillows placed under pat after standing to assist with next sit to stand. Weight Bearing Right Lower Extremity: Right Full Weight Bearing Left Lower Extremity: Left Full Weight Bearing Gait Training Gait Assistive Device: FWW pt. stood 45 sec x 2 with FWW and took 3-4 steps for and back. O2 sats 88% pt. on 5L O2. Exercises Seated Therapy Exercises: Ankle pumps, Sit to stand, Long arc quads, Hip abd/ add Seated Reps: 10 Assessment Current Status: Fair Progress very limited activity tolerqance secondary to edema and SOB. warm blankets, warm wet clothe as well as button at hand for pt. This LABEL DESIGNER inquired as to whether pt. would like to speak to a director visual as she expressed such discouragement. She declined stating her blast furnace blower calls her every day PT Short Term Goals Short Term Goals Time Frame: Apr 17, 2018 Transfers (B,C,W/C) (FIM): 5 Gait (FIM): 4 Distance (FIM): 3=150 ft Gait Distance Comment: 200' Gait Level of Assist: 4 Gait Assistive Device: FWW PT Correction Goals Sign Poster Goals PT Sign Poster Goals Time Frame: May 08, 2018 Transfers (B,C,W/C) (FIM): 5 Gait (FIM): 5 Gait distance (FIM): 3=150 ft Distance: 200' Gait Level of Assist: 5 Gait Assistive Device: FWW PT Plan Treatment/Plan Treatment Plan: Continue Plan of Care Treatment Plan: Bed Mobility, Education, Functional Activity Tawana, Functional Strength, Gait, Safety, Therapeutic Exercise, Transfers Treatment Duration: Apr 17, 2018 Frequency: 6 times per week Estimated Hrs Per Day: .25 hour per day (15-30 min) Patient and/or Family Agrees t: Yes Safety Risks/Education Patient Education: Gait Training, Transfer Techniques, Correct Positioning, Disease Process, Safety Issues Teaching Recipient: Patient Teaching Methods: Demonstration, Discussion Response to Teaching: Verbalize Understanding, Return Demonstration, Reinforcement Needed Time/GCodes Time In: 830 Time Out: 855 Total Billed Treatment Time: 25 Total Billed Treatment 1,EX10,FA15 G Codes Necessary: MIKI Levi LABEL DESIGNER Apr 15, 2018 09:13
--- NOTE | 2018-04-15 09:14 | Progress Note-Urology ---
Progress Note-Urology Progress Notes/Assess & Plan Progress/Assessment & Plan BLADDER SCAN PVR TODAY Final Diagnosis URINE RETENTION MARILIN COFFEY MD Apr 15, 2018 09:14
[2018-04-15] MEDS ORDERED: SOD POLYSTYRENE 30 GM/120 ML (KAYEXALATE) BULK BOTTLE PR NR (09:30)
--- NOTE | 2018-04-15 09:30 | Progress Note-Cardiology ---
Cardiology SOAP Progress Note Subjective: Malaise slowly improving Shortness of breath at usual baseline No cp or palp or syncope Intermittent difficulty with urination that Dr Martin is managing Objective: I&O/Vital Signs 04/14/18 04/15/18 04/15/18 04/15/18 22:40 01:00 02:37 06:03 Temp 98.0 Pulse 82 80 Resp 20 B/P (MAP) 120/60 (80) Pulse Ox 90 90 90 O2 Delivery NIV CPAP NIV CPAP NIV CPAP O2 Flow Rate 3.00 4.00 2.00 04/15/18 04/15/18 07:00 07:36 Pulse 96 O2 Delivery High Flow N/C O2 Flow Rate 4.00 04/15/18 00:00 Intake Total 1160 ml Output Total 400 ml Balance 760 ml Weight (Pounds): 207 Weight (Ounces): 1.0 Weight (Calculated Kilograms): 93.560241 Constitutional: AAO x 3, well-developed, well-nourished Respiratory: No accessory muscle use, No respiratory distress; chest expansion is symmetric, chest is bilaterally symmetric, other (prolonged exp phase; diminished bases bilat) Cardiovascular: irregularly irregular; No JVD; S1 and S2, other (crisp mechanical valve) Gastrointestional: No tender; soft, round, audible bowel sounds Extremities: other (generalized swelling; L arm > R arm) Neurologic/Psychiatric: grossly intact Skin: No rash, No ulcerations Results/Procedures: Labs Laboratory Tests 04/14/18 11:14: Glucometer 395H 04/14/18 17:35: Glucometer 349H 04/14/18 21:27: Glucometer 232H 04/15/18 05:08: Glucometer 205H 04/15/18 06:30: White Blood Count 11.6H, Red Blood Count 3.01L, Hemoglobin 8.9L, Hematocrit 28L , Mean Corpuscular Volume 92, Mean Corpuscular Hemoglobin 30, Mean Corpuscular Hemoglobin Concent 32, Red Cell Distribution Width 15.4H, Platelet Count 308, Mean Platelet Volume 10.8H, Neutrophils (%) (Auto) 92H, Lymphocytes (%) (Auto) 4L, Monocytes (%) (Auto) 5, Eosinophils (%) (Auto) 0, Basophils (%) (Auto) 0, Neutrophils # (Auto) 10.6H, Lymphocytes # (Auto) 0.4L, Monocytes # (Auto) 0.5, Eosinophils # (Auto) 0.0, Basophils # (Auto) 0.0, Prothrombin Time 44.2H, INR Comment 4.6H, Sodium Level 130L, Potassium Level 5.9H, Chloride Level 106, Carbon Dioxide Level 16L, Anion Gap 8, Blood Urea Nitrogen 52H, Creatinine 1.83H , Estimat Glomerular Filtration Rate 26, BUN/Creatinine Ratio 28, Glucose Level 207H, Calcium Level 8.2L Laboratory Tests 04/13/18 10:45 04/14/18 06:29 04/15/18 06:30 A/P: Assessment: Acute on chronic renal failure - CKD stage III with hyperkalemia Chronic warfarin anticoagulation, INR currently supra-therapeutic Pneumonia, improving - management per Pulmonary/Medical services A-fib with RVR, rate is better controlled Valvular heart disease with a history of aortic valve replacement with #21 Carbomedics mechanical prosthetic valve for aortic stenosis and mitral valve repair with 27 mm ring for mitral regurgitation in 2002. Acute on chronic diastolic CHF Echo of 03/16/18: LVEF 55-60%, mod conc LVH, biatrial enlargement, mod MR, adequately functioning aortic prosthetic valve, PASP 60-65 mmHg PAD and claudication - DYLON of 3-1-18 report mod PVD. DYLON R 0.63, L 0.63. Last peripheral angio and intervention (R leg) on 09/09/17 at which time she underwent successful balloon angioplasty of the R peroneal with reduction of a 95% ostial stenosis to less than 30% residual; both R tibials are occluded and collateralized. Previously, she has undergone bilateral kissing stents of both common iliacs and extensive balloon angioplasty and stenting of the R SFA by Dr Loaiza on 12/31/13. Subsequently, on 01/07/14, Dr Loiaza did stenting of L SFA and successful balloon angioplasty of L peroneal and L anterior tibial arteries, but angioplasty to chronic occlusion of L posterior tibial was unsuccessful and resulted in subintimal dissection H/O stress fracture of left foot May 2017 CVA: L-sided weakness and L-visual field cut in Dec 2015. 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 Payne. Cardiac cath of 06-24-2013 showed CAD, mild to moderate. Moderate mid vessel stenosis of the LAD with fractional flow reserve across the lesion of 0.95. Moderate mid vessel stenosis of the RCA with fractional flow reserve across the lesion of 0.95. Patent stents in the proximal left circumflex and the mid RCA which were placed in 2004, followed by Dr Estrella MPI of 07-18-15 did not indicate significant myocardial ischemia or infarction. Normal regional wall motion. Normal global LV systolic function with calculated ejection fraction of 69%. Normal LV cavity size Left internal carotid artery stenosis of 60-79%, right internal carotid artery stenosis of less than 40% per carotid u/s of 05/20/17 Hyperlipidemia being treated with lovastatin and being followed by Dr. Cano. Heme-positive stools in Jan 2014. Diffuse erosive gastritis, hemorrhoids, diverticulitis, no active bleeding per endoscopy in Jan [address] Rodgers, treated with H2 angie, PPI and Carafate (managed by Dr Rodgers). Recurrent heme (+) stools in March 2014 - capsule endoscopy and management by Dr Rodgers History of transient ischemic attacks. Borderline diabetes mellitus being managed by Dr. Cano. Right rotator cuff repair on 11/28/[address] Woodward due to a torn rotator cuff. Plan: * Treat hyperkalemia * Supra therapeutic INR - Hold warfarin till INR less than 3.5 * Monitor labs WALDEMAR ESTRELLA MD FACP [facility] Apr 15, 2018 09:30
--- NOTE | 2018-04-15 10:17 | Progress Note-Hospitalist ---
Subjective HPI/CC On Admission Date Seen by Provider: Apr 15, 2018 Time Seen by Provider: 10:13 Subjective/Events-last exam Pt sitting up in chair earing breakfast. Requests coffee to help her urinate. Discussed her current labs. Objective Exam Vital Signs Vital Signs Date Time Temp Pulse Resp B/P (MAP) Pulse Ox O2 Delivery O2 Flow Rate FiO2 04/15/18 07:36 High Flow N/C 4.00 04/15/18 07:00 96 04/15/18 06:03 98.0 20 120/60 (80) 90 Capillary Refill : Less Than 3 Seconds General Appearance: Anxious, Chronically ill HEENT: PERRL/EOMI Respiratory: Lungs Clear, No Accessory Muscle Use, No Respiratory Distress Cardiovascular: Regular Rate, Rhythm, Systolic Murmur Neurologic/Psychiatric: Alert, Oriented x3 Skin: Normal Color, Warm/Dry Results/Procedures Lab Laboratory Tests 04/15/18 06:30 Patient resulted labs reviewed. Assessment/Plan Assessment and Plan Assess & Plan/Chief Complaint Severe Sepsis with ESBL Bacteremia Diagnosis/Problems Diagnosis/Problems (1) Infection due to ESBL-producing Escherichia coli Status: Acute Assessment & Plan: Blood cultures positive x2 for ESBL e coli Continue on Merrem started on 04/09 Urinary source (2) DARLENE (acute kidney injury) Assessment & Plan: Improving today Mildly hyperkalemic- Kayexalate ordered by Dr Estrella (3) Aortic valve replaced Status: Chronic Assessment & Plan: Cardiology consulted, appreciate recs INR 4.6- hold coumadin Goal 2.5-3.5 (4) Hypothyroidism Status: Chronic Assessment & Plan: Continue home supplement Qualifiers: Hypothyroidism type: unspecified Qualified Codes: E03.9 - Hypothyroidism, unspecified (5) COPD (chronic obstructive pulmonary disease) Status: Chronic Assessment & Plan: Pulm consulted, appreciate recs Continue Prednisone taper Qualifiers: COPD type: unspecified COPD Qualified Codes: J44.9 - Chronic obstructive pulmonary disease, unspecified (6) A-fib Assessment & Plan: Continue current meds Rate controlled Qualifiers: Atrial fibrillation type: paroxysmal Qualified Codes: I48.0 - Paroxysmal atrial fibrillation (7) PAD (peripheral artery disease) Status: Chronic Assessment & Plan: On coumadin for AVR Cardiology consulted, appreciate recs (8) Non-insulin dependent type 2 diabetes mellitus Assessment & Plan: Continue SSI Clinical Quality Measures DVT/VTE Risk/Contraindication: Risk Factor Score Per Nursin VIVEK FERNANDEZ MD Apr 15, 2018 10:17
[2018-04-15] MEDS: DILTIAZEM 300 MG (CARDIZEM CD) CAP PO SCH (10:52)
[2018-04-15] MEDS: busPIRone 5 MG (BUSPAR) TAB PO SCH (10:52)
[2018-04-15] MEDS: DOCUSATE SODIUM 100 MG (COLACE) CAP PO SCH (10:52)
[2018-04-15] MEDS: ASPIRIN E.C. 81 MG (ECOTRIN) TAB PO SCH (10:52)
[2018-04-15] MEDS: ALLOPURINOL 100 MG (ZYLOPRIM) TAB PO SCH ×2 (10:52→21:14)
[2018-04-15] MEDS: MEROPENEM 500 MG/SWFI 10 ML IV PUSH IV SCH ×4 (11:10→13:41)
--- NOTE | 2018-04-15 13:03 | Occupational Ther Daily Note ---
OT Current Status-Daily Note Subjective Pt sitting in chair, agrees to treatment. Pt tearful at times during session. No c/o pain. Mental Status/Objective Therapy Code Descriptions/Definitions Functional [place] Measure: 0=Not Assessed/NA 4=Minimal Assistance 1=Total Assistance 5=Supervision or Setup 2=Maximal Assistance 6=Modified [place] 3=Moderate Assistance 7=Complete [place] ADL-Treatment Pt completed grooming tasks while seated in chair. Pt washed face and brushed teeth with set up and increased time. Pt performed sit to stand x2 trials to increase strength needed for safe transfers. Pt requires mod assist for sit to stand and cues for hand placement. Pt has decreased activity tolerance and requires seated rest break between trials. Pt sitting in chair with needs met and visitors present after session. Therapy Code Descriptions/Definitions Functional [place] Measure: 0=Not Assessed/NA 4=Minimal Assistance 1=Total Assistance 5=Supervision or Setup 2=Maximal Assistance 6=Modified [place] 3=Moderate Assistance 7=Complete [place] Therapy Quality Codes: 6 Independent with activity with or without an assistive device 5 Patient requires set up or clean up by helper. Patient completes activity by themselves 4 Supervision or touching assist (CGA). [place] provide cues , steadying assist 3 The helper provides less than half the effort to complete the activity 2 The helper provides more than half the effort to complete the activity 1 Dependent. The helper does all the effort to complete an activity 7 Patient refused to complete or attempt activity 9 The patient did not perform the activity before the current illness or injury 88 Not attempted due to Medical conditions or safety concerns Grooming (FIM): 5 OT Short Term Goals Short Term Goals Transfers (B,C,W/C) (FIM): 5 1=Demonstrate adherence to instructed precautions during ADL tasks. 2=Patient will verbalize/demonstrate understanding of assistive devices/ modifications for ADL. 3=Patient will improve strength/tolerance for activity to enable patient to perform ADL's. OT Alf Goals Chief Pilot Goals Time Frame: May 01, 2018 Eating (FIM): 6 Eating (QC): 6 Groomin Oral Hygiene (QC): 6 Bathing(FIM): 4 Shower/Bathe Self (QC): 4 Upper Body Dressing(FIM): 5 Upper Body Dressing (QC): 5 Lower Body Dressing(FIM): 5 Lower Body Dressing (QC): 5 On/Off Footwear (QC): 5 Toileting(FIM): 6 Toileting Hygiene (QC): 6 Toilet/Commode Transfer(FIM): 6 Toilet/Commode Transfer (QC): 6 Additional Goals: 1-Demonstrate ADL Tasks, 2-Verbalize Understanding, 3- ImproveStrength/Tawana 1=Demonstrate adherence to instructed precautions during ADL tasks. 2=Patient will verbalize/demonstrate understanding of assistive devices/ modifications for ADL. 3=Patient will improve strength/tolerance for activity to enable patient to perform ADL's. OT Education/Plan Problem List/Assessment Pt to benefit from skilled OT intervention for ADL training, transfers, strengthening, and safety education to increase level of independence and allow safe discharge. Discharge Recommendations Plan/Recommendations: Continue POC Treatment Plan/Plan of Care Patient would benefit from OT for education, treatment and training to promote independence in ADL's, mobility, safety and/or upper extremity function for ADL' s. Plan of Care: ADL Retraining, Functional Mobility, UE Funct Exercise/Act Treatment Duration: May 01, 2018 Frequency: 5 times per week Estimated Hrs Per Day: .25 hour per day Rehab Potential: Fair Time/GCodes Start Time: 11:25 Stop Time: 11:45 Total Time Billed (hr/min): 20 Billed Treatment Time 1 visit, ADL(20minutes) RAS RING OT Apr 15, 2018 13:03
--- NOTE | 2018-04-15 15:49 | NUR ---
CM DISCHARGE PLANNING: Anticipate dismissal on 04/16/18 vs. Friday04/17/[address] Curtis. F/U with patient et son Gene at bedside to determine next steps in Merlin plan of care. Encouraged them both that it appears that she would benefit from a short term fpc home stay according to therapy documentation. Son Gene agrees with this et talked with Isabel who is also in agreement that she feels like she is not ready for home tomorrow. She is in agreement to have a referral sent to [facility]. Referral sent to [facility] attn Katya. I spoke with Katya et let her know that doctor is likely looking at discharge for tomorrow for continued skilled care. Faxed clinical information placed in the red discharge packet.
[2018-04-15 18:00] VITALS: BP 139/65
[2018-04-15] MEDS: TAMSULOSIN 0.4 MG (FLOMAX) CAP PO SCH (18:11)
--- NOTE | 2018-04-15 20:50 | NUR ---
C/O INCREASED SOB. LUNG SOUNDS COARSE BILATERAL. PT HAS +2 GENERALIZED PITTING EDEMA. PT STATES SHE TAKES LASIX AT HOME. DR. OBRIEN CALLED AND INFORMED OF PT STATUS. ORDER TO DC IV FLUIDS AND GIVE 40MG LASIX IV ONCE.
[2018-04-15] MEDS ORDERED: FUROSEMIDE 40 MG/4 ML INJ (LASIX) IVP ONE (21:00)
[2018-04-15] MEDS: ATORVASTATIN 20 MG (LIPITOR) TABLET PO SCH (21:14)
[2018-04-16] MEDS: RT-ALBUTEROL/IPRATROPIUM 3 ML (DUONEB) VIAL INH SCH ×4 (02:45→13:53)
[2018-04-16 04:46] VITALS: BP 131/68
[2018-04-16] MEDS: PHENAZOPYRIDINE 100 MG (PYRIDIUM) TABLET PO SCH ×2 (05:39→12:08)
[2018-04-16] MEDS: OMEPRAZOLE PO SCH (05:39)
[2018-04-16] MEDS: BETHANECHOL 25 MG (URECHOLINE) TAB PO SCH ×2 (05:39→12:08)
[2018-04-16] MEDS: GLIMEPIRIDE 4 MG (AMARYL) TAB PO SCH (05:39)
[2018-04-16] MEDS: LEVOTHYROXINE 25 MCG (LEVOTHROID) TAB PO SCH (05:39)
[2018-04-16] MEDS: predniSONE 10 MG TAB PO SCH (05:40)
[2018-04-16] MEDS: inSUlin ASPART (NovoLOG) 1 UNIT/0.01 ML (CHARGE PER UNIT) SC SCH ×2 (05:40→12:27)
[2018-04-16 06:13] VITALS: BP 131/68
[2018-04-16 06:19] LABS: INR 3.7 (0.8-1.4); PROTHROMBIN TIME PATIENT 36.6 SEC (12.2-14.7)
[2018-04-16] MEDS: RT-ADVAIR HFA 115/21 MCG PER PUFF IH SCH (06:51)
--- NOTE | 2018-04-16 09:15 | NUR ---
CM/SS called [facility] for follow up on referral sent previous day. Message left for Yuni.
--- NOTE | 2018-04-16 09:20 | Progress Note-Cardiology ---
Cardiology SOAP Progress Note Subjective: Sitting up on the side of the bed eating morning meal. C/O gen weakness limiting her ability to participate in PT. Continues to report dyspnea. C/O gen swelling. No c/o CP, palpitations, syncope or near syncope. Objective: I&O/Vital Signs 04/16/18 04/16/18 04/16/18 04/16/18 02:45 04:46 06:13 06:41 Temp 97.2 97.2 Pulse 120 120 Resp 28 28 B/P (MAP) 131/68 (89) 131/68 (89) Pulse Ox 90 90 90 90 O2 Delivery NIV CPAP High Flow N/C High Flow N/C NIV CPAP O2 Flow Rate 4.00 5.00 5.00 4.00 04/16/18 04/16/18 04/16/18 04/16/18 06:51 07:00 10:19 13:54 Pulse 106 Pulse Ox 90 89 90 O2 Delivery NIV CPAP NIV CPAP High Flow N/C O2 Flow Rate 4.00 5.00 6.00 04/16/18 00:00 Intake Total 720 ml Output Total 1035 ml Balance -315 ml Weight (Pounds): 190 Weight (Ounces): 1.0 Weight (Calculated Kilograms): [id number] Constitutional: AAO x 3, well-developed, well-nourished Respiratory: No accessory muscle use, No respiratory distress; chest expansion is symmetric, chest is bilaterally symmetric, other (prolonged exp phase; diminished bases bilat) Cardiovascular: irregularly irregular; No JVD; S1 and S2, other (crisp mechanical valve) Gastrointestional: No tender; soft, round, audible bowel sounds Extremities: other (generalized swelling) Neurologic/Psychiatric: grossly intact Skin: No rash, No ulcerations Results/Procedures: Labs Laboratory Tests 04/15/18 18:02: Glucometer 264H 04/15/18 21:07: Glucometer 217H 04/16/18 05:15: Glucometer 235H 04/16/18 05:55: Prothrombin Time 36.6H, INR Comment 3.7H 04/16/18 12:19: Glucometer 338H 04/16/18 12:30: Sodium Level 130L, Potassium Level 4.8, Chloride Level 103, Carbon Dioxide Level 20L, Anion Gap 7, Blood Urea Nitrogen 48H, Creatinine 1.88H, Estimat Glomerular Filtration Rate 26, BUN/Creatinine Ratio 26, Glucose Level 283H, Calcium Level 8.4L A/P: Assessment: Acute on chronic renal failure - CKD stage III with hyperkalemia Chronic warfarin anticoagulation, INR currently supra-therapeutic Pneumonia, improving - management per Pulmonary/Medical services A-fib with RVR, rate improved Valvular heart disease with a history of aortic valve replacement with #21 Carbomedics mechanical prosthetic valve for aortic stenosis and mitral valve repair with 27 mm ring for mitral regurgitation in 2002. Acute on chronic diastolic CHF Echo of 03/16/18: LVEF 55-60%, mod conc LVH, biatrial enlargement, mod MR, adequately functioning aortic prosthetic valve, PASP 60-65 mmHg PAD and claudication - DYLON of 3 report mod PVD. DYLON R 0.63, L 0.63. Last peripheral angio and intervention (R leg) on 09/09/17 at which time she underwent successful balloon angioplasty of the R peroneal with reduction of a 95% ostial stenosis to less than 30% residual; both R tibials are occluded and collateralized. Previously, she has undergone bilateral kissing stents of both common iliacs and extensive balloon angioplasty and stenting of the R SFA by Dr Loaiza on 12/31/13. Subsequently, on 01/07/14, Dr Loaiza did stenting of L SFA and successful balloon angioplasty of L peroneal and L anterior tibial arteries, but angioplasty to chronic occlusion of L posterior tibial was unsuccessful and resulted in subintimal dissection H/O stress fracture of left foot May 2017 CVA: L-sided weakness and L-visual field cut in Dec 2015. 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 Payne. Cardiac cath of 06-24-2013 showed CAD, mild to moderate. Moderate mid vessel stenosis of the LAD with fractional flow reserve across the lesion of 0.95. Moderate mid vessel stenosis of the RCA with fractional flow reserve across the lesion of 0.95. Patent stents in the proximal left circumflex and the mid RCA which were placed in 2004, followed by Dr Estrella MPI of 07-18-15 did not indicate significant myocardial ischemia or infarction. Normal regional wall motion. Normal global LV systolic function with calculated ejection fraction of 69%. Normal LV cavity size Left internal carotid artery stenosis of 60-79%, right internal carotid artery stenosis of less than 40% per carotid u/s of 05/20/17 Hyperlipidemia being treated with lovastatin and being followed by Dr. Cano. Heme-positive stools in Jan 2014. Diffuse erosive gastritis, hemorrhoids, diverticulitis, no active bleeding per endoscopy in Jan [address] Rodgers, treated with H2 angie, PPI and Carafate (managed by Dr Rodgers). Recurrent heme (+) stools in March 2014 - capsule endoscopy and management by Dr Rodgers History of transient ischemic attacks. Borderline diabetes mellitus being managed by Dr. Cano. Right rotator cuff repair on 11/28/[address] Woodward due to a torn rotator cuff. Plan: * Lab pending * Supra therapeutic INR, starting to come down - Hold warfarin till INR less than 3.0 * Generalized edema - IV Lasix given * Monitor labs * Discharge planning for [facility] per medical services Physician Assessment Physician Assessment No cp or palp or syncope. Gen malaise present. No shortness of breath at rest Lungs: fair to good bilat air entry, diminished at the bases Cor: irreg, somewhat rapid rate Ext: no c/c/e A&R * As documented in our note above that I updated (italics) and as noted below * Continue current regimen * Monitor labs OBED COLLIER Apr 16, 2018 09:20 WALDEMAR ESTRELLA MD [facility] Apr 16, 2018 14:23
[2018-04-16] MEDS ORDERED: FUROSEMIDE 40 MG (LASIX) TAB PO NR (09:30)
--- NOTE | 2018-04-16 09:46 | Pulmonary Progress Note ---
Sepsis Event Evaluation Height, Weight, BMI Height: 5'6.50" Weight: 190lbs. 1.0oz. 86.364387kk; 28.4 BMI Method:Stated Exam Exam Vital Signs Date Time Temp Pulse Resp B/P (MAP) Pulse Ox O2 Delivery O2 Flow Rate FiO2 04/16/18 07:00 106 04/16/18 06:51 90 NIV CPAP 4.00 04/16/18 06:41 90 NIV CPAP 4.00 04/16/18 06:13 97.2 120 28 131/68 (89) 90 High Flow N/C 5.00 04/16/18 04:46 97.2 120 28 131/68 (89) 90 High Flow N/C 5.00 04/16/18 02:45 90 NIV CPAP 4.00 04/16/18 01:00 106 04/15/18 23:05 93 NIV CPAP 4.00 04/15/18 21:00 Nasal Cannula 3.00 04/15/18 19:00 102 04/15/18 18:00 98.4 93 23 139/65 (89) 92 High Flow N/C 5.00 04/15/18 15:25 90 High Flow N/C 4.00 04/15/18 13:00 99 I & O 04/16/18 06:59 Intake Total 770 ml Output Total 2185 ml Balance -1415 ml Height & Weight Height: 5'6.50" Weight: 190lbs. 1.0oz. 86.806176wv; 28.4 BMI Method:Stated General Appearance: Anxious, Chronically ill HEENT: PERRL/EOMI Respiratory: Lungs Clear, No Accessory Muscle Use, No Respiratory Distress Cardiovascular: Regular Rate, Rhythm, Systolic Murmur Capillary Refill: Less Than 3 Seconds Gastrointestinal: normal bowel sounds, non tender, soft Neurologic/Psychiatric: Alert, Oriented x3 Skin: Normal Color, Warm/Dry Results Lab Laboratory Tests 04/15/18 06:30 Assessment/Plan Assessment/Plan ESBL PNA with sepsis - Merrem secondary to ESBL -olvera cultures -CXR reviewed -Labs pending Atelectasis -IS and increase activity Cough- - Robitussin AC -SVNs Bacteremia with Ecoli probably secondary to UTI -Merrem Acute on chronic respiratory failure -BiPAP PRN anemia -Monitor Afib -coumadin -Rate control Acute renal failure with metabolic acidosis (lactic acid is normal ) -Monitor COPDAE -SVNS Aortic valve replacement -Currently on Coumadin -Cardiology consulted Hypothyroid -Synthroid WANDA LEBRON DO Apr 16, 2018 09:46
--- NOTE | 2018-04-16 11:20 | Progress Note-Urology ---
Progress Note-Urology Progress Notes/Assess & Plan Progress/Assessment & Plan VOIDING WELL. PVR YESTERDAY ONLY 23CC Final Diagnosis URINE RETENTION MARILIN COFFEY MD Apr 16, 2018 11:20
--- NOTE | 2018-04-16 11:21 | Physical Therapy Daily Note ---
PT Daily Note-Current Subjective Pt in bed and requests to use commode. Pt agrees to PT. Mental Status Patient Orientation: Person, Place, Situation, Normal For Age Attachments: Oxygen Transfers Therapy Code Descriptions/Definitions Functional [place] Measure: 0=Not Assessed/NA 4=Minimal Assistance 1=Total Assistance 5=Supervision or Setup 2=Maximal Assistance 6=Modified [place] 3=Moderate Assistance 7=Complete [place] Therapy Quality Codes: 6 Independent with activity with or without an assistive device 5 Patient requires set up or clean up by helper. Patient completes activity by themselves 4 Supervision or touching assist (CGA). [place] provide cues , steadying assist 3 The helper provides less than half the effort to complete the activity 2 The helper provides more than half the effort to complete the activity 1 Dependent. The helper does all the effort to complete an activity 7 Patient refused to complete or attempt activity 9 The patient did not perform the activity before the current illness or injury 88 Not attempted due to Medical conditions or safety concerns Transfers (B, C, W/C) (FIM): 4 Scootin Supine to/from Sit: 5 Sit to/from Stand: 4 Sit to Stand (QC): 4 Weight Bearing Right Lower Extremity: Right Full Weight Bearing Left Lower Extremity: Left Full Weight Bearing Gait Training Does the Patient Walk?: Yes Gait (FIM): 1 Distance (FIM): 1=up to 49 ft Distance: 20' Walk 10 feet (QC): 4 Gait Level of Assist: 4 Gait Persons Needed: 1 Gait Assistive Device: FWW Assessment Current Status: Fair Progress Pt able to perform bed mobility with SBA and performs sit<>stand transfer with min A from bed to commode. Pt perfromed sit<>stand transfer min A from commode to FWW and nurse aid assisted with bathroom skills. Pt able to able from commode to recliner with CGA for safety and FWW on O2. Pt is now in recliner with all needs met. Pt reports she will be dismissed today. PT Short Term Goals Short Term Goals Time Frame: Apr 17, 2018 Transfers (B,C,W/C) (FIM): 5 Gait (FIM): 4 Distance (FIM): 3=150 ft Gait Distance Comment: 200' Gait Level of Assist: 4 Gait Assistive Device: FWW PT Usp Goals Signal Worker Goals PT Signal Worker Goals Time Frame: May 08, 2018 Transfers (B,C,W/C) (FIM): 5 Sit to Lying (QC): 6 Lying-Sitting on Side/Bed(QC): 6 Sit to Stand (QC): 6 Rollin Roll Left to Right (QC): 6 Car Transfer (QC): 6 Does the Patient Walk: Yes Gait (FIM): 5 Gait distance (FIM): 3=150 ft Distance: 200' Walk 10 feet (QC): 6 Walk 10ft-Uneven Surface(QC): 6 Walk 50ft with 2 Turns (QC): 6 Walk 150 ft (QC): 6 Gait Level of Assist: 5 Gait Assistive Device: FWW PT Plan Problem List Problem List: Activity Tolerance, Functional Strength, Safety, Balance, Gait, Transfer, Bed Mobility, ROM Treatment/Plan Treatment Plan: Discontinue PT Treatment Plan: Bed Mobility, Education, Functional Activity Tawana, Functional Strength, Gait, Safety, Therapeutic Exercise, Transfers Treatment Duration: Apr 17, 2018 Frequency: 6 times per week Estimated Hrs Per Day: .25 hour per day (15-30 min) Patient and/or Family Agrees t: Yes Time/GCodes Time In: 1038 Time Out: 1053 Total Billed Treatment Time: 15 Total Billed Treatment 1 visit FA 15 min MATY LLANES PT Apr 16, 2018 11:21
[2018-04-16] MEDS: FLUTICASONE NASAL SPRAY (FLONASE) 16 GM BTL NS SCH ×2 (12:07→12:12)
[2018-04-16] MEDS: busPIRone 5 MG (BUSPAR) TAB PO SCH (12:07)
[2018-04-16] MEDS: ALLOPURINOL 100 MG (ZYLOPRIM) TAB PO SCH (12:08)
[2018-04-16] MEDS: DILTIAZEM 300 MG (CARDIZEM CD) CAP PO SCH (12:08)
[2018-04-16] MEDS: ASPIRIN E.C. 81 MG (ECOTRIN) TAB PO SCH (12:08)
[2018-04-16] MEDS: MEROPENEM 500 MG/SWFI 10 ML IV PUSH IV SCH ×2 (12:08)
[2018-04-16] MEDS: DOCUSATE SODIUM 100 MG (COLACE) CAP PO SCH (12:26)
[2018-04-16 12:58] LABS: CALCIUM 8.4 MG/DL (8.5-10.1); CREATININE SERUM 1.88 MG/DL (0.60-1.30); POTASSIUM 4.8 MMOL/L (3.6-5.0)
--- NOTE | 2018-04-16 13:17 | Discharge Inst-Skilled Nursing ---
Discharge Inst-Skilled NF Patient Instructions Patient Problems: Continue to take your medications as written. Please follow up with Dr Cano, Dr Payne, and Dr Estrella as shceduled. Consult/Follow Up/Orders Skilled NF Admit to: [facility] (SNF) I certify that SNF services are required to be given on an inpatient basis because of the above named patient's need for care home care on a continuing basis for the conditions(s) for which he/she was receiving inpatient hospital services prior to his/her transfer to the SNF. [facility] Facility Order: Nursing Services, All Source Analyst-Evaluate & Treat, Physical Therapy-Evaluate & Treat Oxygen Delivery Method: NIV CPAP Oxygen Flow Rate L/min (Range): 2 Discharge Diet: Coumadin Patient Diet Daily Activity as Tolerated: Yes New & Resume Previous Orders Vviek Curtis Apr 16, 2018 13:16 VIVEK CURTIS MD Apr 16, 2018 13:17
[2018-04-16] MEDS ORDERED: Diltiazem Hcl PO (13:21)
[2018-04-16] MEDS ORDERED: BETH25TA PO (13:21)
[2018-04-16] MEDS ORDERED: PRD10T PO (13:21)
[2018-04-16] MEDS ORDERED: TAMS0.4C98 PO (13:21)
--- NOTE | 2018-04-16 13:46 | NUR ---
d/c midline per [facility], due to pt being discharged. Cath intact. Pt tolerated well.
--- NOTE | 2018-04-16 13:51 | NUR ---
CM/SS patient is ready to be discharged to [facility]. Spoke to [facility] and they will transport this day at 1500. Completed CARE Assessment with patient, [facility] facility and copy retained for chart. Discharge information sent to [facility].
[2018-04-16 15:05] VITALS: BP 138/88
--- NOTE | 2018-04-16 15:05 | NUR ---
DISCHARGED TO [facility]. REPORT GIVEN TO OTONIEL DAVIS
[2018-04-16] MEDS ORDERED: SULF1TAB35 PO (15:18)
--- NOTE | 2018-04-16 15:19 | Discharge Summary-Hospitalist ---
Diagnosis/Chief Complaint Date of Admission Apr 10, 2018 at 11:06 Date of Discharge Discharge Date: Apr 16, 2018 Discharge Diagnosis (1) Infection due to ESBL-producing Escherichia coli Status: Acute Assessment & Plan: Blood cultures positive x2 for ESBL e coli Complete 7 days of Merrem (2) DARLENE (acute kidney injury) Assessment & Plan: Improved (3) Aortic valve replaced Status: Chronic Assessment & Plan: Cardiology consulted, appreciate recs INR 4.6- hold coumadin Goal 2.5-3.5 (4) Hypothyroidism Status: Chronic Assessment & Plan: Continue home supplement (5) COPD (chronic obstructive pulmonary disease) Status: Chronic Assessment & Plan: Pulm consulted, appreciate recs Continue Prednisone taper (6) A-fib Assessment & Plan: Continue current meds Rate controlled (7) PAD (peripheral artery disease) Status: Chronic Assessment & Plan: On coumadin for AVR Cardiology consulted, appreciate recs (8) Non-insulin dependent type 2 diabetes mellitus Assessment & Plan: Continue SSI Discharge Summary Procedures/Consulations Dr Estrella- Cardiology Dr Payne- [facility] Discharge Physical Exam Allergies: Coded Allergies: codeine (Verified Allergy, Unknown, PT HAS REC MORPHINE WITHOUT PROBLEMS, 12/25/15) cortisone (Verified Allergy, Unknown, 12/25/15) tramadol (Verified Allergy, Unknown, 12/25/15) Vitals & I&Os Vital Signs Date Time Temp Pulse Resp B/P (MAP) Pulse Ox O2 Delivery O2 Flow Rate FiO2 04/16/18 13:54 90 High Flow N/C 6.00 04/16/18 07:00 106 04/16/18 06:13 97.2 28 131/68 (89) General Appearance: Anxious, Chronically ill HEENT: PERRL/EOMI Respiratory: Lungs Clear, No Accessory Muscle Use, No Respiratory Distress Cardiovascular: Regular Rate, Rhythm, Systolic Murmur Skin: Normal Color, Warm/Dry Neurologic/Psychiatric: Alert, Oriented x3 Hospital Course Pt was admitted to swing bed for continued IV abx for ESBL e coli bacteremia and continued therapy for generalized weakness. She completed 1 week of Merrem and was transitioned to Bactrim to complete her oral abx course. She requested continued skilled therapy and elected [facility] for her SNF stay. She stated she was feeling better and requested discharge on day of discharge. Son at bedside was in agreement with plan. She is to follow up with Dr Cano , Dr Payne, and Dr Estrella as an outpatient. Labs (last 24 hrs) Laboratory Tests 04/15/18 18:02: Glucometer 264H 04/15/18 21:07: Glucometer 217H 04/16/18 05:15: Glucometer 235H 04/16/18 05:55: Prothrombin Time 36.6H, INR Comment 3.7H 04/16/18 12:19: Glucometer 338H 04/16/18 12:30: Sodium Level 130L, Potassium Level 4.8, Chloride Level 103, Carbon Dioxide Level 20L, Anion Gap 7, Blood Urea Nitrogen 48H, Creatinine 1.88H, Estimat Glomerular Filtration Rate 26, BUN/Creatinine Ratio 26, Glucose Level 283H, Calcium Level 8.4L Patient resulted labs reviewed. Pending Labs Laboratory Tests 04/16/18 12:19: Glucometer 338 04/16/18 12:30: Sodium Level 130, Potassium Level 4.8, Chloride Level 103, Carbon Dioxide Level 20, Anion Gap 7, Blood Urea Nitrogen 48, Creatinine 1.88, Estimat Glomerular Filtration Rate 26, BUN/Creatinine Ratio 26, Glucose Level 283, Calcium Level 8.4 Discussion & Recommendations Discharge Planning: >30 minutes discharge planning Discharge Home Medications: Active Scripts Active Prednisone 10 Mg Tab 60 Mg PO DAILY@0700 Take 6 tabs (60mg) daily, decrease by 1 tab (10mg) daily. [Diltiazem Hcl] 300 MG Cap 300 Mg PO DAILY Flomax (Tamsulosin HCl) 0.4 Mg Cap 0.4 Mg PO DAILY@1800 Bethanechol Chloride 25 Mg Tablet 25 Mg PO ACHS Metoprolol Succinate 25 Mg Tab.er.24h 25 Mg PO DAILY Reported Iprat-Albut 0.5-3(2.5) mg/3 ml (Ipratropium/Albuterol Sulfate) 3 Ml Ampul.neb 3 Ml NEB Q6H PRN Colace (Docusate Sodium) 100 Mg Capsule 100 Mg PO DAILY Vitamin C (Ascorbate Calcium) 500 Mg Tablet 500 Mg PO HS Nasacort (Triamcinolone Acetonide) 10.8 Ml [place] 1 [place] NS DAILY Sarah Allergy (Fexofenadine HCl) 180 Mg Tablet 180 Mg PO DAILY Colace (Docusate Sodium) 100 Mg Capsule 100 Mg PO DAILY Azo Cranberry Softgel (Cranberry Extract/Vit C) 1 Each Capsule 3 Cap PO BID Warfarin Sodium 6 Mg Tablet 6 Mg PO MOTUWETHFRSA@1800 Buspirone HCl 5 Mg Tablet 5 Mg PO DAILY Warfarin Sodium 6 Mg Tablet 3 Mg PO DIAZ@1800 TAKES 1/2 (3MG) TABLET Systane Gel Eye Drops (Propylene Glycol/Peg 400) 10 Ml Drops.gel 1-2 Drop OD 5XD PRN Incruse Ellipta (Umeclidinium [place]) 62.5 Mcg Blst.w.dev 1 Puff IH DAILY Potassium Chloride 10 Meq Tablet.er 10 Meq PO DAILY Vitamin D-3 (Cholecalciferol (Vitamin D3)) 2,000 Unit Capsule 2,000 Unit PO DAILY Ventolin Hfa (Albuterol Sulfate) 18 Gm Hfa.aer.ad 2 Puff INH Q4H PRN Nitroglycerin 0.4 Mg Tab.subl 0.4 Mg SL UD PRN Aspirin EC (Aspirin) 81 Mg Tablet.dr 81 Mg PO DAILY Budesonide 0.5 Mg/2 Ml Ampul.neb 0.5 Mg NEB BID Atorvastatin Calcium 20 Mg Tablet 20 Mg PO HS Allopurinol 100 Mg Tablet 100 Mg PO BID Enalapril Maleate 10 Mg Tablet 10 Mg PO DAILY Glimepiride 4 Mg Tablet 4 Mg PO DAILY Furosemide 40 Mg Tablet 60 Mg PO DAILY TAKES 1 & 1/2 (40MG) TABLET Omeprazole 40 Mg Capsule.dr 40 Mg PO DAILY Levothyroxine Sodium 25 Mcg Tablet 25 Mcg PO DAILY Instructions to patient/family Please see electronic discharge instructions given to patient. Clinical Quality Measures DVT/VTE Risk/Contraindication: Risk Factor Score Per Nursin Problem Qualifiers (1) Hypothyroidism: Hypothyroidism type: unspecified Qualified Codes: E03.9 - Hypothyroidism, unspecified (2) COPD (chronic obstructive pulmonary disease): COPD type: unspecified COPD Qualified Codes: J44.9 - Chronic obstructive pulmonary disease, unspecified (3) A-fib: Atrial fibrillation type: paroxysmal Qualified Codes: I48.0 - Paroxysmal atrial fibrillation VIVEK FERNANDEZ MD Apr 16, 2018 15:19
--- NOTE | 2018-04-17 07:57 | Therapy Team Discharge Summary ---
Therapy Discharge Summary Discharge Recommendations Date of Discharge Apr 16, 2018 at 13:05 Therapy D/C Recommendations: [facility] Placement Physical Therapy Pt discharged to [facility] 04/16/18. Pt able to perform bed mobility with min A-SBA. Pt able to transfer sit<>stand min A-mod A. Pt amb with FWW up to 50' with CGA. Pt fatigues quickly and becomes SOA. Pt was on 2L O2 NC. Occupational Therapy Decreased Activ Tolerance, Decreased UE Strength, Dependent Transfers, Impaired I ADL's, Impaired Self-Care Skills PT Longterm Goals Longterm Goals PT Longterm Goals Time Frame: May 08, 2018 Transfers (B,C,W/C) (FIM): 5 Sit to Lying (QC): 6 Lying-Sitting on Side/Bed(QC): 6 Sit to Stand (QC): 6 Rollin Does the Patient Walk: Yes Gait (FIM): 5 Gait distance (FIM): 3=150 ft Distance: 200' Walk 50ft with 2 Turns (QC): 6 Walk 150 ft (QC): 6 Gait Level of Assist: 5 Gait Assistive Device: FWW OT Commissioned Defence [employer] Officer Goals Commissioned Defence [employer] Officer Goals Time Frame: May 01, 2018 Eating (FIM): 6 Eating (QC): 6 Groomin Oral Hygiene (QC): 6 Bathing(FIM): 4 Upper Body Dressing(FIM): 5 Lower Body Dressing(FIM): 5 Toileting(FIM): 6 Toileting Hygiene (QC): 6 Toilet/Commode Transfer(FIM): 6 Toilet/Commode Transfer (QC): 6 Additional Goals: 1-Demonstrate ADL Tasks, 2-Verbalize Understanding, 3- ImproveStrength/Tawana 1=Demonstrate adherence to instructed precautions during ADL tasks. 2=Patient will verbalize/demonstrate understanding of assistive devices/ modifications for ADL. 3=Patient will improve strength/tolerance for activity to enable patient to perform ADL's. MATY LLANES PT Apr 17, 2018 07:57
[2018-04-17] MEDS ORDERED: FUROSEMIDE 40 MG (LASIX) TAB PO SCH (09:00)
== END 2018-04-16 13:05 | DRG 177 ==
LOC: 4TH 11:06
PROVIDERS: ADMIT Internal Medicine; ATTEND Internal Medicine
DX: J15.5 Pneumonia due to Escherichia coli (principal); R33.9 Retention of urine, unspecified; I13.0 Hypertensive heart and chronic kidney disease with heart failure and stage 1 through stage 4 chronic kidney disease, or unspecified chronic kidney disease; I50.33 Acute on chronic diastolic (congestive) heart failure; N18.3 Chronic kidney disease, stage 3 (moderate); J96.10 Chronic respiratory failure, unspecified whether with hypoxia or hypercapnia; N17.9 Acute kidney failure, unspecified; J81.1 Chronic pulmonary edema; J90 Pleural effusion, not elsewhere classified; J98.11 Atelectasis; N39.0 Urinary tract infection, site not specified; J44.0 Chronic obstructive pulmonary disease with (acute) lower respiratory infection; I69.354 Hemiplegia and hemiparesis following cerebral infarction affecting left non-dominant side; D64.9 Anemia, unspecified; I48.0 Paroxysmal atrial fibrillation; E11.9 Type 2 diabetes mellitus without complications; G47.33 Obstructive sleep apnea (adult) (pediatric); I25.10 Atherosclerotic heart disease of native coronary artery without angina pectoris; E78.5 Hyperlipidemia, unspecified; E03.9 Hypothyroidism, unspecified; I69.398 Other sequelae of cerebral infarction; H53.40 Unspecified visual field defects; I70.213 Atherosclerosis of native arteries of extremities with intermittent claudication, bilateral legs; I65.23 Occlusion and stenosis of bilateral carotid arteries; Z95.2 Presence of prosthetic heart valve; Z79.84 Long term (current) use of oral hypoglycemic drugs; Z79.01 Long term (current) use of anticoagulants; Z95.820 Peripheral vascular angioplasty status with implants and grafts; Z16.12 Extended spectrum beta lactamase (ESBL) resistance
CPT/HCPCS: 36415; 71045; 76937; 80048; 80053; 82962; 83735; 83880; 84100; 85007; 85025; 85027; 85610; 94640; 94760

== ENCOUNTER → 2018-04-19 | Outpatient (CLI) | payer MEDICARE ==
[~2018-04-19] MED LIST changes: -ACETAMINOPHEN 325 MG TABLET PO PRN; +BETH25TA PO; +Diltiazem Hcl PO; -NITROGLYCERIN 0.4 MG SL TABS BTL 25'S SL PRN; -ONDANSETRON 4 MG/2 ML (SDV) Z0FRAN IV PRN; +TAMS0.4C98 PO
[2018-04-19 15:33] LABS: BILIRUBIN,URINE NEGATIVE (NEGATIVE); CLARITY,URINE SLIGHTLY CLOUDY; COLOR,URINE AMBER; GLUCOSE, URINE (UA) 4+ (NEGATIVE); KETONES,URINE NEGATIVE (NEGATIVE); LEUKOCYTE ESTERASE ,URINE 1+ (NEGATIVE); NITRITE,URINE NEGATIVE (NEGATIVE); PH,URINE 5 (5-9); PROTEIN,URINE 3+ (NEGATIVE); UROBILINOGEN,URINE NORMAL (NORMAL)
[2018-04-19 15:58] LABS: BACTERIA,URINE NEGATIVE /HPF; RBC,URINE RARE /HPF; YEAST,URINE MODERATE /HPF
== END ==
LOC: LABNPT 15:12
PROVIDERS: ATTEND Internal Medicine
DX: N39.0 Urinary tract infection, site not specified (principal)
CPT/HCPCS: 81000; 87088

== ENCOUNTER → 2018-04-30 | Outpatient (CLI) | payer MEDICARE ==
[~2018-04-30] MED LIST changes: +ACET325T38 PO; +DILT300C51 PO; +MAGN400T39 PO
== END ==
LOC: WOUNDCARE 08:10
PROVIDERS: ATTEND Nurse Practitioner
DX: E11.628 Type 2 diabetes mellitus with other skin complications (principal); L97.511 Non-pressure chronic ulcer of other part of right foot limited to breakdown of skin; L97.521 Non-pressure chronic ulcer of other part of left foot limited to breakdown of skin; I25.10 Atherosclerotic heart disease of native coronary artery without angina pectoris; I48.2 Chronic atrial fibrillation
CPT/HCPCS: 99214

== ENCOUNTER → 2018-04-30 | Outpatient (CLI) | payer MEDICARE ==
[~2018-04-30] MED LIST changes: -ACET325T38 PO; -DILT300C51 PO; -MAGN400T39 PO
[2018-04-30 11:44] LABS: BASOPHILS % (AUTO) 0 % (0-10); EOSINOPHILS # (AUTO) 0.1 10^3/uL (0.0-0.3); EOSINOPHILS % (AUTO) 1 % (0-10); HEMATOCRIT 31 % (35-52); HEMOGLOBIN 9.7 G/DL (11.5-16.0); LYMPHOCYTES # (AUTO) 0.6 X 10^3 (1.0-4.0); LYMPHOCYTES % (AUTO) 7 % (12-44); MEAN CORPUSCULAR HEMOGLOBIN 29 PG (25-34); MEAN CORPUSCULAR HGB CONC 31 G/DL (32-36); MEAN CORPUSCULAR VOLUME 94 FL (80-99); MONOCYTES # (AUTO) 0.5 X 10^3 (0.0-1.0); MONOCYTES % (AUTO) 6 % (0-12); NEUTROPHILS # (AUTO) 7.9 X 10^3 (1.8-7.8); NEUTROPHILS % (AUTO) 86 % (42-75); PLATELET COUNT 223 10^3/uL (130-400); RED CELL DISTRIBUTION WIDTH 16.5 % (10.0-14.5); WHITE BLOOD COUNT 9.1 10^3/uL (4.3-11.0)
[2018-04-30 12:04] LABS: ANISOCYTOSIS SLIGHT; BAND NEUTROPHILS 3 %; BASOPHILS % (MANUAL) 0 %; ELLIPT/OVALOCYTES SLIGHT; EOSINOPHILS % (MANUAL) 0 %; LYMPHOCYTES % (MANUAL) 8 %; MONOCYTES % (MANUAL) 5 %; NEUTROPHILS % (MANUAL) 84 %; POIKILOCYTOSIS SLIGHT
[2018-04-30 12:09] LABS: BILIRUBIN,TOTAL 0.6 MG/DL (0.1-1.0); CALCIUM 8.7 MG/DL (8.5-10.1); CREATININE SERUM 1.8 MG/DL (0.60-1.30); PHOSPHORUS 2.7 MG/DL (2.3-4.7); POTASSIUM 4.3 MMOL/L (3.6-5.0)
--- NOTE | 2018-04-30 12:54 | Diagnostic Imaging Report ---
PA and lateral chest at 1107 hours. INDICATION: Hypoxia. FINDINGS: The appearance of the chest has worsened somewhat since 04/14/2018 as the central pulmonary vascularity and interstitial densities in both lungs are somewhat more prominent. I suspect there may be slightly greater pulmonary congestion than on the prior exam. The heart itself remains enlarged. Sternal wires and surgical clips are again noted and no different. There is persistent involvement of both lung bases by atelectasis/infiltrate and fluid as well. The density in the right lung base is perhaps somewhat greater. Mediastinum is not widened. The osseous structures are intact. The long-standing fracture of the left humeral neck seen previously is again evident. IMPRESSION: The appearance of the chest has worsened somewhat since the prior exam as there does appear to be slightly greater pulmonary congestion. There is also greater involvement of the right lung base by pneumonia/atelectasis. A followup study would be recommended for continued evaluation. Dictated by: Dictated on workstation # [id number]
== END ==
LOC: RAD 10:39
PROVIDERS: ATTEND Nurse Practitioner Family
DX: J44.9 Chronic obstructive pulmonary disease, unspecified (principal); J90 Pleural effusion, not elsewhere classified; G47.10 Hypersomnia, unspecified; G47.33 Obstructive sleep apnea (adult) (pediatric); Z98.890 Other specified postprocedural states
CPT/HCPCS: 36415; 71046; 80053; 83735; 83880; 84100; 85007; 85027

== ENCOUNTER 2018-05-01 07:49 | Emergency (ER) | payer MEDICARE ==
[~2018-05-01] VITALS: Ht 165.1 cm; Wt 79.4 kg
[2018-05-01] MEDS ORDERED: NS IV 500 ML 500 ML ONE (08:09)
--- NOTE | 2018-05-01 08:10 | ED Neurological Problem ---
General Stated Complaint: STROKE/L SIDED WEAKNESS Source: patient, EMS Exam Limitations: clinical condition History of Present Illness Date Seen by Provider: May 01, 2018 Time Seen by Provider: 08:09 Initial Comments This 82-year-old white female presents with possible stroke. According the shelter personnel the patient demonstrated slurred speech and right arm weakness this morning. 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 In addition the patient has had a cough and was told that she has pneumonia by Dr. Payne yesterday. Allergies and Home Medications Allergies Coded Allergies: codeine (Verified Allergy, Unknown, PT HAS REC MORPHINE WITHOUT PROBLEMS, 12/25/15) cortisone (Verified Allergy, Unknown, 12/25/15) tramadol (Verified Allergy, Unknown, 12/25/15) Home Medications Albuterol Sulfate 18 Gm Hfa.aer.ad, 2 PUFF INH Q4H PRN for SHORTNESS OF BREATH, (Reported) Allopurinol 100 Mg Tablet, 100 MG PO BID, (Reported) Ascorbate Calcium 500 Mg Tablet, 500 MG PO HS, (Reported) Aspirin 81 Mg Tablet.dr, 81 MG PO DAILY, (Reported) Atorvastatin Calcium 20 Mg Tablet, 20 MG PO HS, (Reported) Bethanechol Chloride 25 Mg Tablet, 25 MG PO ACHS Prescribed by: VIVEK FERNANDEZ on 04/16/18 1321 Budesonide 0.5 Mg/2 Ml Ampul.neb, 0.5 MG NEB BID, (Reported) Buspirone HCl 5 Mg Tablet, 5 MG PO DAILY, (Reported) Cholecalciferol (Vitamin D3) 2,000 Unit Capsule, 2,000 UNIT PO DAILY, (Reported) Cranberry Extract/Vit C 1 Each Capsule, 3 CAP PO BID, (Reported) Docusate Sodium 100 Mg Capsule, 100 MG PO DAILY, (Reported) Docusate Sodium 100 Mg Capsule, 100 MG PO DAILY, (Reported) Enalapril Maleate 10 Mg Tablet, 10 MG PO DAILY, (Reported) Fexofenadine HCl 180 Mg Tablet, 180 MG PO DAILY, (Reported) Furosemide 40 Mg Tablet, 60 MG PO DAILY, (Reported) TAKES 1 & 1/2 (40MG) TABLET Glimepiride 4 Mg Tablet, 4 MG PO DAILY, (Reported) Ipratropium/Albuterol Sulfate 3 Ml Ampul.neb, 3 ML NEB Q6H PRN for SHORTNESS OF BREATH, (Reported) Levothyroxine Sodium 25 Mcg Tablet, 25 MCG PO DAILY, (Reported) Metoprolol Succinate 25 Mg Tab.er.24h, 25 MG PO DAILY Prescribed by: VIVEK FERNANDEZ on 03/19/18 0914 Nitroglycerin 0.4 Mg Tab.subl, 0.4 MG SL UD PRN for CHEST PAIN, (Reported) Omeprazole 40 Mg Capsule.dr, 40 MG PO DAILY, (Reported) Potassium Chloride 10 Meq Tablet.er, 10 MEQ PO DAILY, (Reported) Prednisone 10 Mg Tab, 60 MG PO DAILY@0700 Take 6 tabs (60mg) daily, decrease by 1 tab (10mg) daily. Prescribed by: VIVEK FERNANDEZ on 04/16/18 132 Propylene Glycol/Peg 400 10 Ml Drops.gel, 1-2 DROP OD 5XD PRN for DRY EYES, ( Reported) Sulfamethoxazole/Trimethoprim 1 Each Tablet, 1 EACH PO BID Prescribed by: VIVEK FERNANDEZ on 04/16/18 1518 Tamsulosin HCl 0.4 Mg Cap, 0.4 MG PO DAILY@1800 Prescribed by: VIVEK FERNANDEZ on 04/16/18 1321 Triamcinolone Acetonide 10.8 Ml [place], 1 SPRAY NS DAILY, (Reported) Umeclidinium [place] 62.5 Mcg Blst.w.dev, 1 PUFF IH DAILY, (Reported) Warfarin Sodium 6 Mg Tablet, 3 MG PO Delaney@1800, (Reported) TAKES 1/2 (3MG) TABLET Warfarin Sodium 6 Mg Tablet, 6 MG PO MoTuWeThFrSa@1800, (Reported) [Diltiazem Hcl] 300 MG CAP, 300 MG PO DAILY Prescribed by: VIVEK FERNANDEZ on 04/16/18 1321 Patient Home Medication List Home Medication List Reviewed: Yes Review of Systems Review of Systems Constitutional: No chills, No fever Eyes: Denies Blurred Vision Ears, Nose, Mouth, Throat: denies ear pain Respiratory: cough Cardiovascular: no symptoms reported Gastrointestinal: no symptoms reported Genitourinary: dysuria : No Musculoskeletal: no symptoms reported Skin: No rash, No other Psychiatric/Neurological: No Symptoms Reported Endocrine: No Symptoms Reported Hematologic/Lymphatic: No Symptoms Reported Past Tzhdqhe-Dexigg-Ktjpzj Hx Past Med/Social Hx: Reviewed Nursing Past Med/Soc Hx Patient Social History Type Used: Cigarettes Former Smoker, Quit: Sep 09, 2000 2nd Hand Smoke Exposure: No Recent Hopitalizations: Yes Immunizations Up To Date Tetanus Booster (TDap): Unknown Date of Pneumonia Vaccine: Mar 06, 2018 Date of Influenza Vaccine: Dec 04, 2017 Seasonal Allergies Seasonal Allergies: No Past Medical History Surgeries: Yes (RT HIP, HEART VALVE REPLACEMENT, BLEPHAROSPLASTY) Coronary Stent, Orthopedic, Tonsillectomy, Tubal Ligation, Valve Replacement, Vascular Surgery Respiratory: Yes (wears cpap with o2 2l HS) Pneumonia, Sleep Apnea, COPD Currently Using CPAP: Yes (At HS. 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 1.0oz. [id number]; 28.4 BMI Method:Stated General Appearance: WD/WN, no apparent distress HEENT: normal ENT inspection Neck: supple, normal inspection Respiratory: decreased breath sounds Cardiovascular: regular rate, rhythm Gastrointestinal: normal bowel sounds, tenderness (slight suprapubic tenderness ) Back: normal inspection Extremities: other (there is decreased motor examination on the left upper and lower extremity. Left face is unremarkable.) [place] Nerves: normal hearing, other (there is no facial weakness or paralysis but there is slightly slurred speech) Skin: normal color, warm/dry Focused Exam Lactate Level 05/01/18 08:14: Lactic Acid Level 1.01 Lactic Acid Level Laboratory Tests Test 05/01/18 08:14 Lactic Acid Level 1.01 MMOL/L (0.50-2.00) Progress/Results/Core Measures Results/Orders Lab Results Laboratory Tests Test 05/01/18 08:14 05/01/18 08:52 Range/Units White Blood Count 6.3 4.3-11.0 10^3/uL Red Blood Count 3.12 L 4.35-5.85 10^6/uL Hemoglobin 9.1 L 11.5-16.0 G/DL Hematocrit 29 L 35-52 % Mean Corpuscular Volume 94 80-99 FL Mean Corpuscular Hemoglobin 29 25-34 PG Mean Corpuscular Hemoglobin Concent 31 L 32-36 G/DL Red Cell Distribution Width 16.3 H 10.0-14.5 % Platelet Count 205 130-400 10^3/uL Mean Platelet Volume 11.8 H 7.4-10.4 FL Neutrophils (%) (Auto) 75 42-75 % Lymphocytes (%) (Auto) 13 12-44 % Monocytes (%) (Auto) 10 0-12 % Eosinophils (%) (Auto) 2 0-10 % Basophils (%) (Auto) 1 0-10 % Neutrophils # (Auto) 4.7 1.8-7.8 X 10^3 Lymphocytes # (Auto) 0.8 L 1.0-4.0 X 10^3 Monocytes # (Auto) 0.6 0.0-1.0 X 10^3 Eosinophils # (Auto) 0.1 0.0-0.3 10^3/uL Basophils # (Auto) 0.0 0.0-0.1 10^3/uL Prothrombin Time 45.2 *H 12.2-14.7 SEC INR Comment 4.8 H 0.8-1.4 Activated Partial Thromboplast Time 42 H 24-35 SEC Sodium Level 135 135-145 MMOL/L Potassium Level 4.3 3.6-5.0 MMOL/L Chloride Level 102 98-107 MMOL/L Carbon Dioxide Level 22 21-32 MMOL/L Anion Gap 11 5-14 MMOL/L Blood Urea Nitrogen 34 H 7-18 MG/DL Creatinine 1.72 H 0.60-1.30 MG/DL Estimat Glomerular Filtration Rate 28 BUN/Creatinine Ratio 20 Glucose Level 208 H 70-105 MG/DL Lactic Acid Level 1.01 0.50-2.00 MMOL/L Calcium Level 8.6 8.5-10.1 MG/DL Corrected Calcium 9.6 8.5-10.1 MG/DL Total Bilirubin 0.5 0.1-1.0 MG/DL Aspartate Amino Transf (AST/SGOT) 18 5-34 U/L Alanine Aminotransferase (ALT/SGPT) 21 0-55 U/L Alkaline Phosphatase 81 40-136 U/L Total Protein 5.7 L 6.4-8.2 GM/DL Albumin 2.7 L 3.2-4.5 GM/DL Urine Color YELLOW Urine Clarity VERY CLOUDY H Urine pH 6 5-9 Urine Specific [place] 1.015 L 1.016-1.022 Urine Protein 4+ NEGATIVE Urine Glucose (UA) NEGATIVE NEGATIVE Urine Ketones NEGATIVE NEGATIVE Urine Nitrite NEGATIVE NEGATIVE Urine Bilirubin NEGATIVE NEGATIVE Urine Urobilinogen NORMAL NORMAL MG/DL Urine Leukocyte Esterase 3+ H NEGATIVE Urine RBC (Auto) 5+ H NEGATIVE Urine RBC 0-2 /HPF Urine WBC TNTC H /HPF Urine Squamous Epithelial Cells RARE /HPF Urine Crystals NONE /LPF Urine Bacteria LARGE H /HPF Urine Casts NONE /LPF Urine Mucus NEGATIVE /LPF Urine Culture Indicated CULTURE PENDING My Orders Orders - CECIL LIAO MD Cbc With Automated Diff (05/01/18 08:02) Comprehensive Metabolic Panel (05/01/18 08:02) Blood Culture (05/01/18 08:02) Sputum Culture (05/01/18 08:02) Urinalysis (05/01/18 08:02) Urine Culture (05/01/18 08:02) Protime With Inr (05/01/18 08:02) Partial Thromboplastin Time (05/01/18 08:02) Chest 1 View, Ap/Pa Only (05/01/18 08:02) Saline Lock/Iv-Start (05/01/18 08:02) Saline Lock/Iv-Start (05/01/18 08:02) Ekg Tracing (05/01/18 08:02) Vital Signs Adult Sepsis Patie Q15M (05/01/18 08:02) O2 (05/01/18 08:02) Remove Rings In Anticipation O (05/01/18 08:02) Lactic Acid Analyzer (05/01/18 08:02) Ct Head Wo (05/01/18 08:02) Ns Iv 1000 Ml (Sodium Chloride 0.9%) (05/01/18 08:15) Ns Iv 500 Ml (Sodium Chloride 0.9%) (05/01/18 08:09) Ceftriaxone For Iv Use (Rocephin For I (05/01/18 09:45) Ceftriaxone For Iv Use (Rocephin For I (05/01/18 09:42) Ceftriaxone For Iv Use (Rocephin For I (05/01/18 09:50) Nitrofurantoin Capsule,Macro (Macrobid C (05/01/18 11:15) Medications Given in ED Current Medications Medications Dose Ordered Sig/Paola Route Start Time Stop Time Status Last Admin Dose Admin Ceftriaxone Sodium 2000 mg/ Sterile Water 20 ml @ 240 mls/hr ONCE ONCE IV 05/01/18 09:45 05/01/18 09:49 DC 05/01/18 09:49 240 MLS/HR Sodium Chloride 500 ml @ ud STK-MED ONCE .ROUTE 05/01/18 08:09 05/01/18 08:11 DC 05/01/18 08:20 500 MLS/HR Vital Signs/I&O 05/01/18 05/01/18 07:49 07:49 Temp 98.2 Pulse 127 Resp 30 B/P (MAP) 120/93 (102) Pulse Ox 95 95 O2 Delivery OxyMask O2 Flow Rate 2.00 Progress Progress Note : Time: 11:17 Progress Note Highlights of the patient's laboratory and radiographic evaluation demonstrated no evidence of an acute bleed on the patient's CT of the head. The patient's INR was prolonged at 4-1/2. Since was improved from the patient's INR of 8 several days ago. The results of the patient's urine culture from earlier in the week demonstrated Escherichia coli sensitive to Macrobid. There was evidence of a bilateral lower lobe infiltrate on the chest x-ray. I discussed presentation with Dr. Cano. Were going to use the cephalosporin that has been ordered for the patient's probable pneumonia. Will use Macrobid for the patient's urinary tract infection. Dr. Salone will follow closely on the patient. As we have no beds in the hospital the family is comfortable with attempting to care for the patient in the shelter. Initial ECG Impression Date: May 01, 2018 Departure Communication (Admissions) Time/Spoke to Consulting Phy: 11:19 Dr. Cano. Impression Primary Impression: Cerebrovascular accident due to cerebral artery occlusion Additional Impressions: Urinary tract infection Qualified Codes: N30.00 - Acute cystitis without hematuria Pneumonia Qualified Codes: J18.1 - Lobar pneumonia, unspecified organism Disposition: HOME, SELF-CARE Condition: Improved Departure-Patient Inst. Decision time for Depature: 11:21 Referrals: SEDRICK CANO DO (PCP/Family) Primary Care Physician Add. Discharge Instructions: Antibiotics as prescribed. Close follow-up with Dr. Cano. Return if there is any progression of the patient's stroke or infections. CECIL LIAO MD May 01, 2018 08:10
[2018-05-01] MEDS ORDERED: NS IV 1000 ML 1,000 ML IV SCH (08:15)
[2018-05-01 08:29] LABS: BASOPHILS % (AUTO) 1 % (0-10); EOSINOPHILS # (AUTO) 0.1 10^3/uL (0.0-0.3); EOSINOPHILS % (AUTO) 2 % (0-10); HEMATOCRIT 29 % (35-52); HEMOGLOBIN 9.1 G/DL (11.5-16.0); LYMPHOCYTES # (AUTO) 0.8 X 10^3 (1.0-4.0); LYMPHOCYTES % (AUTO) 13 % (12-44); MEAN CORPUSCULAR HEMOGLOBIN 29 PG (25-34); MEAN CORPUSCULAR HGB CONC 31 G/DL (32-36); MEAN CORPUSCULAR VOLUME 94 FL (80-99); MEAN PLATELET VOLUME 11.8 FL (7.4-10.4); MONOCYTES # (AUTO) 0.6 X 10^3 (0.0-1.0); MONOCYTES % (AUTO) 10 % (0-12); NEUTROPHILS # (AUTO) 4.7 X 10^3 (1.8-7.8); NEUTROPHILS % (AUTO) 75 % (42-75); PLATELET COUNT 205 10^3/uL (130-400); RED CELL DISTRIBUTION WIDTH 16.3 % (10.0-14.5); WHITE BLOOD COUNT 6.3 10^3/uL (4.3-11.0)
[2018-05-01 08:44] LABS: INR 4.8 (0.8-1.4)
[2018-05-01 08:45] LABS: PROTHROMBIN TIME PATIENT 45.2 SEC (12.2-14.7)
[2018-05-01 08:51] LABS: ALBUMIN 2.7 GM/DL (3.2-4.5); BILIRUBIN,TOTAL 0.5 MG/DL (0.1-1.0); CALCIUM 8.6 MG/DL (8.5-10.1); CREATININE SERUM 1.72 MG/DL (0.60-1.30); POTASSIUM 4.3 MMOL/L (3.6-5.0); TOTAL PROTEIN 5.7 GM/DL (6.4-8.2)
[2018-05-01 08:56] LABS: BILIRUBIN,URINE NEGATIVE (NEGATIVE); CLARITY,URINE VERY CLOUDY; COLOR,URINE YELLOW; GLUCOSE, URINE (UA) NEGATIVE (NEGATIVE); KETONES,URINE NEGATIVE (NEGATIVE); LEUKOCYTE ESTERASE ,URINE 3+ (NEGATIVE); NITRITE,URINE NEGATIVE (NEGATIVE); PH,URINE 6 (5-9); PROTEIN,URINE 4+ (NEGATIVE); UROBILINOGEN,URINE NORMAL (NORMAL)
[2018-05-01 09:12] LABS: BACTERIA,URINE LARGE /HPF; RBC,URINE 0-2 /HPF; SQUAMOUS EPITHELIAL CELL,UR RARE /HPF; WBC,URINE TNTC /HPF
[2018-05-01] MEDS ORDERED: cefTRIAXone 1,000 MG IV (ROCEPHIN) VIAL ONE ×2 (09:42→09:50)
[2018-05-01] MEDS ORDERED: cefTRIAXone FOR IV USE 2,000 MG in WATER (STERILE) FOR INJECTION 20 ML IV ONE (09:45)
--- NOTE | 2018-05-01 09:47 | Diagnostic Imaging Report ---
INDICATION: Left-sided weakness. Frontal chest obtained at 9:16 a.m. and compared with yesterday. FINDINGS: There is poststernotomy change again noted with central vascular congestion. There are diffuse increased interstitial markings again noted. There is no change in bibasilar infiltrates. There is a prosthetic aortic valve. IMPRESSION: Cardiomegaly and poststernotomy change with central vascular congestion and unchanged interstitial prominence. Bibasilar infiltrates remain present and are similar to the prior study given difference in technique. There is no definite new abnormality. Dictated by: Dictated on workstation # [id number]
--- NOTE | 2018-05-01 09:49 | Diagnostic Imaging Report ---
INDICATION: Left-sided weakness. CT brain obtained without IV contrast. Comparison made to 12/25/2015. FINDINGS: There are diffuse atrophic changes again noted. There are extensive low-density changes throughout the deep white matter compatible with chronic ischemic change with old lacunar infarct in the right caudate nucleus. There are small old bilateral cerebellar infarcts. There appears to be an old infarct in the right posterior frontal cortex. Calvarial windows appear normal. IMPRESSION: Extensive atrophic changes and chronic ischemic changes as described above, with similar appearance to 12/25/2015. There is no acute intracranial abnormality detected. Dictated by: Dictated on workstation # [id number]
[2018-05-01] MEDS ORDERED: NITROFURANTOIN 100 MG (MACROBID) CAPSULE PO ONE (11:15)
--- NOTE | 2018-05-01 11:29 | NUR ---
[facility] NOTIFIED OF DISMISSAL WILL SEND TRANSPORTATION SOON POSSIBLE
[2018-05-01 13:07] VITALS: BP 118/74
== END 2018-05-01 13:07 | disposition home or self-care (01) ==
LOC: EDUNIT# 07:49 → ER 07:50
DX: I63.50 Cerebral infarction due to unspecified occlusion or stenosis of unspecified cerebral artery (principal); N39.0 Urinary tract infection, site not specified; J18.9 Pneumonia, unspecified organism; G47.30 Sleep apnea, unspecified; J44.9 Chronic obstructive pulmonary disease, unspecified; I48.91 Unspecified atrial fibrillation; I25.10 Atherosclerotic heart disease of native coronary artery without angina pectoris; E78.00 Pure hypercholesterolemia, unspecified; I10 Essential (primary) hypertension; K21.9 Gastro-esophageal reflux disease without esophagitis; E03.9 Hypothyroidism, unspecified; E11.9 Type 2 diabetes mellitus without complications; D64.9 Anemia, unspecified; Z87.19 Personal history of other diseases of the digestive system; Z87.440 Personal history of urinary (tract) infections; Z87.891 Personal history of nicotine dependence; Z95.5 Presence of coronary angioplasty implant and graft; Z90.89 Acquired absence of other organs; Z98.51 Tubal ligation status; Z95.2 Presence of prosthetic heart valve; Z98.890 Other specified postprocedural states; Z87.01 Personal history of pneumonia (recurrent); Z88.6 Allergy status to analgesic agent; Z88.5 Allergy status to narcotic agent; Z88.8 Allergy status to other drugs, medicaments and biological substances; Z79.51 Long term (current) use of inhaled steroids; Z79.82 Long term (current) use of aspirin; Z79.4 Long term (current) use of insulin; Z79.01 Long term (current) use of anticoagulants; Z79.52 Long term (current) use of systemic steroids
CPT/HCPCS: 36415; 51701; 70450; 71045; 80053; 81000; 83605; 85025; 85610; 85730; 87040; 87077; 87088; 87184; 87186; 93005

== ENCOUNTER 2018-05-02 09:08 | Inpatient (IN) | payer MEDICARE ==
[~2018-05-02] VITALS: Ht 165.1 cm; Wt 83.7 kg
[2018-05-02] VITALS (12 sets, daily range): BP systolic 115–169; BP diastolic 45–109
[2018-05-02] MEDS ORDERED: MEROPENEM 1,000 MG in WATER (STERILE) FOR INJECTION 20 ML IV ONE (09:30)
[2018-05-02] MEDS ORDERED: NS IV 1000 ML 1,000 ML IV SCH ×2 (09:30→11:15)
[2018-05-02 09:37] LABS: BASOPHILS % (AUTO) 1 % (0-10); EOSINOPHILS # (AUTO) 0.1 10^3/uL (0.0-0.3); EOSINOPHILS % (AUTO) 1 % (0-10); HEMATOCRIT 28 % (35-52); LYMPHOCYTES # (AUTO) 0.7 X 10^3 (1.0-4.0); LYMPHOCYTES % (AUTO) 11 % (12-44); MEAN CORPUSCULAR HEMOGLOBIN 30 PG (25-34); MEAN CORPUSCULAR HGB CONC 32 G/DL (32-36); MEAN CORPUSCULAR VOLUME 94 FL (80-99); MEAN PLATELET VOLUME 11.3 FL (7.4-10.4); MONOCYTES # (AUTO) 0.7 X 10^3 (0.0-1.0); MONOCYTES % (AUTO) 11 % (0-12); NEUTROPHILS % (AUTO) 77 % (42-75); PLATELET COUNT 257 10^3/uL (130-400); RED CELL DISTRIBUTION WIDTH 16.6 % (10.0-14.5); WHITE BLOOD COUNT 6.4 10^3/uL (4.3-11.0)
[2018-05-02 09:57] LABS: ALBUMIN 2.7 GM/DL (3.2-4.5); BILIRUBIN,TOTAL 0.4 MG/DL (0.1-1.0); CALCIUM 8.8 MG/DL (8.5-10.1); CREATININE SERUM 1.6 MG/DL (0.60-1.30); POTASSIUM 4.5 MMOL/L (3.6-5.0); TOTAL PROTEIN 5.6 GM/DL (6.4-8.2)
[2018-05-02 10:04] LABS: BILIRUBIN,URINE NEGATIVE (NEGATIVE); CLARITY,URINE SLIGHTLY CLOUDY; COLOR,URINE YELLOW; GLUCOSE, URINE (UA) NEGATIVE (NEGATIVE); KETONES,URINE 1+ (NEGATIVE); LEUKOCYTE ESTERASE ,URINE 2+ (NEGATIVE); NITRITE,URINE POSITIVE (NEGATIVE); PH,URINE 6 (5-9); PROTEIN,URINE 4+ (NEGATIVE); UROBILINOGEN,URINE NORMAL (NORMAL)
[2018-05-02 10:33] LABS: AMORPHOUS SEDIMENT,UR MOD AMOR URATES /LPF; BACTERIA,URINE FEW /HPF
--- NOTE | 2018-05-02 11:00 | ED General ---
General Chief Complaint: General Problems/Pain Stated Complaint: POSITIVE BLOOD AND URINE CULTURES Nursing Triage Note: PT BROUGHT IN BY EMS FROM [facility] FOR BACTERIA GROWTH AND BACTERIA GROWTH IN URINE. PT WAS SEEN IN ER YESTERDAY AND DISCHARGED BACK TO THE [facility]. DR QUISPE WANTED PT SENT BACK TO ER AND ADMITTED. PT WAS PUT ON 4LNC BY EMS SINCE PT WAS DROPPING INTO THE 80S ON 2L. Nursing Sepsis Screen: Possible Sepsis Risk Source of Information: Patient, EMS Exam Limitations: No Limitations History of Present Illness Date Seen by Provider: May 02, 2018 Time Seen by Provider: 10:55 Initial Comments This 82-year-old white female [facility] from her UTI. Patient has grown out Escherichia coli sensitive to Macrobid. We saw the patient emergency department yesterday and initiated the Macrobid at that time. The patient's blood cultures however have grown out Escherichia coli and the jail has [facility] the [facility] for hospitalization. The patient is awake and alert and in no acute distress. The patient's sensitivities to the Escherichia coli include meropenem. A gram of meropenem has been ordered for the patient. Allergies and Home Medications Allergies Coded Allergies: codeine (Verified Allergy, Unknown, PT HAS REC MORPHINE WITHOUT PROBLEMS, 12/25/15) cortisone (Verified Allergy, Unknown, 12/25/15) tramadol (Verified Allergy, Unknown, 12/25/15) Home Medications Albuterol Sulfate 18 Gm Hfa.aer.ad, 2 PUFF INH Q4H PRN for SHORTNESS OF BREATH, (Reported) Allopurinol 100 Mg Tablet, 100 MG PO BID, (Reported) Ascorbate Calcium 500 Mg Tablet, 500 MG PO HS, (Reported) Aspirin 81 Mg Tablet.dr, 81 MG PO DAILY, (Reported) Atorvastatin Calcium 20 Mg Tablet, 20 MG PO HS, (Reported) Bethanechol Chloride 25 Mg Tablet, 25 MG PO ACHS Prescribed by: VIVEK CURTIS on 04/16/18 1321 Budesonide 0.5 Mg/2 Ml Ampul.neb, 0.5 MG NEB BID, (Reported) Buspirone HCl 5 Mg Tablet, 5 MG PO DAILY, (Reported) Cholecalciferol (Vitamin D3) 2,000 Unit Capsule, 2,000 UNIT PO DAILY, (Reported) Cranberry Extract/Vit C 1 Each Capsule, 3 CAP PO BID, (Reported) Docusate Sodium 100 Mg Capsule, 100 MG PO DAILY, (Reported) Docusate Sodium 100 Mg Capsule, 100 MG PO DAILY, (Reported) Enalapril Maleate 10 Mg Tablet, 10 MG PO DAILY, (Reported) Fexofenadine HCl 180 Mg Tablet, 180 MG PO DAILY, (Reported) Furosemide 40 Mg Tablet, 60 MG PO DAILY, (Reported) TAKES 1 & 1/2 (40MG) TABLET Glimepiride 4 Mg Tablet, 4 MG PO DAILY, (Reported) Ipratropium/Albuterol Sulfate 3 Ml Ampul.neb, 3 ML NEB Q6H PRN for SHORTNESS OF BREATH, (Reported) Levothyroxine Sodium 25 Mcg Tablet, 25 MCG PO DAILY, (Reported) Metoprolol Succinate 25 Mg Tab.er.24h, 25 MG PO DAILY Prescribed by: VIVEK CURTIS on 03/19/18 0914 Nitroglycerin 0.4 Mg Tab.subl, 0.4 MG SL UD PRN for CHEST PAIN, (Reported) Omeprazole 40 Mg Capsule.dr, 40 MG PO DAILY, (Reported) Potassium Chloride 10 Meq Tablet.er, 10 MEQ PO DAILY, (Reported) Prednisone 10 Mg Tab, 60 MG PO DAILY@0700 Take 6 tabs (60mg) daily, decrease by 1 tab (10mg) daily. Prescribed by: VIVEK CURTIS on 04/16/18 1321 Propylene Glycol/Peg 400 10 Ml Drops.gel, 1-2 DROP OD 5XD PRN for DRY EYES, ( Reported) Sulfamethoxazole/Trimethoprim 1 Each Tablet, 1 EACH PO BID Prescribed by: VIVEK CURTIS on 04/16/18 1518 Tamsulosin HCl 0.4 Mg Cap, 0.4 MG PO DAILY@1800 Prescribed by: VIVEK CURTIS on 04/16/18 1321 Triamcinolone Acetonide 10.8 Ml [place], 1 SPRAY NS DAILY, (Reported) Umeclidinium [place] 62.5 Mcg Blst.w.dev, 1 PUFF IH DAILY, (Reported) Warfarin Sodium 6 Mg Tablet, 3 MG PO Delaney@1800, (Reported) TAKES 1/2 (3MG) TABLET Warfarin Sodium 6 Mg Tablet, 6 MG PO MoTuWeThFrSa@1800, (Reported) [Diltiazem Hcl] 300 MG CAP, 300 MG PO DAILY Prescribed by: VIVEK CURTIS on 04/16/18 1321 Patient Home Medication List Home Medication List Reviewed: Yes Review of Systems Review of Systems Constitutional: No fever EENTM: No ear pain Respiratory: No cough Cardiovascular: No chest pain Gastrointestinal: No abdominal pain, No nausea, No vomiting Genitourinary: No dysuria, No frequency : No Musculoskeletal: No back pain Skin: No change in color, No rash Psychiatric/Neurological: No Symptoms Reported Hematologic/Lymphatic: No Symptoms Reported Immunological/Allergic: no symptoms reported Past Lxgfspr-Atntpe-Xdvria Hx Past Med/Social Hx: Reviewed Nursing Past Med/Soc Hx Patient Social History Alcohol Use: Denies Use Recreational Drug Use: No Smoking Status: Former Smoker Type Used: Cigarettes Former Smoker, Quit: Sep 09, 2000 2nd Hand Smoke Exposure: No Recent Foreign Travel: No Contact w/Someone Who Travel: No Recent Infectious Disease Expo: No Recent Hopitalizations: Yes Immunizations Up To Date Tetanus Booster (TDap): Unknown Date of Pneumonia Vaccine: Mar 06, 2018 Date of Influenza Vaccine: Dec 04, 2017 Seasonal Allergies Seasonal Allergies: No Past Medical History Surgeries: Yes (RT HIP, HEART VALVE REPLACEMENT, BLEPHAROSPLASTY) Coronary Stent, Orthopedic, Tonsillectomy, Tubal Ligation, Valve Replacement, Vascular Surgery Respiratory: Yes (wears cpap with o2 2l HS) Pneumonia, Sleep Apnea, COPD Currently Using CPAP: Yes (At HS. ) Currently Using BIPAP: No Cardiac: Yes Atrial Fibrillation, Coronary Artery Disease, High Cholesterol, Hypertension, Valvular Heart Disease Neurological: Yes (reports "light stroke" last year) Headaches /Migraines, TIA Reproductive Disorders: No Female Reproductive Disorders: Denies Sexually Transmitted Disease: No HIV/AIDS: No Genitourinary: Yes Kidney Infection, UTI-Chronic Gastrointestinal: Yes Gastroesophageal Reflux, Diverticulosis Musculoskeletal: Yes Arthritis Endocrine: Yes Hypothyroidsim, Diabetes, Non-Insulin dep Cataract Loss of Vision: Bilateral Hearing Impairment: Hard of Hearing Cancer: No Psychosocial: No Integumentary: No Blood Disorders: Yes (ANEMIA--ON COUMADIN) Adverse Reaction/Blood Tranf: No Family Medical History FH: stroke 19 FATHER G8 SISTER Stroke No Pertinent Family Hx Physical Exam Vital Signs Vital Signs - First Documented 05/02/18 09:10 Temp 99.6 Pulse 152 Resp 27 B/P (MAP) 126/92 (103) Pulse Ox 98 O2 Delivery Nasal Cannula O2 Flow Rate 4.00 Capillary Refill : Less Than 3 Seconds Height, Weight, BMI Height: 5'5.00" Weight: 175lbs. 1.0oz. [id number]; 28.4 BMI Method:Stated General Appearance: No Apparent Distress, WD/WN Eyes: Bilateral Eye Normal Inspection HEENT: Normal ENT Inspection Neck: Normal Inspection Respiratory: Lungs Clear Cardiovascular: Regular Rate, Rhythm Gastrointestinal: Normal Bowel Sounds, Soft Back: Normal Inspection Extremity: Normal Inspection Neurologic/Psychiatric: No Motor/Sensory Deficits, Normal Mood/Affect Skin: Normal Color, Warm/Dry; No Rash Focused Exam Lactate Level 05/02/18 09:19: Lactic Acid Level 1.00 Lactic Acid Level Laboratory Tests Test 05/02/18 09:19 Lactic Acid Level 1.00 MMOL/L (0.50-2.00) Progress/Results/Core Measures Suspected Sepsis Recent Fever Within 48 Hours: Yes Infection Criteria Present: Documented Infection New/Unexplained Altered Menta: No Sepsis Screen: Possible Sepsis Risk SIRS Temperature:99.6 Pulse: 152 Respiratory Rate: 27 Laboratory Tests 05/02/18 09:19: White Blood Count 6.4 Blood Pressure 126 /92 Mean: 103 05/02/18 09:19: Lactic Acid Level 1.00 Laboratory Tests 05/02/18 09:19: Creatinine 1.60H, Platelet Count 257, Total Bilirubin 0.4 Results/Orders Lab Results Laboratory Tests Test 05/02/18 09:19 05/02/18 09:53 Range/Units White Blood Count 6.4 4.3-11.0 10^3/uL Red Blood Count 3.03 L 4.35-5.85 10^6/uL Hemoglobin 9.0 L 11.5-16.0 G/DL Hematocrit 28 L 35-52 % Mean Corpuscular Volume 94 80-99 FL Mean Corpuscular Hemoglobin 30 25-34 PG Mean Corpuscular Hemoglobin Concent 32 32-36 G/DL Red Cell Distribution Width 16.6 H 10.0-14.5 % Platelet Count 257 130-400 10^3/uL Mean Platelet Volume 11.3 H 7.4-10.4 FL Neutrophils (%) (Auto) 77 H 42-75 % Lymphocytes (%) (Auto) 11 L 12-44 % Monocytes (%) (Auto) 11 0-12 % Eosinophils (%) (Auto) 1 0-10 % Basophils (%) (Auto) 1 0-10 % Neutrophils # (Auto) 5.0 1.8-7.8 X 10^3 Lymphocytes # (Auto) 0.7 L 1.0-4.0 X 10^3 Monocytes # (Auto) 0.7 0.0-1.0 X 10^3 Eosinophils # (Auto) 0.1 0.0-0.3 10^3/uL Basophils # (Auto) 0.0 0.0-0.1 10^3/uL Sodium Level 135 135-145 MMOL/L Potassium Level 4.5 3.6-5.0 MMOL/L Chloride Level 103 98-107 MMOL/L Carbon Dioxide Level 21 21-32 MMOL/L Anion Gap 11 5-14 MMOL/L Blood Urea Nitrogen 31 H 7-18 MG/DL Creatinine 1.60 H 0.60-1.30 MG/DL Estimat Glomerular Filtration Rate 31 BUN/Creatinine Ratio 19 Glucose Level 236 H 70-105 MG/DL Lactic Acid Level 1.00 0.50-2.00 MMOL/L Calcium Level 8.8 8.5-10.1 MG/DL Corrected Calcium 9.8 8.5-10.1 MG/DL Total Bilirubin 0.4 0.1-1.0 MG/DL Aspartate Amino Transf (AST/SGOT) 19 5-34 U/L Alanine Aminotransferase (ALT/SGPT) 18 0-55 U/L Alkaline Phosphatase 81 40-136 U/L Total Protein 5.6 L 6.4-8.2 GM/DL Albumin 2.7 L 3.2-4.5 GM/DL Urine Color YELLOW Urine Clarity SLIGHTLY CLOUDY Urine pH 6 5-9 Urine Specific [place] 1.015 L 1.016-1.022 Urine Protein 4+ NEGATIVE Urine Glucose (UA) NEGATIVE NEGATIVE Urine Ketones 1+ H NEGATIVE Urine Nitrite POSITIVE H NEGATIVE Urine Bilirubin NEGATIVE NEGATIVE Urine Urobilinogen NORMAL NORMAL MG/DL Urine Leukocyte Esterase 2+ H NEGATIVE Urine RBC (Auto) 4+ H NEGATIVE Urine RBC 5-10 H /HPF Urine WBC 10-25 H /HPF Urine Crystals PRESENT H /LPF Urine Amorphous Sediment MOD CARMINA URATES H /LPF Urine Bacteria FEW H /HPF Urine Casts NONE /LPF Urine Mucus NEGATIVE /LPF Urine Culture Indicated YES My Orders Orders - CECIL LIAO MD Cbc With Automated Diff (05/02/18 09:25) Comprehensive Metabolic Panel (05/02/18 09:25) Ua Culture If Indicated (05/02/18 09:25) Blood Culture (05/02/18 09:25) Lactic Acid Analyzer (05/02/18 09:25) Ns Iv 1000 Ml (Sodium Chloride 0.9%) (05/02/18 09:30) Meropenem (Merrem 1000 Mg) (05/02/18 09:30) Blood Culture (05/02/18 09:28) Urine Culture (05/02/18 09:53) Medications Given in ED Current Medications Medications Dose Ordered Sig/Paola Route Start Time Stop Time Status Last Admin Dose Admin Meropenem 1000 mg/ Sterile Water 20 ml @ 240 mls/hr ONCE ONCE IV 05/02/18 09:30 05/02/18 09:34 DC 05/02/18 09:59 240 MLS/HR Vital Signs/I&O 05/02/18 09:10 Temp 99.6 Pulse 152 Resp 27 B/P (MAP) 126/92 (103) Pulse Ox 98 O2 Delivery Nasal Cannula O2 Flow Rate 4.00 Capillary Refill : Less Than 3 Seconds Blood Pressure Mean: 103 Progress Note : Time: 10:58 Progress Note The patient received a gram of meropenem IV. The patient's labs in the emergency department demonstrated a continued UTI. Telephone consultation was undertaken with who is kind enough to admit the patient. Departure Communication (Admissions) Time/Spoke to Admitting Phy: 10:59 Dr. Curtis Impression Primary Impression: Urinary tract infectious disease Qualified Codes: N30.00 - Acute cystitis without hematuria Additional Impression: Positive blood culture Disposition: ADMITTED INPATIENT Condition: Improved Admissions Decision to Admit Reason: Admit from ER (General) Decision to Admit/Date: May 02, 2018 Time/Decision to Admit Time: 10:59 Departure-Patient Inst. Referrals: SEDRICK QUISPE DO (PCP/Family) Primary Care Physician CECIL LIAO MD May 02, 2018 11:00
[2018-05-02] MEDS ORDERED: DILTIAZEM 25 MG/5 ML INJ (CARDIZEM) VIAL IVP ONE (11:45)
[2018-05-02] MEDS: DILTIAZEM INJECTION 125 MG in NS (IVPB) 100 ML IV SCH ×2 (11:57→14:53)
[2018-05-02] MEDS ORDERED: HYDROcodone/APAP 7.5MG-325 MG/15 ML (LORTAB) UDC PO STA (12:58)
--- NOTE | 2018-05-02 13:21 | History & Physical-Hospitalist ---
History of Present Illness HPI/Chief Complaint Pt is an 82yoCF known to me from multiple recent admissions who presented to the ER for positive blood cultures form her [facility]. She asks her daughter to provide her history so most history is obtained from the daughter. She was seen in the ER yesterday for concerns about a stroke due to slurred speech and right arm weakness. She was instead found to have a UTI and was sent back to her [facility] for outpatient management of her UTI. This morning the [facility] was called by the lab because blood cultures that were done yesterday were positive for e coli. She returned and is being admitted for e coli bacteremia. She has a multitude of other complaints as well. She has had poor oral intake for the past few days, she has sores on her legs and on her buttocks, she also thinks her hands are swollen from the IV fluids she has been given. She was also switched to a dysphagia diet yesterday and has not tolerated the nectar thick liquids well and would like to go back to a regular diet. Source: patient, family Date Seen 05/02/18 Time Seen by a Provider: 13:21 Attending Physician Vivek Curtis MD PCP Shin Cano DO Referring Physician Date of Admission May 02, 2018 at 10:50 Home Medications & Allergies Home Medications Reviewed patient Home Medication Reconciliation performed by pharmacy medication reconciliations motor vehicle technician and/or nursing. Patients Allergies have been reviewed. Allergies Allergies Coded Allergies codeine (Verified Allergy, Unknown, PT HAS REC MORPHINE WITHOUT PROBLEMS, ) cortisone (Verified Allergy, Unknown, 12/25/15) tramadol (Verified Allergy, Unknown, 12/25/15) Past Voveclh-Pwvpcu-Uhyjjt Hx Past Med/Social Hx: Reviewed Nursing Past Med/Soc Hx Patient Social History Employed/Student: retired Alcohol Use: Denies Use Recreational Drug Use: No Smoking Status: Former Smoker Former Smoker, Quit: Sep 09, 2000 Type Used: Cigarettes 2nd Hand Smoke Exposure: No Recent Foreign Travel: No Contact w/other who traveled: No Recent Hopitalizations: Yes Recent Infectious Disease Expo: No Immunizations Up To Date Tetanus Booster (TDap): Unknown Date of Pneumonia Vaccine: Mar 06, 2018 Date of Influenza Vaccine: Dec 04, 2017 Seasonal Allergies Seasonal Allergies: No Past Medical History Surgeries: Coronary Stent, Orthopedic, Tonsillectomy, Tubal Ligation, Valve Replacement, Vascular Surgery Respiratory: Chronic Bronchitis, COPD, Pneumonia Currently Using CPAP: Yes (At HS. ) Currently Using BIPAP: No Cardiac: Atrial Fibrillation, Coronary Artery Disease, High Cholesterol, Hypertension, Valvular Heart Disease Neurological: Headaches /Migraines, TIA Reproductive: No Sexually Transmitted Disease: No HIV/AIDS: No Female Reproductive Disorders: Denies Genitourinary: Kidney Infection, UTI-Chronic Gastrointestinal: Gastroesophageal Reflux, Diverticulosis Musculoskeletal: Arthritis Endocrine: Hypothyroidsim, Diabetes, Non-Insulin dep HEENT: Cataract Loss of Vision: Bilateral Hearing Impairment: Hard of Hearing History of Blood Disorders: Yes (ANEMIA--ON COUMADIN) Adverse Reaction to Blood Up: No Family History Reviewed Nursing Family Hx FH: stroke 19 FATHER G8 SISTER Stroke No Pertinent Family Hx Review of Systems ROS-Unable to Obtain: limited- patient defers all questions to her daughter Constitutional: chills; No fever Respiratory: No cough Genitourinary: No dysuria Physical Exam Physical Exam Vital Signs Vital Signs - First Documented 05/02/18 05/02/18 09:10 14:07 Temp 99.6 Pulse 152 Resp 27 B/P (MAP) 126/92 (103) Pulse Ox 98 O2 Delivery Nasal Cannula O2 Flow Rate 4.00 FiO2 36 Capillary Refill : Less Than 3 Seconds Height, Weight, BMI Height: 5'5.00" Weight: 175lbs. 1.0oz. [id number]; 28.4 BMI Method:Stated General Appearance: WD/WN, Chronically ill HEENT: PERRL/EOMI, Moist Mucous Membranes; No Scleral Icterus (L), No Scleral Icterus (R) Respiratory: Lungs Clear, No Accessory Muscle Use, No Respiratory Distress Cardiovascular: Normal Peripheral Pulses, Systolic Murmur, Irregularly Irregular Gastrointestinal: Normal Bowel Sounds, Non Tender, Soft Genital/Rectal: Other (san in place- yellow urine with sediment noted) Extremity: No Calf Tenderness, Other (bilateral lower legs wrapped in bandages , bandages C/D/I) Neurologic/Psychiatric: Alert, Oriented x3, No Motor/Sensory Deficits, Other ( moves all extremities) Skin: Normal Color, Warm/Dry Results Results/Procedures Labs Laboratory Tests 05/02/18 09:19 05/03/18 03:50 Patient resulted labs reviewed. Imaging: Reviewed Imaging Report Assessment/Plan Admission Diagnosis A-fib RVR, E coli bacteremia Admission Status: Inpatient Order (span 2 midnights) Reason for Inpatient Admission: Multiple comorbidities, will take more than two midnights to stabilze for discharge, await sensitivies given history of MDRO Diagnosis/Problems Diagnosis/Problems (1) Atrial fibrillation with RVR Status: Acute Assessment & Plan: Cardizem gtt Admit to ICU Cardiology consulted, appreciate recs Monitor on telemetry Already on coumadin- await INR Echo from 03/17/18 reveals EF 55% and elevated PA pressure (2) Bacteremia Assessment & Plan: Does not meet sepsis criteria Continue on Merrem per previous cultures results E coli in blood x1 tube Await sensitivities (3) Pneumonia Status: Acute Assessment & Plan: Follows with Dr Payne Discussed with Dr Payne who will see in consultation Was started on Cefepime at the [facility] this week Continue Merrem History of MRSA in nares so will start Vanc as well Qualifiers: Pneumonia type: due to unspecified organism Laterality: bilateral Lung location: lower lobe of lung Qualified Codes: J18.1 - Lobar pneumonia, unspecified organism (4) COPD (chronic obstructive pulmonary disease) Status: Chronic Assessment & Plan: Pulm consulted, appreciate recs Continue home medications On 2lpm at baseline Qualifiers: COPD type: COPD with acute lower respiratory infection Qualified Codes: J44.0 - Chronic obstructive pulmonary disease with acute lower respiratory infection (5) Hypothyroidism Status: Chronic Assessment & Plan: Resume home medications Qualifiers: Hypothyroidism type: unspecified Qualified Codes: E03.9 - Hypothyroidism, unspecified (6) Non-insulin dependent type 2 diabetes mellitus Assessment & Plan: SSI ON glimepiride at baseline (7) PAD (peripheral artery disease) Status: Chronic Assessment & Plan: Cardiology consulted, appreciate recs Continue ASA, Statin (8) Aortic valve replaced Status: Chronic Assessment & Plan: Await INR level to resume coumadin (9) Supratherapeutic INR Status: Acute Assessment & Plan: INR 4.8 yesterday Likely due to poor oral intake (10) Renal insufficiency Status: Acute Assessment & Plan: CKD stage 3 at baseline Trend (11) Urinary tract infectious disease Status: Acute Assessment & Plan: UA consistent with UTi still Continue Merrem as above Qualifiers: Urinary tract infection type: acute cystitis Hematuria presence: without hematuria Qualified Codes: N30.00 - Acute cystitis without hematuria (12) Normocytic anemia Assessment & Plan: At baseline Will check iron studies but likely multifactorial given CKD Wait until blood cultures negative to give IV iron VIVEK CURTIS MD May 02, 2018 13:21
[2018-05-02 13:45] LABS: INR 5.2 (0.8-1.4)
[2018-05-02] MEDS ORDERED: FUROSEMIDE 40 MG/4 ML INJ (LASIX) IVP NR (14:00)
[2018-05-02] MEDS ORDERED: ACETAMINOPHEN 325 MG TABLET PO PRN ×2 (14:00→14:45)
[2018-05-02] MEDS ORDERED: RT-ALBUTEROL/IPRATROPIUM 3 ML (DUONEB) VIAL INH PRN (14:30)
[2018-05-02] MEDS ORDERED: CATHETER FLUSH 10 ML SYR IV PRN (14:45)
[2018-05-02] MEDS: NS IV 1000 ML 1,000 ML IV SCH (14:54)
[2018-05-02] MEDS: DILTIAZEM 125 MG/NS 100 ML IV SCH ×2 (14:55)
[2018-05-02] MEDS: RT-ALBUTEROL/IPRATROPIUM 3 ML (DUONEB) VIAL INH SCH ×2 (15:28→18:36)
--- NOTE | 2018-05-02 15:44 | Consultation-Cardiology ---
HPI-Cardiology Cardiology Consultation: Date of Consultation 05/02/18 Time Seen by a Provider: 14:50 Date of Admission Attending Physician Vivek Curtis MD Admitting Physician Shin Cano DO Consulting Physician WALDEMAR CALLOWAY MD, MA, FACP, FACC, [facility], CCDS Physician requesting consult: Dr Curtis HPI: Chief Complaint: Reason for consultation: A Fib with RVR HPI 82 yo woman, with cardiac history noted below, hospitalized again within the span of few days from last hospitalization for increasing malaise and weakness and recently diagnosed bacteremia (E Coli). She seems exhausted and is unwilling or unable to provide a detailed history. Does not report cp or palp or syncope or significant shortness of breath at rest. Feels wiped out Review of Systems-Cardiology Review of Systems Constitutional: As described under HPI Eyes: No vision change Ears/Nose/Throat: No ear discharge, No nasal drainage, No recent hearing loss Respiratory: As described under HPI Cardiovascular: As described under HPI Gastrointestinal: No diarrhea, No nausea, No vomiting Genitourinary: No dysuria, No hematuria : No Musculoskeletal: back pain (chronic) Skin: No rash, No ulcerations Psychiatric/Neurological: No seizure, No focal weakness, No syncope GRD-Schtnb-Kvefvf Hx Patient Social History Employed/Student: retired Alcohol Use: Denies Use Recreational Drug Use: No Smoking Status: Former Smoker Former smoker/When Quit: Mar 03, 2000 Type Used: Cigarettes 2nd Hand Smoke Exposure: No Recent Foreign Travel: No Recent Infectious Disease Expo: No Hospitalization with Isolation: Denies Immunizations Up To Date Tetanus Booster (TDap): Unknown Date of Pneumonia Vaccine: Mar 06, 2018 Date of Influenza Vaccine: Dec 04, 2017 Past Medical History PMH As described under Assessment. Family Medical History Family Medical History: She reports her father and a sister have had a CVA. Family History: FH: stroke 19 FATHER G8 SISTER Stroke Allergies and Home Medications Allergies Coded Allergies: codeine (Verified Allergy, Unknown, PT HAS REC MORPHINE WITHOUT PROBLEMS, 12/25/15) cortisone (Verified Allergy, Unknown, 12/25/15) tramadol (Verified Allergy, Unknown, 12/25/15) Home Medications Albuterol Sulfate 18 Gm Hfa.aer.ad, 2 PUFF INH Q4H PRN for SHORTNESS OF BREATH, (Reported) Allopurinol 100 Mg Tablet, 100 MG PO BID, (Reported) Ascorbate Calcium 500 Mg Tablet, 500 MG PO HS, (Reported) Aspirin 81 Mg Tablet.dr, 81 MG PO DAILY, (Reported) Atorvastatin Calcium 20 Mg Tablet, 20 MG PO HS, (Reported) Bethanechol Chloride 25 Mg Tablet, 25 MG PO ACHS Prescribed by: VIVEK CURTIS on 04/16/18 1321 Budesonide 0.5 Mg/2 Ml Ampul.neb, 0.5 MG NEB BID, (Reported) Buspirone HCl 5 Mg Tablet, 5 MG PO DAILY, (Reported) Cholecalciferol (Vitamin D3) 2,000 Unit Capsule, 2,000 UNIT PO DAILY, (Reported) Cranberry Extract/Vit C 1 Each Capsule, 3 CAP PO BID, (Reported) Docusate Sodium 100 Mg Capsule, 100 MG PO DAILY, (Reported) Docusate Sodium 100 Mg Capsule, 100 MG PO DAILY, (Reported) Enalapril Maleate 10 Mg Tablet, 10 MG PO DAILY, (Reported) Fexofenadine HCl 180 Mg Tablet, 180 MG PO DAILY, (Reported) Furosemide 40 Mg Tablet, 60 MG PO DAILY, (Reported) TAKES 1 & 1/2 (40MG) TABLET Glimepiride 4 Mg Tablet, 4 MG PO DAILY, (Reported) Ipratropium/Albuterol Sulfate 3 Ml Ampul.neb, 3 ML NEB Q6H PRN for SHORTNESS OF BREATH, (Reported) Levothyroxine Sodium 25 Mcg Tablet, 25 MCG PO DAILY, (Reported) Metoprolol Succinate 25 Mg Tab.er.24h, 25 MG PO DAILY Prescribed by: VIVEK CURTIS on 03/19/18 0914 Nitroglycerin 0.4 Mg Tab.subl, 0.4 MG SL UD PRN for CHEST PAIN, (Reported) Omeprazole 40 Mg Capsule.dr, 40 MG PO DAILY, (Reported) Potassium Chloride 10 Meq Tablet.er, 10 MEQ PO DAILY, (Reported) Prednisone 10 Mg Tab, 60 MG PO DAILY@0700 Take 6 tabs (60mg) daily, decrease by 1 tab (10mg) daily. Prescribed by: VIVEK CURTIS on 04/16/18 1321 Propylene Glycol/Peg 400 10 Ml Drops.gel, 1-2 DROP OD 5XD PRN for DRY EYES, ( Reported) Sulfamethoxazole/Trimethoprim 1 Each Tablet, 1 EACH PO BID Prescribed by: VIVEK CURTIS on 04/16/18 1518 Tamsulosin HCl 0.4 Mg Cap, 0.4 MG PO DAILY@1800 Prescribed by: VIVEK CURTIS on 04/16/18 1321 Triamcinolone Acetonide 10.8 Ml [place], 1 SPRAY NS DAILY, (Reported) Umeclidinium [place] 62.5 Mcg Blst.w.dev, 1 PUFF IH DAILY, (Reported) Warfarin Sodium 6 Mg Tablet, 3 MG PO Delaney@1800, (Reported) TAKES 1/2 (3MG) TABLET Warfarin Sodium 6 Mg Tablet, 6 MG PO MoTuWeThFrSa@1800, (Reported) [Diltiazem Hcl] 300 MG CAP, 300 MG PO DAILY Prescribed by: VIVEK CURTIS on 04/16/18 1321 Patient Home Medication List Home Medication List Reviewed: Yes Physical Exam-Cardiology Physical Exam Vital Signs/I&O 05/02/18 05/02/18 05/02/18 05/02/18 09:10 13:00 13:30 13:35 Temp 99.6 Pulse 152 120 123 Resp 27 24 B/P (MAP) 126/92 (103) 138/84 (102) Pulse Ox 98 96 O2 Delivery Nasal Cannula Nasal Cannula Nasal Cannula O2 Flow Rate 4.00 2.00 3.00 05/02/18 05/02/18 05/02/18 05/02/18 14:00 14:07 14:30 15:00 Pulse 111 152 114 100 Resp 29 21 19 B/P (MAP) 155/81 (105) 143/52 (82) 153/75 (101) Pulse Ox 95 98 97 97 O2 Delivery Nasal Cannula Nasal Cannula Nasal Cannula O2 Flow Rate 2.00 2.00 2.00 FiO2 36 Capillary Refill : Less Than 3 Seconds Constitutional: AAO x 3, well-developed, well-nourished, other (appears very tired and wiped out) HEENT: EOMI, hearing is well preserved; No xanthelasmas are seen Neck: carotid pulses are 2 + bilaterally, with good upstrokes Respiratory: No accessory muscle use; other (fair bilat air entry, diminished at the bases) Cardiovascular: irregularly irregular, S1 and S2, systolic murmur (2/d MITUL; mechanical S2) Gastrointestinal: No tender; soft; No guarding, No rebound; audible bowel sounds Extremities: swelling (mod swelling of all limbs); No clubbing, No cyanosis Neurologic/Psychiatric: oriented x 3, other (able to move all limbs) Skin: No rash on exposed areas, No ulcerations on exposed areas Data Review Labs Laboratory Tests 05/02/18 09:10: B-Type Natriuretic Peptide 637.3H 05/02/18 09:19: White Blood Count 6.4, Red Blood Count 3.03L, Hemoglobin 9.0L, Hematocrit 28L, Mean Corpuscular Volume 94, Mean Corpuscular Hemoglobin 30, Mean Corpuscular Hemoglobin Concent 32, Red Cell Distribution Width 16.6H, Platelet Count 257, Mean Platelet Volume 11.3H, Neutrophils (%) (Auto) 77H, Lymphocytes (%) (Auto) 11L, Monocytes (%) (Auto) 11, Eosinophils (%) (Auto) 1, Basophils (%) (Auto) 1, Neutrophils # (Auto) 5.0, Lymphocytes # (Auto) 0.7L, Monocytes # (Auto) 0.7, Eosinophils # (Auto) 0.1, Basophils # (Auto) 0.0, Prothrombin Time 48.0*H, INR Comment 5.2*H, Sodium Level 135, Potassium Level 4.5, Chloride Level 103, Carbon Dioxide Level 21, Anion Gap 11, Blood Urea Nitrogen 31H, Creatinine 1.60H , Estimat Glomerular Filtration Rate 31, BUN/Creatinine Ratio 19, Glucose Level 236H, Lactic Acid Level 1.00, Calcium Level 8.8, Corrected Calcium 9.8, Total Bilirubin 0.4, Aspartate Amino Transf (AST/SGOT) 19, Alanine Aminotransferase ( ALT/SGPT) 18, Alkaline Phosphatase 81, Total Protein 5.6L, Albumin 2.7L 05/02/18 09:53: Urine Color YELLOW, Urine Clarity SLIGHTLY CLOUDY, Urine pH 6, Urine Specific [place] 1.015L, Urine Protein 4+, Urine Glucose (UA) NEGATIVE, Urine Ketones 1+H , Urine Nitrite POSITIVEH, Urine Bilirubin NEGATIVE, Urine Urobilinogen NORMAL, Urine Leukocyte Esterase 2+H, Urine RBC (Auto) 4+H, Urine RBC 5-10H, Urine WBC 10-25H, Urine Crystals PRESENTH, Urine Amorphous Sediment MOD CARMINA URATESH, Urine Bacteria FEWH, Urine Casts NONE, Urine Mucus NEGATIVE, Urine Culture Indicated YES Laboratory Tests 05/02/18 09:19 A/P-Cardiology Assessment/Admission Diagnosis UTI with septicemia / bacteremia Chronic A Fib, currently with a rapid ventricular response (likely due to systemic infection) CKD 3 Chronic warfarin anticoagulation, INR currently supra-therapeutic Valvular heart disease with a history of aortic valve replacement with #21 Carbomedics mechanical prosthetic valve for aortic stenosis and mitral valve repair with 27 mm ring for mitral regurgitation in 2002. Chronic diastolic CHF Echo of 03/16/18: LVEF 55-60%, mod conc LVH, biatrial enlargement, mod MR, adequately functioning aortic prosthetic valve, PASP 60-65 mmHg PAD and claudication - DYLON of 05-01-17 report mod PVD. DYLON R 0.63, L 0.63. Last peripheral angio and intervention (R leg) on 09/09/17 at which time she underwent successful balloon angioplasty of the R peroneal with reduction of a 95% ostial stenosis to less than 30% residual; both R tibials are occluded and collateralized. Previously, she has undergone bilateral kissing stents of both common iliacs and extensive balloon angioplasty and stenting of the R SFA by Dr Loaiza on 12/31/13. Subsequently, on 01/07/14, Dr Loaiza did stenting of L SFA and successful balloon angioplasty of L peroneal and L anterior tibial arteries, but angioplasty to chronic occlusion of L posterior tibial was unsuccessful and resulted in subintimal dissection H/O stress fracture of left foot May 2017 CVA: L-sided weakness and L-visual field cut in Dec 2015. 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 Payne. Cardiac cath of 06-24-2013 showed CAD, mild to moderate. Moderate mid vessel stenosis of the LAD with fractional flow reserve across the lesion of 0.95. Moderate mid vessel stenosis of the RCA with fractional flow reserve across the lesion of 0.95. Patent stents in the proximal left circumflex and the mid RCA which were placed in 2004, followed by Dr Calloway MPI of 07-18-15 did not indicate significant myocardial ischemia or infarction. Normal regional wall motion. Normal global LV systolic function with calculated ejection fraction of 69%. Normal LV cavity size Left internal carotid artery stenosis of 60-79%, right internal carotid artery stenosis of less than 40% per carotid u/s of 05/20/17 H/o hyperlipidemia previously treated with lovastatin Heme-positive stools in Jan 2014. Diffuse erosive gastritis, hemorrhoids, diverticulitis, no active bleeding per endoscopy in Jan [address] Rodgers, treated with H2 angie, PPI and Carafate (managed by Dr Rodgers). Recurrent heme (+) stools in March 2014 - capsule endoscopy and management by Dr Rodgers Borderline diabetes mellitus being managed by pcp Right rotator cuff repair on 11/28/[address] Woodward due to a torn rotator cuff. Discussion and Recomendations * Prognosis guarded: multiple comorbidities leading to multiple hospitalizations in the recent past * iv fluids * Hold warfarin until INR returns to therapeutic * Monitor labs closely * Diltiazem for vent rate control WALDEMAR CALLOWAY MD FACP FAC CCDS May 02, 2018 15:44
[2018-05-02] MEDS: MEROPENEM 500 MG/SWFI 10 ML IV PUSH IV SCH ×2 (17:24)
[2018-05-02] MEDS: BETHANECHOL 25 MG (URECHOLINE) TAB PO SCH ×2 (17:24→19:56)
[2018-05-02] MEDS: TAMSULOSIN 0.4 MG (FLOMAX) CAP PO SCH (17:24)
[2018-05-02] MEDS: RT-ADVAIR HFA 115/21 MCG PER PUFF IH SCH (18:36)
[2018-05-02 19:22] LABS: BILIRUBIN,URINE NEGATIVE (NEGATIVE); CLARITY,URINE VERY CLOUDY; COLOR,URINE YELLOW; GLUCOSE, URINE (UA) 1+ (NEGATIVE); KETONES,URINE 1+ (NEGATIVE); LEUKOCYTE ESTERASE ,URINE 3+ (NEGATIVE); NITRITE,URINE POSITIVE (NEGATIVE); PH,URINE 6 (5-9); PROTEIN,URINE 4+ (NEGATIVE); UROBILINOGEN,URINE NORMAL (NORMAL)
[2018-05-02 19:35] LABS: BACTERIA,URINE MODERATE /HPF; WBC,URINE TNTC /HPF
[2018-05-02] MEDS: ATORVASTATIN 20 MG (LIPITOR) TABLET PO SCH (19:56)
[2018-05-02] MEDS: busPIRone 5 MG (BUSPAR) TAB PO SCH (19:56)
[2018-05-02] MEDS ORDERED: ATORVASTATIN 40 MG (LIPITOR) TABLET PO SCH (21:00)
[2018-05-03] VITALS (23 sets, daily range): BP systolic 113–174; BP diastolic 50–111
[2018-05-03] MEDS: RT-ALBUTEROL/IPRATROPIUM 3 ML (DUONEB) VIAL INH SCH ×7 (00:23→21:39)
[2018-05-03] MEDS: MEROPENEM 500 MG/SWFI 10 ML IV PUSH IV SCH ×6 (01:59→17:55)
[2018-05-03 03:55] LABS: BASOPHILS % (AUTO) 1 % (0-10); EOSINOPHILS # (AUTO) 0.1 10^3/uL (0.0-0.3); EOSINOPHILS % (AUTO) 2 % (0-10); HEMATOCRIT 24 % (35-52); HEMOGLOBIN 7.4 G/DL (11.5-16.0); LYMPHOCYTES # (AUTO) 0.6 X 10^3 (1.0-4.0); LYMPHOCYTES % (AUTO) 11 % (12-44); MEAN CORPUSCULAR HGB CONC 32 G/DL (32-36); MEAN CORPUSCULAR VOLUME 94 FL (80-99); MONOCYTES # (AUTO) 0.7 X 10^3 (0.0-1.0); MONOCYTES % (AUTO) 13 % (0-12); NEUTROPHILS # (AUTO) 3.8 X 10^3 (1.8-7.8); NEUTROPHILS % (AUTO) 74 % (42-75); PLATELET COUNT 218 10^3/uL (130-400); RED CELL DISTRIBUTION WIDTH 16.6 % (10.0-14.5); WHITE BLOOD COUNT 5.2 10^3/uL (4.3-11.0)
[2018-05-03 04:03] LABS: MEAN CORPUSCULAR HEMOGLOBIN 29 PG (25-34)
[2018-05-03 04:28] LABS: ALBUMIN 2.2 GM/DL (3.2-4.5); BILIRUBIN,TOTAL 0.3 MG/DL (0.1-1.0); CALCIUM 8.1 MG/DL (8.5-10.1); CREATININE SERUM 1.45 MG/DL (0.60-1.30); POTASSIUM 4.4 MMOL/L (3.6-5.0); TOTAL PROTEIN 4.6 GM/DL (6.4-8.2)
[2018-05-03 05:01] LABS: INR 5.1 (0.8-1.4); PROTHROMBIN TIME PATIENT 47.7 SEC (12.2-14.7)
[2018-05-03] MEDS: POTASSIUM CL 10MEQ/50ML IVPB 50 ML IV SCH (05:40)
[2018-05-03] MEDS: MAGNESIUM 1 GM/100 ML IVPB 100 ML IV SCH ×5 (05:40→07:30)
[2018-05-03] MEDS: KCL 20 MEQ TAB (K-DUR) PO SCH (05:41)
[2018-05-03] MEDS: BETHANECHOL 25 MG (URECHOLINE) TAB PO SCH ×4 (06:36→21:01)
[2018-05-03] MEDS: LEVOTHYROXINE 25 MCG (LEVOTHROID) TAB PO SCH (06:36)
--- NOTE | 2018-05-03 06:48 | Pulmonary Consultation ---
History of Present Illness History of Present Illness Date of Consultation 05/03/18 06:42 Date of Admission Allergies and Home Medications Allergies Coded Allergies: codeine (Verified Allergy, Unknown, PT HAS REC MORPHINE WITHOUT PROBLEMS, 12/25/15) cortisone (Verified Allergy, Unknown, 12/25/15) tramadol (Verified Allergy, Unknown, 12/25/15) Home Medications Albuterol Sulfate 18 Gm Hfa.aer.ad, 2 PUFF INH Q4H PRN for SHORTNESS OF BREATH, (Reported) Allopurinol 100 Mg Tablet, 100 MG PO BID, (Reported) Ascorbate Calcium 500 Mg Tablet, 500 MG PO HS, (Reported) Aspirin 81 Mg Tablet.dr, 81 MG PO DAILY, (Reported) Atorvastatin Calcium 20 Mg Tablet, 20 MG PO HS, (Reported) Bethanechol Chloride 25 Mg Tablet, 25 MG PO ACHS Prescribed by: VIVEK FERNANDEZ on 04/16/18 1321 Budesonide 0.5 Mg/2 Ml Ampul.neb, 0.5 MG NEB BID, (Reported) Buspirone HCl 5 Mg Tablet, 5 MG PO DAILY, (Reported) Cholecalciferol (Vitamin D3) 2,000 Unit Capsule, 2,000 UNIT PO DAILY, (Reported) Cranberry Extract/Vit C 1 Each Capsule, 3 CAP PO BID, (Reported) Docusate Sodium 100 Mg Capsule, 100 MG PO DAILY, (Reported) Docusate Sodium 100 Mg Capsule, 100 MG PO DAILY, (Reported) Enalapril Maleate 10 Mg Tablet, 10 MG PO DAILY, (Reported) Fexofenadine HCl 180 Mg Tablet, 180 MG PO DAILY, (Reported) Furosemide 40 Mg Tablet, 60 MG PO DAILY, (Reported) TAKES 1 & 1/2 (40MG) TABLET Glimepiride 4 Mg Tablet, 4 MG PO DAILY, (Reported) Ipratropium/Albuterol Sulfate 3 Ml Ampul.neb, 3 ML NEB Q6H PRN for SHORTNESS OF BREATH, (Reported) Levothyroxine Sodium 25 Mcg Tablet, 25 MCG PO DAILY, (Reported) Metoprolol Succinate 25 Mg Tab.er.24h, 25 MG PO DAILY Prescribed by: VIVEK FERNANDEZ on 03/19/18 0914 Nitroglycerin 0.4 Mg Tab.subl, 0.4 MG SL UD PRN for CHEST PAIN, (Reported) Omeprazole 40 Mg Capsule.dr, 40 MG PO DAILY, (Reported) Potassium Chloride 10 Meq Tablet.er, 10 MEQ PO DAILY, (Reported) Prednisone 10 Mg Tab, 60 MG PO DAILY@0700 Take 6 tabs (60mg) daily, decrease by 1 tab (10mg) daily. Prescribed by: VIVEK FERNANDEZ on 04/16/18 1321 Propylene Glycol/Peg 400 10 Ml Drops.gel, 1-2 DROP OD 5XD PRN for DRY EYES, ( Reported) Sulfamethoxazole/Trimethoprim 1 Each Tablet, 1 EACH PO BID Prescribed by: VIVEK FERNANDEZ on 04/16/18 1518 Tamsulosin HCl 0.4 Mg Cap, 0.4 MG PO DAILY@1800 Prescribed by: VIVEK FERNANDEZ on 04/16/18 1321 Triamcinolone Acetonide 10.8 Ml [place], 1 SPRAY NS DAILY, (Reported) Umeclidinium [place] 62.5 Mcg Blst.w.dev, 1 PUFF IH DAILY, (Reported) Warfarin Sodium 6 Mg Tablet, 3 MG PO Delaney@1800, (Reported) TAKES 1/2 (3MG) TABLET Warfarin Sodium 6 Mg Tablet, 6 MG PO MoTuWeThFrSa@1800, (Reported) [Diltiazem Hcl] 300 MG CAP, 300 MG PO DAILY Prescribed by: VIVEK FERNANDEZ on 04/16/18 1321 Past Kmuuhwk-Fyjcjp-Hiyygj Hx Past Med/Social Hx: Reviewed Nursing Past Med/Soc Hx Patient Social History Alcohol Use: Denies Use Recreational Drug Use: No Smoking Status: Former Smoker Type Used: Cigarettes Former Smoker, Quit: Sep 09, 2000 2nd Hand Smoke Exposure: No Recent Foreign Travel: No Contact w/Someone Who Travel: No Recent Infectious Disease Expo: No Recent Hopitalizations: Yes Immunizations Up To Date Tetanus Booster (TDap): Unknown Date of Pneumonia Vaccine: Mar 06, 2018 Date of Influenza Vaccine: Dec 04, 2017 Seasonal Allergies Seasonal Allergies: No Past Medical History Surgeries: Yes (RT HIP, HEART VALVE REPLACEMENT, BLEPHAROSPLASTY) Coronary Stent, Orthopedic, Tonsillectomy, Tubal Ligation, Valve Replacement, Vascular Surgery Respiratory: Yes (wears cpap with o2 2l HS) Pneumonia, Sleep Apnea, COPD Currently Using CPAP: Yes (At HS. ) Currently Using BIPAP: No Cardiac: Yes Atrial Fibrillation, Coronary Artery Disease, High Cholesterol, Hypertension, Valvular Heart Disease Neurological: Yes (reports "light stroke" last year) Headaches /Migraines, TIA Reproductive Disorders: No Female Reproductive Disorders: Denies Sexually Transmitted Disease: No HIV/AIDS: No Genitourinary: Yes Kidney Infection, UTI-Chronic Gastrointestinal: Yes Gastroesophageal Reflux, Diverticulosis Musculoskeletal: Yes Arthritis Endocrine: Yes Hypothyroidsim, Diabetes, Non-Insulin dep Cataract Loss of Vision: Bilateral Hearing Impairment: Hard of Hearing Cancer: No Psychosocial: No Integumentary: No Blood Disorders: Yes (ANEMIA--ON COUMADIN) Adverse Reaction/Blood Tranf: No Family Medical History Reviewed Nursing Family Hx FH: stroke 19 FATHER G8 SISTER Stroke No Pertinent Family Hx Sepsis Event Evaluation Height, Weight, BMI Height: 5'5.00" Weight: 175lbs. 1.0oz. 79.672387zh; 28.4 BMI Method:Stated Exam Exam Vital Signs Date Time Temp Pulse Resp B/P (MAP) Pulse Ox O2 Delivery O2 Flow Rate FiO2 05/03/18 06:00 113 22 159/75 (103) 90 NIV CPAP 4.00 05/03/18 05:00 112 25 163/97 (119) 90 NIV CPAP 4.00 05/03/18 04:00 93 NIV CPAP 3.00 05/03/18 04:00 102 23 159/87 (111) 93 NIV CPAP 4.00 05/03/18 03:00 105 22 135/63 (87) 92 NIV CPAP 4.00 05/03/18 02:22 92 NIV CPAP 3.00 05/03/18 02:00 121 28 157/75 (102) 92 NIV CPAP 4.00 05/03/18 01:00 113 05/03/18 01:00 118 19 145/75 (98) 92 NIV CPAP 4.00 05/03/18 00:00 93 Nasal Cannula 3.00 05/03/18 00:00 107 22 151/62 (91) 95 NIV CPAP 4.00 05/03/18 00:00 99.0 05/02/18 23:00 114 31 145/62 (89) 95 NIV CPAP 4.00 05/02/18 22:00 106 20 122/45 (70) 97 NIV CPAP 4.00 05/02/18 21:00 126 25 115/63 (80) 93 Nasal Cannula 2.00 05/02/18 20:00 99.0 05/02/18 20:00 93 Nasal Cannula 3.00 05/02/18 20:00 109 26 132/99 (110) 94 Nasal Cannula 2.00 05/02/18 19:00 122 28 128/70 (89) 91 Nasal Cannula 2.00 05/02/18 19:00 122 05/02/18 18:46 Nasal Cannula 5.00 05/02/18 18:36 93 Nasal Cannula 5.00 05/02/18 18:00 116 23 136/76 (96) Nasal Cannula 2.00 05/02/18 17:00 116 46 148/109 (122) Nasal Cannula 2.00 05/02/18 16:00 125 19 169/91 (117) 89 Nasal Cannula 2.00 05/02/18 15:28 92 Nasal Cannula 4.00 05/02/18 15:00 100 19 153/75 (101) 97 Nasal Cannula 2.00 05/02/18 14:30 114 21 143/52 (82) 97 Nasal Cannula 2.00 05/02/18 14:07 152 98 36 05/02/18 14:00 111 29 155/81 (105) 95 Nasal Cannula 2.00 05/02/18 13:35 123 24 138/84 (102) 96 Nasal Cannula 3.00 05/02/18 13:30 Nasal Cannula 2.00 05/02/18 13:00 120 05/02/18 09:10 99.6 152 27 126/92 (103) 98 Nasal Cannula 4.00 I & O 05/03/18 07:00 Intake Total 2245 ml Output Total 1025 ml Balance 1220 ml Height & Weight Height: 5'5.00" Weight: 175lbs. 1.0oz. 79.004653hz; 28.4 BMI Method:Stated General Appearance: WD/WN, Chronically ill HEENT: PERRL/EOMI, Moist Mucous Membranes; No Scleral Icterus (L), No Scleral Icterus (R) Neck: Normal Inspection Respiratory: Lungs Clear, No Accessory Muscle Use, No Respiratory Distress Cardiovascular: Normal Peripheral Pulses, Systolic Murmur, Irregularly Irregular Capillary Refill: Less Than 3 Seconds Extremity: No Calf Tenderness, Other (bilateral lower legs wrapped in bandages , bandages C/D/I) Neurologic/Psychiatric: Alert, Oriented x3, No Motor/Sensory Deficits, Other ( moves all extremities) Skin: Normal Color, Warm/Dry Results Lab Laboratory Tests 05/02/18 09:19 05/03/18 03:50 Assessment/Plan Assessment/Plan Afib RVR EF 55% -Cardizem gtt cardiology following Bacteremia -Abx Pneumonia -Merrem UTI -Merrem Hypomagnesium -Replace Hypothyroid -replace NIDDM PAD HX of aortic valve replacement Coumadin coagulopathy Acute renal failure WANDA LEBRON DO May 03, 2018 06:48
[2018-05-03] MEDS: RT-ADVAIR HFA 115/21 MCG PER PUFF IH SCH ×2 (07:02→21:37)
[2018-05-03] MEDS ORDERED: DILTIAZEM 240 MG (CARDIZEM CD) CAP PO SCH (09:00)
--- NOTE | 2018-05-03 09:04 | Progress Note-Hospitalist ---
Subjective HPI/CC On Admission Date Seen by Provider: May 03, 2018 Time Seen by Provider: 08:59 Pt is an 82yoCF known to me from multiple recent admissions who presented to the ER for positive blood cultures form her long term. She asks her daughter to provide her history so most history is obtained from the daughter. She was seen in the ER yesterday for concerns about a stroke due to slurred speech and right arm weakness. She was instead found to have a UTI and was sent back to her long term for outpatient management of her UTI. This morning the long term was called by the lab because blood cultures that were done yesterday were positive for e coli. She returned and is being admitted for e coli bacteremia. She has a multitude of other complaints as well. She has had poor oral intake for the past few days, she has sores on her legs and on her buttocks, she also thinks her hands are swollen from the IV fluids she has been given. She was also switched to a dysphagia diet yesterday and has not tolerated the nectar thick liquids well and would like to go back to a regular diet. Subjective/Events-last exam Pt reports feeling tired. Only concern is that she can't drink and would like to. Grandson states she's been complaining of a cough. Daughter states intermittent overnight. Discussed need for IS use or else her lung status would worsen. She states she hasn't used it yet. Focused Exam Lactate Level 05/02/18 09:19: Lactic Acid Level 1.00 Objective Exam Vital Signs Vital Signs Date Time Temp Pulse Resp B/P (MAP) Pulse Ox O2 Delivery O2 Flow Rate FiO2 05/03/18 15:00 108 23 153/76 (101) 98 NIV CPAP 4.00 05/03/18 12:00 99.0 05/02/18 14:07 36 Capillary Refill : Less Than 3 Seconds General Appearance: WD/WN, Chronically ill HEENT: PERRL/EOMI, Moist Mucous Membranes; No Scleral Icterus (L), No Scleral Icterus (R) Neck: Normal Inspection Respiratory: Lungs Clear, No Respiratory Distress, Other (tachypneic) Cardiovascular: Normal Peripheral Pulses, Systolic Murmur, Irregularly Irregular Gastrointestinal: Normal Bowel Sounds, Non Tender, Soft Genital/Rectal: Other (san in place- yellow urine with sediment noted) Back: Normal Inspection Extremity: No Calf Tenderness, Swelling, Other (bilateral lower legs wrapped in bandages, bandages C/D/I) Neurologic/Psychiatric: Alert, Oriented x3, Other Skin: Normal Color, Warm/Dry Results/Procedures Lab Laboratory Tests 05/03/18 03:50 Patient resulted labs reviewed. Imaging: Reviewed Imaging Report Assessment/Plan Assessment and Plan Assess & Plan/Chief Complaint A-fib with RVR Diagnosis/Problems Diagnosis/Problems (1) Atrial fibrillation with RVR Status: Acute Assessment & Plan: Cardizem gtt Cardiology consulted, appreciate recs Monitor on telemetry- rate improved INR elevated still Echo from 03/17/18 reveals EF 55% and elevated PA pressure (2) Bacteremia Assessment & Plan: Does not meet sepsis criteria Continue on Merrem per previous cultures results E coli in blood x1 tube Await sensitivities Repeat blood cultures from yesterday still growing e coli (3) Pneumonia Status: Acute Assessment & Plan: Follows with Dr Payne Continue Merrem/Vanc History of MRSA in nares so will start Vanc as well Discussed with patient and daughter importance of using IS Qualifiers: Pneumonia type: due to unspecified organism Laterality: bilateral Lung location: lower lobe of lung Qualified Codes: J18.1 - Lobar pneumonia, unspecified organism (4) COPD (chronic obstructive pulmonary disease) Status: Chronic Assessment & Plan: Pulm consulted, appreciate recs Continue home medications On 2lpm at baseline Qualifiers: COPD type: COPD with acute lower respiratory infection Qualified Codes: J44.0 - Chronic obstructive pulmonary disease with acute lower respiratory infection (5) Hypothyroidism Status: Chronic Assessment & Plan: Resume home medications Qualifiers: Hypothyroidism type: unspecified Qualified Codes: E03.9 - Hypothyroidism, unspecified (6) Non-insulin dependent type 2 diabetes mellitus Assessment & Plan: SSI ON glimepiride at baseline- will hold with DARLENE (7) PAD (peripheral artery disease) Status: Chronic Assessment & Plan: Cardiology consulted, appreciate recs Continue ASA, Statin (8) Aortic valve replaced Status: Chronic Assessment & Plan: Supratherapeutic INR (9) Supratherapeutic INR Status: Acute Assessment & Plan: INR 5.1 yesterday Likely due to poor oral intake (10) Renal insufficiency Status: Acute Assessment & Plan: CKD stage 3 at baseline Trend (11) Urinary tract infectious disease Status: Acute Assessment & Plan: UA consistent with UTi still Continue Merrem as above Qualifiers: Urinary tract infection type: acute cystitis Hematuria presence: without hematuria Qualified Codes: N30.00 - Acute cystitis without hematuria (12) Normocytic anemia Assessment & Plan: At baseline Will check iron studies but likely multifactorial given CKD Wait until blood cultures negative to give IV iron Down slightly today at 7.4- chronically low If drops further tomorrow low threshold for transfusion FOBT ordered VIVEK FERNANDEZ MD May 03, 2018 09:04
[2018-05-03] MEDS: busPIRone 5 MG (BUSPAR) TAB PO SCH ×2 (09:14→21:01)
[2018-05-03] MEDS: ASPIRIN 81 MG CHEW (CHILDREN'S ASA) PO SCH (09:14)
[2018-05-03] MEDS: DILTIAZEM 125 MG/NS 100 ML IV SCH ×4 (09:15)
--- NOTE | 2018-05-03 09:36 | Diagnostic Imaging Report ---
INDICATION: Cough Comparison is made to prior study from May 01, 2018. FINDINGS: When compared to the prior examination, there has been rapid interval increase in bilateral interstitial and alveolar opacities within both lungs as well as development of increasing pleural effusions. There is enlargement of the cardiac silhouette. The central vascularity appears prominent. Patient is status post sternotomy and aortic valve replacement. IMPRESSION: 1. Rapid interval increase in interstitial and alveolar opacities within the lungs with enlarged cardiac silhouette and increasing pleural effusions. Findings most suggestive of failure and pulmonary edema. Dictated by: Dictated on workstation # [id number]
[2018-05-03] MEDS ORDERED: guaiFENesin (MUCINEX) 600 MG TAB PO NR (10:00)
[2018-05-03] MEDS: NS IV 1000 ML 1,000 ML IV SCH (10:13)
[2018-05-03] MEDS ORDERED: FUROSEMIDE 40 MG/4 ML INJ (LASIX) IVP NR (11:00)
[2018-05-03] MEDS ORDERED: DILTIAZEM 180 MG (CARDIZEM CD) CAP PO NR (14:00)
--- NOTE | 2018-05-03 14:03 | Progress Note-Cardiology ---
Cardiology SOAP Progress Note Subjective: Reports malaise No cp or palp or syncope Chronic exertional shortness of breath Objective: I&O/Vital Signs 05/03/18 05/03/18 05/03/18 05/03/18 02:22 03:00 04:00 04:00 Pulse 105 102 Resp 23 B/P (MAP) 135/63 (87) 159/87 (111) Pulse Ox 92 92 93 93 O2 Delivery NIV CPAP NIV CPAP NIV CPAP NIV CPAP O2 Flow Rate 3.00 4.00 4.00 3.00 05/03/18 05/03/18 05/03/18 05/03/18 05:00 06:00 07:00 07:00 Pulse 112 113 124 117 Resp 18 B/P (MAP) 163/97 (119) 159/75 (103) 130/83 (99) Pulse Ox 90 90 91 O2 Delivery NIV CPAP NIV CPAP NIV CPAP O2 Flow Rate 4.00 4.00 4.00 05/03/18 05/03/18 05/03/18 05/03/18 07:03 07:05 08:00 08:00 Temp 98.2 Pulse 115 Resp 26 B/P (MAP) 139/59 (85) Pulse Ox 92 95 O2 Delivery Nasal Cannula Nasal Cannula NIV CPAP O2 Flow Rate 5.00 5.00 4.00 05/03/18 05/03/18 05/03/18 05/03/18 08:00 09:00 10:00 10:30 Pulse 111 120 Resp B/P (MAP) 153/67 (95) 127/61 (83) Pulse Ox 94 95 92 93 O2 Delivery Nasal Cannula NIV CPAP NIV CPAP Nasal Cannula O2 Flow Rate 5.00 4.00 4.00 5.00 05/03/18 05/03/18 05/03/18 05/03/18 11:00 12:00 12:00 12:00 Temp 99.0 Pulse 115 111 Resp 28 B/P (MAP) 118/59 (78) 133/62 (85) Pulse Ox 90 94 97 O2 Delivery NIV CPAP Nasal Cannula NIV CPAP O2 Flow Rate 4.00 5.00 4.00 05/03/18 05/03/18 13:00 13:00 Pulse 109 107 Resp 28 B/P (MAP) 115/52 (73) Pulse Ox 97 O2 Delivery NIV CPAP O2 Flow Rate 4.00 05/03/18 00:00 Intake Total 1225 ml Output Total 550 ml Balance 675 ml Weight (Pounds): 175 Weight (Ounces): 1.0 Weight (Calculated Kilograms): 79.884069 Constitutional: AAO x 3, well-developed, well-nourished, other (appears very tired and wiped out) Respiratory: No accessory muscle use; other (fair bilat air entry, diminished at the bases) Cardiovascular: irregularly irregular, S1 and S2, systolic murmur (2/d MITUL; mechanical S2) Gastrointestional: No tender; soft; No guarding, No rebound; audible bowel sounds Extremities: swelling (mod swelling of all limbs); No clubbing, No cyanosis Neurologic/Psychiatric: oriented x 3, other (able to move all limbs) Skin: No rash on exposed areas, No ulcerations on exposed areas Results/Procedures: Labs Laboratory Tests 05/02/18 18:00: Urine Color YELLOW, Urine Clarity VERY CLOUDYH, Urine pH 6, Urine Specific [place] 1.015L, Urine Protein 4+, Urine Glucose (UA) 1+H, Urine Ketones 1+H, Urine Nitrite POSITIVEH, Urine Bilirubin NEGATIVE, Urine Urobilinogen NORMAL, Urine Leukocyte Esterase 3+H, Urine RBC (Auto) 5+H, Urine RBC NONE, Urine WBC TNTCH, Urine Crystals NONE, Urine Bacteria MODERATEH, Urine Casts NONE, Urine Mucus NEGATIVE, Urine Culture Indicated YES 05/03/18 03:50: White Blood Count 5.2, Red Blood Count 2.51L, Hemoglobin 7.4L, Hematocrit 24L, Mean Corpuscular Volume 94, Mean Corpuscular Hemoglobin 29, Mean Corpuscular Hemoglobin Concent 32, Red Cell Distribution Width 16.6H, Platelet Count 218, Mean Platelet Volume 11.0H, Neutrophils (%) (Auto) 74, Lymphocytes (%) (Auto) 11L, Monocytes (%) (Auto) 13H, Eosinophils (%) (Auto) 2, Basophils (%) (Auto) 1 , Neutrophils # (Auto) 3.8, Lymphocytes # (Auto) 0.6L, Monocytes # (Auto) 0.7, Eosinophils # (Auto) 0.1, Basophils # (Auto) 0.0, Prothrombin Time 47.7*H, INR Comment 5.1*H, Sodium Level 137, Potassium Level 4.4, Chloride Level 107, Carbon Dioxide Level 21, Anion Gap 9, Blood Urea Nitrogen 28H, Creatinine 1.45H , Estimat Glomerular Filtration Rate 35, BUN/Creatinine Ratio 19, Glucose Level 262H, Calcium Level 8.1L, Corrected Calcium 9.5, Magnesium Level 1.1L, Total Bilirubin 0.3, Aspartate Amino Transf (AST/SGOT) 20, Alanine Aminotransferase ( ALT/SGPT) 15, Alkaline Phosphatase 70, Total Protein 4.6L, Albumin 2.2L Microbiology 05/02/18 Blood Culture - Preliminary, Resulted Escherichia coli See Comments 05/02/18 Urine Culture - Final, Complete NO GROWTH Laboratory Tests 05/02/18 09:19 05/03/18 03:50 A/P: Assessment: UTI with septicemia / bacteremia - managed by the [facility] Worsening anemia, unknown etiology - managed by the [facility] Chronic A Fib, currently with a rapid ventricular response (likely due to systemic infection) CKD 3 Chronic warfarin anticoagulation, INR currently supra-therapeutic Valvular heart disease with a history of aortic valve replacement with #21 Carbomedics mechanical prosthetic valve for aortic stenosis and mitral valve repair with 27 mm ring for mitral regurgitation in 2002. Chronic diastolic CHF Echo of 03/16/18: LVEF 55-60%, mod conc LVH, biatrial enlargement, mod MR, adequately functioning aortic prosthetic valve, PASP 60-65 mmHg PAD and claudication - DYLON of 3-1-18 report mod PVD. DYLON R 0.63, L 0.63. Last peripheral angio and intervention (R leg) on 09/09/17 at which time she underwent successful balloon angioplasty of the R peroneal with reduction of a 95% ostial stenosis to less than 30% residual; both R tibials are occluded and collateralized. Previously, she has undergone bilateral kissing stents of both common iliacs and extensive balloon angioplasty and stenting of the R SFA by Dr Loaiza on 12/31/13. Subsequently, on 01/07/14, Dr Loaiza did stenting of L SFA and successful balloon angioplasty of L peroneal and L anterior tibial arteries, but angioplasty to chronic occlusion of L posterior tibial was unsuccessful and resulted in subintimal dissection H/O stress fracture of left foot May 2017 CVA: L-sided weakness and L-visual field cut in Dec 2015. 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 Payne. Cardiac cath of 06-24-2013 showed CAD, mild to moderate. Moderate mid vessel stenosis of the LAD with fractional flow reserve across the lesion of 0.95. Moderate mid vessel stenosis of the RCA with fractional flow reserve across the lesion of 0.95. Patent stents in the proximal left circumflex and the mid RCA which were placed in 2004, followed by Dr Estrella MPI of 07-18-15 did not indicate significant myocardial ischemia or infarction. Normal regional wall motion. Normal global LV systolic function with calculated ejection fraction of 69%. Normal LV cavity size Left internal carotid artery stenosis of 60-79%, right internal carotid artery stenosis of less than 40% per carotid u/s of 05/20/17 H/o hyperlipidemia previously treated with lovastatin Heme-positive stools in Jan 2014. Diffuse erosive gastritis, hemorrhoids, diverticulitis, no active bleeding per endoscopy in Jan [address] Rodgers, treated with H2 angie, PPI and Carafate (managed by Dr Rodgers). Recurrent heme (+) stools in March 2014 - capsule endoscopy and management by Dr Rodgers Borderline diabetes mellitus being managed by pcp Right rotator cuff repair on 11/28/[address] Woodward due to a torn rotator cuff. Plan: * Change dilt to oral * Hold warfarin until INR returns to therapeutic * Monitor labs closely * Blood transfusion if H/H drops further WALDEMAR ESTRELLA MD FACP FAC CCDS May 03, 2018 14:02
[2018-05-03] MEDS: aCETylcysteine 20% (MUCOMYST) 30ML SOLN VIAL INH SCH ×2 (14:23→21:37)
[2018-05-03] MEDS ORDERED: meTOprolol SUCCINATE 100 MG (TOPROL XL) TAB PO ONE (17:45)
[2018-05-03] MEDS: meTOprolol SUCCINATE 100 MG (TOPROL XL) TAB PO SCH (17:51)
[2018-05-03] MEDS: TAMSULOSIN 0.4 MG (FLOMAX) CAP PO SCH (17:54)
[2018-05-03] MEDS: ATORVASTATIN 20 MG (LIPITOR) TABLET PO SCH (21:01)
[2018-05-03] MEDS: guaiFENesin (MUCINEX) 600 MG TAB PO SCH (21:01)
[2018-05-04] VITALS (19 sets, daily range): BP systolic 99–152; BP diastolic 41–89
[2018-05-04] MEDS: RT-ALBUTEROL/IPRATROPIUM 3 ML (DUONEB) VIAL INH SCH ×6 (03:18→22:12)
[2018-05-04] MEDS: MEROPENEM 500 MG/SWFI 10 ML IV PUSH IV SCH ×6 (03:41→17:17)
[2018-05-04 03:56] LABS: BASOPHILS % (AUTO) 1 % (0-10); EOSINOPHILS # (AUTO) 0.2 10^3/uL (0.0-0.3); EOSINOPHILS % (AUTO) 3 % (0-10); HEMATOCRIT 28 % (35-52); HEMOGLOBIN 8.6 G/DL (11.5-16.0); LYMPHOCYTES # (AUTO) 0.9 X 10^3 (1.0-4.0); LYMPHOCYTES % (AUTO) 16 % (12-44); MEAN CORPUSCULAR HEMOGLOBIN 29 PG (25-34); MEAN CORPUSCULAR HGB CONC 31 G/DL (32-36); MEAN CORPUSCULAR VOLUME 94 FL (80-99); MEAN PLATELET VOLUME 11.2 FL (7.4-10.4); MONOCYTES # (AUTO) 0.7 X 10^3 (0.0-1.0); MONOCYTES % (AUTO) 12 % (0-12); NEUTROPHILS % (AUTO) 68 % (42-75); PLATELET COUNT 239 10^3/uL (130-400); RED CELL DISTRIBUTION WIDTH 16.1 % (10.0-14.5); WHITE BLOOD COUNT 5.9 10^3/uL (4.3-11.0)
[2018-05-04 04:09] LABS: CALCIUM 8.7 MG/DL (8.5-10.1); CREATININE SERUM 1.55 MG/DL (0.60-1.30); MAGNESIUM 2.3 MG/DL (1.8-2.4); POTASSIUM 4.6 MMOL/L (3.6-5.0)
[2018-05-04] MEDS: MAGNESIUM 1 GM/100 ML IVPB 100 ML IV SCH (04:12)
[2018-05-04] MEDS: POTASSIUM CL 10MEQ/50ML IVPB 50 ML IV SCH (04:12)
[2018-05-04] MEDS: KCL 20 MEQ TAB (K-DUR) PO SCH (04:12)
[2018-05-04] MEDS: BETHANECHOL 25 MG (URECHOLINE) TAB PO SCH ×4 (06:51→21:34)
[2018-05-04] MEDS: LEVOTHYROXINE 25 MCG (LEVOTHROID) TAB PO SCH (06:51)
[2018-05-04] MEDS: aCETylcysteine 20% (MUCOMYST) 30ML SOLN VIAL INH SCH ×3 (07:18→18:45)
--- NOTE | 2018-05-04 07:23 | Diagnostic Imaging Report ---
INDICATION: Followup congestion. COMPARISON: 05/03/2018 FINDINGS: Single frontal radiographic view of the chest was obtained and demonstrates interval improved diffuse interstitial opacities; likely on the basis of improving interstitial edema. There is persistent cardiomegaly and pulmonary vascular congestion. Moderate bilateral pleural effusions and associated bibasilar atelectasis also persist. There is no pneumothorax. Bony structures show no acute adverse interval change. Sternotomy wires and calcified aortic atherosclerosis are noted. IMPRESSION: 1. Interval improved interstitial pulmonary edema, but with persistent cardiomegaly and sequela of failure including moderate bilateral pleural effusions. Continued followup is recommended. Dictated by: Dictated on workstation # [id number]
--- NOTE | 2018-05-04 07:28 | Pulmonary Progress Note ---
Subjective Time Seen by a Provider: 07:26 Subjective/Events-last exam SOB with orthopnea. no productive cough Sepsis Event Evaluation Height, Weight, BMI Height: 5'5.00" Weight: 182lbs. 1.0oz. 82.029782da; 28.4 BMI Method:Stated Focused Exam Lactate Level 05/02/18 09:19: Lactic Acid Level 1.00 Exam Exam Vital Signs Date Time Temp Pulse Resp B/P (MAP) Pulse Ox O2 Delivery O2 Flow Rate FiO2 05/04/18 06:00 91 17 134/63 (86) 100 NIV CPAP 4.00 05/04/18 05:00 111 27 127/80 (96) 100 NIV CPAP 4.00 05/04/18 04:00 111 32 100 NIV CPAP 4.00 05/04/18 04:00 96 NIV CPAP 5.00 05/04/18 03:18 99 Nasal Cannula 5.00 05/04/18 03:00 96 38 152/68 (96) 99 NIV CPAP 4.00 05/04/18 02:00 93 29 143/62 (89) 99 NIV CPAP 4.00 05/04/18 01:00 99 21 146/69 (94) 100 NIV CPAP 4.00 05/04/18 01:00 99 05/04/18 00:00 109 20 143/69 (93) 99 NIV CPAP 4.00 05/04/18 00:00 98 NIV CPAP 5.00 05/03/18 23:00 101 22 152/78 (102) 100 NIV CPAP 4.00 05/03/18 21:37 Nasal Cannula 5.00 05/03/18 21:37 96 Nasal Cannula 5.00 05/03/18 21:00 118 37 174/96 (122) 95 NIV CPAP 4.00 05/03/18 20:00 97 Nasal Cannula 5.00 05/03/18 20:00 109 26 145/85 (105) 97 NIV CPAP 4.00 05/03/18 19:53 99.5 05/03/18 19:00 109 05/03/18 19:00 103 10 163/91 (115) 96 NIV CPAP 4.00 05/03/18 18:00 106 25 113/68 (83) 95 NIV CPAP 4.00 05/03/18 17:00 112 28 159/111 (127) 95 NIV CPAP 4.00 05/03/18 16:00 98.2 05/03/18 16:00 116 17 160/69 (99) 96 NIV CPAP 4.00 05/03/18 16:00 97 Nasal Cannula 5.00 05/03/18 15:00 108 23 153/76 (101) 98 NIV CPAP 4.00 05/03/18 14:23 98 Nasal Cannula 5.00 05/03/18 14:00 108 24 131/50 (77) 95 NIV CPAP 4.00 05/03/18 13:00 107 05/03/18 13:00 109 28 115/52 (73) 97 NIV CPAP 4.00 05/03/18 12:00 99.0 05/03/18 12:00 111 28 133/62 (85) 97 NIV CPAP 4.00 05/03/18 12:00 94 Nasal Cannula 5.00 05/03/18 11:00 115 31 118/59 (78) 90 NIV CPAP 4.00 05/03/18 10:30 93 Nasal Cannula 5.00 05/03/18 10:00 120 26 127/61 (83) 92 NIV CPAP 4.00 05/03/18 09:00 111 31 153/67 (95) 95 NIV CPAP 4.00 05/03/18 08:00 94 Nasal Cannula 5.00 05/03/18 08:00 115 26 139/59 (85) 95 NIV CPAP 4.00 05/03/18 08:00 98.2 I & O 05/04/18 07:00 Intake Total 1810 ml Output Total 585 ml Balance 1225 ml Height & Weight Height: 5'5.00" Weight: 182lbs. 1.0oz. 82.350881kc; 28.4 BMI Method:Stated General Appearance: WD/WN, Chronically ill HEENT: PERRL/EOMI, Moist Mucous Membranes; No Scleral Icterus (L), No Scleral Icterus (R) Neck: Normal Inspection Respiratory: Lungs Clear, No Accessory Muscle Use, No Respiratory Distress Cardiovascular: Normal Peripheral Pulses, Systolic Murmur, Irregularly Irregular Capillary Refill: Less Than 3 Seconds Extremity: No Calf Tenderness, Other (bilateral lower legs wrapped in bandages , bandages C/D/I) Neurologic/Psychiatric: Alert, Oriented x3, No Motor/Sensory Deficits, Other ( moves all extremities) Skin: Normal Color, Warm/Dry Results Lab Laboratory Tests 05/02/18 09:19 05/03/18 03:50 05/04/18 03:40 Assessment/Plan Assessment/Plan Hypoxia with bilateral pulmonary edema/pleural effusions -Repeat BNP -Lasix 60mg IV x 1 Afib RVR EF 55% cardiology following Bacteremia -Abx Pneumonia -Merrem UTI -Merrem Hypothyroid -Synthroid SAMMY -Home CPAP machine NIDDM PAD HX of aortic valve replacement Coumadin coagulopathy Acute renal failure WANDA LEBRON DO May 04, 2018 07:28
[2018-05-04] MEDS ORDERED: FUROSEMIDE 40 MG/4 ML INJ (LASIX) IVP NR (07:30)
[2018-05-04] MEDS: DILTIAZEM 180 MG (CARDIZEM CD) CAP PO SCH (08:17)
[2018-05-04] MEDS: meTOprolol SUCCINATE 100 MG (TOPROL XL) TAB PO SCH (08:17)
[2018-05-04] MEDS: guaiFENesin (MUCINEX) 600 MG TAB PO SCH ×2 (08:17→21:34)
[2018-05-04] MEDS: ASPIRIN 81 MG CHEW (CHILDREN'S ASA) PO SCH (08:17)
[2018-05-04] MEDS: busPIRone 5 MG (BUSPAR) TAB PO SCH ×2 (08:18→21:35)
[2018-05-04] MEDS ORDERED: FUROSEMIDE 40 MG/4 ML INJ (LASIX) IVP SCH (09:00)
--- NOTE | 2018-05-04 09:22 | Progress Note (SOAP) ---
Subjective Date Seen by Provider: May 04, 2018 Time Seen by Provider: 09:00 Subjective/Events-last exam Bacteremia noted with Escherichia coli likely ESBL Maintain on meropenem Appears to be volume overloaded so we'll diuresis Transferring to fourth floor On dysphagia 2 diet due to difficulty eating and drinking Chronic cough has occurred for the past 5 months Will discontinue catheter since it is leaking anyway Wound care evaluation of the left top of foot blister and coccyx decubitus PT and OT will be ordered Overall much improved but frail at baseline without reserve Came from a retirement and will need to go back to a retirement Review of Systems General: Fatigue Pulmonary: Cough Cardiovascular: Edema Focused Exam Lactate Level 05/02/18 09:19: Lactic Acid Level 1.00 Objective Exam Last Set of Vital Signs Vital Signs Date Time Temp Pulse Resp B/P (MAP) Pulse Ox O2 Delivery O2 Flow Rate FiO2 05/04/18 09:00 121 27 134/67 (89) 98 NIV CPAP 4.00 05/03/18 19:53 99.5 05/02/18 14:07 36 Capillary Refill : Less Than 3 Seconds I&O Intake and Output 05/04/18 00:00 Intake Total 1660 ml Output Total 910 ml Balance 750 ml Intake Oral 460 ml IV Total 1200 ml Output Urine Total 910 ml # Voids 1 General: Alert, Oriented X3, Cooperative HEENT: Atraumatic, PERRLA Neck: Supple, No JVD Lungs: Clear to Auscultation, Normal Air Movement, Other (coughing) Heart: Normal S1, Normal S2, Other (murmur and irr irr) Abdomen: Normal Bowel Sounds, Soft Extremities: No Clubbing, No Cyanosis, Other (edema) Skin: No Rashes, Other (left top of foot blister and decubitus coccyx) Psych/Mental Status: Mental Status NL, Mood NL Results Lab Laboratory Tests 05/04/18 03:40: White Blood Count 5.9, Red Blood Count 2.96L, Hemoglobin 8.6L, Hematocrit 28L, Mean Corpuscular Volume 94, Mean Corpuscular Hemoglobin 29, Mean Corpuscular Hemoglobin Concent 31L, Red Cell Distribution Width 16.1H, Platelet Count 239, Mean Platelet Volume 11.2H, Neutrophils (%) (Auto) 68, Lymphocytes (%) (Auto) 16 , Monocytes (%) (Auto) 12, Eosinophils (%) (Auto) 3, Basophils (%) (Auto) 1, Neutrophils # (Auto) 4.0, Lymphocytes # (Auto) 0.9L, Monocytes # (Auto) 0.7, Eosinophils # (Auto) 0.2, Basophils # (Auto) 0.0, Sodium Level 133L, Potassium Level 4.6, Chloride Level 105, Carbon Dioxide Level 18L, Anion Gap 10, Blood Urea Nitrogen 31H, Creatinine 1.55H, Estimat Glomerular Filtration Rate 32, BUN/ Creatinine Ratio 20, Glucose Level 270H, Calcium Level 8.7, Magnesium Level 2.3 05/04/18 08:20: B-Type Natriuretic Peptide 391.0H Microbiology 05/02/18 Blood Culture - Preliminary, Resulted Escherichia coli See Comments 05/02/18 MRSA Screen - Final, Complete 05/02/18 Urine Culture - Final, Complete NO GROWTH Assessment/Plan Assessment/Plan Assess & Plan/Chief Complaint Assessment: (1) Atrial fibrillation with RVR now rate controlled (2) Bacteremia- Meropenem on board and E coli noted on prelim cultures likely ESBL (3) Pneumonia (4) COPD (chronic obstructive pulmonary disease) (5) Hypothyroidism (6) Non-insulin dependent type 2 diabetes mellitus (7) PAD (peripheral artery disease) (8) Aortic valve replaced (9) Supratherapeutic INR (10) Renal insufficiency (11) Urinary tract infectious disease (12) Normocytic anemia Plan: Meropenem empirically since I suspect ESBL PT/OT Speech changed diet Wound care for decubitus ulcer coccyx and left foot blister Severe debility and will return to [place] at [place] Monitor labs and INR Diagnosis/Problems Diagnosis/Problems (1) Pneumonia Status: Acute Qualifiers: Qualified Codes: J18.1 - Lobar pneumonia, unspecified organism (2) Urinary tract infectious disease Status: Acute Qualifiers: Qualified Codes: N30.00 - Acute cystitis without hematuria (3) A-fib Status: Chronic Qualifiers: Qualified Codes: I48.2 - Chronic atrial fibrillation (4) DARLENE (acute kidney injury) Status: Acute (5) Infection due to ESBL-producing Escherichia coli Status: Acute (6) Positive blood culture Status: Acute (7) COPD (chronic obstructive pulmonary disease) Status: Chronic Qualifiers: Qualified Codes: J44.0 - Chronic obstructive pulmonary disease with acute lower respiratory infection (8) Bacteremia Status: Acute (9) Hypothyroidism Status: Chronic Qualifiers: Qualified Codes: E03.9 - Hypothyroidism, unspecified (10) Renal insufficiency Status: Acute (11) Normocytic anemia Status: Chronic (12) PAD (peripheral artery disease) Status: Chronic (13) Dysphagia Status: Acute Qualifiers: Qualified Codes: R13.14 - Dysphagia, pharyngoesophageal phase (14) Chronic cough Status: Chronic (15) Edema Status: Chronic Qualifiers: Qualified Codes: R60.1 - Generalized edema (16) Poor prognosis Status: Chronic (17) Atrial fibrillation with RVR Status: Acute (18) Supratherapeutic INR Status: Acute JARROD SPENCE DO May 04, 2018 09:22
--- NOTE | 2018-05-04 09:36 | Progress Note-Cardiology ---
Cardiology SOAP Progress Note Subjective: Generalized weakness Persistent cough productive of small qty of yellowish sputum No cp or palp Mod shortness of breath Objective: I&O/Vital Signs 05/03/18 05/03/18 05/03/18 05/04/18 21:37 21:37 23:00 00:00 Pulse 101 Resp 22 B/P (MAP) 152/78 (102) Pulse Ox 96 100 98 O2 Delivery Nasal Cannula Nasal Cannula NIV CPAP NIV CPAP O2 Flow Rate 5.00 5.00 4.00 5.00 05/04/18 05/04/18 05/04/18 05/04/18 00:00 01:00 01:00 02:00 Pulse 109 99 99 93 Resp 20 21 29 B/P (MAP) 143/69 (93) 146/69 (94) 143/62 (89) Pulse Ox 99 100 99 O2 Delivery NIV CPAP NIV CPAP NIV CPAP O2 Flow Rate 4.00 4.00 4.00 05/04/18 05/04/18 05/04/18 05/04/18 03:00 03:18 04:00 04:00 Pulse 96 111 Resp 38 32 B/P (MAP) 152/68 (96) Pulse Ox 99 99 96 100 O2 Delivery NIV CPAP Nasal Cannula NIV CPAP NIV CPAP O2 Flow Rate 4.00 5.00 5.00 4.00 05/04/18 05/04/18 05/04/18 05/04/18 05:00 06:00 07:00 07:00 Pulse 111 91 110 102 Resp 27 17 29 B/P (MAP) 127/80 (96) 134/63 (86) 136/80 (98) Pulse Ox 100 100 100 O2 Delivery NIV CPAP NIV CPAP NIV CPAP O2 Flow Rate 4.00 4.00 4.00 05/04/18 05/04/18 05/04/18 07:13 08:00 09:00 Pulse 120 121 Resp 23 27 B/P (MAP) 134/89 (104) 134/67 (89) Pulse Ox 97 96 98 O2 Delivery Nasal Cannula NIV CPAP NIV CPAP O2 Flow Rate 3.00 4.00 4.00 05/04/18 00:00 Intake Total 340 ml Output Total 335 ml Balance 5 ml Weight (Pounds): 182 Weight (Ounces): 1.0 Weight (Calculated Kilograms): 82.426736 Constitutional: AAO x 3, well-developed, well-nourished, other (appears very tired and wiped out) Respiratory: No accessory muscle use; other (fair bilat air entry, diminished at the bases) Cardiovascular: irregularly irregular, S1 and S2, systolic murmur (2/d MITUL; mechanical S2) Gastrointestional: No tender; soft; No guarding, No rebound; audible bowel sounds Extremities: swelling (mod swelling of all limbs); No clubbing, No cyanosis Neurologic/Psychiatric: oriented x 3, other (able to move all limbs) Skin: No rash on exposed areas, No ulcerations on exposed areas Results/Procedures: Labs Laboratory Tests 05/04/18 03:40: White Blood Count 5.9, Red Blood Count 2.96L, Hemoglobin 8.6L, Hematocrit 28L, Mean Corpuscular Volume 94, Mean Corpuscular Hemoglobin 29, Mean Corpuscular Hemoglobin Concent 31L, Red Cell Distribution Width 16.1H, Platelet Count 239, Mean Platelet Volume 11.2H, Neutrophils (%) (Auto) 68, Lymphocytes (%) (Auto) 16 , Monocytes (%) (Auto) 12, Eosinophils (%) (Auto) 3, Basophils (%) (Auto) 1, Neutrophils # (Auto) 4.0, Lymphocytes # (Auto) 0.9L, Monocytes # (Auto) 0.7, Eosinophils # (Auto) 0.2, Basophils # (Auto) 0.0, Sodium Level 133L, Potassium Level 4.6, Chloride Level 105, Carbon Dioxide Level 18L, Anion Gap 10, Blood Urea Nitrogen 31H, Creatinine 1.55H, Estimat Glomerular Filtration Rate 32, BUN/ Creatinine Ratio 20, Glucose Level 270H, Calcium Level 8.7, Magnesium Level 2.3 05/04/18 08:20: B-Type Natriuretic Peptide 391.0H Microbiology 05/02/18 Blood Culture - Preliminary, Resulted Escherichia coli See Comments 05/02/18 MRSA Screen - Final, Complete 05/02/18 Urine Culture - Final, Complete NO GROWTH Laboratory Tests 05/03/18 03:50 05/04/18 03:40 A/P: Assessment: UTI with septicemia / bacteremia - managed by the [facility] Anemia, unknown etiology - managed by the [facility] Chronic A Fib, currently with a rapid ventricular response (likely due to systemic infection) CKD 3 with superimposed acute renal insuff Chronic warfarin anticoagulation, INR currently supra-therapeutic Valvular heart disease with a history of aortic valve replacement with #21 Carbomedics mechanical prosthetic valve for aortic stenosis and mitral valve repair with 27 mm ring for mitral regurgitation in 2002. Chronic diastolic CHF Echo of 03/16/18: LVEF 55-60%, mod conc LVH, biatrial enlargement, mod MR, adequately functioning aortic prosthetic valve, PASP 60-65 mmHg PAD and claudication - DYLON of 3-03-20 report mod PVD. DYLON R 0.63, L 0.63. Last peripheral angio and intervention (R leg) on 09/09/17 at which time she underwent successful balloon angioplasty of the R peroneal with reduction of a 95% ostial stenosis to less than 30% residual; both R tibials are occluded and collateralized. Previously, she has undergone bilateral kissing stents of both common iliacs and extensive balloon angioplasty and stenting of the R SFA by Dr Loaiza on 12/31/13. Subsequently, on 01/07/14, Dr Loaiza did stenting of L SFA and successful balloon angioplasty of L peroneal and L anterior tibial arteries, but angioplasty to chronic occlusion of L posterior tibial was unsuccessful and resulted in subintimal dissection H/O stress fracture of left foot May 2017 CVA: L-sided weakness and L-visual field cut in Dec 2015. 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 Payne. Cardiac cath of 06-24-2013 showed CAD, mild to moderate. Moderate mid vessel stenosis of the LAD with fractional flow reserve across the lesion of 0.95. Moderate mid vessel stenosis of the RCA with fractional flow reserve across the lesion of 0.95. Patent stents in the proximal left circumflex and the mid RCA which were placed in 2004, followed by Dr Estrella MPI of 07-18-15 did not indicate significant myocardial ischemia or infarction. Normal regional wall motion. Normal global LV systolic function with calculated ejection fraction of 69%. Normal LV cavity size Left internal carotid artery stenosis of 60-79%, right internal carotid artery stenosis of less than 40% per carotid u/s of 05/20/17 H/o hyperlipidemia previously treated with lovastatin Heme-positive stools in Jan 2014. Diffuse erosive gastritis, hemorrhoids, diverticulitis, no active bleeding per endoscopy in Jan [address] Rodgers, treated with H2 angie, PPI and Carafate (managed by Dr Rodgers). Recurrent heme (+) stools in March 2014 - capsule endoscopy and management by Dr Rodgers Borderline diabetes mellitus being managed by pcp Right rotator cuff repair on 11/28/[address] Woodward due to a torn rotator cuff. Plan: * Change dilt to oral * Hold warfarin until INR returns to therapeutic * Monitor labs closely, including INR * I had a detailed discussion with her and her fam regarding her CV issues WALDEMAR ESTRELLA MD FACP FACC CCDS May 04, 2018 09:36
[2018-05-04] MEDS ORDERED: DILT300C51 PO (09:57)
[2018-05-04] MEDS ORDERED: NITR-65 PO (09:57)
[2018-05-04] MEDS ORDERED: BETH25TA PO (09:57)
[2018-05-04] MEDS ORDERED: TAMS0.4C98 PO (09:57)
[2018-05-04] MEDS ORDERED: MAGN400T39 PO (09:57)
[2018-05-04] MEDS ORDERED: METO-387 PO (09:57)
[2018-05-04] MEDS ORDERED: ACET325T38 PO (09:57)
--- NOTE | 2018-05-04 09:58 | NUR ---
UPDATED MED REC WITH ORDER [facility]
--- NOTE | 2018-05-04 10:11 | ST Dysphagia Evaluation ---
Speech Evaluation-General Medical Diagnosis COPD, Pneumonia, UTI Onset Date: May 02, 2018 Therapy Diagnosis Therapy Diagnosis: Oropharyngeal Dysphagia Precautions Precautions: Aspiration Precautions/Isolations: Standard Precautions Medical History Pertinent Medical History: Atrial Fib, Arthritis, CAD, COPD, CVA, DM, GERD, HTN , Hypothroidism Reviewed History: Yes Social History Home: Care Home Speech PLF/Current-Dysphagia Prior Level of Function Patient lived in the detention where she received assistance with all of her daily needs. Subjective Patient was pleasant and cooperative. Oral Motor Skills Dentition: Natural Current Food Consistancy: Mechanical Soft, Thin Liquids Ability to Follow Directions: Good Oral Expression Ability: No Impairment Face Facial Symmetry: Symmetrical Oral-Facial Assessment Labial Seal Description: Weak Puff Cheeks: Reduced Strength Lingual Protrusion: Normal Lingual ROM: Normal Lingual Strength: Normal Pharynx Velopharyngeal Move.: Normal Volitional Dry Swallow: Yes Voluntary Cough: Yes Can Clear Throat Volitionally: Yes Productive Cough: Yes Patient's cough is weak but she has been able to demo a productive cough. Productive Throat Clear: Yes Dysphagia Evaluation Consistencies Presented: Thin Liquid, Mechanical Soft Patient's teeth are in poor condition and she has difficulty chewing some food items. Pharyngeal Phase: Clears Throat Dietary Recommendations: Ground Liquid Recommendations: Thin Dysphagia Evaluation Summary The patient was evaluated at bedside this am. Patient had eaten a soft cooked egg, 1/2 strip of crunchy minaya (she stated it was hard to chew) and 1/2 biscuit (she stated it was dry and hard to swallow). Patient was presented mechanical soft, puree and this liquids. Patient tolerated all consistencies well without any overt s/s of aspiration. Patient is being placed on a Dysphagia II diet level with moistened ground meats with thin liquids. Patient was given instructions to take small bites/sips and sit up during and after all oral intake. Barriers to Learning Patient has several diagnosis. Speech Short Term Goals Short Term Goals Short Term Goals 1) Patient will tolerate least restrictive diet level at 90% with minimal cues. 2) Patient will utilize compensatory strategies for all oral intake at 90% with minimal cues. Speech Detention Goals Legal Consultant Goals Patient will maintain adequate nutrition/hydration via safe effective swallow fx. Speech-Plan Patient/Family Goals Patient/Family Goals: Patient will return to the detention upon hospital discharge. Treatment Plan Speech Therapy Treatment Plan: Continue Plan of Care Patient is recommended for skilled dysphagia therapy. Treatment Duration: May 08, 2018 Frequency: 5 times per week Estimated Hrs Per Day: .25 hour per day Rehab Potential: Good Barriers to Learning: Patient has several diagnosis. Pt/Family Agrees to Plan: Yes Safety Risks/Education Teaching Recipient: Patient, Family Teaching Methods: Discussion Response to Teaching: Verbalize Understanding Education Topics Provided: Safety of oral intake. Time Speech Therapy Time In: 08:30 Speech Therapy Time Out: 08:45 Total Billed Time: 15 Billed Treatment Time 1ASHISH BETHAN[address] ST May 04, 2018 10:11
[2018-05-04] MEDS: ADVAIR HFA 115/21 MCG INHALER 8 GM IH SCH ×2 (11:07→18:46)
--- NOTE | 2018-05-04 12:14 | Physical Therapy Evaluation ---
PT Evaluation-General Medical Diagnosis Admission Date May 02, 2018 at 10:50 Medical Diagnosis: COPD, Pneumonia, UTI Onset Date: May 02, 2018 Therapy Diagnosis Therapy Diagnosis: decreased mobility, weakness Height/Weight Height (Feet): 5 Height (Inches): 5.00 Weight (Pounds): 182 Weight (Ounces): 1.0 Precautions Precautions/Isolations: Standard Precautions Weight Bear Status Right Lower Extremity: Right Weight Bearing/Tolerated Left Lower Extremity: Left Weight Bearing/Tolerated Referral Physician: Dr. Bernal Reason for Referral: Evaluation/Treatment Medical History Pertinent Medical History: Atrial Fib, Arthritis, CAD, COPD, CVA, DM, GERD, HTN , Hypothroidism Current History EMS from [facility] for bacteria growth in urine. Reviewed History: Yes Social History Home: Skilled Nursing Current Living Status: Entry Into Home: Level Entry Prior/Core FIM Prior Level of Function Therapy Code Descriptions/Definitions Functional [place] Measure: 0=Not Assessed/NA 4=Minimal Assistance 1=Total Assistance 5=Supervision or Setup 2=Maximal Assistance 6=Modified [place] 3=Moderate Assistance 7=Complete [place] Therapy Quality Codes: 6 Independent with activity with or without an assistive device 5 Patient requires set up or clean up by helper. Patient completes activity by themselves 4 Supervision or touching assist (CGA). [place] provide cues , steadying assist 3 The helper provides less than half the effort to complete the activity 2 The helper provides more than half the effort to complete the activity 1 Dependent. The helper does all the effort to complete an activity 7 Patient refused to complete or attempt activity 9 The patient did not perform the activity before the current illness or injury 88 Not attempted due to Medical conditions or safety concerns Functional Abilities and Goals: Independent: Patient completed the activities by him/herself, with or without an assistive device, with no assistance from a helper. Needed Some Help: Patient needed partial assistance from another person to complete activities. Dependent: A helper completed the activities for the patient. Unknown: Not Applicable: Bed Mobility: 5 Transfers (B,C,W/C) (FIM): 5 Gait: 5 Indoor Mobility (Ambulation): Needed Some Help Prior Devices Use: Walker Prior Device Use: FWW PT Evaluation-Current Subjective Pt in bed and family in room. Pt reports she will not walk and would like me to ask questions to the family because she isn't able to talk well. Pain Location: Right, Left Location Body Site: Foot Pt/Family Goals Pt to return to [facility] Objective Attachments: Lamas Catheter, IV ROM/Strength ROM Lower Extremities NT Strength Lower Extremities NT Integumentary/Posture Bladder Incontinence: Lamas Cath Neuromuscular (Tone, Coordination, Reflexes) NT Sensory Vision: Wears Glasses Hearing: Impaired Sensation Lower Extremities NT Transfers Therapy Code Descriptions/Definitions Functional [place] Measure: 0=Not Assessed/NA 4=Minimal Assistance 1=Total Assistance 5=Supervision or Setup 2=Maximal Assistance 6=Modified [place] 3=Moderate Assistance 7=Complete [place] Transfers (B, C, W/C) (FIM): 1 Scootin Rollin Supine to/from Sit: 1 Balance Sitting Static: Poor Sitting Dynamic: Poor Standing Static: Poor Standing Dynamic: Poor Assessment/Needs Family reports that the drs are checking to see if pt happened to have a CVA due to her L sided weakness. Pt was dependent A x2 with all bed mobility. Pt unable to perform sitting balance and required dependent A.Attempted to perform sit<>stand from EOB required depedent A x2 and was unable to complete standing. PT decided it was unsafe to transfer pt to recliner and repositioned pt back into R sidelying in bed, required dependent A x2. Pt O2 ranged during eval from 78-91%. Nurse notified of pts O2 status at end of treatment at 83%. PT recommends nursing use david lift for transfers of pt. Pt has all needs met and family is in room. Rehab Potential: Poor Post Rehab Potential-Barriers: co-morbidities, recent hospital stays PT Short Term Goals Short Term Goals Time Frame: May 11, 2018 Transfers (B,C,W/C) (FIM): 3 Gait (FIM): 1 Distance (FIM): 1=up to 49 ft Gait Distance Comment: 10' Gait Level of Assist: 3 Gait Assistive Device: FWW PT Plan Problem List Problem List: Activity Tolerance, Functional Strength, Safety, Balance, Gait, Transfer, Bed Mobility, ROM Treatment/Plan Treatment Plan: Continue Plan of Care Treatment Plan: Bed Mobility, Education, Functional Activity Tawana, Functional Strength, Gait, Safety, Therapeutic Exercise, Transfers Treatment Duration: May 11, 2018 Frequency: 6 times per week Estimated Hrs Per Day: .25 hour per day Patient and/or Family Agrees t: Yes Safety Risks/Education Patient Education: Correct Positioning, Safety Issues Teaching Recipient: Patient, Family Teaching Methods: Discussion Discharge Recommendations Therapy D/C Recommendations: Skilled Nursing Placement, Nursing Home (TCU/NH) Time/GCodes Time In: 1110 Time Out: 1129 Total Billed Treatment Time: 19 Total Billed Treatment 1 visit [facility] 19 min MATY LLANES PT May 04, 2018 12:14
--- NOTE | 2018-05-04 12:59 | Occupational Therapy Eval ---
OT Evaluation-General/PLF Medical Diagnosis Admission Date May 02, 2018 at 10:50 Medical Diagnosis: UTI, E-Coli Onset Date: May 02, 2018 Therapy Diagnosis Therapy Diagnosis: Weakness Height/Weight Height (Feet): 5 Height (Inches): 5.00 Weight (Pounds): 182 Weight (Ounces): 1.0 Precautions Precautions/Isolations: Standard Precautions Safety Interventions: None Weight Bear Status Weight Bearing Restriction: Weight Bearing/Tolerated Referral Physician: Dr. Bernal Referral Reason: Activity Tolerance, Self Care, Evaluation/Treatment, Strengthening/ROM Medical History Pertinent Medical History: Atrial Fib, Arthritis, CAD, COPD, CVA, DM, GERD, HTN , Hypothroidism Additional Medical History coronary stent, valve replacement, diverticulosis, CVA with residual left sided weakness Current History Pt. has been in and out of hospital setting. Pt. transferred to [facility] recently to gain strength. Came back to hospital with UTI and E-Coli. Reviewed History: Yes Social History Home: Retirement Current Living Status: Entry Into Home: Level Entry ADL-Prior Level of Function Therapy Code Descriptions/Definitions Functional [place] Measure: 0=Not Assessed/NA 4=Minimal Assistance 1=Total Assistance 5=Supervision or Setup 2=Maximal Assistance 6=Modified [place] 3=Moderate Assistance 7=Complete [place] Therapy Quality Codes: 6 Independent with activity with or without an assistive device 5 Patient requires set up or clean up by helper. Patient completes activity by themselves 4 Supervision or touching assist (CGA). [place] provide cues , steadying assist 3 The helper provides less than half the effort to complete the activity 2 The helper provides more than half the effort to complete the activity 1 Dependent. The helper does all the effort to complete an activity 7 Patient refused to complete or attempt activity 9 The patient did not perform the activity before the current illness or injury 88 Not attempted due to Medical conditions or safety concerns Functional Abilities and Goals: Independent: Patient completed the activities by him/herself, with or without an assistive device, with no assistance from a helper. Needed Some Help: Patient needed partial assistance from another person to complete activities. Dependent: A helper completed the activities for the patient. Unknown: Not Applicable: ADL PLOF Comments Pt. is poor historian. Has been in skilled nursing with assist for all ADLs. Self Care: Needed Some Help Functional Cognition: Unknown DME/Equipment Comments Pt. does use a walker typically to ambulate. OT Current Status Subjective Pt. does not report pain. Pt. very groggy throughout treatment. Does state, "not very good" when asked how she is doing. Appearance Pt. in bed with HOB elevated. Family in room and is able to give some history about pt. Pt. has difficulty keeping her eyes open throughout treatment. Mental Status/Objective Patient Orientation: Unable to Assess Attachments: IV, Oxygen, Telemetry Current Hand Dominance: Right Upper Extremity ROM Pt. is able to "wiggle" fingers on right hand. Pt. is able to slightly shrug right shoulder. Pt. demonstrates no active movement in left UE. Edema: Pt. has significant edema in bilateral UE. ADL-Treatment Therapy Code Descriptions/Definitions Functional [place] Measure: 0=Not Assessed/NA 4=Minimal Assistance 1=Total Assistance 5=Supervision or Setup 2=Maximal Assistance 6=Modified [place] 3=Moderate Assistance 7=Complete [place] Therapy Quality Codes: 6 Independent with activity with or without an assistive device 5 Patient requires set up or clean up by helper. Patient completes activity by themselves 4 Supervision or touching assist (CGA). [place] provide cues , steadying assist 3 The helper provides less than half the effort to complete the activity 2 The helper provides more than half the effort to complete the activity 1 Dependent. The helper does all the effort to complete an activity 7 Patient refused to complete or attempt activity 9 The patient did not perform the activity before the current illness or injury 88 Not attempted due to Medical conditions or safety concerns Eating (FIM): 1 (Pt. has eaten breakfast this a.m., but family reports that they had to feed her. States that pt. is unable to bring hand to mouth.) Lower Body Dressing (FIM): 1 Toileting (FIM): 1 Transfers (B, C, W/C) (FIM): 1 Other Treatments Pt. in bed. Positioned with pillows. Agrees to work with OT. Pt. has no active movement in left UE/LE, although she reports that she can feel everything on that side. Pt. required dependent assist x 2 to transfer supine- sit. Pt. sat side of bed approximately 15 minutes with dependent assist of two. OT positioned self behind pt. and completed gentle pectoral stretch with retractive movement. Pt. given tactile cues at times to keep head up and to sit upright. Pt. unable to hold self up whenever OT removed support. Transferred back to supine with dependent assist x 2. Pt. positioned in bed with special care to avoid compression or wounds. All needs met and nursing notified that pt. is back in bed. Education OT Patient Education: Correct positioning, Modified ADL techniques, Progress toward Goal/Update tx plan, Purpose of tx/functional activities, Reviewed precautions, Rehab process, Transfer techniques Teaching Recipient: Patient, Family Teaching Methods: Demonstration, Discussion Response to Teaching: Verbalize Understanding, Return Demonstration OT Short Term Goals Short Term Goals Time Frame: May 18, 2018 Eating(FIM): 3 Grooming(FIM): 3 Upper Body Dressing(FIM): 3 Lower Body Dressing(FIM): 3 Toileting(FIM): 4 Transfers (B,C,W/C) (FIM): 3 Toilet/Commode Transfer(FIM): 4 Additional Short Term Goals: 1-Demonstrate ADL Tasks, 2-Verbalize Understanding , 3-ImproveStrength/Tawana 1=Demonstrate adherence to instructed precautions during ADL tasks. 2=Patient will verbalize/demonstrate understanding of assistive devices/ modifications for ADL. 3=Patient will improve strength/tolerance for activity to enable patient to perform ADL's. OT Jigman Goals Senior Living Goals Time Frame: Jun 01, 2018 Eating (FIM): 5 Grooming(FIM): 5 Bathing(FIM): 3 Upper Body Dressing(FIM): 5 Lower Body Dressing(FIM): 4 Toileting(FIM): 5 Transfers (B,C,W/C) (FIM): 5 Toilet/Commode Transfer(FIM): 5 Additional Goals: 1-Demonstrate ADL Tasks, 2-Verbalize Understanding, 3- ImproveStrength/Tawana 1=Demonstrate adherence to instructed precautions during ADL tasks. 2=Patient will verbalize/demonstrate understanding of assistive devices/ modifications for ADL. 3=Patient will improve strength/tolerance for activity to enable patient to perform ADL's. OT Education/Plan Problem List/Assessment Assessment: Decreased Activ Tolerance, Decreased UE Strength, Dependent Transfers, Edema, Impaired Bed Mobility, Impaired Cognition, Impaired Coordination, Impaired Funct Balance, Impaired I ADL's, Impaired Self-Care Skills, Restricted Funct UE ROM, Visual-Perceptual Deficit Discharge Recommendations Plan/Recommendations: Continue POC Therapy D/C Recommendations: 24 hr Supervision Comment Equipment needs and discharge location to be determined. Treatment Plan/Plan of Care Treatment,Training & Education: Yes Patient would benefit from OT for education, treatment and training to promote independence in ADL's, mobility, safety and/or upper extremity function for ADL' s. Plan of Care: ADL Retraining, Functional Mobility, UE Funct Exercise/Act Treatment Duration: Jun 01, 2018 Frequency: 5 times per week Estimated Hrs Per Day: .5 hour per day Agreement: Yes Rehab Potential: Fair Time/GCodes Start Time: 09:00 Stop Time: 09:30 Total Time Billed (hr/min): 30 Billed Treatment Time 1, EVH x 15minutes, FA x 15minutes BIANCA CORRALES OT May 04, 2018 12:58
--- NOTE | 2018-05-04 13:14 | Wound Care Assessment ---
Wound Care Assessment Date Seen by Provider: May 04, 2018 Time Seen by Provider: 12:45 Chief Complaint Bilateral foot ulcers and a sacral ulcer. HPI The patient is an 82 year old female with bilateral dorsal foot ulcers due to uncontrolled lymphedema, and a new sacral pressure ulcer. All wounds present on admission. Considering her multiple co-morbidities, the lymphedema and, therefore, the pedal ulcers will be difficult to resolve. They are stable with Adaptic dressings. Bordered foam dressing and off-loading for sacral Stage 2 pressure ulcer. Past Medical History: Admits Diabetes Type II, Admits Heart Disease Congestive Heart failure, COPD, Atrial fibrillation, Aortic valve replacement, Anemia. Smoking Status: Former Smoker Recreational Drug Use: No Alcohol Use: Denies Use Review of Systems General: No Chills HEENT: No Head Aches Pulmonary: Dyspnea, Cough (constant urge to cough.) Cardiovascular: No: Chest Pain Gastrointestinal: No: Nausea, Vomiting Genitourinary: Dysuria, Other (UTI with bacteremia) Musculoskeletal: foot pain Neurological: Weakness Other systems Skin -- bilateral foot wounds, sacral wound. Endocrine - Having difficulty with diabetes management. Exam Vital Signs Date Time Temp Pulse Resp B/P (MAP) Pulse Ox O2 Delivery O2 Flow Rate FiO2 05/04/18 12:00 89 17 101/61 (74) NIV CPAP 4.00 05/04/18 11:07 89 05/03/18 19:53 99.5 05/02/18 14:07 36 Capillary Refill : Less Than 3 Seconds General Appearance: mild distress, obese HEENT: normal ENT inspection Neck: non-tender, normal inspection Cardiovascular: no murmur, irregularly irregular Respiratory: respiratory distress (mild), crackles Gastrointestinal: normal bowel sounds, non tender Back: other (Stage 2 sacral pressure ulcer.) Extremities: other (Bilateral dorsal feet ulcers, with pink dermis as the base. ) Neurologic/Psychiatric: motor weakness (L arm L leg, since stroke remote) Skin: other (See back and extremities.) Results Laboratory Tests 05/04/18 03:40: White Blood Count 5.9, Red Blood Count 2.96L, Hemoglobin 8.6L, Hematocrit 28L, Mean Corpuscular Volume 94, Mean Corpuscular Hemoglobin 29, Mean Corpuscular Hemoglobin Concent 31L, Red Cell Distribution Width 16.1H, Platelet Count 239, Mean Platelet Volume 11.2H, Neutrophils (%) (Auto) 68, Lymphocytes (%) (Auto) 16 , Monocytes (%) (Auto) 12, Eosinophils (%) (Auto) 3, Basophils (%) (Auto) 1, Neutrophils # (Auto) 4.0, Lymphocytes # (Auto) 0.9L, Monocytes # (Auto) 0.7, Eosinophils # (Auto) 0.2, Basophils # (Auto) 0.0, Sodium Level 133L, Potassium Level 4.6, Chloride Level 105, Carbon Dioxide Level 18L, Anion Gap 10, Blood Urea Nitrogen 31H, Creatinine 1.55H, Estimat Glomerular Filtration Rate 32, BUN/ Creatinine Ratio 20, Glucose Level 270H, Calcium Level 8.7, Magnesium Level 2.3 05/04/18 08:20: B-Type Natriuretic Peptide 391.0H Microbiology 05/02/18 Blood Culture - Preliminary, Resulted Escherichia coli See Comments 05/02/18 MRSA Screen - Final, Complete 05/02/18 Urine Culture - Final, Complete NO GROWTH Microbiology 05/02/18 MRSA Screen - Final, Complete 05/02/18 Urine Culture - Final, Complete NO GROWTH Assessment/Plan/Dx 1. Lymphedema, secondary to congestive heart failure. 2. Debility. 3.Pressure ulcer, sacrum, Stage 2. 4. Diabetes, with ulcer of foot. 5. Anemia. Plan: Continue conservative dressings. Off-load and elevate as tolerated. The patient's numerous serious co-morbidities far outweigh the skin lesions. MICHELLE GUNTER MD May 04, 2018 13:14
[2018-05-04] MEDS: TAMSULOSIN 0.4 MG (FLOMAX) CAP PO SCH (17:17)
[2018-05-04] MEDS: ATORVASTATIN 20 MG (LIPITOR) TABLET PO SCH (21:34)
[2018-05-05] VITALS: BP 102/62
[2018-05-05] MEDS: MEROPENEM 500 MG/SWFI 10 ML IV PUSH IV SCH ×6 (02:16→17:29)
[2018-05-05] MEDS: aCETylcysteine 20% (MUCOMYST) 30ML SOLN VIAL INH SCH ×3 (02:53→13:11)
[2018-05-05] MEDS: RT-ALBUTEROL/IPRATROPIUM 3 ML (DUONEB) VIAL INH SCH ×4 (02:53→13:11)
[2018-05-05 04:00] VITALS: BP 104/47
[2018-05-05 04:24] LABS: BASOPHILS % (AUTO) 1 % (0-10); EOSINOPHILS # (AUTO) 0.2 10^3/uL (0.0-0.3); EOSINOPHILS % (AUTO) 4 % (0-10); HEMATOCRIT 25 % (35-52); LYMPHOCYTES # (AUTO) 0.8 X 10^3 (1.0-4.0); LYMPHOCYTES % (AUTO) 13 % (12-44); MEAN CORPUSCULAR HEMOGLOBIN 29 PG (25-34); MEAN CORPUSCULAR HGB CONC 32 G/DL (32-36); MEAN CORPUSCULAR VOLUME 92 FL (80-99); MEAN PLATELET VOLUME 10.5 FL (7.4-10.4); MONOCYTES # (AUTO) 0.7 X 10^3 (0.0-1.0); MONOCYTES % (AUTO) 12 % (0-12); NEUTROPHILS % (AUTO) 70 % (42-75); PLATELET COUNT 305 10^3/uL (130-400); RED CELL DISTRIBUTION WIDTH 16.3 % (10.0-14.5); WHITE BLOOD COUNT 5.7 10^3/uL (4.3-11.0)
[2018-05-05] MEDS ORDERED: BUMETANIDE 1 MG/4 ML (BUMEX) VIAL IV ONE (04:30)
[2018-05-05] MEDS ORDERED: POTASSIUM CL 10MEQ/50ML IVPB 50 ML IV SCH (04:30)
[2018-05-05 04:36] LABS: INR 2.8 (0.8-1.4); PROTHROMBIN TIME PATIENT 29.9 SEC (12.2-14.7)
[2018-05-05 04:40] LABS: CALCIUM 8.5 MG/DL (8.5-10.1); CREATININE SERUM 1.62 MG/DL (0.60-1.30); MAGNESIUM 2.1 MG/DL (1.8-2.4); POTASSIUM 4.7 MMOL/L (3.6-5.0)
--- NOTE | 2018-05-05 04:50 | Pulmonary Progress Note ---
Subjective Time Seen by a Provider: 04:58 Subjective/Events-last exam Complains of weakness and orthopnea Sepsis Event Evaluation Height, Weight, BMI Height: 5'5.00" Weight: 182lbs. 1.0oz. 82.145476xe; 28.4 BMI Method:Stated Focused Exam Lactate Level 05/02/18 09:19: Lactic Acid Level 1.00 Exam Exam Vital Signs Date Time Temp Pulse Resp B/P (MAP) Pulse Ox O2 Delivery O2 Flow Rate FiO2 05/05/18 02:54 92 NIV CPAP 2.00 05/05/18 01:00 71 05/05/18 00:21 97.2 05/05/18 00:00 72 27 102/62 (75) 90 NIV CPAP 4.00 05/04/18 22:16 95 NIV CPAP 2.00 05/04/18 20:00 86 31 118/69 (85) 90 NIV CPAP 4.00 05/04/18 20:00 98.0 05/04/18 20:00 96 Nasal Cannula 2.00 05/04/18 19:00 89 05/04/18 18:56 Room Air 0.00 05/04/18 18:47 97 Nasal Cannula 2.00 05/04/18 18:00 89 22 122/60 (80) 98 NIV CPAP 4.00 05/04/18 17:00 101 14 113/56 (75) 89 NIV CPAP 4.00 05/04/18 16:00 98.0 05/04/18 16:00 96 Nasal Cannula 2.00 05/04/18 16:00 80 23 114/51 (72) 95 NIV CPAP 4.00 05/04/18 15:38 100 Nasal Cannula 4.00 05/04/18 15:00 74 22 99/54 (69) 94 NIV CPAP 4.00 05/04/18 14:00 81 23 108/63 (78) 92 NIV CPAP 4.00 05/04/18 13:00 94 25 118/64 (82) 90 NIV CPAP 4.00 05/04/18 13:00 79 05/04/18 12:00 89 17 101/61 (74) NIV CPAP 4.00 05/04/18 12:00 97 Nasal Cannula 3.00 05/04/18 12:00 98.2 05/04/18 11:11 Room Air 0.00 05/04/18 11:07 91 20 119/53 (75) 89 NIV CPAP 4.00 05/04/18 11:05 96 Nasal Cannula 1.00 05/04/18 10:00 95 26 109/41 (63) 98 NIV CPAP 4.00 05/04/18 09:00 121 27 134/67 (89) 98 NIV CPAP 4.00 05/04/18 08:00 97 Nasal Cannula 3.00 05/04/18 08:00 97.9 05/04/18 08:00 120 23 134/89 (104) 96 NIV CPAP 4.00 05/04/18 07:13 97 Nasal Cannula 3.00 05/04/18 07:00 102 29 136/80 (98) 100 NIV CPAP 4.00 05/04/18 07:00 110 05/04/18 06:00 91 17 134/63 (86) 100 NIV CPAP 4.00 05/04/18 05:00 111 27 127/80 (96) 100 NIV CPAP 4.00 I & O 05/05/18 07:00 Intake Total 810 ml Output Total 590 ml Balance 220 ml Height & Weight Height: 5'5.00" Weight: 182lbs. 1.0oz. 82.576421ly; 28.4 BMI Method:Stated General Appearance: WD/WN, Chronically ill HEENT: PERRL/EOMI, Moist Mucous Membranes; No Scleral Icterus (L), No Scleral Icterus (R) Neck: Normal Inspection Respiratory: Lungs Clear, No Accessory Muscle Use, No Respiratory Distress Cardiovascular: Normal Peripheral Pulses, Systolic Murmur, Irregularly Irregular Capillary Refill: Less Than 3 Seconds Gastrointestinal: normal bowel sounds, non tender Extremity: No Calf Tenderness, Other (left sided paralysis. Bilateral anasarca ) Neurologic/Psychiatric: Alert, Oriented x3, No Motor/Sensory Deficits Skin: Normal Color, Warm/Dry Results Lab Laboratory Tests 05/04/18 03:40 05/05/18 04:15 Assessment/Plan Assessment/Plan Hypoxia with bilateral pulmonary edema/pleural effusions -CXR shows extensive bilateral infiltrateds with bilateral P. effusions -Pt has anasarca and difficult stick. Prognosis is guarded. 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 Acute on chronic renal failure with metabolic acidosis -Monitor Debility -PT/OT Hypothyroid -Synthroid -Repeat TSH SAMMY -Home CPAP machine HX of aortic valve replacement with Coumadin coagulopathy -Cardiology managing NIDDM PAD Acute renal failure Prognosis is guarded to poor. Currently pt is a full code. WANDA LEBRON DO May 05, 2018 04:50
[2018-05-05] MEDS ORDERED: FUROSEMIDE 40 MG/4 ML INJ (LASIX) IVP ONE (05:00)
[2018-05-05] MEDS ORDERED: FUROSEMIDE 40 MG/4 ML INJ (LASIX) ONE (05:06)
[2018-05-05] MEDS: LEVOTHYROXINE 25 MCG (LEVOTHROID) TAB PO SCH (05:09)
[2018-05-05] MEDS: BETHANECHOL 25 MG (URECHOLINE) TAB PO SCH ×3 (05:10→17:29)
[2018-05-05] MEDS: ADVAIR HFA 115/21 MCG INHALER 8 GM IH SCH (07:15)
[2018-05-05 08:00] VITALS: BP 110/68
--- NOTE | 2018-05-05 08:47 | Progress Note-Cardiology ---
Cardiology SOAP Progress Note Subjective: In bed. Family member x 1 at the bedside. No c/o CP or palpitations. Continues to c/o dyspnea which she feels is unchanged from yesterday. C/O fatigue. Objective: I&O/Vital Signs 05/05/18 05/05/18 05/05/18 05/05/18 04:50 07:00 07:16 07:24 Pulse 72 80 Resp 27 B/P (MAP) Pulse Ox 90 90 O2 Delivery Nasal Cannula Nasal Cannula Nasal Cannula O2 Flow Rate 3.00 3.00 3.00 05/05/18 05/05/18 05/05/18 05/05/18 08:00 12:00 13:00 13:12 Temp 97.2 97.6 Pulse 90 93 86 Resp 25 28 B/P (MAP) 110/68 (82) 117/73 (88) Pulse Ox 91 93 78 O2 Delivery Nasal Cannula Vapotherm Nasal Cannula O2 Flow Rate 3.00 100.00 3.00 40.00 05/05/18 13:55 Pulse 63 Pulse Ox 97 O2 Flow Rate 100.00 05/05/18 00:00 Intake Total 690 ml Output Total 385 ml Balance 305 ml Weight (Pounds): 184 Weight (Ounces): 7.0 Weight (Calculated Kilograms): 83.767051 Constitutional: AAO x 3, well-developed, well-nourished, other (appears very tired and wiped out) Respiratory: No accessory muscle use; other (fair bilat air entry, diminished at the bases) Cardiovascular: irregularly irregular, S1 and S2, systolic murmur (2/d MITUL; mechanical S2) Gastrointestional: No tender; soft; No guarding, No rebound; audible bowel sounds Extremities: swelling (mod swelling of all limbs); No clubbing, No cyanosis Neurologic/Psychiatric: oriented x 3, other (able to move all limbs) Skin: No rash on exposed areas, No ulcerations on exposed areas Results/Procedures: Labs Laboratory Tests 05/05/18 04:15: White Blood Count 5.7, Red Blood Count 2.74L, Hemoglobin 8.0L, Hematocrit 25L, Mean Corpuscular Volume 92, Mean Corpuscular Hemoglobin 29, Mean Corpuscular Hemoglobin Concent 32, Red Cell Distribution Width 16.3H, Platelet Count 305, Mean Platelet Volume 10.5H, Neutrophils (%) (Auto) 70, Lymphocytes (%) (Auto) 13 , Monocytes (%) (Auto) 12, Eosinophils (%) (Auto) 4, Basophils (%) (Auto) 1, Neutrophils # (Auto) 4.0, Lymphocytes # (Auto) 0.8L, Monocytes # (Auto) 0.7, Eosinophils # (Auto) 0.2, Basophils # (Auto) 0.0, Prothrombin Time 29.9H, INR Comment 2.8H, Sodium Level 134L, Potassium Level 4.7, Chloride Level 103, Carbon Dioxide Level 21, Anion Gap 10, Blood Urea Nitrogen 34H, Creatinine 1.62H , Estimat Glomerular Filtration Rate 30, BUN/Creatinine Ratio 21, Glucose Level 230H, Calcium Level 8.5, Magnesium Level 2.1, Thyroid Stimulating Hormone (TSH) 5.96H 05/05/18 13:48: Glucometer 243H 05/05/18 13:50: Blood Gas Puncture Site LEFT RADIAL, Blood Gas Patient Temperature 97.9, Arterial Blood pH 7.45H, Arterial Blood Partial Pressure CO2 31L, Arterial Blood Partial Pressure O2 49L, Arterial Blood HCO3 22L, Arterial Blood Total CO2 22.4, Arterial Blood Oxygen Saturation 86L, Arterial Blood Base Excess -2.0 , Quentin Test POSITIVE, Blood Gas Ventilator Setting NO, Blood Gas Inspired Oxygen 100% BIPAP Microbiology 05/02/18 Blood Culture - Final, Complete Escherichia coli See Comments 05/02/18 MRSA Screen - Final, Complete 05/02/18 Urine Culture - Final, Complete NO GROWTH A/P: Assessment: UTI with septicemia / bacteremia - managed by the [facility] [place] Anemia, unknown etiology - managed by the [facility] [place] Chronic A Fib, currently with a rapid ventricular response (likely due to systemic infection) CKD 3 with superimposed acute renal insuff Chronic warfarin anticoagulation, INR currently supra-therapeutic Valvular heart disease with a history of aortic valve replacement with #21 Carbomedics mechanical prosthetic valve for aortic stenosis and mitral valve repair with 27 mm ring for mitral regurgitation in 2002. Chronic diastolic CHF Echo of 03/16/18: LVEF 55-60%, mod conc LVH, biatrial enlargement, mod MR, adequately functioning aortic prosthetic valve, PASP 60-65 mmHg PAD and claudication - DYLON of 3-1-18 report mod PVD. DYLON R 0.63, L 0.63. Last peripheral angio and intervention (R leg) on 09/09/17 at which time she underwent successful balloon angioplasty of the R peroneal with reduction of a 95% ostial stenosis to less than 30% residual; both R tibials are occluded and collateralized. Previously, she has undergone bilateral kissing stents of both common iliacs and extensive balloon angioplasty and stenting of the R SFA by Dr Loaiza on 12/31/13. Subsequently, on 01/07/14, Dr Loaiza did stenting of L SFA and successful balloon angioplasty of L peroneal and L anterior tibial arteries, but angioplasty to chronic occlusion of L posterior tibial was unsuccessful and resulted in subintimal dissection H/O stress fracture of left foot May 2017 CVA: L-sided weakness and L-visual field cut in Dec 2015. 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 Payne. Cardiac cath of 06-24-2013 showed CAD, mild to moderate. Moderate mid vessel stenosis of the LAD with fractional flow reserve across the lesion of 0.95. Moderate mid vessel stenosis of the RCA with fractional flow reserve across the lesion of 0.95. Patent stents in the proximal left circumflex and the mid RCA which were placed in 2004, followed by Dr Estrella MPI of 07-18-15 did not indicate significant myocardial ischemia or infarction. Normal regional wall motion. Normal global LV systolic function with calculated ejection fraction of 69%. Normal LV cavity size Left internal carotid artery stenosis of 60-79%, right internal carotid artery stenosis of less than 40% per carotid u/s of 05/20/17 H/o hyperlipidemia previously treated with lovastatin Heme-positive stools in Jan 2014. Diffuse erosive gastritis, hemorrhoids, diverticulitis, no active bleeding per endoscopy in Jan [address] Rodgers, treated with H2 angie, PPI and Carafate (managed by Dr Rodgers). Recurrent heme (+) stools in March 2014 - capsule endoscopy and management by Dr Rodgers Borderline diabetes mellitus being managed by pcp Right rotator cuff repair on 11/28/[address] Woodward due to a torn rotator cuff. Plan: * Continue current medication regimen * INR down to 2.8 today - resume warfarin * Monitor labs closely, including INR * We have had a detailed discussion with her and her fam regarding her CV issues Physician Assessment Physician Assessment Does not relate symptoms. 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
[2018-05-05] MEDS: guaiFENesin (MUCINEX) 600 MG TAB PO SCH (09:05)
[2018-05-05] MEDS: DILTIAZEM 180 MG (CARDIZEM CD) CAP PO SCH (09:05)
[2018-05-05] MEDS: meTOprolol SUCCINATE 100 MG (TOPROL XL) TAB PO SCH (09:06)
[2018-05-05] MEDS: ASPIRIN 81 MG CHEW (CHILDREN'S ASA) PO SCH (09:06)
[2018-05-05] MEDS: busPIRone 5 MG (BUSPAR) TAB PO SCH (09:06)
--- NOTE | 2018-05-05 09:23 | Speech Therapy Daily Note ---
Speech Daily Progress Note Subjective Date Seen by Provider: May 05, 2018 Time Seen by Provider: 00:15 Patient was resting in her bed. She was noted to have a productive cough this am. Objective Patient consumed 75% of her breakfast with utilization of compensatory strategies with min to mod verbal cues. Assessment Assessment Current Status: Good Progress Treatment Plan Continue Plan of Care Speech Short Term Goals Short Term Goals Short Term Goals 1) Patient will tolerate least restrictive diet level at 90% with minimal cues. 2) Patient will utilize compensatory strategies for all oral intake at 90% with minimal cues. Speech Die Developer Goals Die Developer Goals Patient will maintain adequate nutrition/hydration via safe effective swallow fx. Speech-Plan Patient/Family Goals Patient/Family Goals: Patient will return to the group home upon hospital discharge. Treatment Plan Speech Therapy Treatment Plan: Continue Plan of Care Patient is progressing as a result of skilled ST services. Treatment Duration: May 08, 2018 Frequency: 5 times per week Estimated Hrs Per Day: .25 hour per day Rehab Potential: Fair Barriers to Learning: Patient's age and multiple diagnosis. Pt/Family Agrees to Plan: Yes Safety Risks/Education Teaching Recipient: Patient Teaching Methods: Discussion Response to Teaching: Verbalize Understanding Education Topics Provided: Safety of oral intake. Time Speech Therapy Time In: 08:00 Speech Therapy Time Out: 08:15 Total Billed Time: 15 Billed Treatment Time 1, LYNDSEY Chou May 05, 2018 09:23
--- NOTE | 2018-05-05 09:47 | Progress Note ---
Subjective Date Seen by a Provider: May 05, 2018 Time Seen by a Provider: 09:00 Subjective/Events-last exam Pt improved but very frail and very complex medically Unsure the amount of recovery she will make Lower extremity edema is responding to diaphoresis but minimal amount can be done because of mild hypotension of 111 systolic Denies any significant pain Cough continues, trying to cough mucus up Tolerating antibiotics well Overall poor prognosis Will remain in the hospital until recovery and then will go back to the [facility] but pt has a very poor prognosis Called to the bedside at 1350 due to rapid response status and patient's O2 sat 60% and tachypneic. I arrived along with Dr Payen and assessed the patient to be in the midst of a major decline in status and appeared diaphoretic and pale and SBP of 90's. Spoke to son and he will call his sister but she was deemed a DNR and will likely not recover and will provide comfort care after daughter arrives and will initiate those orders shortly. Patient will likely pass quickly. Review of Systems General: Fatigue, Malaise Pulmonary: Dyspnea, Cough Objective Exam Last Set of Vital Signs Vital Signs Date Time Temp Pulse Resp B/P (MAP) Pulse Ox O2 Delivery O2 Flow Rate FiO2 05/05/18 08:00 97.2 90 25 110/68 (82) 91 Nasal Cannula 3.00 05/02/18 14:07 36 Capillary Refill : Less Than 3 Seconds I&O Intake and Output 05/05/18 00:00 Intake Total 960 ml Output Total 665 ml Balance 295 ml Intake Oral 960 ml Output Urine Total 665 ml # Voids 1 General: Alert, Oriented X3, Cooperative HEENT: Atraumatic, PERRLA Neck: Supple, No JVD Lungs: Clear to Auscultation, Normal Air Movement, Other (coughing) Heart: Normal S1, Normal S2, Other (murmur and irr irr) Abdomen: Normal Bowel Sounds, Soft Extremities: No Clubbing, No Cyanosis, Other (edema) Skin: No Rashes, Other (left top of foot blister and decubitus coccyx) Psych/Mental Status: Mental Status NL, Mood NL Results Lab Laboratory Tests 05/05/18 04:15: White Blood Count 5.7, Red Blood Count 2.74L, Hemoglobin 8.0L, Hematocrit 25L, Mean Corpuscular Volume 92, Mean Corpuscular Hemoglobin 29, Mean Corpuscular Hemoglobin Concent 32, Red Cell Distribution Width 16.3H, Platelet Count 305, Mean Platelet Volume 10.5H, Neutrophils (%) (Auto) 70, Lymphocytes (%) (Auto) 13 , Monocytes (%) (Auto) 12, Eosinophils (%) (Auto) 4, Basophils (%) (Auto) 1, Neutrophils # (Auto) 4.0, Lymphocytes # (Auto) 0.8L, Monocytes # (Auto) 0.7, Eosinophils # (Auto) 0.2, Basophils # (Auto) 0.0, Prothrombin Time 29.9H, INR Comment 2.8H, Sodium Level 134L, Potassium Level 4.7, Chloride Level 103, Carbon Dioxide Level 21, Anion Gap 10, Blood Urea Nitrogen 34H, Creatinine 1.62H , Estimat Glomerular Filtration Rate 30, BUN/Creatinine Ratio 21, Glucose Level 230H, Calcium Level 8.5, Magnesium Level 2.1, Thyroid Stimulating Hormone (TSH) 5.96H Microbiology 05/02/18 Blood Culture - Preliminary, Resulted Escherichia coli See Comments 05/02/18 MRSA Screen - Final, Complete 05/02/18 Urine Culture - Final, Complete NO GROWTH Assessment/Plan Assessment/Plan Assess & Plan/Chief Complaint Assessment: 1A. Pulmonary edema with respiratory insufficiency needs comfort care (1) Atrial fibrillation with RVR now rate controlled (2) Bacteremia- Meropenem on board and E coli noted on prelim cultures likely ESBL (3) Pneumonia (4) COPD (chronic obstructive pulmonary disease) (5) Hypothyroidism (6) Non-insulin dependent type 2 diabetes mellitus (7) PAD (peripheral artery disease) (8) Aortic valve replaced (9) Supratherapeutic INR (10) Renal insufficiency (11) Urinary tract infectious disease (12) Normocytic anemia 13. Edema Plan: Meropenem empirically PT/OT Speech changed diet Wound care for decubitus ulcer coccyx and left foot blister Severe debility and will return to [place] at [place] Monitor labs and INR Edema management Needs Hospice and comfort care DNR orders placed Diagnosis/Problems Diagnosis/Problems (1) Pneumonia Status: Acute Qualifiers: Qualified Codes: J18.1 - Lobar pneumonia, unspecified organism (2) Urinary tract infectious disease Status: Acute Qualifiers: Qualified Codes: N30.00 - Acute cystitis without hematuria (3) A-fib Status: Chronic Qualifiers: Qualified Codes: I48.2 - Chronic atrial fibrillation (4) DARLENE (acute kidney injury) Status: Acute (5) Infection due to ESBL-producing Escherichia coli Status: Acute (6) Positive blood culture Status: Acute (7) COPD (chronic obstructive pulmonary disease) Status: Chronic Qualifiers: Qualified Codes: J44.0 - Chronic obstructive pulmonary disease with acute lower respiratory infection (8) Bacteremia Status: Acute (9) Hypothyroidism Status: Chronic Qualifiers: Qualified Codes: E03.9 - Hypothyroidism, unspecified (10) Renal insufficiency Status: Acute (11) Normocytic anemia Status: Chronic (12) PAD (peripheral artery disease) Status: Chronic (13) Dysphagia Status: Acute Qualifiers: Qualified Codes: R13.14 - Dysphagia, pharyngoesophageal phase (14) Chronic cough Status: Chronic (15) Edema Status: Chronic Qualifiers: Qualified Codes: R60.1 - Generalized edema (16) Poor prognosis Status: Chronic (17) Atrial fibrillation with RVR Status: Acute (18) Supratherapeutic INR Status: Acute JARROD SPENCE DO May 05, 2018 09:47
--- NOTE | 2018-05-05 09:57 | Diagnostic Imaging Report ---
Indication: Coughing congestion and sepsis. Frontal chest obtained at 3:10 hours a.m. and compared with 05/04/2018. There is poststernotomy change with cardiomegaly. There is central vascular congestion and edema with diffuse bilateral infiltrates, worse in the lung bases. There are unchanged bilateral pleural effusions. Impression: Unchanged cardiomegaly and central vascular congestion and edema with unchanged bibasilar infiltrates and bilateral pleural effusions. Dictated by: Dictated on workstation # [id number]
--- NOTE | 2018-05-05 10:46 | NUR ---
REPORT TAKEN FROM GUILLERMO SALINAS AT THIS TIME.
--- NOTE | 2018-05-05 11:10 | NUR ---
Pastoral care visit, offered prayer and support.
--- NOTE | 2018-05-05 11:38 | NUR ---
PATIENT TO FLOOR A THIS TIME.
--- NOTE | 2018-05-05 11:45 | Physical Therapy Daily Note ---
PT Daily Note-Current Subjective Pt is in bed and family in room. Pt agrees to exercises in bed before pt is transferred to 4th floor. Mental Status Patient Orientation: Person Attachments: Oxygen (3L), Lamas Catheter Transfers Therapy Code Descriptions/Definitions Functional Prosper Measure: 0=Not Assessed/NA 4=Minimal Assistance 1=Total Assistance 5=Supervision or Setup 2=Maximal Assistance 6=Modified Prosper 3=Moderate Assistance 7=Complete Prosper Therapy Quality Codes: 6 Independent with activity with or without an assistive device 5 Patient requires set up or clean up by helper. Patient completes activity by themselves 4 Supervision or touching assist (CGA). [place] provide cues , steadying assist 3 The helper provides less than half the effort to complete the activity 2 The helper provides more than half the effort to complete the activity 1 Dependent. The helper does all the effort to complete an activity 7 Patient refused to complete or attempt activity 9 The patient did not perform the activity before the current illness or injury 88 Not attempted due to Medical conditions or safety concerns Weight Bearing Right Lower Extremity: Right Weight Bearing/Tolerated Left Lower Extremity: Left Weight Bearing/Tolerated Exercises Supine Ex: Ankle pumps, Quad Set, Glut sets, Heel Slides, Hip abd/add Supine Reps: 10 Assessment Current Status: Poor Progress Pt reports that she is still feeling weak, the same as yesterday. Pt required min A with RLE to perform supine LE ex. Pt was PROM with LLE for supine ex. Pt O2 ranged from 78-100% during tx with O2 in place, it dropped due to coughing and took 30 secs to recover. Pt appears less edematous today compared to yesterday. SPT positioned pt into chair mode with the bed. Pt has all needs met with family in room. PT Short Term Goals Short Term Goals Time Frame: May 11, 2018 Transfers (B,C,W/C) (FIM): 3 Gait (FIM): 1 Distance (FIM): 1=up to 49 ft Gait Distance Comment: 10' Gait Level of Assist: 3 Gait Assistive Device: FWW PT Plan Problem List Problem List: Activity Tolerance, Functional Strength, Safety, Balance, Gait, Transfer, Bed Mobility, ROM Treatment/Plan Treatment Plan: Continue Plan of Care Treatment Plan: Bed Mobility, Education, Functional Activity Tawana, Functional Strength, Gait, Safety, Therapeutic Exercise, Transfers Treatment Duration: May 11, 2018 Frequency: 6 times per week Estimated Hrs Per Day: .25 hour per day Patient and/or Family Agrees t: Yes Time/GCodes Time In: 1106 Time Out: 1120 Total Billed Treatment Time: 14 Total Billed Treatment 1 visit EX 14 min MATY LLANES PT May 05, 2018 11:45
--- NOTE | 2018-05-05 11:50 | NUR ---
THIS RN TO BEDSIDE FOR PICC PLACEMENT. LEFT BASILIC VEIN ACCESSED ET CATHETER INSERTED. CXR ORDERED FOR CONFIRMATION OF PLACEMENT. PT COUGHING PERSISTENTLY DURING MY TIME IN THE ROOM WITH HER. PT SITTING UP AT LEAST 45 DEGREES DURING INSERTION. AFTER CATHETER INSERTED, PT REPOSITIONED. PULSE OX 80% ON O2 2L/NC. NURSE ET RT NOTIFIED. O2 UP TO 5L/NC 1250 SAO2 UP TO 95%. WILL AWAIT RESULTS OF XRAY. 1330 PT'S RN REPORTS INCREASING DISTRESS. PICC LINE SHOWS TO BE IN LEFT IJ. PICC LINE PULLED BY RN.
[2018-05-05 12:00] VITALS: BP 117/73
--- NOTE | 2018-05-05 13:25 | Diagnostic Imaging Report ---
Indication: Evaluate PICC line placement. Findings: The left upper extremity PICC line is directed in a cephalad direction into the left internal jugular vein. There is cardiomegaly. There is moderate central pulmonary venous congestion. There are bibasilar infiltrates. There are bilateral pleural effusions. No pneumothorax. Impression: The left upper extremity PICC line is abnormally placed in a cephalad direction up in the left internal jugular vein. Bibasilar trace and bilateral effusions. Cardiomegaly and moderate central pulmonary venous congestion. Dictated by: Dictated on workstation # [id number]
--- NOTE | 2018-05-05 13:31 | Occ Therapy Progress Note ---
Therapy Progress Note Per RT, pt being placed on Vapotherm due to decreased sat levels and difficulty breathing. Pt on hold pm, will check on pt tomorrow. 1320 ROHAN RODRIGUEZ May 05, 2018 13:31
[2018-05-05 13:55] VITALS: BP 117/73
[2018-05-05 14:01] LABS: ABG OXYGEN SATURATION 86 % (94-100); ABG PCO2 31 MMHG (35-45); ABG PH 7.45 (7.37-7.43); ABG PO2 49 MMHG (79-93); ABG TCO2 22.4 MMOL/L (21.0-31.0)
[2018-05-05 14:02] LABS: ALLENS TEST POSITIVE; INSPIRED O2 100% BIPAP; PATIENT TEMP 97.9; VENTILATOR NO
--- NOTE | 2018-05-05 14:15 | NUR ---
Recvd referral from nurse as pt was just made DNR, contacted family and had a a visit as they shared stories, then had family gather around bed and had prayer.
[2018-05-05] MEDS ORDERED: BISACODYL 10 MG SUPP (DULCOLAX) PR PRN (15:45)
[2018-05-05] MEDS ORDERED: PROMETHAZINE INJ 25 MG/ML (PHENERGAN) AMP IVP PRN (15:45)
[2018-05-05] MEDS ORDERED: ONDANSETRON 4 MG/2 ML (SDV) Z0FRAN IVP PRN (15:45)
[2018-05-05] MEDS ORDERED: ARTIFICAL TEARS 0.4 ML UNIT DOSE (REFRESH PLUS) OU PRN (15:45)
[2018-05-05] MEDS ORDERED: SALIVA STIMULANT MOUTH SPRAY (BIOTENE) 1.5 OZ MM PRN (15:45)
[2018-05-05] MEDS ORDERED: LORazepam INJ 2 MG/ML (ATIVAN) VIAL IVP PRN (15:45)
[2018-05-05] MEDS ORDERED: GLYCOPYRROLATE 0.2 MG/ML (ROBINUL) 2 ML VIAL IV PRN (15:45)
[2018-05-05] MEDS ORDERED: ACETAMINOPHEN 650 MG SUPP (TYLENOL) PR PRN (15:45)
[2018-05-05] MEDS ORDERED: RT-ALBUTEROL/IPRATROPIUM 3 ML (DUONEB) VIAL INH PRN (15:45)
[2018-05-05] MEDS: morphine INJ 4 MG/ML 1 ML (VIAL/SYRINGE) IV PRN ×3 (16:00→22:46)
[2018-05-05] MEDS ORDERED: warFARin 2 MG (COUMADIN) TAB PO SCH (18:00)
[2018-05-05] MEDS: TAMSULOSIN 0.4 MG (FLOMAX) CAP PO SCH (18:10)
--- NOTE | 2018-05-05 18:32 | NUR ---
BIPAP REMOVED AT THIS TIME, ALL COMFORT CARE ORDERS IN PLACE AND IMPLEMENTED AT THIS TIME. FAMILY REMAINS AT BEDSIDE OF THIS PATIENT. THIS RN WILL CONT. TO MONITOR THIS PATIENT THROUGHOUT THE REMAINDER OF THIS SHIFT.
--- NOTE | 2018-05-06 08:39 | Discharge Summary-Hospitalist ---
Diagnosis/Chief Complaint Date of Admission May 02, 2018 at 10:50 Date of Discharge May 06, 2018 at 04:00 Admission Diagnosis A-fib RVR, E coli bacteremia Discharge Diagnosis (1) Status: Acute (2) Pneumonia Status: Acute (3) Urinary tract infectious disease Status: Acute (4) A-fib Status: Chronic (5) DARLENE (acute kidney injury) Status: Acute (6) Infection due to ESBL-producing Escherichia coli Status: Acute (7) Positive blood culture Status: Acute (8) COPD (chronic obstructive pulmonary disease) Status: Chronic (9) Bacteremia Status: Acute (10) Hypothyroidism Status: Chronic (11) Renal insufficiency Status: Acute (12) Normocytic anemia Status: Chronic (13) PAD (peripheral artery disease) Status: Chronic (14) Dysphagia Status: Acute (15) Chronic cough Status: Chronic (16) Edema Status: Chronic (17) Poor prognosis Status: Chronic (18) Atrial fibrillation with RVR Status: Acute (19) Supratherapeutic INR Status: Acute Discharge Summary Discharge Physical Exam Allergies: Coded Allergies: codeine (Verified Allergy, Unknown, PT HAS REC MORPHINE WITHOUT PROBLEMS, 12/25/15) cortisone (Verified Allergy, Unknown, 12/25/15) tramadol (Verified Allergy, Unknown, 12/25/15) Vitals & I&Os Vital Signs Date Time Temp Pulse Resp B/P (MAP) Pulse Ox O2 Delivery O2 Flow Rate FiO2 05/05/18 21:44 Room Air 05/05/18 13:55 63 97 100.00 05/05/18 12:00 97.6 28 117/73 (88) 05/02/18 14:07 36 General Appearance: Other () Hospital Course Was the Problem List Reviewed?: Yes Hospital course: This is a very chronically ill lady with multiple hospital stays with profound cardiac problems who presented with UTI with ESBL and acute respiratory failure requiring ICU management with cardiology management. She was found to have elevated INR so anticoagulation was held. Multiple setbacks occurred during hospital stay and her recovery was short-lived because when she moved down to fourth floor she went into respiratory distress rapid response was called and patient was deemed DNR with family in agreement. Overall she never regained any type of recovery after that was placed on comfort care and patient passed peacefully with family at the bedside. Labs (last 24 hrs) Microbiology 05/02/18 Blood Culture - Final, Complete Escherichia coli See Comments 05/02/18 MRSA Screen - Final, Complete 05/02/18 Urine Culture - Final, Complete NO GROWTH Patient resulted labs reviewed. Imaging: Reviewed Imaging Report Discussion & Recommendations Discharge Planning: <30 minutes discharge planning Discharge Home Medications: Active Scripts Active Reported Tylenol (Acetaminophen) 325 Mg Tablet 650 Mg PO Q6H PRN Flomax (Tamsulosin HCl) 0.4 Mg Cap 0.4 Mg PO 1800 Magnesium (Magnesium Oxide) 400 Mg Tablet 400 Mg PO BID 4 Days 4 DAY THERAPY START DATE 04-30-18 Macrobid 100 mg Capsule (Nitrofurantoin Monohyd/M-Cryst) 100 Mg Capsule 100 Mg PO BID 7 Days 7 DAY THERAPY START DATE 05-01-18 Metoprolol Succinate 25 Mg Tab.er.24h 25 Mg PO DAILY Diltiazem 24Hr Cd (Diltiazem HCl) 300 Mg Cap.er.24h 300 Mg PO DAILY Bethanechol Chloride 25 Mg Tablet 25 Mg PO ACHS Iprat-Albut 0.5-3(2.5) mg/3 ml (Ipratropium/Albuterol Sulfate) 3 Ml Ampul.neb 3 Ml NEB Q6H PRN Vitamin C (Ascorbate Calcium) 500 Mg Tablet 500 Mg PO HS Nasacort (Triamcinolone Acetonide) 10.8 Ml [place] 1 [place] NS DAILY Sarah Allergy (Fexofenadine HCl) 180 Mg Tablet 180 Mg PO DAILY Colace (Docusate Sodium) 100 Mg Capsule 100 Mg PO DAILY Azo Cranberry Softgel (Cranberry Extract/Vit C) 1 Each Capsule 3 Cap PO BID Warfarin Sodium 6 Mg Tablet 6 Mg PO MOTUWETHFRSA@1800 Buspirone HCl 5 Mg Tablet 5 Mg PO DAILY Warfarin Sodium 6 Mg Tablet 3 Mg PO DIAZ@1800 TAKES 1/2 (3MG) TABLET Systane Gel Eye Drops (Propylene Glycol/Peg 400) 10 Ml Drops.gel 1 Drop OD Q5H PRN Potassium Chloride 10 Meq Tablet.er 10 Meq PO DAILY Vitamin D-3 (Cholecalciferol (Vitamin D3)) 2,000 Unit Capsule 2,000 Unit PO DAILY Ventolin Hfa (Albuterol Sulfate) 18 Gm Hfa.aer.ad 2 Puff INH Q4H PRN Nitroglycerin 0.4 Mg Tab.subl 0.4 Mg SL UD PRN Aspirin EC (Aspirin) 81 Mg Tablet.dr 81 Mg PO DAILY Budesonide 0.5 Mg/2 Ml Ampul.neb 0.5 Mg NEB BID Atorvastatin Calcium 20 Mg Tablet 20 Mg PO HS Allopurinol 100 Mg Tablet 100 Mg PO BID Enalapril Maleate 10 Mg Tablet 10 Mg PO DAILY Glimepiride 4 Mg Tablet 4 Mg PO DAILY Furosemide 40 Mg Tablet 60 Mg PO DAILY TAKES 1 & 1/2 (40MG) TABLET Omeprazole 40 Mg Capsule.dr 40 Mg PO DAILY Levothyroxine Sodium 25 Mcg Tablet 25 Mcg PO DAILY Instructions to patient/family Please see electronic discharge instructions given to patient. Problem Qualifiers (1) Pneumonia: Pneumonia type: due to unspecified organism Laterality: bilateral Lung location: lower lobe of lung Qualified Codes: J18.1 - Lobar pneumonia, unspecified organism (2) Urinary tract infectious disease: Urinary tract infection type: acute cystitis Hematuria presence: without hematuria Qualified Codes: N30.00 - Acute cystitis without hematuria (3) A-fib: Atrial fibrillation type: chronic Qualified Codes: I48.2 - Chronic atrial fibrillation (4) COPD (chronic obstructive pulmonary disease): COPD type: COPD with acute lower respiratory infection Qualified Codes: J44.0 - Chronic obstructive pulmonary disease with acute lower respiratory infection (5) Hypothyroidism: Hypothyroidism type: unspecified Qualified Codes: E03.9 - Hypothyroidism, unspecified (6) Dysphagia: Dysphagia type: pharyngoesophageal phase Qualified Codes: R13.14 - Dysphagia , pharyngoesophageal phase (7) Edema: Edema type: generalized Qualified Codes: R60.1 - Generalized edema JARROD SPENCE DO May 06, 2018 08:38
--- NOTE | 2018-05-08 13:50 | Physician Query Clarification ---
PQ-Conflicting Diagnosis Admission/Discharge Admission Date: May 02, 2018 at 10:50 Discharge Date: May 06, 2018 at 04:00 The medical record reflects the following clinical scenario: History/Risk Factors: +blood culture e coli, Pneumonia d/t e coli, Acute respiratory failure, chronic Atrial Fibrillation, UTI Clinical Findings: +blood culure e. coli Treatment: IV Meropenem Question: Do you agree with the impression of the Septicemia per Dr. Estrella. Please document a response below. PHYSICIAN RESPONSE Do you agree w/Consulting Dx?: Yes In responding to this query, please exercise your independent professional judgment. The purpose of this communication is to more accurately reflect the complexity of your patients condition. The fact that a question is asked does not imply that any particular answer is desired or expected. Thank you for your timely response to this clarification. Requestors name: Elvia THIS PHYSICIAN QUERY FORM IS A PERMANENT PART OF THE MEDICAL RECORD ELVIA TRIANA May 08, 2018 13:50 JARROD SPENCE DO May 08, 2018 15:09
== END 2018-05-06 04:00 | disposition expired | DRG 871 ==
LOC: EDUNIT# 09:08 → ER 09:09 → 4TH 10:50 → ICU 11:45 → 4TH 05-05 11:35
PROVIDERS: ADMIT Family Medicine; ATTEND Family Medicine
DX: A41.51 Sepsis due to Escherichia coli [E. coli] (principal); N30.00 Acute cystitis without hematuria; J96.00 Acute respiratory failure, unspecified whether with hypoxia or hypercapnia; J15.5 Pneumonia due to Escherichia coli; I48.2 Chronic atrial fibrillation; I13.0 Hypertensive heart and chronic kidney disease with heart failure and stage 1 through stage 4 chronic kidney disease, or unspecified chronic kidney disease; I50.32 Chronic diastolic (congestive) heart failure; Z66 Do not resuscitate; Z51.5 Encounter for palliative care; N18.3 Chronic kidney disease, stage 3 (moderate); J44.0 Chronic obstructive pulmonary disease with (acute) lower respiratory infection; N17.9 Acute kidney failure, unspecified; I34.0 Nonrheumatic mitral (valve) insufficiency; D64.9 Anemia, unspecified; I70.213 Atherosclerosis of native arteries of extremities with intermittent claudication, bilateral legs; G47.33 Obstructive sleep apnea (adult) (pediatric); E03.9 Hypothyroidism, unspecified; K21.9 Gastro-esophageal reflux disease without esophagitis; I65.23 Occlusion and stenosis of bilateral carotid arteries; M19.91 Primary osteoarthritis, unspecified site; E78.00 Pure hypercholesterolemia, unspecified; I70.92 Chronic total occlusion of artery of the extremities; E11.621 Type 2 diabetes mellitus with foot ulcer; L97.529 Non-pressure chronic ulcer of other part of left foot with unspecified severity; L97.519 Non-pressure chronic ulcer of other part of right foot with unspecified severity; L89.152 Pressure ulcer of sacral region, stage 2; Z87.891 Personal history of nicotine dependence; Z16.12 Extended spectrum beta lactamase (ESBL) resistance; Z95.2 Presence of prosthetic heart valve; Z79.84 Long term (current) use of oral hypoglycemic drugs
CPT/HCPCS: 36415; 36600; 51702; 71045; 80048; 80053; 81000; 82728; 82805; 82962; 83540; 83605; 83735; 83880; 84443; 85025; 85610; 86850; 86900; 86901; 87040; 87077; 87081; 87088; 94640; 94660; 94760; 96361; 96365; 96366; 96367; 96375